=== PATIENT | female | born 1935 | race Caucasian/White ===

== ENCOUNTER → 2016-12-23 | Outpatient (CLI) | payer OTHER ==
--- NOTE | 2016-12-23 07:52 | DIAGNOSTIC IMAGING REPORT ---
ABDOMEN LIMITED (US) CLINICAL HISTORY: 81 years-old Female presenting with PAIN IN RIB, L FLANK PAIN. TECHNIQUE: Real-time grayscale and limited color Doppler ultrasound imaging of the abdomen limited to the right upper quadrant was performed. COMPARISON: None. FINDINGS: Pancreas: Visualized portions of the pancreatic head and body normal. Mild prominence of the pancreatic duct measuring 3 mm in diameter in the body. Liver: Mildly hyperechogenic parenchyma, although the right hemidiaphragm remains visible, likely indicating mild steatosis. Main portal vein patent with normal directional flow. Biliary: No intrahepatic biliary ductal dilatation. The most likely candidate for the common bile duct measures 3 mm in caliber. Gallbladder: Distended and containing large amount of gallstones. No significant gallbladder wall thickening. Right kidney: Normal in echogenicity. Mild pelviectasis. Ascites: None. IMPRESSION: 1. Cholelithiasis with apparent gallbladder distention. There is clinical concern for cholecystitis, nuclear medicine hepatobiliary scan could be obtained as ultrasound findings are equivocal. 2. Mild pancreatic ductal dilatation without clear etiology. Electronically signed by: Chapo Lucas M.D. 12/23/2016 7:50 AM Dictated Date/Time: 12/23/2016 7:45 AM
--- NOTE | 2016-12-23 08:54 | DIAGNOSTIC IMAGING REPORT ---
RIGHT RIBS UNILATERAL MIN 2 VIEWS HISTORY: 81 years-old Female acute right-sided rib pain. COMPARISON: None available TECHNIQUE: Frontal view of the chest with 4 views of the right ribs FINDINGS: Cardiac silhouette is upper limits of normal. There is atherosclerosis of the aorta. Surgical clips are seen along the right axillary region. No pneumothorax, pleural effusion, focal airspace consolidation or overt pulmonary edema. There is convex left curvature of the lumbar spine. Moderate right shoulder degenerative changes are present. There is mild cortical buckling of the lateral right ninth rib. IMPRESSION: 1. No acute cardiopulmonary process. 2. No acute displaced rib fracture identified. 3. Minimal cortical buckling of the lateral aspect of the lateral right ninth rib suggests acute nondisplaced fracture. The above report was generated using voice recognition software. It may contain grammatical, syntax or spelling errors. Electronically signed by: Stephane Levy M.D. 12/23/2016 8:53 AM Dictated Date/Time: 12/23/2016 8:47 AM
== END | disposition home or self-care (01) ==
LOC: C.ULTRBC 07:10
PROVIDERS: ATTEND Nurse Practitioner
DX: R07.81 Pleurodynia (principal); R10.9 Unspecified abdominal pain

== ENCOUNTER 2017-04-13 06:32 | Observation (INO) | payer OTHER ==
[2017-03-28 08:19] VITALS: BMI 27.0
--- NOTE | 2017-03-28 08:33 | PAT Medication Instructions ---
Service Date Mar 28, 2017. Current Home Medication List Anastrozole (Anastrozole), 1 TAB PO QAM Calcium/Vitamin D (Os-Jamal 500 Plus D), 1 TAB PO BID Cholecalciferol (Vitamin D), 1 TAB PO M,W,F, Fiber Laxative (Fiber Laxative), 1 TAB PO QAM Levothyroxine Sodium (Levothyroxine Sodium), 0.5 TAB PO QAM Multivitamin (Multivitamin), 1 TAB PO QAM Ocuvite Preservision (Ocuvite Preservision), 1 TAB PO BID Vitamin E (Vitamin E 400 Iu), 400 INTER.UNIT PO M,W,F Medication Instructions For Your Scheduled Surgery - Hold the following medications 2 weeks prior to surgery: Vitamin E (Vitamin E 400 Iu), 400 INTER.UNIT PO ,W,F - Hold the following medications the morning of surgery: Ocuvite Preservision (Ocuvite Preservision), 1 TAB PO BID Multivitamin (Multivitamin), 1 TAB PO QAM Fiber Laxative (Fiber Laxative), 1 TAB PO QAM Calcium/Vitamin D (Os-Jamal 500 Plus D), 1 TAB PO BID Cholecalciferol (Vitamin D), 1 TAB PO M,W,F, - Take the following medications the morning of surgery with a sip of water: Levothyroxine Sodium (Levothyroxine Sodium), 0.5 TAB PO QAM Anastrozole (Anastrozole), 1 TAB PO QAM - Take the following medications as scheduled the night before surgery: Ocuvite Preservision (Ocuvite Preservision), 1 TAB PO BID Calcium/Vitamin D (Os-Jamal 500 Plus D), 1 TAB PO BID If you have any questions please call us at [phone] or [phone] or [phone]
[2017-03-28 09:13] LABS: BASO % 0.3 %; BASO ABS # 0.01 K/uL (0-0.2); COMPLETE YES; EOS % 1.8 %; HEMATOCRIT 34.8 % (37-47); LYMPH % 37.5 %; LYMPH ABS # 1.25 K/uL (1.2-3.4); MEAN CORPUSCULAR HEMOGLOBIN 31.3 pg (25-34); MEAN CORPUSCULAR HGB CONC 35.9 g/dl (32-36); MONO % 8.1 %; NEUT % 52.3 %; PLATELET COUNT 189 K/uL (130-400); WHITE BLOOD COUNT 3.33 K/uL (4.8-10.8)
--- NOTE | 2017-03-28 09:25 | DIAGNOSTIC IMAGING REPORT ---
CHEST 2 VIEWS ROUTINE CLINICAL HISTORY: Preoperative chest COMPARISON STUDY: 12/23/2016 FINDINGS: The cardiac and mediastinal contours are normal. There is no evidence of focal pulmonary consolidation. There is no evidence of failure. No pleural effusions are visualized.[ There are surgical clips the right axillary region. IMPRESSION: No active disease in the chest. Electronically signed by: Arnoldo Vaughn M.D. 03/28/2017 9:24 AM Dictated Date/Time: 03/28/2017 9:22 AM
[2017-03-28 11:54] LABS: BUN/CREATININE RATIO 21.2 (10-20); CALCIUM 8.8 mg/dl (8.5-10.1); CREATININE 0.91 mg/dl (0.60-1.20); POTASSIUM 4.4 mmol/L (3.5-5.1)
[~2017-04-13] VITALS: Ht 160 cm; Wt 72.3 kg
[2017-04-13] VITALS (10 sets, daily range): BP systolic 133–153; BP diastolic 70–83; PULSE 75–133; TEMP 36.5–37; O2SAT 93–100; Ht 160 cm; Wt 72.3 kg
[~2017-04-13 06:32] MED LIST: ANAS1TAB6 PO; CALC500C70 PO; CHOL20009 PO; FIBER PO; LACTATED RINGER'S 1000ML 1,000 ML IV SCH; LEVO150T9 PO; MULT-190 PO; MULT-506 PO; VITA400C3 PO
--- NOTE | 2017-04-13 07:57 | History & Physical Bridge Note ---
H&P Re-Evaluation Bridge Note: I have examined the patient, reviewed the History & Physical and in the interval since the performance of the History & Physical I have noted the following changes of clinical significance: No changes noted at bedside , all questions answered
[2017-04-13] MEDS ORDERED: ATROPINE SULFATE 0.1 MG/ML 5ML SYR IV PRN (08:00)
[2017-04-13] MEDS ORDERED: ONDANSETRON INJ 2 MG/ML 2 ML VIAL IV PRN ×2 (08:00→10:15)
[2017-04-13] MEDS ORDERED: FENTANYL CITRATE INJ 50 MCG/1 ML 2 ML VIAL IV PRN (08:00)
[2017-04-13] MEDS ORDERED: EpHEDrine SULFATE INJ 50 MG/ML AMP IV PRN (08:00)
[2017-04-13] MEDS ORDERED: FENTANYL CITRATE INJ 50 MCG/1 ML 2 ML VIAL ONE ×3 (08:01→09:58)
[2017-04-13] MEDS ORDERED: CONRAY 60% 50 ML VIAL ONE (08:03)
[2017-04-13] MEDS ORDERED: LIDOCAINE/EPINEPHRINE 1% 20 ML VIAL ONE (08:03)
[2017-04-13] MEDS ORDERED: OXYC-57 PO (08:06)
--- NOTE | 2017-04-13 08:08 | Discharge Instructions ---
Discharge Instructions Date of Service Apr 13, 2017. Visit Reason for Visit: Cholelithiaisis Discharge Discharge Diagnosis / Problem: laparoscopic cholecystectomy Discharge Goals Goal(s): Decrease discomfort Activity Recommendations Activity Limitations: as noted below Lifting Limitations: no more than 10 pounds Shower/Bathe: tomorrow Driving or Machine Use: 1 week Anesthesia . Post Anesthesia Instructions: If you have had General Anesthesia or IV Sedation: * Do not drive today. * Resume driving when surgeon permits. * Do not make important decisions or sign legal documents today. * Call surgeon for: 1. Temperature elevations greater than 101 degrees F. 2. Uncontrollable pain. 3. Excessive bleeding. 4. Persistent nausea and vomiting. 5. Medication intolerance (nausea, vomiting or rash). * For nausea and vomiting use only clear liquids such as: tea, soda, bouillon until nausea subsides, then gradually increase diet as tolerated. * If you have any concerns or questions, call your surgeon's office. If physician is unavailable and it is an emergency, call 911 or go to the nearest emergency room. . Instructions / Follow-Up Instructions / Follow-Up Dr. Rangel in 1 week, call [phone] if you do not already have an appt or have any questions Diet Recommendations Recommended Home Diet: no limitations Pending Studies Studies pending at discharge: no Medical Emergencies . Who to Call and When: Medical Emergencies: If at any time you feel your situation is an emergency, please call 911 immediately. . Non-Emergent Contact Non-Emergency issues call your: Surgeon Call Non-Emergent contact if: you have a fever, temperature is above 101.5, your pain is not controlled, you have any medication questions . . "Provider Documentation" section prepared by Filippo Zuniga. . [place] Drug Monitoring Program Search Results: no issues identified
[2017-04-13] MEDS ORDERED: LIDOCAINE HCL 2% 2 ML VIAL (20MG/ML) ONE (08:41)
[2017-04-13] MEDS ORDERED: PROPOFOL IV EMULSION 10 MG/ML 20 ML VIAL IV ONE (08:41)
[2017-04-13] MEDS ORDERED: ONDANSETRON INJ 2 MG/ML 2 ML VIAL ONE (08:51)
[2017-04-13] MEDS ORDERED: DEXAMETHASONE SOD INJ 4 MG/ML VIAL ONE (08:51)
[2017-04-13] MEDS ORDERED: NEOSTIGMINE METHYLSULFATE 5 MG/5 ML SYR ONE (08:51)
[2017-04-13] MEDS ORDERED: PHENYLEPHRINE 100MCG/ML 5ML SYR ONE (08:51)
[2017-04-13] MEDS ORDERED: GLYCOPYRROLATE INJ 0.2 MG/ML VIAL ONE (08:51)
--- NOTE | 2017-04-13 09:40 | DIAGNOSTIC IMAGING REPORT ---
INTRAOPERATIVE CHOLANGIOGRAM HISTORY: Post cholecystectomy. FLUOROSCOPY TIME: 6 seconds. 3 fluoroscopic spot images. FINDINGS: Fluoroscopy was provided for an intraoperative cholangiogram status post cholecystectomy. Contrast was injected through the cystic duct remnant. Persistent filling defect seen within the proximal common bile duct. However, there is contrast within the distal common bile duct which extend into the small bowel. There is mild to moderate intrahepatic bile duct dilatation. Mild narrowing of the bifurcation of the extra hepatic ducts which could be transient. IMPRESSION: Fluoroscopy provided for an intraoperative cholangiogram status post cholecystectomy. Persistent filling defect within the proximal common bile duct which does not have a stone likely appearance and could be due to a gas bubble. In addition, there is mild narrowing at the bifurcation of the extrahepatic ducts with mild to moderate intrahepatic bile duct dilatation. However, this is not confirmed on all images and could be transient. MRCP could be performed for further evaluation of these abnormalities. Electronically signed by: Nilson Ayala M.D. 04/13/2017 9:39 AM Dictated Date/Time: 04/13/2017 9:30 AM
[2017-04-13] MEDS ORDERED: OXYCODONE/ACETAMINOPHEN 5-325 TAB PO PRN (10:15)
[2017-04-13] MEDS ORDERED: MoRPHine SULFATE 2 MG/ML CARP IV PRN ×2 (10:15)
[2017-04-13] MEDS ORDERED: MoRPHine SULFATE 4 MG/ML 1 ML CARP\\VIAL IV PRN (10:15)
--- NOTE | 2017-04-13 10:16 | [facility] Operative Report ---
Operative Report Operative Date Apr 13, 2017. Pre-Operative Diagnosis Symptomatic Cholelithiasis Post-Operative Diagnosis Same as preoperative Procedure(s) Performed Laparoscopic Cholecystectomy with Cholangiogram Surgeon Dr. Fernie Rangel [employer] Restorer Surgeon(s) Filippo Zuniga PA-C; German Minor PA-C Estimated Blood Loss 100ml Findings large gallbladder completely filled with bilirubinate stones(caviar) Specimens PERMANENT: A.) Gallbladder and contents CULTURE: 1.) Gallbladder contents Drains 19 Garret per stab Description of Procedure OR summary dictated #[id number] I attest to the content of the Intraoperative Record and any orders documented therein. Any exceptions are noted below.
[2017-04-13] MEDS ORDERED: CIPR1TAB10 PO (10:17)
[2017-04-13] MEDS ORDERED: HYDROmorphone INJ 1 MG/ML SYR ONE (10:20)
--- NOTE | 2017-04-13 10:20 | Discharge Instructions ---
Discharge Instructions Date of Service Apr 13, 2017. Admission Reason for Admission: Cholelithiaisis Discharge Discharge Diagnosis / Problem: laparoscopic cholecystectomy Discharge Goals Goal(s): Decrease discomfort Activity Recommendations Activity Limitations: as noted below Lifting Limitations: no more than 10 pounds Shower/Bathe: no limitations Driving or Machine Use: 1 week . Instructions / Follow-Up Instructions / Follow-Up Dr. Rangel's office next Mon or if you still have the drain, call [phone] to schedule, if drain has been removed follow-up in 1-2 weeks as planned Current Hospital Diet Patient's current hospital diet: Discharge Diet Recommended Diet: Regular Diet Procedures Procedures Performed: Laparoscopic Cholecystectomy with Cholangiogram Pending Studies Studies pending at discharge: no Medical Emergencies . Who to Call and When: Medical Emergencies: If at any time you feel your situation is an emergency, please call 911 immediately. . Non-Emergent Contact Non-Emergency issues call your: Surgeon Call Non-Emergent contact if: you have a fever, temperature is above 101.5, your pain is not controlled, you have any medication questions . "Provider Documentation" section prepared by Filippo Zuniga. . VTE Core Measure Inpt VTE Proph given/why not?: SCD's [place] Drug Monitoring Program Search Results: no issues identified
[2017-04-13] MEDS: HYDROmorphone INJ 1 MG/ML SYR IV PRN ×2 (10:54→12:01)
--- NOTE | 2017-04-13 10:55 | DIAGNOSTIC IMAGING REPORT ---
CHEST ONE VIEW PORTABLE CLINICAL HISTORY: C/O SOB dyspnea COMPARISON STUDY: 03/28/2017 FINDINGS: Diminished as per volumes compared to the prior study. Chronic elevation right hemidiaphragm. Lungs are considered clear. Mild stable cardiomegaly. IMPRESSION: Mild stable cardiomegaly. Otherwise negative study within limitations of poor inspiratory volumes The above report was generated using voice recognition software. It may contain grammatical, syntax or spelling errors. Electronically signed by: Thaddeus Harman M.D. 04/13/2017 10:53 AM Dictated Date/Time: 04/13/2017 10:52 AM
[2017-04-13] MEDS ORDERED: IV FLUIDS COMPLETED PRN ×2 (11:00→11:45)
--- NOTE | 2017-04-13 11:14 | Anesthesiology Progress Note ---
Anesthesia Post Op Note Date & Time Apr 13, 2017 at 11:12 Vital Signs Pain Intensity: 4 Vital Signs Past 12 Hours Date Time Temp Pulse Resp B/P (MAP) Pulse Ox O2 Delivery O2 Flow Rate FiO2 04/13/17 11:08 84 16 98 04/13/17 11:08 76 16 04/13/17 11:06 166/82 04/13/17 11:03 83 13 04/13/17 11:03 81 13 100 04/13/17 11:01 150/94 04/13/17 10:58 85 16 100 04/13/17 10:58 82 16 04/13/17 10:57 83 19 04/13/17 10:57 86 19 100 04/13/17 10:56 155/85 04/13/17 10:52 83 17 04/13/17 10:52 87 17 100 04/13/17 10:51 143/61 04/13/17 10:47 86 21 88 04/13/17 10:47 87 21 04/13/17 10:46 162/88 04/13/17 10:42 86 30 04/13/17 10:42 99 30 100 04/13/17 10:41 175/90 04/13/17 10:37 94 19 04/13/17 10:37 96 19 100 04/13/17 10:36 156/85 04/13/17 10:32 95 19 91 04/13/17 10:32 101 19 04/13/17 10:30 172/80 04/13/17 10:27 96 19 100 04/13/17 10:27 92 19 04/13/17 10:26 181/77 04/13/17 10:22 104 23 100 04/13/17 10:22 102 23 04/13/17 10:21 172/95 04/13/17 10:18 170/95 04/13/17 10:17 103 18 100 04/13/17 10:17 101 18 04/13/17 10:13 176/77 04/13/17 10:12 36.7 112 12 176/72 97 Oxymask 10 04/13/17 10:12 112 16 04/13/17 10:12 112 16 100 04/13/17 07:15 36.7 75 20 153/73 (99) 98 Room Air Notes Mental Status: alert / awake / arousable, participated in evaluation Pt Amnestic to Procedure: Yes Nausea / Vomiting: adequately controlled Pain: adequately controlled Airway Patency, RR, SpO2: stable & adequate BP & HR: stable & adequate Hydration State: stable & adequate Anesthetic Complications: no major complications apparent Anesthetic Complications: Multiple runs of sinus tach with rate in the 130s and frequent PVCs in PACU. Most recent event occurred despite adequate pain control. Patient hemodynamically stable throughout and asymptomatic during these events. Chest xray clear. Plan to change status to tele obs overnight due to these events in combination with the patients age. Otherwise stable to transfer from PACU.
[2017-04-13] MEDS ORDERED: METOPROLOL TARTRATE 1 MG/ML VIAL ONE (12:16)
--- NOTE | 2017-04-13 12:35 | OPERATIVE REPORT ---
DATE OF OPERATION: 04/13/2017 PREOPERATIVE DIAGNOSIS: Chronic cholecystitis, cholelithiasis. POSTOPERATIVE DIAGNOSIS: Same (large gallbladder completely filled with bilirubinate stones, multiple small (caviar)). PROCEDURE: Laparoscopic cholecystectomy, intraoperative cholangiogram. SURGEON: Dr. Rangel. TICKER MAINTAINER: Vargas Zuniga PA-C and German Altman PA-C. SUMMARY: The patient was brought into the operating room theater. The abdomen was prepped with Betadine solution and properly draped. We made a small incision supraumbilically sufficient enough to place a Veress needle followed by 5 mm trocar. Point of entry inspected and no injury identified. Under direct visualization, we placed a 5 mm epigastric port under direct visualization and two 3 mm subcostal ports. These were preemptive local analgesia. The gallbladder was identified. It was quite large, long. We placed it under traction. Adhesions to the gallbladder were taken down. The patient had a significant amount of adhesions duodenum to the gallbladder undersurface. These were mostly fine adhesions. Some of them were taken down by sharp or blunt dissection. On the lateral aspect of the gallbladder towards the wall the liver the capsule was very thinned out over the gallbladder from the liver, as we tied cut this out, there was some bleeding from the liver appreciated surface. We eventually put some Surgicel into that area. Then we continued our dissection down towards the neck of the gallbladder where as stated it was quite tense a long gallbladder. We were able to identify what appeared to be a very large artery coming anteriorly and a very large common bile duct that was strictly adherent to the gallbladder neck. We dissected out until we were able to identify it, well delineated the cystic duct. We clipped it proximally. A #4 urethral catheter was positioned in the cystic duct for cholangiogram. What we saw initially was common bile duct was dilated. There were no obvious filling defects. Then serial x-rays were taken which showed contrast into the duodenum , but no evidence of any obstruction, but the common bile duct was dilated. At this point we then removed the cholangiocath and secured the cystic duct with 2 clips. We then dissected out this large artery, it was probably was the right hepatic. We were able to identify 2 branches coming off into the gallbladder that we clipped separately. We tried to leave as much of the gallbladder as possible as far as the posterior surface on the liver, it was pretty much intrahepatic to some aspect, we left as much as possible. We did have some oozing from the gallbladder fossa. The gallbladder was then taken out through the epigastric port. We enlarged this, we placed it in an Endopouch, but due to the significant size and the complete filled with stones. We did have some stones spill out on the surface of the gallbladder as we were taking it out and some of it was on top of the liver. We were able then to clean and meticulously take out as much of the stone which was small bilirubinate stones. Once this had been performed, we checked the liver bed again, the bleeding was minimal, but we did place some Surgicel intrahepatically and then I elected to drain the area with 19 Garret drain, placed subhepatically and taken out lateral to his right flank. We attached that to the skin edges with 2-0 silk suture. After this had been completed, we placed a camera in the epigastric port to visualize the umbilical opening. There were no adhesions there appreciated. Individual trocars removed, last umbilical trocar. Wounds were closed with fascial stitch of 0 Vicryl for the epigastric area, the other ones were Monocryl. Steri-Strips applied. The procedure was tolerated well. Estimated blood loss approximately 100 mL. The patient was taken to recovery room in good condition. Discussed in detail the procedure with her in the postoperative area and we would keep the patient overnight. I attest to the content of the Intraoperative Record and any orders documented therein. Any exceptions are noted below. KRISTOPHER
[2017-04-13] MEDS ORDERED: NURSING VERBAL MED ORDER ONE (13:00)
[2017-04-13] MEDS ORDERED: LACTATED RINGER'S 1000ML 1,000 ML IV SCH (14:30)
[2017-04-13] MEDS: OXYCODONE/ACETAMINOPHEN 5-325 TAB PO PRN ×2 (15:48→20:24)
--- NOTE | 2017-04-13 16:00 | Cardiology Consultation ---
Cardiology Consultation Date of Consultation: Apr 13, 2017. Requesting Physician: Dr. Noonan Reason for Consultation: Tachycardia Pt evaluation today including: conversation w/ patient, conversation w/ family , physical exam, lab review, review of studies, review of inpatient medication list History of Present Illness This is a very pleasant 81-year-old woman who has a history of a heart murmur and an echocardiogram this summer which did not show anything significant according to her history. Other than that she has no cardiovascular history other than feeling an irregular heartbeat at times for which she had several Holter monitors with no diagnosis that she is aware of. She has never had a sustained high heart rate that she is aware of. She has not had chest discomfort. She underwent laparoscopic cholecystectomy is noted to have a tachycardia at about 130 bpm. His was paroxysmal and documented on telemetry as well as 12- lead electrocardiography. She was aware of the arrhythmia when she had it, was not terribly bothered by it and feels that she has not had it before. Past Medical/Surgical History (1) Cholelithiasis Social History Smoking Status: Smoker Current Status UNK History of Alcohol Use: No Review of Systems Constitutional: No fever, No weight loss, No weakness Respiratory: No cough, No wheezing, No shortness of breath, No dyspnea on exertion Cardiac: + palpitations, No chest pain, No orthopnea, No PND, No edema Abdomen: + see HPI, + pain, No nausea, No vomiting, No diarrhea, No GI bleeding Female : No problem reported Neurologic: No paralysis, No weakness, No numbness/tingling, No balance problems Heme: No abnormal bleeding/bruising, No clotting problems Endo: No fatigue Skin: No problem reported All Other Systems: Reviewed and Negative Allergies Coded Allergies: Latex1 -Allergic Contact Dermititis (Verified Allergy, Mild, RASH ITCHY, 03/28/17) Sulfamethoxazole w/Trimethoprim (Verified Allergy, Mild, HIVES, 03/28/17) Medications Current Inpatient Medications Medications (Trade) Dose Ordered Sig/Mitzy Route Start Time Stop Time Status Last Admin Dose Admin Lactated Ringer's 1,000 ml @ 15 mls/hr Q24H IV 04/13/17 06:00 04/14/17 05:59 04/13/17 07:24 15 MLS/HR Lactated Ringer's 1,000 ml @ 75 mls/hr [id number] IV 04/13/17 14:30 05/13/17 10:13 04/13/17 15:48 75 MLS/HR Ondansetron HCl (Zofran Inj) 4 mg Q4H PRN IV 04/13/17 10:15 05/13/17 10:14 Morphine Sulfate (MoRPHine SULFATE INJ) 1 mg Q1H PRN IV 04/13/17 10:15 04/27/17 10:14 Oxycodone/ Acetaminophen (Percocet 5-325mg Tab) 1 tab Q4H PRN PO 04/13/17 10:15 04/27/17 10:14 04/13/17 15:48 1 TAB Morphine Sulfate (MoRPHine SULFATE INJ) 2 mg Q1H PRN IV 04/13/17 10:15 04/27/17 10:14 Oxycodone/ Acetaminophen (Percocet 5-325mg Tab) 2 tab Q4H PRN PO 04/13/17 10:15 04/27/17 10:14 Morphine Sulfate (MoRPHine SULFATE INJ) 4 mg Q1H PRN IV 04/13/17 10:15 04/27/17 10:14 Anastrozole (Arimidex Tab) 1 mg QAM PO 04/14/17 09:00 05/14/17 08:59 Calcium/Vitamin D (Caltrate Plus Tab) 1 tab BID PO 04/13/17 21:00 05/13/17 20:59 Levothyroxine Sodium (Synthroid Tab) 75 mcg DAILYBB PO 04/14/17 06:00 05/14/17 06:59 Multivitamins (Multivitamin Tab) 1 tab QAM PO 04/14/17 09:00 05/14/17 08:59 Ciprofloxacin/ Dextrose 400 mg/ Prmx 200 ml @ 100 mls/hr Q12 IV 04/13/17 21:00 04/14/17 20:59 Miscellaneous (Iv Fluids Completed) 1 ea PRN PRN N/A 04/13/17 11:00 04/13/18 10:59 Miscellaneous (Iv Fluids Completed) 1 ea PRN PRN N/A 04/13/17 11:45 04/13/18 11:44 Multivitamins/ Minerals (Multivitamin W/ Minerals Tab) 1 tab DAILY PO 04/14/17 09:00 05/14/17 08:59 Physical Exam Vital Signs Past 12 Hours Date Time Temp Pulse Resp B/P (MAP) Pulse Ox O2 Delivery O2 Flow Rate FiO2 04/13/17 13:55 36.5 133 18 137/83 (101) 93 Nasal Cannula 2.0 04/13/17 13:37 98 19 04/13/17 13:37 99 19 100 04/13/17 13:32 93 17 98 04/13/17 13:32 89 17 04/13/17 13:31 126/60 04/13/17 13:27 84 5 04/13/17 13:27 82 5 98 04/13/17 13:22 92 27 99 04/13/17 13:22 95 27 04/13/17 13:17 36.9 04/13/17 13:17 98 14 04/13/17 13:17 94 14 98 04/13/17 13:16 142/71 04/13/17 13:15 91 16 04/13/17 13:15 88 16 98 04/13/17 13:10 96 16 04/13/17 13:10 94 16 99 04/13/17 13:05 94 22 04/13/17 13:05 92 22 97 04/13/17 13:04 138 30 04/13/17 13:04 136 30 98 04/13/17 13:01 121/71 04/13/17 12:59 138 13 99 04/13/17 12:59 138 13 04/13/17 12:54 92 9 98 04/13/17 12:54 92 9 04/13/17 12:49 88 24 99 04/13/17 12:49 91 24 04/13/17 12:48 92 16 04/13/17 12:48 95 16 97 04/13/17 12:46 127/73 04/13/17 12:43 89 15 04/13/17 12:43 89 15 99 04/13/17 12:41 143/67 04/13/17 12:38 91 13 04/13/17 12:38 92 13 99 04/13/17 12:37 95 17 100 04/13/17 12:37 98 17 04/13/17 12:36 144/67 04/13/17 12:32 93 15 04/13/17 12:32 92 15 100 04/13/17 12:31 140/78 04/13/17 12:27 93 16 100 04/13/17 12:27 95 16 04/13/17 12:26 146/73 04/13/17 12:22 96 17 04/13/17 12:22 99 17 98 04/13/17 12:21 120/56 04/13/17 12:17 99 25 04/13/17 12:17 105 25 100 04/13/17 12:16 118/82 04/13/17 12:12 141 13 99 04/13/17 12:12 138 13 04/13/17 12:11 131/66 04/13/17 12:07 88 14 100 04/13/17 12:07 90 14 04/13/17 12:06 139/75 04/13/17 12:02 91 18 100 04/13/17 12:02 95 18 04/13/17 12:01 149/74 04/13/17 11:57 81 15 100 04/13/17 11:57 82 15 04/13/17 11:56 136/78 04/13/17 11:52 87 12 04/13/17 11:52 89 12 99 04/13/17 11:51 124/71 04/13/17 11:47 87 16 04/13/17 11:47 85 16 99 04/13/17 11:42 94 15 04/13/17 11:42 94 15 99 04/13/17 11:41 145/86 04/13/17 11:37 89 21 04/13/17 11:37 93 21 100 04/13/17 11:36 154/80 04/13/17 11:32 86 20 99 04/13/17 11:32 88 20 04/13/17 11:31 155/87 04/13/17 11:30 93 18 04/13/17 11:30 100 18 99 04/13/17 11:28 159/91 04/13/17 11:26 145/126 04/13/17 11:25 87 27 100 04/13/17 11:25 90 27 04/13/17 11:21 132/73 04/13/17 11:20 87 20 100 04/13/17 11:20 92 20 04/13/17 11:19 90 23 04/13/17 11:19 91 23 100 04/13/17 11:16 146/71 04/13/17 11:15 36.3 04/13/17 11:14 90 20 04/13/17 11:14 91 20 100 04/13/17 11:11 149/70 04/13/17 11:09 79 16 04/13/17 11:09 77 16 100 04/13/17 11:08 84 16 98 04/13/17 11:08 76 16 04/13/17 11:06 166/82 04/13/17 11:03 83 13 04/13/17 11:03 81 13 100 04/13/17 11:01 150/94 04/13/17 10:58 85 16 100 04/13/17 10:58 82 16 04/13/17 10:57 83 19 04/13/17 10:57 86 19 100 04/13/17 10:56 155/85 04/13/17 10:52 83 17 04/13/17 10:52 87 17 100 04/13/17 10:51 143/61 04/13/17 10:47 86 21 88 04/13/17 10:47 87 21 04/13/17 10:46 162/88 04/13/17 10:42 86 30 04/13/17 10:42 99 30 100 04/13/17 10:41 175/90 04/13/17 10:37 94 19 04/13/17 10:37 96 19 100 04/13/17 10:36 156/85 04/13/17 10:32 95 19 91 04/13/17 10:32 101 19 04/13/17 10:30 172/80 04/13/17 10:27 96 19 100 04/13/17 10:27 92 19 04/13/17 10:26 181/77 04/13/17 10:22 104 23 100 04/13/17 10:22 102 23 04/13/17 10:21 172/95 04/13/17 10:18 170/95 04/13/17 10:17 103 18 100 04/13/17 10:17 101 18 04/13/17 10:13 176/77 04/13/17 10:12 36.7 112 12 176/72 97 Oxymask 10 04/13/17 10:12 112 16 04/13/17 10:12 112 16 100 04/13/17 07:15 36.7 75 20 153/73 (99) 98 Room Air Constitutional: General Apperance: heathly-appearing Level of Distress: NAD Psychiatric: Mental Status: active & alert Head: normocephalic Eyes: EOM: EOMI ENMT: normal ENT inspection, hearing grossly normal Neck: supple, no masses Lungs: Respiratory effort: no dyspnea, good air movement Auscultation: breath sounds normal, no wheezing Cardiovascular: Heart Auscultation: RRR, II/ KIRA Peripheral Pulses: Bruits: none appreciated Abdomen: Bowel Sounds: normal Inspection & Palpation: soft, no tenderness, guarding & rebound, no masses Musculoskeletal: normal strength (5/5 throughout) Extremities: no edema Neurologic: Cranial Nerves: grossly intact Sensation: grossly intact Data EKG: An electrocardiogram done during her tachycardia shows a supraventricular tachycardia with atrial activity immediately after the QRS suggesting typical AV agapito reentry. The heart rate is 130 bpm. Telemetry reviewed: Several episodes of SVT, otherwise sinus rhythm. Assessment & Plan #1. 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 As such I am not sure we need to treat it, if it becomes an issue we can try medical therapy or even consider ablation but I would not do that now. I would recommend watching her overnight, if she does not have further difficulty with it she should be able to go home. #2. Heart murmur: She probably has aortic sclerosis or mild aortic stenosis by exam, evidently she had a recent echocardiogram. I would not pursue this further as an inpatient. Thank you for allowing me to participate in her care.
--- NOTE | 2017-04-13 17:38 | Medical Consult ---
Consultation Date of Consultation: Apr 13, 2017. Attending Physician: Fernie Rangel M.D. Reason for Consultation: Medical management History of Present Illness This is an 81 yo F with PMHx of Breast cancer, arthritis, HLD, and hx of choledocholithiasis without biliary obstruction who presented for elective laparoscopic cholecystectomy by Dr. Rangel. Gallstone were previously seen on abdominal ultrasound on 12/23/16 and had intermitted pain/pressure since that time. The patient notes that her pain is currently well controlled. She was able to tolerate lunch and dinner without any difficulty. She reports no nausea or vomiting, and has not passed gas. She took 2 oxycodone earlier this afternoon. Upon exam, the dressing covering site of laparoscopic cholecystectomy is saturated with blood, SHANICE drain appears to be in place and is slightly less than half full. She denies any abdominal pain with palpation. Past Medical/Surgical History Medical Hx Breast Cancer arthritis Choledocolithiasis HLD seborrhic keratosis Surgical Hx Hernia repair Lumpectomy Tonsils and adenoids removed s/p cholecystectomy 04/13/17 Social History Smoking Status: Never Smoker Smokeless Tobacco Use: No Alcohol Use: none Drug Use: none Marital Status: Housing Status: lives with family Allergies Coded Allergies: Latex1 -Allergic Contact Dermititis (Verified Allergy, Mild, RASH ITCHY, 03/28/17) Sulfamethoxazole w/Trimethoprim (Verified Allergy, Mild, HIVES, 03/28/17) Current Inpatient Medications Current Inpatient Medications Medications (Trade) Dose Ordered Sig/Mitzy Route Start Time Stop Time Status Last Admin Dose Admin Lactated Ringer's 1,000 ml @ 15 mls/hr Q24H IV 04/13/17 06:00 04/14/17 05:59 04/13/17 07:24 15 MLS/HR Lactated Ringer's 1,000 ml @ 75 mls/hr [id number] IV 04/13/17 14:30 05/13/17 10:13 04/13/17 15:48 75 MLS/HR Ondansetron HCl (Zofran Inj) 4 mg Q4H PRN IV 04/13/17 10:15 05/13/17 10:14 Morphine Sulfate (MoRPHine SULFATE INJ) 1 mg Q1H PRN IV 04/13/17 10:15 04/27/17 10:14 Oxycodone/ Acetaminophen (Percocet 5-325mg Tab) 1 tab Q4H PRN PO 04/13/17 10:15 04/27/17 10:14 04/13/17 15:48 1 TAB Morphine Sulfate (MoRPHine SULFATE INJ) 2 mg Q1H PRN IV 04/13/17 10:15 04/27/17 10:14 Oxycodone/ Acetaminophen (Percocet 5-325mg Tab) 2 tab Q4H PRN PO 04/13/17 10:15 04/27/17 10:14 Morphine Sulfate (MoRPHine SULFATE INJ) 4 mg Q1H PRN IV 04/13/17 10:15 04/27/17 10:14 Anastrozole (Arimidex Tab) 1 mg QAM PO 04/14/17 09:00 05/14/17 08:59 Calcium/Vitamin D (Caltrate Plus Tab) 1 tab BID PO 04/13/17 21:00 05/13/17 20:59 Levothyroxine Sodium (Synthroid Tab) 75 mcg DAILYBB PO 04/14/17 06:00 05/14/17 06:59 Multivitamins (Multivitamin Tab) 1 tab QAM PO 04/14/17 09:00 05/14/17 08:59 Ciprofloxacin/ Dextrose 400 mg/ Prmx 200 ml @ 100 mls/hr Q12 IV 04/13/17 21:00 04/14/17 20:59 Miscellaneous (Iv Fluids Completed) 1 ea PRN PRN N/A 04/13/17 11:00 04/13/18 10:59 Miscellaneous (Iv Fluids Completed) 1 ea PRN PRN N/A 04/13/17 11:45 04/13/18 11:44 Multivitamins/ Minerals (Multivitamin W/ Minerals Tab) 1 tab DAILY PO 04/14/17 09:00 05/14/17 08:59 Review of Systems Constitutional: No fever, sweats or chills Eyes: No diplopia, no worsening or blurred vision ENT: normal hearing, no trouble swallowing Respiratory: No cough, sputum, dyspnea at rest or on exertion Cardiovascular: No chest pain, tightness or palpitations Abdomen: Minimal pain status post laparoscopic cholecystectomy, no nausea, vomiting, diarrhea or constipation Musculoskeletal: No joint pain, calf pain, swelling Neurologic: No weakness, numbness/tingling, or balance problems Psychiatric: No anxiety or depression Skin: No rash or itch Physical Exam Date Time Temp Pulse Resp B/P (MAP) Pulse Ox O2 Delivery O2 Flow Rate FiO2 04/13/17 15:58 36.5 91 22 143/75 (97) 100 Nasal Cannula 2.0 04/13/17 13:55 36.5 133 18 137/83 (101) 93 Nasal Cannula 2.0 04/13/17 13:37 98 19 04/13/17 13:37 99 19 100 04/13/17 13:32 93 17 98 04/13/17 13:32 89 17 04/13/17 13:31 126/60 04/13/17 13:27 84 5 04/13/17 13:27 82 5 98 04/13/17 13:22 92 27 99 04/13/17 13:22 95 27 04/13/17 13:17 36.9 04/13/17 13:17 98 14 04/13/17 13:17 94 14 98 04/13/17 13:16 142/71 04/13/17 13:15 91 16 04/13/17 13:15 88 16 98 04/13/17 13:10 96 16 04/13/17 13:10 94 16 99 04/13/17 13:05 94 22 04/13/17 13:05 92 22 97 04/13/17 13:04 138 30 04/13/17 13:04 136 30 98 04/13/17 13:01 121/71 04/13/17 12:59 138 13 99 04/13/17 12:59 138 13 04/13/17 12:54 92 9 98 04/13/17 12:54 92 9 04/13/17 12:49 88 24 99 04/13/17 12:49 91 24 04/13/17 12:48 92 16 04/13/17 12:48 95 16 97 04/13/17 12:46 127/73 04/13/17 12:43 89 15 04/13/17 12:43 89 15 99 04/13/17 12:41 143/67 04/13/17 12:38 91 13 04/13/17 12:38 92 13 99 04/13/17 12:37 95 17 100 04/13/17 12:37 98 17 04/13/17 12:36 144/67 04/13/17 12:32 93 15 04/13/17 12:32 92 15 100 04/13/17 12:31 140/78 04/13/17 12:27 93 16 100 04/13/17 12:27 95 16 04/13/17 12:26 146/73 04/13/17 12:22 96 17 04/13/17 12:22 99 17 98 04/13/17 12:21 120/56 04/13/17 12:17 99 25 04/13/17 12:17 105 25 100 04/13/17 12:16 118/82 04/13/17 12:12 141 13 99 04/13/17 12:12 138 13 04/13/17 12:11 131/66 04/13/17 12:07 88 14 100 04/13/17 12:07 90 14 04/13/17 12:06 139/75 04/13/17 12:02 91 18 100 04/13/17 12:02 95 18 04/13/17 12:01 149/74 04/13/17 11:57 81 15 100 04/13/17 11:57 82 15 04/13/17 11:56 136/78 04/13/17 11:52 87 12 04/13/17 11:52 89 12 99 04/13/17 11:51 124/71 04/13/17 11:47 87 16 04/13/17 11:47 85 16 99 04/13/17 11:42 94 15 04/13/17 11:42 94 15 99 04/13/17 11:41 145/86 04/13/17 11:37 89 21 04/13/17 11:37 93 21 100 04/13/17 11:36 154/80 04/13/17 11:32 86 20 99 04/13/17 11:32 88 20 04/13/17 11:31 155/87 04/13/17 11:30 93 18 04/13/17 11:30 100 18 99 04/13/17 11:28 159/91 04/13/17 11:26 145/126 04/13/17 11:25 87 27 100 04/13/17 11:25 90 27 04/13/17 11:21 132/73 04/13/17 11:20 87 20 100 04/13/17 11:20 92 20 04/13/17 11:19 90 23 04/13/17 11:19 91 23 100 04/13/17 11:16 146/71 04/13/17 11:15 36.3 04/13/17 11:14 90 20 04/13/17 11:14 91 20 100 04/13/17 11:11 149/70 04/13/17 11:09 79 16 04/13/17 11:09 77 16 100 04/13/17 11:08 84 16 98 04/13/17 11:08 76 16 04/13/17 11:06 166/82 04/13/17 11:03 83 13 04/13/17 11:03 81 13 100 04/13/17 11:01 150/94 04/13/17 10:58 85 16 100 04/13/17 10:58 82 16 04/13/17 10:57 83 19 04/13/17 10:57 86 19 100 04/13/17 10:56 155/85 04/13/17 10:52 83 17 04/13/17 10:52 87 17 100 04/13/17 10:51 143/61 04/13/17 10:47 86 21 88 04/13/17 10:47 87 21 04/13/17 10:46 162/88 04/13/17 10:42 86 30 04/13/17 10:42 99 30 100 04/13/17 10:41 175/90 04/13/17 10:37 94 19 04/13/17 10:37 96 19 100 04/13/17 10:36 156/85 04/13/17 10:32 95 19 91 04/13/17 10:32 101 19 04/13/17 10:30 172/80 04/13/17 10:27 96 19 100 04/13/17 10:27 92 19 04/13/17 10:26 181/77 04/13/17 10:22 104 23 100 04/13/17 10:22 102 23 04/13/17 10:21 172/95 04/13/17 10:18 170/95 04/13/17 10:17 103 18 100 04/13/17 10:17 101 18 04/13/17 10:13 176/77 04/13/17 10:12 36.7 112 12 176/72 97 Oxymask 10 04/13/17 10:12 112 16 04/13/17 10:12 112 16 100 04/13/17 07:15 36.7 75 20 153/73 (99) 98 Room Air General: awake, alert, no apparent distress Head: Normocephalic, atraumatic ENT: PERRL, EOMI, no pharyngeal exudate, mucous membranes moist Chest: Clear to auscultation, on room air, no adventitious breath sounds Cardiac: Regular rate and rhythm, no murmur, no JVD, normal peripheral pulses, good capillary refill Abdominal: Rate upper quadrant laparoscopic cholecystectomy incision , dressing is saturated with blood, SHANICE drain in place and is at slightly less than half full of bloody outs. NABS x 4 quadrants, soft, nontender to palpation in LUQ, LLQ or RLL, no rebound, guarding or tenderness Extremities: Normal inspection, no peripheral edema or erythema, calfs nontender to palpation Psych: Normal mood and affect Neuro: AAO x 3, strength intact bilaterally and related 5/5, no motor deficits, speech is clear, no peripheral sensory deficits Assessment & Plan This is an 81 yo F with PMHx of Breast cancer, arthritis, HLD, and hx of choledocholithiasis without biliary obstruction who presented for elective laparoscopic cholecystectomy by Dr. Rangel. Gallstone were previously seen on abdominal ultrasound on 12/23/16 and had intermitted pain/pressure since that time. s/p lap cholecystectomy - Completed by Dr. Rangel on 04/13/17 - Pain management, bowel regimen per primary team - Nursing notified of saturated dressing, SHANICE drain appears in place and intact with bloody outs, recommend hourly checks at this time to make sure no further bleeding and that SHANICE drain remains in place. 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 - No need for inpatient tx per cardiology Hx of Breast cancer s/p lumpectomy - Noted, in remission DVT ppx: Teds, SCDs CODE STATUS: Full code Disposition: From home, lives with Thank you for involving us in the consult regarding Mrs. Hurley, please do not hesitate to call with questions or concerns. Supervising Note by Dr. Max I agree with above note. My exam did not differ from the APC's described in this note. I discussed plan of care with APC and patient in detail and answered all of the patient's questions.
[2017-04-13] MEDS: CALCIUM 600MG + VIT D 400 IU TAB PO SCH (20:18)
[2017-04-13] MEDS: CIPROFLOXACIN / D5W 400 MG in PREMIXED IN D5W 200 ML IV SCH (20:18)
[2017-04-13] MEDS ORDERED: INFLUENZA VACCINE HIGH DOSE 65+ 0.5 ML SYR IM. ONE (20:30)
[2017-04-13] MEDS ORDERED: INFLUENZA ADMINISTRATION CHARGE ONE (20:30)
[2017-04-13] MEDS ORDERED: CEROVITE ADV FORMULA TAB PO SCH (21:00)
[2017-04-14] MEDS: OXYCODONE/ACETAMINOPHEN 5-325 TAB PO PRN ×2 (02:11→21:00)
[2017-04-14 04:00] VITALS: BP 134/70; PULSE 75; TEMP 36.9; O2SAT 99
[2017-04-14] MEDS: LEVOTHYROXINE 75 MCG TAB PO SCH (05:05)
[2017-04-14 06:13] LABS: BASO % 0.1 %; BASO ABS # 0.01 K/uL (0-0.2); COMPLETE YES; HEMATOCRIT 33.9 % (37-47); IG% 0.3 %; LYMPH % 15.3 %; LYMPH ABS # 1.12 K/uL (1.2-3.4); MEAN CELL VOLUME 83.3 fL (80-100); MEAN CORPUSCULAR HGB CONC 32.4 g/dl (32-36); MEAN PLATELET VOLUME 10.6 fL (7.4-10.4); MONO % 8.1 %; NEUT % 76.2 %; PLATELET COUNT 159 K/uL (130-400); RED BLOOD COUNT 4.07 M/uL (4.2-5.4)
[2017-04-14 06:52] LABS: BUN/CREATININE RATIO 24.2 (10-20); CALCIUM 8.7 mg/dl (8.5-10.1); CREATININE 0.74 mg/dl (0.60-1.20)
[2017-04-14 07:57] VITALS: BP 146/71; PULSE 84; TEMP 36.9; O2SAT 98
--- NOTE | 2017-04-14 07:58 | Surgery Progress Note ---
Surgery Progress Note Date of Service Apr 14, 2017. Subjective Post OP Day: 1 + feeling well, + pain controlled, No complaints, No nausea, No vomiting Sitting up in bed- eating breakfast- no new concerns overnight. Objective Vital Signs: Date Time Temp Pulse Resp B/P (MAP) Pulse Ox O2 Delivery O2 Flow Rate FiO2 04/14/17 04:00 36.9 75 16 134/70 (91) 99 Nasal Cannula 1.0 Humidified Oxygen 04/14/17 04:00 Nasal Cannula 1.0 04/14/17 00:00 Nasal Cannula 1.0 04/13/17 23:40 37.0 76 14 133/70 (91) 98 Nasal Cannula 1.0 04/13/17 20:00 97 Nasal Cannula 1.0 04/13/17 19:40 36.7 84 18 146/70 (95) 99 Nasal Cannula 2.0 04/13/17 17:54 80 10 100 Nasal Cannula 2.0 04/13/17 16:54 81 14 99 Nasal Cannula 04/13/17 15:58 36.5 91 22 143/75 (97) 100 Nasal Cannula 2.0 04/13/17 15:54 87 22 100 Nasal Cannula 2.0 04/13/17 15:45 36.5 133 18 137/83 100 T-piece 2.0 04/13/17 13:55 36.5 133 18 137/83 (101) 93 Nasal Cannula 2.0 04/13/17 13:37 98 19 04/13/17 13:37 99 19 100 04/13/17 13:32 93 17 98 04/13/17 13:32 89 17 04/13/17 13:31 126/60 04/13/17 13:27 84 5 04/13/17 13:27 82 5 98 04/13/17 13:22 92 27 99 04/13/17 13:22 95 27 04/13/17 13:17 36.9 04/13/17 13:17 98 14 04/13/17 13:17 94 14 98 04/13/17 13:16 142/71 04/13/17 13:15 91 16 04/13/17 13:15 88 16 98 04/13/17 13:10 96 16 04/13/17 13:10 94 16 99 04/13/17 13:05 94 22 04/13/17 13:05 92 22 97 04/13/17 13:04 138 30 04/13/17 13:04 136 30 98 04/13/17 13:01 121/71 04/13/17 12:59 138 13 99 04/13/17 12:59 138 13 04/13/17 12:54 92 9 98 04/13/17 12:54 92 9 04/13/17 12:49 88 24 99 04/13/17 12:49 91 24 04/13/17 12:48 92 16 04/13/17 12:48 95 16 97 04/13/17 12:46 127/73 04/13/17 12:43 89 15 04/13/17 12:43 89 15 99 04/13/17 12:41 143/67 04/13/17 12:38 91 13 04/13/17 12:38 92 13 99 04/13/17 12:37 95 17 100 04/13/17 12:37 98 17 04/13/17 12:36 144/67 04/13/17 12:32 93 15 04/13/17 12:32 92 15 100 04/13/17 12:31 140/78 04/13/17 12:27 93 16 100 04/13/17 12:27 95 16 04/13/17 12:26 146/73 04/13/17 12:22 96 17 04/13/17 12:22 99 17 98 04/13/17 12:21 120/56 04/13/17 12:17 99 25 04/13/17 12:17 105 25 100 04/13/17 12:16 118/82 04/13/17 12:12 141 13 99 04/13/17 12:12 138 13 04/13/17 12:11 131/66 04/13/17 12:07 88 14 100 04/13/17 12:07 90 14 04/13/17 12:06 139/75 04/13/17 12:02 91 18 100 04/13/17 12:02 95 18 04/13/17 12:01 149/74 04/13/17 11:57 81 15 100 04/13/17 11:57 82 15 04/13/17 11:56 136/78 04/13/17 11:52 87 12 04/13/17 11:52 89 12 99 04/13/17 11:51 124/71 04/13/17 11:47 87 16 04/13/17 11:47 85 16 99 04/13/17 11:42 94 15 04/13/17 11:42 94 15 99 04/13/17 11:41 145/86 04/13/17 11:37 89 21 04/13/17 11:37 93 21 100 04/13/17 11:36 154/80 04/13/17 11:32 86 20 99 04/13/17 11:32 88 20 04/13/17 11:31 155/87 04/13/17 11:30 93 18 04/13/17 11:30 100 18 99 04/13/17 11:28 159/91 04/13/17 11:26 145/126 04/13/17 11:25 87 27 100 04/13/17 11:25 90 27 04/13/17 11:21 132/73 04/13/17 11:20 87 20 100 04/13/17 11:20 92 20 04/13/17 11:19 90 23 04/13/17 11:19 91 23 100 04/13/17 11:16 146/71 04/13/17 11:15 36.3 04/13/17 11:14 90 20 04/13/17 11:14 91 20 100 04/13/17 11:11 149/70 04/13/17 11:09 79 16 04/13/17 11:09 77 16 100 04/13/17 11:08 84 16 98 04/13/17 11:08 76 16 04/13/17 11:06 166/82 04/13/17 11:03 83 13 04/13/17 11:03 81 13 100 04/13/17 11:01 150/94 04/13/17 10:58 85 16 100 04/13/17 10:58 82 16 04/13/17 10:57 83 19 04/13/17 10:57 86 19 100 04/13/17 10:56 155/85 04/13/17 10:52 83 17 04/13/17 10:52 87 17 100 04/13/17 10:51 143/61 04/13/17 10:47 86 21 88 04/13/17 10:47 87 21 04/13/17 10:46 162/88 04/13/17 10:42 86 30 04/13/17 10:42 99 30 100 04/13/17 10:41 175/90 04/13/17 10:37 94 19 04/13/17 10:37 96 19 100 04/13/17 10:36 156/85 04/13/17 10:32 95 19 91 04/13/17 10:32 101 19 04/13/17 10:30 172/80 04/13/17 10:27 96 19 100 04/13/17 10:27 92 19 04/13/17 10:26 181/77 04/13/17 10:22 104 23 100 04/13/17 10:22 102 23 04/13/17 10:21 172/95 04/13/17 10:18 170/95 04/13/17 10:17 103 18 100 04/13/17 10:17 101 18 04/13/17 10:13 176/77 04/13/17 10:12 36.7 112 12 176/72 97 Oxymask 10 04/13/17 10:12 112 16 04/13/17 10:12 112 16 100 Physical Exam: SHANICE drainage (35cc overnight, 40cc so far this AM- bilious drainage. ) General Appearance: WD/WN, no apparent distress Head: normocephalic, atraumatic Abdomen: non distended (trocar sites - dry and intact. ), soft Incision(s): clean, dry, intact, no drainage Laboratory Results: Results Past 24 Hours Test 04/14/17 05:54 Range/Units White Blood Count 7.30 4.8-10.8 K/uL Red Blood Count 4.07 4.2-5.4 M/uL Hemoglobin 11.0 12.0-16.0 g/dL Hematocrit 33.9 37-47 % Mean Corpuscular Volume 83.3 80-100 fL Mean Corpuscular Hemoglobin 27.0 25-34 pg Mean Corpuscular Hemoglobin Concent 32.4 32-36 g/dl Platelet Count 159 130-400 K/uL Mean Platelet Volume 10.6 7.4-10.4 fL Neutrophils (%) (Auto) 76.2 % Lymphocytes (%) (Auto) 15.3 % Monocytes (%) (Auto) 8.1 % Eosinophils (%) (Auto) 0.0 % Basophils (%) (Auto) 0.1 % Neutrophils # (Auto) 5.56 1.4-6.5 K/uL Lymphocytes # (Auto) 1.12 1.2-3.4 K/uL Monocytes # (Auto) 0.59 0.11-0.59 K/uL Eosinophils # (Auto) 0.00 0-0.5 K/uL Basophils # (Auto) 0.01 0-0.2 K/uL RDW Standard Deviation 47.3 36.4-46.3 fL RDW Coefficient of Variation 15.5 11.5-14.5 % Immature Granulocyte % (Auto) 0.3 % Immature Granulocyte # (Auto) 0.02 0.00-0.02 K/uL Sodium Level 137 136-145 mmol/L Potassium Level 4.0 3.5-5.1 mmol/L Chloride Level 103 98-107 mmol/L Carbon Dioxide Level 29 21-32 mmol/L Anion Gap 5.0 3-11 mmol/L Blood Urea Nitrogen 18 7-18 mg/dl Creatinine 0.74 0.60-1.20 mg/dl Est Creatinine Clear Calc Drug Dose 57.8 ml/min Estimated GFR () 88.7 Estimated GFR (Non- 76.5 BUN/Creatinine Ratio 24.2 10-20 Random Glucose 114 70-99 mg/dl Calcium Level 8.7 8.5-10.1 mg/dl Total Bilirubin 1.3 0.2-1 mg/dl Direct Bilirubin 0.2 0-0.2 mg/dl Aspartate Amino Transf (AST/SGOT) 71 15-37 U/L Alanine Aminotransferase (ALT/SGPT) 57 12-78 U/L Alkaline Phosphatase 64 45-117 U/L Total Protein 6.0 6.4-8.2 gm/dl Albumin 3.0 3.4-5.0 gm/dl Assessment & Plan 81-year-old female POD #1 s/p Laparoscopic Cholecystectomy Patient seen and examined with Dr. Rangel. Cardiology and medicine service consulted for post-op tachycardia- no further intervention required. EKG: An electrocardiogram done during her tachycardia shows a supraventricular tachycardia with atrial activity immediately after the QRS suggesting typical AV agapito reentry. The heart rate is 130 bpm. Telemetry reviewed: Several episodes of SVT, otherwise sinus rhythm. Patient tolerating regular diet. Pain controlled. Remains afebrile. Ok to transfer to MedSurg floor. Drain will remain at discharge- patient given verbal and written instructions to call Gen Surg office for drain removal early next week. Patient ok for discharge today- will re-evaluate patient after lunch for possible discharge today.
[2017-04-14] MEDS: CIPROFLOXACIN / D5W 400 MG in PREMIXED IN D5W 200 ML IV SCH (09:22)
[2017-04-14] MEDS: ANASTROZOLE 1 MG TAB PO SCH (09:26)
[2017-04-14] MEDS: CEROVITE ADV FORMULA TAB PO SCH (09:26)
[2017-04-14] MEDS: CALCIUM 600MG + VIT D 400 IU TAB PO SCH ×3 (09:26→21:58)
[2017-04-14] MEDS: MULTIVITAMIN TAB PO SCH (09:26)
[2017-04-14 10:28] VITALS: BP 146/71; PULSE 84; TEMP 36.9; O2SAT 98
[2017-04-14] MEDS ORDERED: ACETAMINOPHEN 1000 MG/100 ML IV IV SCH (10:30)
[2017-04-14 10:44] VITALS: BP 135/76; PULSE 76; TEMP 37.2; O2SAT 94
[2017-04-14 11:13] LABS: MAGNESIUM 2.1 mg/dl (1.8-2.4); THYROID STIMULATING HORMONE 0.726 uIu/ml (0.300-4.500)
--- NOTE | 2017-04-14 12:18 | Hospitalist Progress Note ---
Hospitalist Progress Note Date of Service Apr 14, 2017. (Bryanna Aguilar CRNP) Subjective Pt evaluation today including: conversation w/ patient, physical exam, chart review, lab review, review of studies, review of inpatient medication list Voiding: no voiding problems Ms. Hurley feels better today than yesterday, her pain is well controlled. She has not had a bowel movement since surgery and is not passing gas. She was able to eat breakfast, no nausea. She has not felt any palpitations or chest pain though she did have a brief run of A.fib/flutter RVR on tele at 0113. ROS Constitutional: no chills, aches, sweats or fever Respiratory: no sob,cough, sputum, or wheezing Cardiac: see HPI GI: see HPI : no dysuria or hesitancy Extremities: no joint pain or weakness Skin: no rash (Bryanna Aguilar .DAMIR) Objective Vital Signs Date Time Temp Pulse Resp B/P (MAP) Pulse Ox O2 Delivery O2 Flow Rate FiO2 04/14/17 10:44 37.2 76 17 135/76 (95) 94 Room Air 04/14/17 10:30 Room Air 04/14/17 10:28 36.9 84 18 98 04/14/17 08:00 Room Air 04/14/17 07:57 36.9 84 18 146/71 (96) 98 04/14/17 04:00 36.9 75 16 134/70 (91) 99 Nasal Cannula 1.0 Humidified Oxygen 04/14/17 04:00 Nasal Cannula 1.0 04/14/17 00:00 Nasal Cannula 1.0 04/13/17 23:40 37.0 76 14 133/70 (91) 98 Nasal Cannula 1.0 04/13/17 20:00 97 Nasal Cannula 1.0 04/13/17 19:40 36.7 84 18 146/70 (95) 99 Nasal Cannula 2.0 04/13/17 17:54 80 10 100 Nasal Cannula 2.0 04/13/17 16:54 81 14 99 Nasal Cannula 04/13/17 15:58 36.5 91 22 143/75 (97) 100 Nasal Cannula 2.0 04/13/17 15:54 87 22 100 Nasal Cannula 2.0 04/13/17 15:45 36.5 133 18 137/83 100 T-piece 2.0 04/13/17 13:55 36.5 133 18 137/83 (101) 93 Nasal Cannula 2.0 04/13/17 13:37 98 19 04/13/17 13:37 99 19 100 04/13/17 13:32 93 17 98 04/13/17 13:32 89 17 04/13/17 13:31 126/60 04/13/17 13:27 84 5 04/13/17 13:27 82 5 98 04/13/17 13:22 92 27 99 04/13/17 13:22 95 27 04/13/17 13:17 36.9 04/13/17 13:17 98 14 04/13/17 13:17 94 14 98 04/13/17 13:16 142/71 04/13/17 13:15 91 16 04/13/17 13:15 88 16 98 04/13/17 13:10 96 16 04/13/17 13:10 94 16 99 04/13/17 13:05 94 22 04/13/17 13:05 92 22 97 04/13/17 13:04 138 30 04/13/17 13:04 136 30 98 04/13/17 13:01 121/71 04/13/17 12:59 138 13 99 04/13/17 12:59 138 13 04/13/17 12:54 92 9 98 04/13/17 12:54 92 9 04/13/17 12:49 88 24 99 04/13/17 12:49 91 24 04/13/17 12:48 92 16 04/13/17 12:48 95 16 97 04/13/17 12:46 127/73 04/13/17 12:43 89 15 04/13/17 12:43 89 15 99 04/13/17 12:41 143/67 04/13/17 12:38 91 13 04/13/17 12:38 92 13 99 04/13/17 12:37 95 17 100 04/13/17 12:37 98 17 04/13/17 12:36 144/67 04/13/17 12:32 93 15 04/13/17 12:32 92 15 100 04/13/17 12:31 140/78 04/13/17 12:27 93 16 100 04/13/17 12:27 95 16 04/13/17 12:26 146/73 04/13/17 12:22 96 17 04/13/17 12:22 99 17 98 04/13/17 12:21 120/56 04/13/17 12:17 99 25 04/13/17 12:17 105 25 100 04/13/17 12:16 118/82 04/13/17 12:12 141 13 99 04/13/17 12:12 138 13 04/13/17 12:11 131/66 04/13/17 12:07 88 14 100 04/13/17 12:07 90 14 04/13/17 12:06 139/75 04/13/17 12:02 91 18 100 04/13/17 12:02 95 18 (Bryanna Aguilar CRNP) Physical Exam Notes: General: no distress Eyes: normal inspection, PERLL Respiratory: chest non tender, clear to auscultation, normal breath sounds, no respiratory distress, no accessory muscle use Cardiac: regular rate and rhythm, no rub or gallop, no murmur, no edema, no jvd GI/: active bowel sounds, no abd pain or tenderness, soft, non distended Extremities: normal range of motion, normal strength, non tender Neuro/Psych: alert and oriented x 3, normal mood and affect Skin: normal color, dry, dressing dry and intact, puncture site healing well (Bryanna Aguilar CRNP) Laboratory Results Last 24 Hours Test 04/14/17 05:54 White Blood Count 7.30 K/uL Red Blood Count 4.07 M/uL Hemoglobin 11.0 g/dL Hematocrit 33.9 % Mean Corpuscular Volume 83.3 fL Mean Corpuscular Hemoglobin 27.0 pg Mean Corpuscular Hemoglobin Concent 32.4 g/dl Platelet Count 159 K/uL Mean Platelet Volume 10.6 fL Neutrophils (%) (Auto) 76.2 % Lymphocytes (%) (Auto) 15.3 % Monocytes (%) (Auto) 8.1 % Eosinophils (%) (Auto) 0.0 % Basophils (%) (Auto) 0.1 % Neutrophils # (Auto) 5.56 K/uL Lymphocytes # (Auto) 1.12 K/uL Monocytes # (Auto) 0.59 K/uL Eosinophils # (Auto) 0.00 K/uL Basophils # (Auto) 0.01 K/uL RDW Standard Deviation 47.3 fL RDW Coefficient of Variation 15.5 % Immature Granulocyte % (Auto) 0.3 % Immature Granulocyte # (Auto) 0.02 K/uL Sodium Level 137 mmol/L Potassium Level 4.0 mmol/L Chloride Level 103 mmol/L Carbon Dioxide Level 29 mmol/L Anion Gap 5.0 mmol/L Blood Urea Nitrogen 18 mg/dl Creatinine 0.74 mg/dl Est Creatinine Clear Calc Drug Dose 57.8 ml/min Estimated GFR () 88.7 Estimated GFR (Non- 76.5 BUN/Creatinine Ratio 24.2 Random Glucose 114 mg/dl Calcium Level 8.7 mg/dl Magnesium Level 2.1 mg/dl Total Bilirubin 1.3 mg/dl Direct Bilirubin 0.2 mg/dl Aspartate Amino Transf (AST/SGOT) 71 U/L Alanine Aminotransferase (ALT/SGPT) 57 U/L Alkaline Phosphatase 64 U/L Total Protein 6.0 gm/dl Albumin 3.0 gm/dl Thyroid Stimulating Hormone (TSH) 0.726 uIu/ml (Bryanna Aguilar ., DAMIR) Assessment and Plan This is an 81 yo F with PMHx of Breast cancer, arthritis, HLD, and hx of choledocholithiasis without biliary obstruction who presented for elective laparoscopic cholecystectomy by Dr. Rangel 04/14. s/p lap cholecystectomy - Pain management, bowel regimen per primary team. - PT/OT evaluations - monitor cbc for blood loss Tachycardia/A.fib/A.flutter RVR - Cardiology consulted - they do not feel intervention is necessary at this time - brief burst over the night, but telemetry otherwise SR - TSH, magnesium, potassium wnl DVT ppx: Teds, SCDs CODE STATUS: Full code Disposition: From home, lives with (Bryanna Aguilar ., DAMIR) Attending Attestation: Pt seen/examined, chart reviewed, care plan d/w DAMIR Aguilar. I agree w/ the hdz components of her documentation. Pt w/o complaints except mild abd pain. VSS no fever o2 sats wnl gen - nad heart - RRR lungs - CTA b/l abd - soft, mild distension but BS+, mild incisional tenderness ext - no edema A/P: 1. s/p elective lap ryland, POD #1 2. SVT - no recurrence overnight ok to d/c telemetry will continue to follow Saleem MALDONADO MD (Stephen Maldonado MD)
--- NOTE | 2017-04-14 15:19 | Progress Note ---
Progress Note Date of Service Apr 14, 2017. Progress Note appetite fair, doesn't feel ready for discharge SHANICE 95 cc will keep here today, increase diet activity
[2017-04-14 15:36] VITALS: BP 128/71; PULSE 77; TEMP 37.2; O2SAT 92
[2017-04-14 22:55] VITALS: BP 119/73; PULSE 89; TEMP 37.1; O2SAT 90
--- NOTE | 2017-04-14 23:57 | Cardiology Follow-Up ---
Subjective Date of Service: Apr 14, 2017. Pt evaluation today including: conversation w/ patient, physical exam, lab review, review of inpatient medication list, conversation w/ attending History of Present Illness This is a very pleasant 81-year-old woman who has a history of a heart murmur and an echocardiogram this summer which did not show anything significant according to her history. Other than that she has no cardiovascular history other than feeling an irregular heartbeat at times for which she had several Holter monitors with no diagnosis that she is aware of. She has never had a sustained high heart rate that she is aware of. She has not had chest discomfort. She underwent laparoscopic cholecystectomy is noted to have a tachycardia at about 130 bpm. His was paroxysmal and documented on telemetry as well as 12- lead electrocardiography. She was aware of the arrhythmia when she had it, was not terribly bothered by it and feels that she has not had it before. She reports no further symptoms overnight. Social History Smoking Status: Never Smoker History of Alcohol Use: No Review of Systems Respiratory: No shortness of breath Cardiac: No chest pain Objective Vital Signs Past 12 Hours Date Time Temp Pulse Resp B/P (MAP) Pulse Ox O2 Delivery O2 Flow Rate FiO2 04/14/17 15:36 37.2 77 16 128/71 (90) 92 Room Air 04/14/17 15:20 Room Air 04/14/17 10:44 37.2 76 17 135/76 (95) 94 Room Air 04/14/17 10:30 Room Air 04/14/17 10:28 36.9 84 18 98 04/14/17 08:00 Room Air 04/14/17 07:57 36.9 84 18 146/71 (96) 98 Last Recorded Weight-Kilograms: 72.300 Intake & Output 8-Hour Column 04/14/17 04/14/17 04/15/17 15:59 23:59 07:59 Intake Total 220 ml Output Total 55 ml Balance 165 ml 24-Hour Column 04/15/17 07:59 Intake Total 220 ml Output Total 55 ml Balance 165 ml Physical Exam Constitutional: Level of Distress: NAD Lungs: Auscultation: breath sounds normal Cardiovascular: Heart Auscultation: RRR, II/ KIRA Extremities: no edema Data Laboratory Results: Last 24 Hours Test 04/14/17 05:54 White Blood Count 7.30 K/uL Red Blood Count 4.07 M/uL Hemoglobin 11.0 g/dL Hematocrit 33.9 % Mean Corpuscular Volume 83.3 fL Mean Corpuscular Hemoglobin 27.0 pg Mean Corpuscular Hemoglobin Concent 32.4 g/dl Platelet Count 159 K/uL Mean Platelet Volume 10.6 fL Neutrophils (%) (Auto) 76.2 % Lymphocytes (%) (Auto) 15.3 % Monocytes (%) (Auto) 8.1 % Eosinophils (%) (Auto) 0.0 % Basophils (%) (Auto) 0.1 % Neutrophils # (Auto) 5.56 K/uL Lymphocytes # (Auto) 1.12 K/uL Monocytes # (Auto) 0.59 K/uL Eosinophils # (Auto) 0.00 K/uL Basophils # (Auto) 0.01 K/uL RDW Standard Deviation 47.3 fL RDW Coefficient of Variation 15.5 % Immature Granulocyte % (Auto) 0.3 % Immature Granulocyte # (Auto) 0.02 K/uL Sodium Level 137 mmol/L Potassium Level 4.0 mmol/L Chloride Level 103 mmol/L Carbon Dioxide Level 29 mmol/L Anion Gap 5.0 mmol/L Blood Urea Nitrogen 18 mg/dl Creatinine 0.74 mg/dl Est Creatinine Clear Calc Drug Dose 57.8 ml/min Estimated GFR () 88.7 Estimated GFR (Non- 76.5 BUN/Creatinine Ratio 24.2 Random Glucose 114 mg/dl Calcium Level 8.7 mg/dl Magnesium Level 2.1 mg/dl Total Bilirubin 1.3 mg/dl Direct Bilirubin 0.2 mg/dl Aspartate Amino Transf (AST/SGOT) 71 U/L Alanine Aminotransferase (ALT/SGPT) 57 U/L Alkaline Phosphatase 64 U/L Total Protein 6.0 gm/dl Albumin 3.0 gm/dl Thyroid Stimulating Hormone (TSH) 0.726 uIu/ml Telemetry reviewed: One very brief episode of SVT overnight, SR otherwise. Assessment and Plan #1. 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 She had only a very a very brief episode overnight. As such I am not sure we need to treat it, if it becomes an issue we can try medical therapy or even consider ablation but I would not do that now. I think she can be transferred off telemetry. #2. Heart murmur: She probably has aortic sclerosis or mild aortic stenosis by exam, evidently she had a recent echocardiogram. I would not pursue this further as an inpatient. Thank you for allowing me to participate in her care.
[2017-04-15 03:56] VITALS: BP 130/72; PULSE 90; TEMP 37.1; O2SAT 91
[2017-04-15] MEDS: LEVOTHYROXINE 75 MCG TAB PO SCH (05:55)
[2017-04-15 07:39] VITALS: BP 136/79; PULSE 90; TEMP 37.5; O2SAT 93
--- NOTE | 2017-04-15 08:47 | Surgery Progress Note ---
Surgery Progress Note Date of Service Apr 15, 2017. Subjective 81 year old female POD#2 lap cholecystectomy for acute cholecystitis. Doing well, tolerating regular diet, drain with dark serosanguinous output. She would like to go home. Objective Vital Signs: Date Time Temp Pulse Resp B/P (MAP) Pulse Ox O2 Delivery O2 Flow Rate FiO2 04/15/17 07:39 37.5 90 17 136/79 (98) 93 Room Air 04/15/17 03:56 37.1 90 16 130/72 (91) 91 Room Air 04/14/17 23:46 Room Air 04/14/17 22:55 37.1 89 18 119/73 (88) 90 Room Air 04/14/17 15:36 37.2 77 16 128/71 (90) 92 Room Air 04/14/17 15:20 Room Air 04/14/17 10:44 37.2 76 17 135/76 (95) 94 Room Air 04/14/17 10:30 Room Air 04/14/17 10:28 36.9 84 18 98 Physical Exam: SHANICE drainage General Appearance: WD/WN, no apparent distress Abdomen: normal bowel sounds, non tender, non distended, soft, + pertinent finding (incisions with steri's in place, no e/o infection. Drain with dark serosanguinous drainage.) Incision(s): clean, dry, intact, no erythema, no drainage Assessment & Plan s/p laparoscopic cholecystectomy, doing well. Will leave drain in and discharge today Discharge to home follow up for drain removal this week return precautions given wound care, drain care instructions and activity restrictions reviewed
[2017-04-15] MEDS: CALCIUM 600MG + VIT D 400 IU TAB PO SCH (10:04)
[2017-04-15] MEDS: MULTIVITAMIN TAB PO SCH (10:04)
[2017-04-15] MEDS: ANASTROZOLE 1 MG TAB PO SCH (10:04)
[2017-04-15] MEDS: CEROVITE ADV FORMULA TAB PO SCH (10:05)
--- NOTE | 2017-04-15 10:20 | Progress Note ---
Subjective Date of Service: Apr 15, 2017. Subjective Pt evaluation today including: conversation w/ patient, conversation w/ family ( at bedside), physical exam, chart review, lab review Pain: abdominal but controlled PO Intake: ate decent breakfast Voiding: no voiding problems feels "washed out and tired" but denies any new complaints walking around her room w/o limitation only 1 step to get into her house at home denies cp, dyspnea, nausea, vomiting +flatus but no stool yet Review of Systems Constitutional: No fever Respiratory: No shortness of breath, No dyspnea on exertion Cardiac: No chest pain Abdomen: + pain, + constipation, No nausea, No vomiting Objective Vital Signs Date Time Temp Pulse Resp B/P (MAP) Pulse Ox O2 Delivery O2 Flow Rate FiO2 04/15/17 07:39 37.5 90 17 136/79 (98) 93 Room Air 04/15/17 03:56 37.1 90 16 130/72 (91) 91 Room Air 04/14/17 23:46 Room Air 04/14/17 22:55 37.1 89 18 119/73 (88) 90 Room Air 04/14/17 15:36 37.2 77 16 128/71 (90) 92 Room Air 04/14/17 15:20 Room Air 04/14/17 10:44 37.2 76 17 135/76 (95) 94 Room Air 04/14/17 10:30 Room Air 04/14/17 10:28 36.9 84 18 98 Physical Exam General Appearance: no apparent distress ENT: pharynx normal Neck: no JVD Respiratory/Chest: lungs clear, no respiratory distress, no accessory muscle use Cardiovascular: regular rate, rhythm, no gallop, + systolic murmur (2/6 LLSB) Abdomen: soft, + abnormal bowel sounds (decreased), + tenderness (minimal - incisions), + pertinent finding (SHANICE drain in place) Extremities: no pedal edema Neurologic/Psychiatric: alert, oriented x 3 Assessment and Plan 81yo female - 1. s/p elective lap ryland, POD #2 - from surgery standpoint doing acceptable. No bowel movement yet but passing flatus and no other symptoms to suggest ileus. I discussed w/ her a bowel regimen (senna + miralax, etc) while on pain meds at home to prevent/treat constipation. She will be d/c home with SHANICE drain. She confirmed she feels comfortable with this and has been instructed on what to do with it, how to drain, etc. 2. SVT - seen by cardiology this admission - no Rx. I encouraged patient to walk the halls prior to discharge and to use her incentive spirometry at home frequently. I also recommended follow-up with her PCP, Dr. Cortez, within 1 week. She voiced understanding. Ok from medical standpoint to d/c home.
[2017-04-15 10:22] VITALS: BP 136/79; PULSE 90; TEMP 37.5; O2SAT 93
--- NOTE | 2017-04-17 10:01 | DISCHARGE SUMMARY ---
PRIMARY DISCHARGE DIAGNOSES: 1. Symptomatic cholelithiasis/chronic cholecystitis. 2. Supraventricular tachycardia postoperatively. SECONDARY DISCHARGE DIAGNOSES: 1. Osteoarthritis. 2. History of breast cancer. 3. High cholesterol. PROCEDURE PERFORMED: Laparoscopic cholecystectomy with intraoperative cholangiogram. CONSULTATIONS: 1. Debbie Krishna cardiology for tachycardia. 2. [facility] hospitalist to assist in medical management. HOSPITAL COURSE: The patient is an 81-year-old female with symptomatic cholelithiasis, brought in through same day and taken to the operating room for laparoscopic cholecystectomy. Procedure was well tolerated. Cholangiogram was essentially normal, though there was a possibility of an air bubble seen on one of the images. While in PACU, she had a few runs of tachycardia. She was transferred to telemetry for monitoring. She was seen by cardiology, who felt that no further treatment was necessary at this time for this supraventricular tachycardia. She did well overnight. She was transferred to the surgical floor on postoperative day #1. There was a question of a slight bilious tinge to her drainage in her Garret drain. By postoperative day #2, this drainage appeared more serosanguineous. She was tolerating diet and oral analgesics. Her heart rate had been stable. She was stable for discharge. DISCHARGE INSTRUCTIONS: Discharge home. Follow up with Dr. Rangel in 1 week. Follow up with her PCP, Dr. Cortez also within 1 week. DISCHARGE MEDICATIONS: Percocet 1 tablet every 4 hours as needed and Cipro 500 mg p.o. b.i.d. x5. Continue home medications, levothyroxine 75 mcg daily, calcium and vitamin D supplements, vitamin E supplement, Ocuvite 1 tablet b.i.d., daily multivitamin and anastrozole 1 tablet daily. MTDD
== END 2017-04-15 11:20 | disposition home or self-care (01) ==
LOC: C.ACU 06:32 → ENRESERV 10:56 → CANRESERV 10:56 → C.2E 11:11 → CANBEDREQ 11:12 → ENRESERV 13:24 → C.MSN 04-14 08:00 → ENRESERV 04-14 08:23 → EDBEDREQSVC 04-14 08:23 → CANRESERV 04-14 08:23 → ENRESERV 04-14 08:48
PROVIDERS: ADMIT Surgery; ATTEND Surgery
DX: K80.10 Calculus of gallbladder with chronic cholecystitis without obstruction (principal); R59.0 Localized enlarged lymph nodes; I47.1 Supraventricular tachycardia; C50.919 Malignant neoplasm of unspecified site of unspecified female breast; E78.00 Pure hypercholesterolemia, unspecified; Z79.899 Other long term (current) drug therapy; M19.90 Unspecified osteoarthritis, unspecified site

== ENCOUNTER 2022-11-23 19:41 | Observation (INO) ==
--- NOTE | 2022-11-23 19:59 | Emergency Department Note ---
History of Present Illness General Chief complaint: Altered Mental Status Stated complaint: ALTERED, CONFUSED Time Seen by Provider: 11/23/22 19:49 History of Present Illness 87-year-old female presents via EMS from home reportedly has been confused since at least 1 PM this afternoon. Patient is slow to respond to answer questions and family states that this is not like her. She does live with her who reportedly has some dementia. There is been no reported fever no recent infections. There is no other history available to me from the patient. But according to the daughter is at bedside this is a change in her mental status Home Medications Medication Instructions Recorded Confirmed Type anastrozole 1 mg tablet 1 mg PO DAILY 08/08/18 11/23/22 History levothyroxine 75 mcg tablet 75 mcg PO DAILY 08/08/18 11/23/22 History metoprolol mackey-hydrochlorothiaz 1 dose PO UD 11/23/22 11/23/22 History Allergies Allergy/AdvReac Type Severity Reaction Status Date / Time Bactrim Allergy Mild HIVES Verified 04/13/17 08:00 latex Allergy Mild RASH ITCHY Verified 07/25/22 10:52 sulfamethoxazole Allergy Mild HIVES Verified 07/25/22 10:52 trimethoprim Allergy Mild HIVES Verified 07/25/22 10:52 Past Med/Surg History Medical History Acid reflux Cholecystectomy planned Surgical History History of cataract surgery History of cholecystectomy History of hernia repair History of lumpectomy History of tonsillectomy and adenoidectomy Family History Father Hearing loss Stroke Grandmother Stroke Sister Cancer Grandfather Cancer Mother Asthma Other Heart disease No family history of adverse response to anesthesia No family history of bleeding disorder Social History Smoking Status: Unknown if ever smoked Preferred Language: Cymraes Feels Safe at Home: Yes Review of Systems Unobtainable due to cognitive status Physical Exam Vital Signs Vital Signs - 24 hr 11/23/22 19:48 11/23/22 19:47 11/23/22 20:04 Temperature Temperature Source Pulse Rate 70 72 70 Respiratory Rate 16 Respiratory Effort / Characteristics Respiratory Depth Respiratory Pattern Blood Pressure 149/86 H Blood Pressure Mean 107 Pulse Oximetry 98 98 Oxygen Delivery Method Room Air Sepsis Recent Fever Within 48 Hours Sepsis New/Unexplained Change in Mental Status Sepsis Action Taken by Nursing 11/23/22 19:49 11/23/22 20:00 11/23/22 20:15 Temperature 37.0 C Temperature Source Oral Pulse Rate 73 68 64 Respiratory Rate 17 13 14 Respiratory Effort / Characteristics Non-Labored Respiratory Depth Normal Respiratory Pattern Regular Blood Pressure 149/86 H 145/79 H Blood Pressure Mean 107 101 Pulse Oximetry 99 98 97 Oxygen Delivery Method Room Air Room Air Room Air Sepsis Recent Fever Within 48 Hours No Sepsis New/Unexplained Change in Mental Status Yes Sepsis Action Taken by Nursing No Action Required 11/23/22 20:30 11/23/22 21:06 11/23/22 21:30 Temperature Temperature Source Pulse Rate 64 75 73 Respiratory Rate 12 16 15 Respiratory Effort / Characteristics Respiratory Depth Respiratory Pattern Blood Pressure 164/98 H Blood Pressure Mean 120 Pulse Oximetry 96 97 Oxygen Delivery Method Room Air Room Air Sepsis Recent Fever Within 48 Hours Sepsis New/Unexplained Change in Mental Status Sepsis Action Taken by Nursing 11/23/22 21:45 11/23/22 22:01 11/23/22 22:15 Temperature Temperature Source Pulse Rate 70 71 71 Respiratory Rate 15 18 15 Respiratory Effort / Characteristics Respiratory Depth Respiratory Pattern Blood Pressure 111/67 Blood Pressure Mean 81 Pulse Oximetry 97 98 97 Oxygen Delivery Method Room Air Room Air Room Air Sepsis Recent Fever Within 48 Hours Sepsis New/Unexplained Change in Mental Status Sepsis Action Taken by Nursing 11/23/22 22:30 Temperature Temperature Source Pulse Rate 78 Respiratory Rate 16 Respiratory Effort / Characteristics Respiratory Depth Respiratory Pattern Blood Pressure 150/96 H Blood Pressure Mean 114 Pulse Oximetry 97 Oxygen Delivery Method Room Air Sepsis Recent Fever Within 48 Hours Sepsis New/Unexplained Change in Mental Status Sepsis Action Taken by Nursing GENERAL: Patient is awake alert in no acute distress patient is resting co mfortably and showing no signs of anxiety EYES: The conjunctivae are clear. The pupils are round and reactive. EARS, NOSE, MOUTH AND THROAT: The nose is without any evidence of any deformity. Mucous membranes are moist. Tongue is midline. NECK: The neck is nontender and supple. RESPIRATORY: Normal respiratory effort is noted there is no evidence of wheezing rhonchi or rales CARDIOVASCULAR: Regular rate and rhythm noted there no murmurs rubs or gallops normal S1 normal S2. GASTROINTESTINAL: The abdomen is soft. Abdomen is nontender. BACK: No midline tenderness or or step-off noted range of motion in flexion extension as well as rotation no signs of muscle spasm noted MUSCULOSKELETAL/EXTREMITIES: There is no evidence of gross deformity full range of motion is noted in the hips and shoulders. SKIN: There is no obvious evidence of any rash. There are no petechiae, pallor or cyanosis noted. NEUROLOGIC: Patient is awake alert, disoriented, slow to answer questions Course Reevaluation(s) Reevaluation #1: Patient's resting in no distress on repeat examination. Time: 23:01 Consultations Consultation #1: [facility] Time: 23:01 Medical Decision Making Medical Records Attestation: I reviewed the patient's medical records. Home Medications Current Medication List: was personally reviewed by nv Laboratory Data Attestation: I reviewed the patient's lab results. Lab work shows an elevated troponin, otherwise no evidence of sepsis or urinary tract infection as interpreted by me 11/23/22 19:53 11/23/22 19:53 Lab Results 11/23/22 11/23/22 11/23/22 Range/Units 19:53 19:53 19:53 WBC 5.86 (4.8-10.8) K/ul RBC 4.65 (4.20-5.40) M/uL Hgb 12.8 (12.0-16.0) g/dl Hct 38.4 (37.0-47.0) % MCV 82.6 (80.0-100.0) fL MCH 27.5 (25.0-34.0) pg MCHC 33.3 (32.0-36.0) g/dL RDW Std Deviation 47.5 H (36.4-46.3) fL RDW Coeff of Darío 15.8 H (11.5-14.5) % Plt Count 197 (130-400) K/uL MPV 11.2 (9.4-12.4) fL Immature Gran % (Auto) 0.3 % Neut % (Auto) 68.5 % Lymph % (Auto) 23.5 % [place] % (Auto) 5.8 % Eos % (Auto) 1.4 % Baso % (Auto) 0.5 % Neut # (Auto) 4.01 (1.40-6.50) K/uL Lymph # (Auto) 1.38 (1.2-3.4) K/uL [place] # (Auto) 0.34 (0.11-0.59) K/uL Eos # (Auto) 0.08 (0-0.50) K/uL Baso # (Auto) 0.03 (0-0.2) K/uL Immature Gran # (Auto) 0.02 (0.01-0.20) K/uL RBC Agglutinates 1+ Sodium 140 (136-145) mmol/L Potassium 4.6 (3.5-5.1) mmol/L Chloride 106 (98-107) mmol/L Carbon Dioxide 27 (21-32) mmol/L Anion Gap 7 (3-11) BUN 38 H (6-23) mg/dl Creatinine 1.24 H (0.6-1.2) mg/dl Est Cr Clr Drug Dosing 30.4 ml/min Est GFR ( Amer) 45.5 ml/min Est GFR (Non-Af Amer) 39.3 ml/min BUN/Creatinine Ratio 30.6 H (10-20) Glucose 99 (70-99(Fasting)) mg/dl Lactate (0.4-2.0) mmol/L Calcium 9.4 (8.6-10.3) mg/dl Magnesium 2.4 (1.7-2.4) mg/dl Total Bilirubin 0.9 (0.2-1.0) mg/dl Direct Bilirubin 0.2 (0-0.2) mg/dl AST 16 (13-39) U/L ALT 10 (7-52) U/L Alkaline Phosphatase 73 (34-104) U/L Troponin I High Sens 51.6 H* (0-14) pg/ml Total Protein 7.2 (6.0-8.3) gm/dl Albumin 4.1 (3.4-5.0) gm/dl Procalcitonin < 0.05 (0-0.5) ng/ml Urine Color Urine Appearance (Clear) Urine pH (4.5-7.5) Ur Specific [place] (1.000-1.030) Urine Protein (Negative) Urine Glucose (UA) (Negative) Urine Ketones (Negative) Urine Blood (Negative) Urine Nitrite (Negative) Urine Bilirubin (Negative) Urine Urobilinogen (Negative) Ur Leukocyte Esterase (Negative) SARS-CoV-2, RNA, NAAT (NEGATIVE) 11/23/22 11/23/22 11/23/22 Range/Units 20:00 20:10 21:50 WBC (4.8-10.8) K/ul RBC (4.20-5.40) M/uL Hgb (12.0-16.0) g/dl Hct (37.0-47.0) % MCV (80.0-100.0) fL MCH (25.0-34.0) pg MCHC (32.0-36.0) g/dL RDW Std Deviation (36.4-46.3) fL RDW Coeff of Darío (11.5-14.5) % Plt Count (130-400) K/uL MPV (9.4-12.4) fL Immature Gran % (Auto) % Neut % (Auto) % Lymph % (Auto) % [place] % (Auto) % Eos % (Auto) % Baso % (Auto) % Neut # (Auto) (1.40-6.50) K/uL Lymph # (Auto) (1.2-3.4) K/uL [place] # (Auto) (0.11-0.59) K/uL Eos # (Auto) (0-0.50) K/uL Baso # (Auto) (0-0.2) K/uL Immature Gran # (Auto) (0.01-0.20) K/uL RBC Agglutinates Sodium (136-145) mmol/L Potassium (3.5-5.1) mmol/L Chloride (98-107) mmol/L Carbon Dioxide (21-32) mmol/L Anion Gap (3-11) BUN (6-23) mg/dl Creatinine (0.6-1.2) mg/dl Est Cr Clr Drug Dosing ml/min Est GFR ( Amer) ml/min Est GFR (Non-Af Amer) ml/min BUN/Creatinine Ratio (10-20) Glucose (70-99(Fasting)) mg/dl Lactate 1.0 (0.4-2.0) mmol/L Calcium (8.6-10.3) mg/dl Magnesium (1.7-2.4) mg/dl Total Bilirubin (0.2-1.0) mg/dl Direct Bilirubin (0-0.2) mg/dl AST (13-39) U/L ALT (7-52) U/L Alkaline Phosphatase (34-104) U/L Troponin I High Sens (0-14) pg/ml Total Protein (6.0-8.3) gm/dl Albumin (3.4-5.0) gm/dl Procalcitonin (0-0.5) ng/ml Urine Color Yellow Urine Appearance Clear (Clear) Urine pH 6.5 (4.5-7.5) Ur Specific [place] 1.014 (1.000-1.030) Urine Protein Negative (Negative) Urine Glucose (UA) Negative (Negative) Urine Ketones Negative (Negative) Urine Blood Negative (Negative) Urine Nitrite Negative (Negative) Urine Bilirubin Negative (Negative) Urine Urobilinogen Negative (Negative) Ur Leukocyte Esterase Negative (Negative) SARS-CoV-2, RNA, NAAT NEGATIVE (NEGATIVE) Imaging Data Attestation: I personally reviewed and interpreted this imaging study as follows: My Impression: Chest x-ray interpreted by me negative for infiltrate CT of the brain per my interpretation is negative for intracranial hemorrhage Radiologist's Impression: Head CT 11/23/22 20:32 Exam(s): CT HEAD Without Contrast EXAM: CT Head Without Intravenous Contrast CLINICAL HISTORY: Reason for exam: AMS. TECHNIQUE: Axial computed tomography images of the head/brain without intravenous contrast. CTDI is 37.61 mGy and DLP is 624.41 mGy-cm. Automated exposure control was utilized for the study. A dose lowering technique was utilized adhering to the principles of ALARA. COMPARISON: 10/23/2018 FINDINGS: Brain: Mild cerebral volume loss and ischemic microangiopathy appropriate patient age. No hemorrhage. Ventricles: Unremarkable. No ventriculomegaly. Bones/joints: Unremarkable. No acute fracture. Soft tissues: Unremarkable. Sinuses: Unremarkable as visualized. No acute sinusitis. Mastoid air cells: Unremarkable as visualized. No mastoid effusion. IMPRESSION: No acute findings in the head/brain Chronic senescent changes as described above. Electronically signed by: Morteza Flowers MD 11/23/22 22:19 PM ECG Data Attestation: I personally reviewed and interpreted this ECG as follows: MDM Narrative Medical decision making differential diagnosis includes stroke, intracranial bleed, TIA, metabolic derangement, dehydration, electrolyte abnormality Plan is to check stroke work-up and sepsis External medical records were reviewed by me EMS medical report was reviewed by me Family is at bedside and gives me medical history Patient will be admitted for change in mental status, confusion, I do not see an obvious CVA on CT. Patient is not a tPA candidate at this time. Patient has no evidence of sepsis currently. Impression & Plan Altered mental status Discharge Plan Visit Data Chief Complaint: Altered Mental Status Stated Complaint: ALTERED, CONFUSED ED Provider: Chu Werner Discharge Problem: Altered mental status Patient Disposition: Admitted As Inpatient Forms Stand Alone Forms: [facility] Prescriptions Prescriptions: No Action anastrozole 1 mg Tablet 1 mg PO DAILY levothyroxine 75 mcg Tablet 75 mcg PO DAILY metoprolol mackey-hydrochlorothiaz 1 dose PO UD Rx Instructions: dose and specific metoprolol unknown to family and pt is confused Referrals Referrals: Solomon Cortez MD [Primary Care Provider] -
[2022-11-23 20:38] LABS: Albumin Level 4.1 gm/dl (3.4-5.0); BUN Creatinine Ratio 30.6 (10-20); Bilirubin Direct 0.2 mg/dl (0-0.2); Bilirubin,Total 0.9 mg/dl (0.2-1.0); Calcium 9.4 mg/dl (8.6-10.3); Creatinine Clr Calc Pharmacy 30.4 ml/min; Est GFR (African American) 45.5 ml/min; Est GFR (Non-African American) 39.3 ml/min; Magnesium 2.4 mg/dl (1.7-2.4); Potassium 4.6 mmol/L (3.5-5.1); Total Protein 7.2 gm/dl (6.0-8.3)
[2022-11-23 20:57] LABS: Troponin I High Sensitivity 51.6 pg/ml (0-14)
[2022-11-23 21:23] LABS: Hematocrit (blood only) 38.4 % (37.0-47.0); Hemoglobin 12.8 g/dl (12.0-16.0); Mean Corpuscular Hemoglobin 27.5 pg (25.0-34.0); Mean Corpuscular Hgb Conc 33.3 g/dL (32.0-36.0); Mean Corpuscular Volume 82.6 fL (80.0-100.0); Mean Platelet Volume 11.2 fL (9.4-12.4); Platelet Count 197 K/uL (130-400); RDW Coefficient of Variation 15.8 % (11.5-14.5); RDW Standard Deviation 47.5 fL (36.4-46.3); Red Blood Count 4.65 M/uL (4.20-5.40); White Blood Count 5.86 K/ul (4.8-10.8)
[2022-11-23 21:52] LABS: Agglutinated RBC 1+; Basophils # (auto) 0.03 K/uL (0-0.2); Basophils % (auto) 0.5 %; Eosinophils # (auto) 0.08 K/uL (0-0.50); Eosinophils % (auto) 1.4 %; Immature Granulocytes # (auto) 0.02 K/uL (0.01-0.20); Immature Granulocytes % (auto) 0.3 %; Lymphocytes # (auto) 1.38 K/uL (1.2-3.4); Lymphocytes % (auto) 23.5 %; Monocytes # (auto) 0.34 K/uL (0.11-0.59); Monocytes % (auto) 5.8 %; Neutrophils # (auto) 4.01 K/uL (1.40-6.50); Neutrophils % (auto) 68.5 %
--- NOTE | 2022-11-23 22:20 | CT Scan Report ---
Exam(s): CT HEAD Without Contrast EXAM: CT Head Without Intravenous Contrast CLINICAL HISTORY: Reason for exam: AMS. TECHNIQUE: Axial computed tomography images of the head/brain without intravenous contrast. CTDI is 37.61 mGy and DLP is 624.41 mGy-cm. Automated exposure control was utilized for the study. A dose lowering technique was utilized adhering to the principles of ALARA. COMPARISON: 10/23/2018 FINDINGS: Brain: Mild cerebral volume loss and ischemic microangiopathy appropriate patient age. No hemorrhage. Ventricles: Unremarkable. No ventriculomegaly. Bones/joints: Unremarkable. No acute fracture. Soft tissues: Unremarkable. Sinuses: Unremarkable as visualized. No acute sinusitis. Mastoid air cells: Unremarkable as visualized. No mastoid effusion. IMPRESSION: No acute findings in the head/brain Chronic senescent changes as described above. Electronically signed by: Morteza Flowers MD 11/23/22 22:19 PM
--- NOTE | 2022-11-23 22:40 | History & Physical Report ---
Date of Service November 23, 2022 Assessment & Plan (1) Altered mental status: Plan: 87 yo female with PMHx hypothyroidism, h/o breast cancer, and h/o AVNRT presents with altered mental status. #AMS #Stroke like symptoms -early this afternoon pt found on ground and confused with R facial droop and RUE weakness. No h/o CVA. No leukocytosis. UA neg. Without signs of infection. Blood cx pending. -CXR unremarkable -CT head negative -CTA head/neck pending -MRI brain pending -lipids, a1c pending -neuro checks Q4h, NPO, NSS @ 100 -PT/OT ordered -speech consult ordered #Elevated troponin -trop 50 on admission. Likely due to demand. EKG without ischemic changes. Trend . #Hypothyroidism -cont. home synthroid -TSH pending #H/o breast cancer -cont. 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 Cardiology advised to just monitor at the time. Follows with [facility] cardiology. -pt's med list with metoprolol-HCTZ combo. Unclear reasoning for this nor if patient is even taking this medication. Family unfamiliar as well. Will hold med ication for now. DVT ppx: Lovenox FEN/GI: NPO Code Status: Made Full for now; will need to ask POA tomorrow for clarification. Dispo: PCU, obs (2) History of breast cancer: (3) AVNRT (AV agapito re-entry tachycardia): History of Present Illness Chief Complaint: AMS Primary Care Provider: Solomon Cortez MD 87 yo female with PMHx hypothyroidism, h/o breast cancer, and h/o AVNRT presents with altered mental status. Patient was found on the floor around 1 PM earlier today. She was confused and was noted to have a right facial droop and right arm weakness. She was also having trouble finding her words. Otherwise appears asymptomatic. ROS difficult to obtain from patient due to presentation. Allergies Allergy/AdvReac Type Severity Reaction Status Date / Time Bactrim Allergy Mild HIVES Verified 04/13/17 08:00 latex Allergy Mild RASH ITCHY Verified 07/25/22 10:52 sulfamethoxazole Allergy Mild HIVES Verified 07/25/22 10:52 trimethoprim Allergy Mild HIVES Verified 07/25/22 10:52 Home Medications Medication Instructions Recorded Confirmed Type anastrozole 1 mg tablet 1 mg PO DAILY 08/08/18 11/23/22 History levothyroxine 75 mcg tablet 75 mcg PO DAILY 08/08/18 11/23/22 History metoprolol mackey-hydrochlorothiaz 1 dose PO UD 11/23/22 11/23/22 History Past Med/Surg History Medical History Acid reflux Cholecystectomy planned Surgical History History of cataract surgery History of cholecystectomy History of hernia repair History of lumpectomy History of tonsillectomy and adenoidectomy Family History Father Hearing loss Stroke Grandmother Stroke Sister Cancer Grandfather Cancer Mother Asthma Other Heart disease No family history of adverse response to anesthesia No family history of bleeding disorder Social History Smoking Status: Unknown if ever smoked Preferred Language: Divehi Communication Ability: Impaired Communication Ability Comment: pt unable to provide verbal history, unable to reach primary contact for hx Current Living Situation: Other Current Living Situation Comment: unable to obtain Feels Safe at Home: Yes Assistive Devices: None Review of Systems Review of Systems: Unobtainable due to cognitive status Physical Exam Physical Exam: Constitutional: in no acute distress, pleasant. Vitals as above. HEENT: No scleral injection or discharge. Dry mucous membranes. Clear oropharynx. Neck: Supple without lymphadenopathy or thyromegaly. Trachea midline. Lungs: Clear to auscultation bilaterally with good effort. Cardiac: Regular rate and rhythm. +systolic murmur. Trace bilateral extremity edema. 2+ distal peripheral pulses. Abdomen: Bowel sounds present. Soft, nontender, and nondistended.No guarding. No hepatosplenomegaly. MSK: No cyanosis or clubbing. Bilateral lower extremities 4/5, RUE 3/5, LUE 4/5 with strength testing. R hand leaf size picker weaker than L. Skin: No abnormal rashes, warm, dry. Neurologic: Grossly intact cranial nerves. Cannot appreciate facial drooping at this time. Difficulty finding words. Alert. Not oriented to time self, time, or place. PERRL. Results & Data Results & Data Vital Signs (Past 12 Hours) Vital Signs Temp Pulse Resp BP Pulse Ox O2 Del Method 11/23/22 21:45 70 15 97 Room Air 11/23/22 21:30 73 15 164/98 H 97 Room Air 11/23/22 21:06 75 16 11/23/22 20:30 64 12 96 Room Air 11/23/22 20:15 64 14 97 Room Air 11/23/22 20:00 68 13 145/79 H 98 Room Air 11/23/22 19:49 37.0 C 73 17 149/86 H 99 Room Air 11/23/22 20:04 70 98 Room Air 11/23/22 19:47 72 11/23/22 19:48 70 16 149/86 H 98 Laboratory Results Laboratory Results WBC 5.86 K/ul (4.8-10.8) 11/23/22 19:53 RBC 4.65 M/uL (4.20-5.40) 11/23/22 19:53 Hgb 12.8 g/dl (12.0-16.0) 11/23/22 19:53 Hct 38.4 % (37.0-47.0) 11/23/22 19:53 MCV 82.6 fL (80.0-100.0) 11/23/22 19:53 MCH 27.5 pg (25.0-34.0) 11/23/22 19:53 MCHC 33.3 g/dL (32.0-36.0) 11/23/22 19:53 RDW Std Deviation 47.5 fL (36.4-46.3) H 11/23/22 19:53 RDW Coeff of Darío 15.8 % (11.5-14.5) H 11/23/22 19:53 Plt Count 197 K/uL (130-400) 11/23/22 19:53 MPV 11.2 fL (9.4-12.4) 11/23/22 19:53 Immature Gran % (Auto) 0.3 % 11/23/22 19:53 Neut % (Auto) 68.5 % 11/23/22 19:53 Lymph % (Auto) 23.5 % 11/23/22 19:53 [place] % (Auto) 5.8 % 11/23/22 19:53 Eos % (Auto) 1.4 % 11/23/22 19:53 Baso % (Auto) 0.5 % 11/23/22 19:53 Neut # (Auto) 4.01 K/uL (1.40-6.50) 11/23/22 19:53 Lymph # (Auto) 1.38 K/uL (1.2-3.4) 11/23/22 19:53 [place] # (Auto) 0.34 K/uL (0.11-0.59) 11/23/22 19:53 Eos # (Auto) 0.08 K/uL (0-0.50) 11/23/22 19:53 Baso # (Auto) 0.03 K/uL (0-0.2) 11/23/22 19:53 Immature Gran # (Auto) 0.02 K/uL (0.01-0.20) 11/23/22 19:53 RBC Agglutinates 1+ 11/23/22 19:53 Sodium 140 mmol/L (136-145) 11/23/22 19:53 Potassium 4.6 mmol/L (3.5-5.1) 11/23/22 19:53 Chloride 106 mmol/L (98-107) 11/23/22 19:53 Carbon Dioxide 27 mmol/L (21-32) 11/23/22 19:53 Anion Gap 7 (3-11) 11/23/22 19:53 BUN 38 mg/dl (6-23) H 11/23/22 19:53 Creatinine 1.24 mg/dl (0.6-1.2) H 11/23/22 19:53 Est Cr Clr Drug Dosing 30.4 ml/min 11/23/22 19:53 Est GFR ( Amer) 45.5 ml/min 11/23/22 19:53 Est GFR (Non-Af Amer) 39.3 ml/min 11/23/22 19:53 BUN/Creatinine Ratio 30.6 (10-20) H 11/23/22 19:53 Glucose 99 mg/dl (70-99(Fasting)) 11/23/22 19:53 Lactate 1.0 mmol/L (0.4-2.0) 11/23/22 20:10 Calcium 9.4 mg/dl (8.6-10.3) 11/23/22 19:53 Magnesium 2.4 mg/dl (1.7-2.4) 11/23/22 19:53 Total Bilirubin 0.9 mg/dl (0.2-1.0) 11/23/22 19:53 Direct Bilirubin 0.2 mg/dl (0-0.2) 11/23/22 19:53 AST 16 U/L (13-39) 11/23/22 19:53 ALT 10 U/L (7-52) 11/23/22 19:53 Alkaline Phosphatase 73 U/L (34-104) 11/23/22 19:53 Troponin I High Sens 51.6 pg/ml (0-14) H* 11/23/22 19:53 Total Protein 7.2 gm/dl (6.0-8.3) 11/23/22 19:53 Albumin 4.1 gm/dl (3.4-5.0) 11/23/22 19:53 Procalcitonin < 0.05 ng/ml (0-0.5) 11/23/22 19:53 Urine Color Yellow 11/23/22 21:50 Urine Appearance Clear (Clear) 11/23/22 21:50 Urine pH 6.5 (4.5-7.5) 11/23/22 21:50 Ur Specific [place] 1.014 (1.000-1.030) 11/23/22 21:50 Urine Protein Negative (Negative) 11/23/22 21:50 Urine Glucose (UA) Negative (Negative) 11/23/22 21:50 Urine Ketones Negative (Negative) 11/23/22 21:50 Urine Blood Negative (Negative) 11/23/22 21:50 Urine Nitrite Negative (Negative) 11/23/22 21:50 Urine Bilirubin Negative (Negative) 11/23/22 21:50 Urine Urobilinogen Negative (Negative) 11/23/22 21:50 Ur Leukocyte Esterase Negative (Negative) 11/23/22 21:50 SARS-CoV-2, RNA, NAAT NEGATIVE (NEGATIVE) 11/23/22 20:[address] 11/23/22 20:32 Exam(s): CT HEAD Without Contrast EXAM: CT Head Without Intravenous Contrast CLINICAL HISTORY: Reason for exam: AMS. TECHNIQUE: Axial computed tomography images of the head/brain without intravenous contrast. CTDI is 37.61 mGy and DLP is 624.41 mGy-cm. Automated exposure control was utilized for the study. A dose lowering technique was utilized adhering to the principles of ALARA. COMPARISON: 10/23/2018 FINDINGS: Brain: Mild cerebral volume loss and ischemic microangiopathy appropriate patient age. No hemorrhage. Ventricles: Unremarkable. No ventriculomegaly. Bones/joints: Unremarkable. No acute fracture. Soft tissues: Unremarkable. Sinuses: Unremarkable as visualized. No acute sinusitis. Mastoid air cells: Unremarkable as visualized. No mastoid effusion. IMPRESSION: No acute findings in the head/brain Chronic senescent changes as described above. Electronically signed by: Morteza Flowers MD 11/23/22 22:19 PM Supervising Physician Co-Signing Physician Notes Attending addendum: I have physically seen this patient, have supervised the medical residents activities, and agree with the H&P unless as otherwise noted. Assessment and Plan: Strokelike symptoms/altered mental status- The patient will be admitted to telemetry for serial cardiac enzymes, serial EKG's, cardiac rhythm monitoring and a 2-D echocardiogram with Dopplers. CT head without contrast negative Order CTA head and neck Order MRI brain without contrast Stroke without tPA order set Order fasting lipid panel and hemoglobin A1c Neurochecks per protocol Consult PT/OT and speech Consult neurology if needed Elevated troponin/hypertension/history of AVNRT- The patient will be admitted to telemetry for serial cardiac enzymes, serial EKG's, cardiac rhythm monitoring and a 2-D echocardiogram with Dopplers. Continue metoprolol Hold HCTZ Hypothyroidism- Continue levothyroxine Breast cancer- Continue anastrozole Remaining orders and notations as noted Resident Activity Tracking Resident Involvement: Resident Care Provided Care Provided: Adult Hospital Medicine
[2022-11-23 22:49] LABS: Appearance Urine Clear (Clear); Bilirubin Urine Negative (Negative); Blood Urine Negative (Negative); Color Urine Yellow; Glucose Urine UA Negative (Negative); Ketones Urine Negative (Negative); Leukocyte Esterase Urine Negative (Negative); Nitrite Urine Negative (Negative); Protein Urine Negative (Negative); Specific Gravity Urine 1.014 (1.000-1.030); Urobilinogen Urine Negative (Negative); pH Urine 6.5 (4.5-7.5)
[2022-11-24] MEDS ORDERED: OPTIRAY 320 125ml IV ONE (00:03)
[2022-11-24] MEDS ORDERED: ONDANSETRON 4 MG OD TAB PO PRN (00:31)
[2022-11-24] MEDS ORDERED: ACETAMINOPHEN 325 MG TAB PO PRN (00:31)
[2022-11-24] MEDS: SODIUM CHLORIDE 0.9% 1000ML 1,000 ML IV SCH ×2 (00:43→11:01)
--- NOTE | 2022-11-24 00:59 | CT Scan Report ---
Exam(s): CTA NECK With Contrast IV Amt: 119 ml optiray 320 EXAM: CT Angiography Neck With Intravenous Contrast CLINICAL HISTORY: Reason for exam: neuro deficit, acute stroke suspected. TECHNIQUE: Routine carotid CT angiography protocol was performed with intravenous contrast. NASCET criteria using the distal ICAs for comparison were used for evaluation of stenoses. CTDI is 4.48 mGy and DLP is 445.65 mGy-cm. Automated exposure control was utilized for the study. A dose lowering technique was utilized adhering to the principles of ALARA. MIP reconstructed images were created and reviewed. CONTRAST: Patient received 119 ml optiray 320 of IV contrast COMPARISON: None. FINDINGS: VASCULATURE: Right common carotid artery: Unremarkable. No occlusion or significant stenosis. No dissection. Right internal carotid artery: Unremarkable. Extracranial segment is patent with no occlusion or significant stenosis. No dissection. Right external carotid artery: Unremarkable. No occlusion. Right vertebral artery: Unremarkable. No occlusion or significant stenosis. No dissection. Left common carotid artery: Unremarkable. No occlusion or significant stenosis. No dissection. Left internal carotid artery: Fusiform aneurysmal dilatation of the distal left carotid artery just proximal to its entrance into the petrous bone. Extracranial segment is patent with no occlusion or significant stenosis. No dissection. Left external carotid artery: Unremarkable. No occlusion. Left vertebral artery: Unremarkable. No occlusion or significant stenosis. No dissection. NECK: Bones/joints: Unremarkable. Soft tissues: Unremarkable. Lung apices: Clear. CAROTID STENOSIS REFERENCE USING NASCET CRITERIA: % ICA stenosis = (1 - narrowest ICA diameter/diameter of distal cervical ICA) x 100. Mild - <50% stenosis. Moderate - 50-69% stenosis. Severe - 70-94% stenosis. Near occlusion - 95-99% stenosis. Occluded - 100% stenosis. 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 No acute stenosis or occlusion Electronically signed by: Morteza Flowers MD 11/24/22 00:58 AM
--- NOTE | 2022-11-24 01:00 | CT Scan Report ---
Exam(s): CTA HEAD With Contrast IV Amt: 119 ml optiray 320 EXAM: CT Angiography Head With Intravenous Contrast CLINICAL HISTORY: Reason for exam: neuro deficit, acute stroke suspected. TECHNIQUE: Axial computed tomographic angiography images of the head with intravenous contrast. CTDI is 40.48 mGy and DLP is 445.65 mGy-cm. Automated exposure control was utilized for the study. A dose lowering technique was utilized adhering to the principles of ALARA. MIP reconstructed images were created and reviewed. CONTRAST: Patient received 119 ml optiray 320 of IV contrast COMPARISON: No relevant prior studies available. FINDINGS: Right internal carotid artery: No acute findings. Intracranial segment is patent with no significant stenosis. No aneurysm. Right anterior cerebral artery: Unremarkable. No occlusion or significant stenosis. No aneurysm. Right middle cerebral artery: Unremarkable. No occlusion or significant stenosis. No aneurysm. Right posterior cerebral artery: Unremarkable. No occlusion or significant stenosis. No aneurysm. Right vertebral artery: Unremarkable as visualized. Left internal carotid artery: No acute findings. Intracranial segment is patent with no significant stenosis. No aneurysm. Left anterior cerebral artery: Unremarkable. No occlusion or significant stenosis. No aneurysm. Left middle cerebral artery: Unremarkable. No occlusion or significant stenosis. No aneurysm. Left posterior cerebral artery: Unremarkable. No occlusion or significant stenosis. No aneurysm. Left vertebral artery: Unremarkable as visualized. Basilar artery: Unremarkable. No occlusion or significant stenosis. No aneurysm. IMPRESSION: Normal head CTA. Electronically signed by: Morteza Flowers MD 11/24/22 00:59 AM
[2022-11-24 02:19] LABS: Basophils # (auto) 0.02 K/uL (0-0.2); Basophils % (auto) 0.4 %; Eosinophils # (auto) 0.09 K/uL (0-0.50); Eosinophils % (auto) 1.7 %; Hematocrit (blood only) 35.5 % (37.0-47.0); Hemoglobin 11.8 g/dl (12.0-16.0); Immature Granulocytes # (auto) 0.01 K/uL (0.01-0.20); Immature Granulocytes % (auto) 0.2 %; Lymphocytes # (auto) 1.39 K/uL (1.2-3.4); Lymphocytes % (auto) 25.7 %; Mean Corpuscular Hemoglobin 27.7 pg (25.0-34.0); Mean Corpuscular Hgb Conc 33.2 g/dL (32.0-36.0); Mean Corpuscular Volume 83.3 fL (80.0-100.0); Mean Platelet Volume 10.5 fL (9.4-12.4); Monocytes # (auto) 0.42 K/uL (0.11-0.59); Monocytes % (auto) 7.8 %; Neutrophils # (auto) 3.48 K/uL (1.40-6.50); Neutrophils % (auto) 64.2 %; Platelet Count 175 K/uL (130-400); RDW Coefficient of Variation 15.5 % (11.5-14.5); RDW Standard Deviation 46.5 fL (36.4-46.3); Red Blood Count 4.26 M/uL (4.20-5.40); White Blood Count 5.41 K/ul (4.8-10.8)
[2022-11-24 02:37] LABS: Albumin Globulin Ratio 1.3 (0.9-2); Albumin Level 3.5 gm/dl (3.4-5.0); BUN Creatinine Ratio 28.4 (10-20); Calcium 9.2 mg/dl (8.6-10.3); Chol HDL Ratio 3.2 (0-5); Est GFR (African American) 49.4 ml/min; Est GFR (Non-African American) 42.6 ml/min; Globulin 2.8 gm/dl (2.5-4.0); Magnesium 2.3 mg/dl (1.7-2.4); Potassium 4.5 mmol/L (3.5-5.1); Total Protein 6.3 gm/dl (6.0-8.3)
[2022-11-24 02:54] LABS: Partial Thromboplastin Time 27.9 Seconds (21.0-31.0); Prothrombin Time 10.7 Seconds (9.0-12.0)
[2022-11-24] MEDS: LEVOTHYROXINE SODIUM 75 MCG TABLET PO SCH (06:31)
--- NOTE | 2022-11-24 07:24 | XRay Report ---
SINGLE VIEW CHEST CLINICAL HISTORY: Sepsis. FINDINGS: An AP, portable, upright chest radiograph is compared to study dated 06/14/2021. The examina tion is degraded by portable technique and patient rotation. The heart is enlarged noting atheroscle rotic calcification of the thoracic aorta. The pulmonary vasculature is noncongested. Chronic interst itial thickening is similar to previous. The mitral annulus is densely calcified. Scarring/atelectasi s is noted at the lung bases. No airspace consolidation or large pleural effusion is identified. No p neumothorax is seen. The skeletal structures are osteopenic. The bony thorax is grossly intact. Surgi janki clips are noted in the right axilla. IMPRESSION: Cardiomegaly with no active disease in the chest. ACT 112: Negative or not required by law. Electronically signed by: Jorge Lambert M.D. 11/24/2022 7:23 AM
[2022-11-24 07:37] LABS: Estimated Average Glucose 120 mg/dl; Hemoglobin A1C 5.8 % (4.5-5.6)
--- NOTE | 2022-11-24 07:51 | Hospitalist Progress Note ---
Date of Service November 24, 2022 Assessment & Plan (1) Altered mental status: Plan: 87 yo female with PMHx hypothyroidism, h/o breast cancer, and h/o AVNRT presents ischemic left MCA stroke. Left MCA Ischemia Early this afternoon pt found on ground and confused with R facial droop and RUE weakness. No h/o CVA. No leukocytosis. UA neg. Without signs of infection. Blood cx pending. CXR unremarkable, CT head negative, CTA head/neck negative. Origin of stroke likely embolic with absence of major atherosclerotic risk factors. -MRI brain: Large left MCA ischemic stroke, some additional small foci stroke. -Order Echo for thrombosis analysis with bubble study -lipids, a1c pending -neuro checks Q4h, NPO, NSS @ 100 -PT/OT ordered -speech consult ordered Elevated troponin trop 51 > 50.8 on admission. Likely due to demand. EKG without ischemic changes. - Trend. Hypothyroidism -cont. home synthroid -TSH pending H/O breast cancer -cont. 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 -Cardiology advised to just monitor at the time. Follows with [facility] cardiology. -pt's med list with metoprolol-HCTZ combo. Unclear reasoning for this nor if patient is even taking this medication. Family unfamiliar as well. Will hold medication for now. DVT ppx: Lovenox FEN/GI: NPO Code Status: Made Full for now; will need to ask POA tomorrow for clarification. Dispo: PCU, obs (2) History of breast cancer: (3) AVNRT (AV agapito re-entry tachycardia): Admission and Anticipated Discharge Date Admission Date: November 23, 2022 Supervising Physician Co-Signing Physician Notes I personally examined the patient and verified all hdz points of history and exam, discussed case, and agree with decision making with Dara Noel and Dr Nagel Seems to have some improvement in her arm weakness, seems to have significant word finding difficulty. Whenever we talk she makes good eye contact, good body language, nods yes/no and is able to say to degree yes/no appropriately and with appropriate conversational zeferino. At the same time whenever asked her things such as where are we right nowshe gives me a string of numbers. Family present, updated them to the best my ability and to their satisfaction as well. Vitals noted, in general she is awake and alert pleasant no distress. HEENT normocephalic atraumatic mucous membranes moist. Expressive aphasia as above, seems to have better motor function than reported from last night. Skin without rashes pallor or icterus. Lipids, CBC, A1c, basic metabolic panel, MRI (both films and report) reviewed MCA Roberta has a paucity of atherosclerotic risk factors (really the only thing I can identify is age, and only with hindsight of having had a vascular event a relative degree of dyslipidemia that yesterday would have been more than controlled for risk) and so intracranial atherosclerosis seems unlikely, large vessel atheroembolic is ruled out by her CT angiograms, most suspicious for central embolicdiscussed with cardiology, echo shows good images, so paradoxical embolus highly unlikely, LV thrombus ruled out, with lack of atherosclerosis elsewhere I highly doubt proximal aortic plaque rupture, no vegetations or other signs of endocarditisessentially it seems like by process of elimination atrial fibrillation/PAF with clotting would be the most likely. Technically this is still cryptogenic stroke, but in this context it seems so likely to have been central embolic that in discussion with the family, I suggested consideration of anticoagulation instead of antiplateletaggressive pursuit of atrial fibrillation with ongoing rhythm monitoring, and then "falling back" on an antiplatelet if after a few months no atrial fibrillation is identified. 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 I discussed that since this is technically "off prescription" that I would ask neurology for an opinion as well. For now aspirin, but if neurology agrees I feel it may be prudent to switch to a DOAC, and then only if we do not see PAF after significant follow-up fall back to the antiplatelet again. Subjective Mrs. Hurley had no concerns until yesterday afternoon when she woke up fr om a nap and her reported being very confused with a facial droop. He then called an ambulance who brought her here to [facility]. In the ED, CT scan was negative, trop was elevated, and EKG in Normal sinus rhythm. Today, she is without pain and confused. She was not certain about where she was or why she was here, her son and in the room provided the history. Review of Systems Constitutional: Denied fever, night sweats, fatigue, weakness, dizziness. Respiratory: Denied cough or shortness of breath. Cardiovascular: Additional Comments: Denied chest pain, palpitations Gastrointestinal: Denied nausea, vomiting, diarrhea, abdominal pain. Neurologic: Denied weaknesss, numbness, or tingling. Physical Exam Constitutional: Alert and oriented to only self in hospital bed Eyes: Pupils were equal, normal shape, and reactive. Neck: Respiratory: CTA, no increased work of breathing Cardiovascular: Normal rate and regular rhythmn. No heart sounds ausculated. Radial pulses equal b/l. Capillary refill less than 2 sec. Gastrointestinal (Abdomen): Nondistended, nontender, normoactive bowel sounds. Musculoskeletal: Upper extremity 4/5 strength Lower extremity 4/5 strength Skin: Warm dry, no apparent rashed. Neurologic: Confused, word finding difficulties. Alert and oriented only to self, mild facial droop on the left side, able to complete finger to nose only on right hand and not left, 4/5 strength in upper and lower extremeties, full sensory function as described by patient, positive Babinski. Psychiatric: Confused, only able to follow some instructions. Lymphatic: No lymphadenopathy in the neck and cervical region. Results & Data Results & Data Vital Signs (Past 12 Hours) Vital Signs Temp Pulse Pulse Resp BP BP Pulse Ox 11/24/22 07:22 71 11/24/22 00:30 73 11/24/22 03:09 36.8 C 72 16 152/77 H 95 11/24/22 00:19 36.8 C 81 16 164/92 H 96 11/23/22 23:40 70 11/23/22 23:45 68 13 11/23/22 23:30 72 13 158/85 H 11/23/22 23:15 75 15 11/23/22 23:01 73 18 147/88 H 11/23/22 22:45 72 12 11/23/22 22:30 78 16 150/96 H 97 11/23/22 22:15 71 15 97 11/23/22 22:01 71 18 111/67 98 11/23/22 21:45 70 15 97 11/23/22 21:30 73 15 164/98 H 97 11/23/22 21:06 75 16 11/23/22 20:30 64 12 96 11/23/22 20:15 64 14 97 11/23/22 20:00 68 13 145/79 H 98 11/23/22 19:49 37.0 C 73 17 149/86 H 99 11/23/22 20:04 70 98 11/23/22 19:47 72 11/23/22 19:48 70 16 149/86 H 98 O2 Del Method 11/24/22 07:22 11/24/22 00:30 11/24/22 03:09 Room Air 11/24/22 00:19 Room Air 11/23/22 23:40 11/23/22 23:45 11/23/22 23:30 11/23/22 23:15 11/23/22 23:01 11/23/22 22:45 11/23/22 22:30 Room Air 11/23/22 22:15 Room Air 11/23/22 22:01 Room Air 11/23/22 21:45 Room Air 11/23/22 21:30 Room Air 11/23/22 21:06 11/23/22 20:30 Room Air 11/23/22 20:15 Room Air 11/23/22 20:00 Room Air 11/23/22 19:49 Room Air 11/23/22 20:04 Room Air 11/23/22 19:47 11/23/22 19:48
[2022-11-24] MEDS: ANASTROZOLE 1 MG TAB PO SCH (09:33)
[2022-11-24] MEDS: ENOXAPARIN INJ 40 MG/0.4 ML SYR SQ SCH (09:34)
--- NOTE | 2022-11-24 13:44 | Electrocardiogram Report ---
Test Reason : Blood Pressure : / mmHG Vent. Rate : 069 BPM Atrial Rate : 069 BPM P-R Int : 198 ms QRS Dur : 082 ms QT Int : 390 ms P-R-T Axes : 028 053 022 degrees QTc Int : 417 ms Normal sinus rhythm Poor R wave progression, consider anterior OR vs. lead placement vs. LVH Abnormal ECG When compared with ECG of 08-AUG-2018 14:46, Significant changes have occurred Confirmed by Solomon Jean ([id number]) on 11/24/2022 1:44:24 PM Referred By: REFERRED SELF Confirmed By:Solomon Jean
--- NOTE | 2022-11-24 14:32 | Magnetic Resonance Report ---
MRI OF THE BRAIN WITHOUT IV CONTRAST CLINICAL HISTORY: Strokelike symptoms. COMPARISON STUDY: CT of the brain dated 11/23/2022. TECHNIQUE: MRI of the brain was performed utilizing various T1 and T2-weighted sequences in the axial , sagittal, and coronal planes. IV contrast was not administered for this examination. FINDINGS: Brain parenchyma: There is a large focus of restricted diffusion seen in the posterior left frontal l obe and along the insular cortex of the left temporal lobe consistent with acute to subacute infarct. There are also small foci of restricted diffusion in the left MCA territory within the barrow radiat a and the posterior left temporal cortex. No additional foci of restricted diffusion are seen in the cerebellum or the right hemisphere. There is no hemorrhage or midline shift. There is age-related inv olutional change noting mild microangiopathic disease. No extra-axial fluid collection is seen. The c erebellar tonsils are normal in configuration. Ventricles, sulci, and cisterns: Prominent secondary to involutional change. Pituitary and sella: Unremarkable. Intracranial vasculature: Normal flow voids are maintained at the skull base. Orbits: The bony orbits are grossly intact. Orbital contents are normal in appearance noting bilatera l ocular lens implants. Sinuses and mastoids: Clear. Calvarium: Unremarkable. Cervical cord: Partially visualized cervical spinal cord is normal in morphology and signal intensity . IMPRESSION: 1. Large acute to subacute infarct within the left MCA territory as above. 2. No additional foci of acute ischemia are seen. 3. There is no hemorrhage or midline shift. ACT 112: Negative or not required by law. Electronically signed by: Jorge Lambert M.D. 11/24/2022 2:29 PM
--- NOTE | 2022-11-24 16:12 | XCELERA ---
[id number]
--- NOTE | 2022-11-24 17:13 | Billing Data ---
Date of Service November 24, 2022 Coding Level of Care Code 60506 SUB INP/OBS CARE MIN
[2022-11-24] MEDS: ASPIRIN 81 MG ECTAB PO SCH (17:50)
[2022-11-25 01:12] LABS: A calco-baum cmplx NotReported Not Detected (NotDetected); Bact fragilis Not Reported Not Detected (NotDetected); C auris Not Reported Not Detected (NotDetected); Calbicans Not Reported Not Detected (NotDetected); Candida glabrata Not Reported Not Detected (NotDetected); Candida krusei Not Reported Not Detected (NotDetected); Cneoformans/gatti Not Reported Not Detected (NotDetected); Cparapsilosis Not Reported Not Detected (NotDetected); Ctropicalis Not Reported Not Detected (NotDetected); E cloacae compx Not Reported Not Detected (NotDetected); Efaecalis Not Reported Not Detected (NotDetected); Efaecium Not Reported Not Detected (NotDetected); Enterobacterales Not Reported Not Detected (NotDetected); Escherichia coli Not Reported Not Detected (NotDetected); H influenzae Not Reported Not Detected (NotDetected); K aerogenes Not Reported Not Detected (NotDetected); Koxytoca Not Reported Not Detected (NotDetected); Kpneumoniae grp Not Reported Not Detected (NotDetected); Lmonocyt Not Reported Not Detected (NotDetected); N meningitidis Not Reported Not Detected (NotDetected); P aeruginosa Not Reported Not Detected (NotDetected); Proteus spp Not Reported Not Detected (NotDetected); Salmonella spp Not Reported Not Detected (NotDetected); Smarcescens Not Reported Not Detected (NotDetected); Staph lugdunensis Not Reported Not Detected (NotDetected); Staph spp. Not Reported DETECTED (NotDetected); Staphaureus Not Reported Not Detected (NotDetected); Staphepi Not Reported Not Detected (NotDetected); Stenmaltophilia Not Reported Not Detected (NotDetected); Strep agal(GrpB) Not Reported Not Detected (NotDetected); Strep pneum Not Reported Not Detected (NotDetected); Strep pyog (GrpA) Not Reported Not Detected (NotDetected); Strep spp Not Reported Not Detected (NotDetected)
[2022-11-25 01:18] LABS: Staphylococcus spp. DETECTED (NotDetected)
--- NOTE | 2022-11-25 04:33 | Billing Data ---
Date of Service November 25, 2022 Coding Level of Care Code 51337 INT INP/OBS CARE
[2022-11-25] MEDS: LEVOTHYROXINE SODIUM 75 MCG TABLET PO SCH (06:32)
[2022-11-25] MEDS: ASPIRIN 81 MG ECTAB PO SCH (08:05)
[2022-11-25] MEDS: ENOXAPARIN INJ 40 MG/0.4 ML SYR SQ SCH (08:06)
--- NOTE | 2022-11-25 08:27 | Hospitalist Progress Note ---
Date of Service November 25, 2022 Assessment & Plan (1) Left acute arterial ischemic stroke, MCA (middle cerebral artery): (2) History of breast cancer: (3) Altered mental status: Plan 87 yo female with PMHx hypothyroidism, h/o breast cancer, and h/o AVNRT presents ischemic left MCA stroke. Left MCA Ischemia On 11/23 pt found on ground and confused with R facial droop and RUE weakness. No h/o CVA. No leukocytosis. UA neg. Without signs of infection. Blood cx pending. CXR unremarkable, CT head negative, CTA head/neck negative. Origin of stroke likely embolic with absence of major atherosclerotic risk factors. -MRI brain: Large left MCA ischemic stroke, some additional small foci stroke. -Echocardiogram: no wall motion abnormalities, negative bubble study -Neurology consulted: cryptogenic stroke, but suspect etiology secondary to atrial fibrillation (although none documented at this time) -Aspirin 81mg daily -Lipitor 40mg daily, goal of LDL <70 -Ordered cardiac event monitor to help identify possible paroxysmal atrial fibrillation -In setting of recent stroke (<48h prior), ok with elevated BP at this time. BP 160-170/90s so far today. -Cholesterol: 192, LDL: 120, HDL: 60 -PT/OT consulted, continue therapy as indicated -Speech therapy consulted * Symptoms overall improving significantly. Although expressive aphasia remains, patient is able to answer questions appropriately at times and appears to understand conversation with appropriate yes/no and following basic commands. Will certainly benefit from early and extensive rehab. Anticipate discharge to rehab, CM working towards placement at [facility]. Elevated troponin trop 51 > 50.8 on admission. -Likely due to demand. EKG without ischemic changes. 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 -Cardiology advised to just monitor at the time. Follows with [facility] cardiology. -Pt's med list with metoprolol-HCTZ combo. Unclear reasoning for this nor if patient is even taking this medication. Family unfamiliar as well. Will hold medication for now. DVT ppx: Lovenox FEN/GI: Regular Code Status: Full Code Dispo: PCU, anticipate d/c to rehab Admission and Anticipated Discharge Date Admission Date: November 23, 2022 Supervising Physician Co-Signing Physician Notes I personally examined the patient and verified all hdz points of history and exam, discussed case, and agree with decision making with Dr Nagel walking halls w PT doing well, later sleeping. will be able to go to [facility] management suspects Monday. Vitals noted, in general she is awake and alert walking the halls with therapy, later sleeping comfortably. Breathing unlabored no accessory muscle use good effort. Skin without rashes pallor or icterus. Stroketechnically cryptogenicaspirinhigh suspicion for A-fibso while there is not evidence to support anticoagulation now, definitely will want to pursue atrial fibrillation with event monitoring at least several times, if not considering a loop recorder. Fortunately she is showing a surprising improvement already, anticipate transfer to rehab Subjective Patient seen and examined at bedside. No acute events overnight. Patient is more alert and oriented today, still has expressive aphasia but most conversation is logical. Her and two sons are at bedside. They note that she has improved significantly from yesterday, has been able to ambulate. She denies any pain, chest pain, or shortness of breath. Review of Systems Review of Systems: As per above Physical Exam Constitutional: WD/WN, vitals as above Eyes: Anicteric sclerae ENMT: External ears and nose normal. Moist mucous membranes. Respiratory: normal respiratory effort, lungs clear to auscultation Cardiovascular: RRR, no murmur, no edema Gastrointestinal (Abdomen): Abdomen soft, nontender. No masses palpated. Skin: no rashes, warm and dry Neurologic: moves all extremities and awake Speech / Cognition: + exp ressive aphasia Motor/Sensory: no tremor and no pronator drift Cranial Nerves: tongue midline, able to rotate head bilaterally, able to elevate sh oulders bilaterally and symmetric palate elevation Psychiatric: Orientation: alert, oriented to person, oriented to place and cooperative Results & Data Results & Data Vital Signs (Past 12 Hours) Vital Signs Temp Pulse Pulse Resp BP Pulse Ox O2 Del Method 11/25/22 07:38 36.7 C 69 19 174/92 H 96 Room Air 11/25/22 07:36 66 11/25/22 02:48 36.7 C 60 16 155/79 H 97 Room Air 11/24/22 23:00 67 11/24/22 22:28 36.8 C 69 18 159/114 H 96 Room Air Resident Activity Tracking Resident Involvement: Resident Care Provided Care Provided: Adult Hospital Medicine
--- NOTE | 2022-11-25 09:25 | Neurology Consultation ---
Date of Consultation November 25, 2022 Assessment & Plan (1) Left acute arterial ischemic stroke, MCA (middle cerebral artery): R sided weakness and aphasia secondary to a moderate L MCA stroke. Stroke is thus far cryptogenic/ESUS with negative workup thus far. Agree with strong suspicion for afib and recommend event monitor. However ESUS trials do not support empiric AC and therefore recommend she remain on aspirin 81mg daily while her outpatient cardiac workup continues. -- Aspirin 81mg daily -- Lipitor 40mg daily, goal LDL <70 -- event monitor, can consider loop if negative -- Therapy evals for dispo planning -- Neurology follow-up 4-6 weeks -- Please contact us with any further questions. Telehealth Consultation Telehealth Information Telehealth Information: I performed this visit using a real-time telehealth connection between my location and the patients location ([facility]). After connecting through interactive tele-video, patient was identified by name and date of and/or wristband check.Patient (or authorized healthcare sales representative [employer]) was informed that this was a telemedicine visit and it was being conducted confidentially over secure lines. My office door was closed and no one else was present in the room with me.Patient (or authorized healthcare sales representative rural [employer]) provided consent to proceed with the visit, expressed an understanding of privacy and security of the telemedicine visit, and gave permission to have a hospital sales representative rural [employer] in the room in order to assist with the visit and to conduct portions of the visit, as needed. I informed the pa tient (or authorized healthcare sales representative [employer]) that I reviewed their record and presented the opportunity for them to ask any questions regarding the visit today. The patient agreed to participate. History of Present Illness Reason for Consultation: Stroke Requesting Physician: Dr. Pollard Attending Physician: Morteza Pollard, History of Present Illness Caitlin Hurley is an 87 yo F presenting with R sided weakness and aphasia found to have a L MCA stroke. Her family at bedside today report that she is much better than when she first arrived. Specifically her speech is clearer and she is having less difficulty with word finding. She has never had a stroke in the past. Denies any new symptoms since admission. Overall the patient reports she feels well, has been out of bed with no significant difficulty walking. No history of afib in the past, denies any heart fluttering or palpitations. Allergies Allergy/AdvReac Type Severity Reaction Status Date / Time Bactrim Allergy Mild HIVES Verified 04/13/17 08:00 latex Allergy Mild RASH ITCHY Verified 07/25/22 10:52 sulfamethoxazole Allergy Mild HIVES Verified 07/25/22 10:52 trimethoprim Allergy Mild HIVES Verified 07/25/22 10:52 Home Medications Medication Instructions Recorded Confirmed Type anastrozole 1 mg tablet 1 mg PO DAILY 08/08/18 11/23/22 History levothyroxine 75 mcg tablet 75 mcg PO DAILY 08/08/18 11/23/22 History metoprolol mackey-hydrochlorothiaz 1 dose PO UD 11/23/22 11/23/22 History Patient History Medical History Acid reflux Cholecystectomy planned Surgical History History of cataract surgery History of cholecystectomy History of hernia repair History of lumpectomy History of tonsillectomy and adenoidectomy Family History Father Hearing loss Stroke Grandmother Stroke Sister Cancer Grandfather Cancer Mother Asthma Other Heart disease No family history of adverse response to anesthesia No family history of bleeding disorder Social History Smoking Status: Unknown if ever smoked Preferred Language: Guamanian Communication Ability: Impaired Communication Ability Comment: pt unable to provide verbal history, unable to reach primary contact for hx Current Living Situation: Other Current Living Situation Comment: unable to obtain Feels Safe at Home: Yes Assistive Devices: None Review of Systems +word finding difficulties Physical Exam Neurological Examination: Mental Status: Awake and alert. Oriented to person and place. Dysfluent. Mild anomia for low frequency words, able to read. Comprehension intact. Affect appropriate. Cranial Nerves: II: Reads NIHSS cards, pupils 3/3 to 2/2, nguyen grossly intact. III/IV/: Versions intact without nystagmus, no gaze preference. V: Facial sensation symmetric to light touch VII: Facial expression symmetric VIII: Hearing intact to voice IX/X: Palate elevates symmetrically Motor: Strength was symmetric and antigravity throughout. Slow movements on the R. Pronator drift on the R. Coordination: Finger to nose and heel to centeno were intact. Reflexes: Unable to assess over telemedicine Results & Data Vital Signs (Past 12 Hours) Vital Signs Temp Pulse Pulse Resp BP Pulse Ox O2 Del Method 11/25/22 07:38 36.7 C 69 19 174/92 H 96 Room Air 11/25/22 07:36 66 11/25/22 02:48 36.7 C 60 16 155/79 H 97 Room Air 11/24/22 23:00 67 11/24/22 22:28 36.8 C 69 18 159/114 H 96 Room Air Laboratory Results Abnormal lab results 11/23/22 Range/Units 20:10 Staphylococcus sp PCR DETECTED A (NotDetected) Diagnostic Findings Brain MRI 11/24/22 12:01 MRI OF THE BRAIN WITHOUT IV CONTRAST CLINICAL HISTORY: Strokelike symptoms. COMPARISON STUDY: CT of the brain dated 11/23/2022. TECHNIQUE: MRI of the brain was performed utilizing various T1 and T2-weighted sequences in the axial, sagittal, and coronal planes. IV contrast was not administered for this examination. FINDINGS: Brain parenchyma: There is a large focus of restricted diffusion seen in the posterior left frontal lobe and along the insular cortex of the left temporal lobe consistent with acute to subacute infarct. There are also small foci of restricted diffusion in the left MCA territory within the barrow radiata and the posterior left temporal cortex. No additional foci of restricted diffusion are seen in the cerebellum or the right hemisphere. There is no hemorrhage or midline shift. There is age-related involutional change noting mild microangiopathic disease. No extra-axial fluid collection is seen. The cerebellar tonsils are normal in configuration. Ventricles, sulci, and cisterns: Prominent secondary to involutional change. Pituitary and sella: Unremarkable. Intracranial vasculature: Normal flow voids are maintained at the skull base. Orbits: The bony orbits are grossly intact. Orbital contents are normal in appearance noting bilateral ocular lens implants. Sinuses and mastoids: Clear. Calvarium: Unremarkable. Cervical cord: Partially visualized cervical spinal cord is normal in morphology and signal intensity. IMPRESSION: 1. Large acute to subacute infarct within the left MCA territory as above. 2. No additional foci of acute ischemia are seen. 3. There is no hemorrhage or midline shift. ACT 112: Negative or not required by law. Electronically signed by: Jorge Lambert M.D. 11/24/2022 2:29 PM
[2022-11-25] MEDS: ANASTROZOLE 1 MG TAB PO SCH (09:58)
[2022-11-25] MEDS: ATORVASTATIN 40 MG TAB PO SCH (15:15)
--- NOTE | 2022-11-25 16:30 | Billing Data ---
Date of Service November 25, 2022 Coding Level of Care Code 91729 SUB INP/OBS CARE
[2022-11-26] MEDS: LEVOTHYROXINE SODIUM 75 MCG TABLET PO SCH (05:20)
--- NOTE | 2022-11-26 07:22 | Hospitalist Progress Note ---
Date of Service November 26, 2022 Assessment & Plan (1) Left acute arterial ischemic stroke, MCA (middle cerebral artery): (2) History of breast cancer: (3) Altered mental status: Plan 87 yo female with PMHx hypothyroidism, h/o breast cancer, and h/o AVNRT presents ischemic left MCA stroke. Left MCA Ischemia On 11/23 pt found on ground and confused with R facial droop and RUE weakness. No h/o CVA. No leukocytosis. UA neg. Without signs of infection. Blood cx pending. CXR unremarkable, CT head negative, CTA head/neck negative. Origin of stroke likely embolic with absence of major atherosclerotic risk factors. -MRI brain: Large left MCA ischemic stroke, some additional small foci stroke. -Echocardiogram: no wall motion abnormalities, negative bubble study -Neurology consulted: cryptogenic stroke, but suspect etiology secondary to atrial fibrillation (although none documented at this time) -Aspirin 81mg daily -Lipitor 40mg daily, goal of LDL <70 -Ordered cardiac event monitor to help identify possible paroxysmal atrial fibrillation -In setting of recent stroke (<48h prior), ok with elevated BP at this time. BP 160-170/90s so far today. -Cholesterol: 192, LDL: 120, HDL: 60 -PT/OT consulted, continue therapy as indicated -Speech therapy consulted * Symptoms overall improving significantly. Although expressive aphasia remains, patient is able to answer questions appropriately at times and appears to understand conversation with appropriate yes/no and following basic commands. Will certainly benefit from early and extensive rehab. Anticipate discharge to rehab, CM working towards placement at [facility]. Elevated troponin trop 51 > 50.8 on admission. -Likely due to demand. EKG without ischemic changes. 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 -Cardiology advised to just monitor at the time. Follows with [facility] cardiology. -Pt's med list with metoprolol-HCTZ combo. Unclear reasoning for this nor if patient is even taking this medication. Family unfamiliar as well. Will hold medication for now. DVT ppx: Lovenox FEN/GI: Regular Code Status: Full Code Dispo: PCU, anticipate d/c to rehab Admission and Anticipated Discharge Date Admission Date: November 23, 2022 Review of Systems Review of Systems: As per above Physical Exam Constitutional: WD/WN, vitals as above Respiratory: normal respiratory effort, lungs clear to auscultation Cardiovascular: RRR, no murmur, no edema Skin: no rashes, warm and dry Neurologic: moves all extremities and awake Speech / Cognition: + expressive aphasia Psychiatric: Orientation: alert, oriented to person, oriented to place and cooperative Results & Data Results & Data Vital Signs (Past 12 Hours) Vital Signs Temp Pulse Pulse Resp BP BP Pulse Ox 11/26/22 07:01 36.6 C 70 18 164/88 H 93 11/26/22 06:59 67 11/26/22 03:14 36.5 C 67 16 160/82 H 96 11/25/22 23:30 63 11/25/22 20:00 11/25/22 22:49 36.7 C 69 16 173/95 H 95 O2 Del Method 11/26/22 07:01 Room Air 11/26/22 06:59 11/26/22 03:14 Room Air 11/25/22 23:30 11/25/22 20:00 Room Air 11/25/22 22:49 Room Air
[2022-11-26] MEDS: ATORVASTATIN 40 MG TAB PO SCH (08:33)
[2022-11-26] MEDS: ASPIRIN 81 MG ECTAB PO SCH (08:33)
[2022-11-26] MEDS: ANASTROZOLE 1 MG TAB PO SCH (08:34)
[2022-11-26] MEDS: ENOXAPARIN INJ 40 MG/0.4 ML SYR SQ SCH (08:35)
--- NOTE | 2022-11-26 12:19 | Discharge Summary ---
Date of Service November 26, 2022 Admission HPI Per Admitting Provider 87 yo female with PMHx hypothyroidism, h/o breast cancer, and h/o AVNRT presents with altered mental status. Patient was found on the floor around 1 PM earlier today. She was confused and was noted to have a right facial droop and right arm weakness. She was also having trouble finding her words. Otherwise appears asym ptomatic. ROS difficult to obtain from patient due to presentation. Admission Exam Per Admitting Provider Constitutional: in no acute distress, pleasant. Vitals as above. HEENT: No scleral injection or discharge. Dry mucous membranes. Clear oropharynx. Neck: Supple without lymphadenopathy or thyromegaly. Trachea midline. Lungs: Clear to auscultation bilaterally with good effort. Cardiac: Regular rate and rhythm. +systolic murmur. Trace bilateral extremity edema. 2+ distal peripheral pulses. Abdomen: Bowel sounds present. Soft, nontender, and nondistended.No guarding. No hepatosplenomegaly. MSK: No cyanosis or clubbing. Bilateral lower extremities 4/5, RUE 3/5, LUE 4/5 with strength testing. 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 Skin: No abnormal rashes, warm, dry. Neurologic: Grossly intact cranial nerves. Cannot appreciate facial drooping at this time. Difficulty finding words. Alert. Not oriented to time self, time, or place. PERRL. Principal Diagnosis stroke Discharge Exam Constitutional WD/WN, vitals as above Respiratory normal respiratory effort, lungs clear to auscultation Cardiovascular RRR, no murmur, no edema Skin no rashes, warm and dry Neurologic moves all extremities and awake Speech / Cognition: + expressive aphasia Psychiatric Orientation: alert, oriented to person, oriented to place and cooperative Discharge Data Allergies Allergy/AdvReac Type Severity Reaction Status Date / Time Bactrim Allergy Mild HIVES Verified 04/13/17 08:00 latex Allergy Mild RASH ITCHY Verified 07/25/22 10:52 sulfamethoxazole Allergy Mild HIVES Verified 07/25/22 10:52 trimethoprim Allergy Mild HIVES Verified 07/25/22 10:52 Consultations 11/23/22 22:23 ED Decision to Admit Stat 11/24/22 17:17 Consult Neurology Routine Ordered Studies Chest X-Ray 11/23/22 19:49 SINGLE VIEW CHEST CLINICAL HISTORY: Sepsis. FINDINGS: An AP, portable, upright chest radiograph is compared to study dated 06/14/2021. The examination is degraded by portable technique and patient rotation. The heart is enlarged noting atherosclerotic calcification of the thoracic aorta. The pulmonary vasculature is noncongested. Chronic interstitial thickening is similar to previous. The mitral annulus is densely calcified. Scarring/atelectasis is noted at the lung bases. No airspace consolidation or large pleural effusion is identified. No pneumothorax is seen. The skeletal structures are osteopenic. The bony thorax is grossly intact. Surgical clips are noted in the right axilla. IMPRESSION: Cardiomegaly with no active disease in the chest. Head CT 11/23/22 20:32 Exam(s): CT HEAD Without Contrast EXAM: CT Head Without Intravenous Contrast CLINICAL HISTORY: Reason for exam: AMS. TECHNIQUE: Axial computed tomography images of the head/brain without intravenous contrast. CTDI is 37.61 mGy and DLP is 624.41 mGy-cm. Automated exposure control was utilized for the study. A dose lowering technique was utilized adhering to the principles of ALARA. COMPARISON: 10/23/2018 FINDINGS: Brain: Mild cerebral volume loss and ischemic microangiopathy appropriate patient age. No hemorrhage. Ventricles: Unremarkable. No ventriculomegaly. Bones/joints: Unremarkable. No acute fracture. Soft tissues: Unremarkable. Sinuses: Unremarkable as visualized. No acute sinusitis. Mastoid air cells: Unremarkable as visualized. No mastoid effusion. IMPRESSION: No acute findings in the head/brain Chronic senescent changes as described above. Head CTA 11/23/22 23:38 Exam(s): CTA HEAD With Contrast IV Amt: 119 ml optiray 320 EXAM: CT Angiography Head With Intravenous Contrast CLINICAL HISTORY: Reason for exam: neuro deficit, acute stroke suspected. TECHNIQUE: Axial computed tomographic angiography images of the head with intravenous contrast. CTDI is 40.48 mGy and DLP is 445.65 mGy-cm. Automated exposure control was utilized for the study. A dose lowering technique was utilized adhering to the principles of ALARA. MIP reconstructed images were created and reviewed. CONTRAST: Patient received 119 ml optiray 320 of IV contrast COMPARISON: No relevant prior studies available. FINDINGS: Right internal carotid artery: No acute findings. Intracranial segment is patent with no significant stenosis. No aneurysm. Right anterior cerebral artery: Unremarkable. No occlusion or significant stenosis. No aneurysm. Right middle cerebral artery: Unremarkable. No occlusion or significant stenosis. No aneurysm. Right posterior cerebral artery: Unremarkable. No occlusion or significant stenosis. No aneurysm. Right vertebral artery: Unremarkable as visualized. Left internal carotid artery: No acute findings. Intracranial segment is patent with no significant stenosis. No aneurysm. Left anterior cerebral artery: Unremarkable. No occlusion or significant stenosis. No aneurysm. Left middle cerebral artery: Unremarkable. No occlusion or significant stenosis. No aneurysm. Left posterior cerebral artery: Unremarkable. No occlusion or significant stenosis. No aneurysm. Left vertebral artery: Unremarkable as visualized. Basilar artery: Unremarkable. No occlusion or significant stenosis. No aneurysm. IMPRESSION: Normal head CTA. Neck CTA 11/23/22 23:38 Exam(s): CTA NECK With Contrast IV Amt: 119 ml optiray 320 EXAM: CT Angiography Neck With Intravenous Contrast CLINICAL HISTORY: Reason for exam: neuro deficit, acute stroke suspected. TECHNIQUE: Routine carotid CT angiography protocol was performed with intravenous contrast. NASCET criteria using the distal ICAs for comparison were used for evaluation of stenoses. CTDI is 4.48 mGy and DLP is 445.65 mGy-cm. Automated exposure control was utilized for the study. A dose lowering technique was utilized adhering to the principles of ALARA. MIP reconstructed images were created and reviewed. CONTRAST: Patient received 119 ml optiray 320 of IV contrast COMPARISON: None. FINDINGS: VASCULATURE: Right common carotid artery: Unremarkable. No occlusion or significant stenosis. No dissection. Right internal carotid artery: Unremarkable. Extracranial segment is patent with no occlusion or significant stenosis. No dissection. Right external carotid artery: Unremarkable. No occlusion. Right vertebral artery: Unremarkable. No occlusion or significant stenosis. No dissection. Left common carotid artery: Unremarkable. No occlusion or significant stenosis. No dissection. Left internal carotid artery: Fusiform aneurysmal dilatation of the distal left carotid artery just proximal to its entrance into the petrous bone. Extracranial segment is patent with no occlusion or significant stenosis. No dissection. Left external carotid artery: Unremarkable. No occlusion. Left vertebral artery: Unremarkable. No occlusion or significant stenosis. No dissection. NECK: Bones/joints: Unremarkable. Soft tissues: Unremarkable. Lung apices: Clear. CAROTID STENOSIS REFERENCE USING NASCET CRITERIA: % ICA stenosis = (1 - narrowest ICA diameter/diameter of distal cervical ICA) x 100. Mild - <50% stenosis. Moderate - 50-69% stenosis. Severe - 70-94% stenosis. Near occlusion - 95-99% stenosis. Occluded - 100% stenosis. 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 No acute stenosis or occlusion Brain MRI 11/24/22 12:01 MRI OF THE BRAIN WITHOUT IV CONTRAST CLINICAL HISTORY: Strokelike symptoms. COMPARISON STUDY: CT of the brain dated 11/23/2022. TECHNIQUE: MRI of the brain was performed utilizing various T1 and T2-weighted sequences in the axial, sagittal, and coronal planes. IV contrast was not administered for this examination. FINDINGS: Brain parenchyma: There is a large focus of restricted diffusion seen in the posterior left frontal lobe and along the insular cortex of the left temporal lobe consistent with acute to subacute infarct. There are also small foci of restricted diffusion in the left MCA territory within the barorw radiata and the posterior left temporal cortex. No additional foci of restricted diffusion are seen in the cerebellum or the right hemisphere. There is no hemorrhage or midline shift. There is age-related involutional change noting mild microangiopathic disease. No extra-axial fluid collection is seen. The cerebellar tonsils are normal in configuration. Ventricles, sulci, and cisterns: Prominent secondary to involutional change. Pituitary and sella: Unremarkable. Intracranial vasculature: Normal flow voids are maintained at the skull base. Orbits: The bony orbits are grossly intact. Orbital contents are normal in appearance noting bilateral ocular lens implants. Sinuses and mastoids: Clear. Calvarium: Unremarkable. Cervical cord: Partially visualized cervical spinal cord is normal in morphology and signal intensity. IMPRESSION: 1. Large acute to subacute infarct within the left MCA territory as above. 2. No additional foci of acute ischemia are seen. 3. There is no hemorrhage or midline shift. 11/24/22 02:06 11/24/22 02:06 Hospital Course (1) Left acute arterial ischemic stroke, MCA (middle cerebral artery): (2) History of breast cancer: (3) Altered mental status: Plan 87 yo female with PMHx hypothyroidism, h/o breast cancer, and h/o AVNRT presented with altered mental status found to have an ischemic stroke in the d istribution of the left MCA now clinically improved and stable for discharge. Left MCA Ischemia On 11/23 pt found on ground and confused with R facial droop and RUE weakness. No h/o CVA. No leukocytosis. UA neg. Without signs of infection. Blood cx 1/2 tubes coag neg staph. CXR unremarkable, CT head negative, CTA head/neck negative. Etiology not entirely clear. Origin of stroke likely embolic with absence of major atherosclerotic risk factors - Chol < 200 LDL 120. Will do cardiac event monitor to eval for paroxsymal a fib. Start ASA 81 mg QD. Atorvastatin 40 QD - goal LDL <70. BP permissible during hospital stay. PT/OT and speech therapy. Mental staus improving. Continue with extensive rehab at [facility]. Urinary Retention Had urinary retention in the ED. Swan was placed. Removed 12:00 pm 11/26. Complete voiding trial at rehab. Can replace swan if retaining. Elevated troponin Trop 51 > 50.8 on admission - likely due to demand. EKG without ischemic changes. Hypothyroidism Continue home Synthroid. TSH 1.639 History of breast cancer -Continue home anastrozole History of AVNRT Initially diagnosed in 2016 following cholecystectomy.Cardiology advised to just monitor at the time. Follows with [facility] cardiology. Pt's med list with m etoprolol-HCTZ combo. Unclear reasoning for this nor if patient is even taking this medication. Family unfamiliar as well. Stopped medication. Would defer to PCP or maintenance analyst for restarting. DVT ppx: Lovenox FEN/GI: Regular Code Status: Full Code Dispo: PCU, d/c to rehab Total Time Total Time Spent Total Time Spent (In Minutes): See attending attestation Discharge Plan Discharge Items Patient Disposition: Transfer Senior Living Fac Reason For Visit: AMS, STROKE R/O Discharge Diagnosis: stroke Activity: Per Instructions section Non-emergency contact: Primary Care Provider Call non-emergency contact if: your pain is concerning for you and your temperature is above 101.5 Follow-up/Referrals: Solomon Cortez MD [Primary Care Provider] - Diet: Regular Addtl Attending Provider Instructions: 87 yo female with PMHx hypothyroidism, h/o breast cancer, and h/o AVNRT presente d with altered mental status found to have an ischemic stroke in the distribution of the left MCA now clinically improved and stable for discharge. Left MCA Ischemia On 11/23 pt found on ground and confused with R facial droop and RUE weakness. No h/o CVA. No leukocytosis. UA neg. Without signs of infection. Blood cx 1/2 tubes coag neg staph. CXR unremarkable, CT head negative, CTA head/neck negative. Etiology not entirely clear. Origin of stroke likely embolic with absence of major atherosclerotic risk factors - Chol < 200 LDL 120. Will do cardiac event monitor to eval for paroxsymal a fib. Start ASA 81 mg QD. Atorvastatin 40 QD - goal LDL <70. BP permissible during hospital stay. PT/OT and speech therapy. Mental staus improving. Continue with extensive rehab at [facility]. Urinary Retention Had urinary retention in the ED. Swan was placed. Removed 12:00 pm 11/26. Complete voiding trial at rehab. Can replace swan if retaining. Elevated troponin Trop 51 > 50.8 on admission - likely due to demand. EKG without ischemic changes. Hypothyroidism Continue home Synthroid. TSH 1.639 History of breast cancer -Continue home anastrozole History of AVNRT Initially diagnosed in 2017 following cholecystectomy.Cardiology advised to just monitor at the time. Follows with [facility] cardiology. Pt's med list with metoprolol-HCTZ combo. Unclear reasoning for this nor if patient is even taking this medication. Family unfamiliar as well. Stopped medication. Would defer to PCP or maintenance analyst for restarting. DVT ppx: Lovenox FEN/GI: Regular Code Status: Full Code Dispo: PCU, d/c to rehab Pending Studies at Discharge: No Stand-Alone Forms: My [facility] Skilled Items Patient informed of condition?: Yes DNR: No Discharge Level of Care: Skilled Communicable Disease: No Discharge Prognosis: Stable Lines: None Urinary Catheter: No (voiding trial 11/26 12:00 pm removed - if retaining replace swan) Medications and DC Order Prescriptions: New atorvastatin 40 mg Tablet 40 mg PO QAM 30 Days Qty: 30 0RF acetaminophen 325 mg Tablet 650 mg PO Q4H PRN (Reason: pain) 30 Days Qty: 30 0RF aspirin 81 mg Tablet,Delayed Release (Dr/Ec) 81 mg PO QAM 30 Days Qty: 30 0RF ondansetron 4 mg Tablet,Disintegrating 4 mg PO Q6H PRN (Reason: nausea and vomiting) Qty: 20 0RF Continued anastrozole 1 mg Tablet 1 mg PO DAILY levothyroxine 75 mcg Tablet 75 mcg PO DAILY Discontinued metoprolol mackey-hydrochlorothiaz 1 dose PO UD Rx Instructions: dose and specific metoprolol unknown to family and pt is confused Discharge Orders: Discharge Order (Routine); Ordered 11/26/22 Ordered By: Consuelo Gregg Admission Data Admit Date/Time: 11/23/22 23:38 Attending Provider: Morteza Pollard Admit Provider: Tonny Petty Primary Care Provider: Solomon Cortez Other Providers: Dwayne Jones ; [place] ; [facility] Other Interventions: Discharge Summary Assessment (RN) Last Done: 11/26/22 12:31 Supervising Physician Co-Signing Physician Notes I personally examined the patient and verified all hdz points of history and exam, discussed case, and agree with decision making with Dr Gregg Sitting up, feeling good, was able to get to [facility] today! Vitals noted, in general she is awake and alert sitting on the edge of the bed and in no distress. Breathing unlabored no accessory muscle use good effort. Skin without rashes pallor or icterus. Stroketechnically cryptogenicaspirinhigh suspicion for A-fibso while there is not evidence to support anticoagulation now, definitely will want to pursue atrial fibrillation with event monitoring at least several times, if not considering a loop recorder. Fortunately she is showing a surprising improvement already, for rehab today Resident Activity Tracking Resident Involvement: Resident Care Provided Care Provided: Adult Hospital Medicine
--- NOTE | 2022-11-26 18:28 | Billing Data ---
Date of Service November 26, 2022 Coding Level of Care Code 98259 IN/OBS DISCH 30 MIN/LESS
== END 2022-11-26 13:20 ==
LOC: ED 19:41 → 2S 19:41 → SUATTDRO 23:38 → 2S 11-24 06:11

== ENCOUNTER 2023-04-26 08:53 | Inpatient (IN) ==
[2023-04-26] MEDS ORDERED: OPTIRAY 320 125ml IV ONE (09:02)
--- NOTE | 2023-04-26 09:24 | Emergency Department Note ---
Impression & Plan Stroke ED Provider Note NAME: HERNESTO THOMPSON AGE: 87 SEX: F : 1935 ARRIVES VIA: Ambulance INFORMANT: Patient, ED PROVIDER(S): Jose Chopra MD CHIEF COMPLAINT: Stroke alert HPI: This is an 87-year-old female with history of previous left MCA stroke, breast cancer presenting for a stroke alert. Reportedly, as per EMS/nursing, patient was last known well at 7 PM last night, around 16 hours ago. At that time she was placed in a reclining chair by her . This morning upon awakening, patient was noted to have a left-sided weakness and called EMS. Patient states she did have a stroke earlier this year. She has no pain anywhere. She is not member falling but she is slow to respond and appears somewhat confused. ROS: Unable to obtain PAST MEDICAL HISTORY: See Below PAST SURGICAL HISTORY: See Below FAMILY HISTORY: See Below SOCIAL HISTORY: See Below HOME MEDICATIONS: See Below ALLERGIES: See Below VITALS: See Below PHYSICAL EXAMINATION: General: resting comfortably in no acute distress Head: Normocephalic, left-sided facial droop Eyes: Normal inspection, extraocular muscles intact Ear, nose, throat: Normal external exam Neck: Normal range of motion Respiratory: lungs clear to auscultation bilaterally Cardiovascular: Regular rate/rhythm, no murmur GI: soft, nontender, no guarding or rebound Extremities: nontender, moves all extremities Neuro: Awake, not oriented to time, right upper extremity 4/5 strength, right lower extremity 4/5, 2 out of 5 strength in left upper and lower extremity, no hand steeping press tender strength in left upper extremity, sensation intact Skin: Warm, dry, and intact MEDICAL DECISION MAKING: This is an 87-year-old female with history of left MCA stroke and previous breast cancer presenting for stroke alert. Patient out of window for tPA as last known well was 7 PM, 16 hours ago. Patient has obvious signs of neurologic abnormalities including facial asymmetry with a left-sided facial droop and right upper and lower extremity weakness. Patient is also in atrial fibrillation which is new for the patient upon record review. She is A-fib with RVR between 105 and 115. Present patient on any rate control medications and has not had any anticoagulation. External records reviewed including discharge summary from November 2022 for patient's previous acute/subacute MCA stroke. Patient has a different pattern of neurologic findings compared to that visit. Patient had CT head/CTA head and neck. Will discussed stroke neurology. Spoke [facility] Dr Prescott, neurology who request with MRI. She is able to see a new developing area of stroke patient's CT of the head today. In addition she does see a small M2 occlusion with distal reconstitution. He then brought on the neurosurgeon from her she was able to see the images. He states based on the small M2 occlusion, there will not be much for intervention especially with timeline. At this time do not recommend transfer for neurosurgical intervention at this time. They recommend admission at this hospital with aspirin load. As per stroke neurologist, if patient becomes more tender, this can be related to cerebral edema from the stroke. If this does happen, patient is to get a repeat head CT and transfer to [place] for possible neurosurgical evaluation of the craniotomy. However at this time with patient's current mental status and clinical status, no need for transfer at this time as per Dr. Prescott. Discussed the case with Dr. puentes for admission here. Prior medical records reviewed Vital Signs: reviewed and remarkable for no significant abnormalities Differential diagnosis: Stroke intracranial hemorrhage ER treatment provided: See below Diagnostics interpreted by me: ECG: ECG independently interpreted by me with atrial fibrillation with rapid ventricular rate of 105, normal QRS, normal QTc, no ST segment elevations consistent with STEMI criteria Cardiac Monitoring: An order was placed for continuous cardiac monitoring. The monitor shows a rate of 110 with atrial fibrillation rhythm Laboratory studies: As stated above and show below. Imaging studies: See below. Radiographic imaging was reviewed by myself Consultation(s): None Critical Care Note: I have personally spent 90 minutes of critical care time in the direct management of this patient. This includes bedside care, interpretation of diagnostic studies, and testing, discussion with consultants, patient, and family members, and other required patient management activities. This 90 minutes is in excess of all separately billable procedures. Past Med/Surg History Medical History (Updated 04/26/23 @ 17:51 by Jose Chopra MD) Atrial fibrillation Hypothyroidism Acid reflux Cholecystectomy planned Surgical History History of cataract surgery History of cholecystectomy History of lumpectomy History of hernia repair History of tonsillectomy and adenoidectomy Family History Father Hearing loss Stroke Grandmother Stroke Sister Cancer Grandfather Cancer Mother Asthma Other Heart disease No family history of adverse response to anesthesia No family history of bleeding disorder Social History Smoking Status: Never smoker Preferred Language: Faroese Communication Ability: Impaired Communication Ability Comment: pt unable to provide verbal history, unable to reach primary contact for hx Beliefs That Will Affect Care: Spiritual Current Living Situation: Other Current Living Situation Comment: unable to obtain Feels Safe at Home: Yes Assistive Devices: None Allergies Allergies Allergy/AdvReac Type Severity Reaction Status Date / Time Bactrim Allergy Mild HIVES Verified 04/13/17 08:00 latex Allergy Mild RASH ITCHY Verified 07/25/22 10:52 sulfamethoxazole Allergy Mild HIVES Verified 07/25/22 10:52 trimethoprim Allergy Mild HIVES Verified 07/25/22 10:52 Home Meds Home Medications Medication Instructions Recorded Confirmed anastrozole 1 mg tablet 1 mg PO DAILY 08/08/18 04/26/23 levothyroxine 75 mcg tablet 75 mcg PO DAILY 08/08/18 04/26/23 Xarelto 15 mg PO PM 04/26/23 04/26/23 metoprolol succinate 25 mg 12.5 mg PO DAILY 04/26/23 04/26/23 tablet,extended release 24 hr rosuvastatin 5 mg PO DAILY 04/26/23 04/26/23 Previous Rx's Medication Instructions Recorded ondansetron 4 mg disintegrating 4 mg PO Q6H PRN nausea and 11/26/22 tablet vomiting #20 tabs Results & Data (ED) Vital Signs Vital Signs - 24 hr 04/26/23 08:57 04/26/23 08:57 04/26/23 09:07 Temperature 36.5 C Temperature Source Temporal Artery Scan Pulse Rate 85 Pulse Rate from SpO2 Sensor Pulse Rhythm Regular Respiratory Rate 18 Respiratory Effort / Characteristics Non-Labored Spontaneous Respiratory Depth Normal Blood Pressure 141/93 H 137/96 Blood Pressure Mean 109 115 Pulse Oximetry 97 97 Oxygen Delivery Method Room Air Room Air Sepsis Recent Fever Within 48 Hours No Sepsis New/Unexplained Change in Mental Status No Sepsis Action Taken by Nursing No Action Required 04/26/23 09:07 04/26/23 09:20 04/26/23 09:30 Temperature Temperature Source Pulse Rate 99 H 96 H 94 H Pulse Rate from SpO2 Sensor 85 Pulse Rhythm Respiratory Rate 19 20 Respiratory Effort / Characteristics Respiratory Depth Blood Pressure Blood Pressure Mean Pulse Oximetry 97 Oxygen Delivery Method Sepsis Recent Fever Within 48 Hours Sepsis New/Unexplained Change in Mental Status Sepsis Action Taken by Nursing 04/26/23 09:30 04/26/23 10:00 04/26/23 10:02 Temperature Temperature Source Pulse Rate 116 H 107 H Pulse Rate from SpO2 Sensor 112 H 97 H Pulse Rhythm Respiratory Rate 24 14 Respiratory Effort / Characteristics Respiratory Depth Blood Pressure 141/93 H 167/84 H Blood Pressure Mean 118 111 Pulse Oximetry 98 99 Oxygen Delivery Method Sepsis Recent Fever Within 48 Hours Sepsis New/Unexplained Change in Mental Status Sepsis Action Taken by Nursing 04/26/23 10:16 04/26/23 10:16 04/26/23 10:30 Temperature Temperature Source Pulse Rate 101 H 97 H Pulse Rate from SpO2 Sensor 92 H 105 H Pulse Rhythm Respiratory Rate 23 20 Respiratory Effort / Characteristics Respiratory Depth Blood Pressure 152/94 H Blood Pressure Mean 137 Pulse Oximetry 97 98 Oxygen Delivery Method Sepsis Recent Fever Within 48 Hours Sepsis New/Unexplained Change in Mental Status Sepsis Action Taken by Nursing 04/26/23 10:30 04/26/23 11:00 04/26/23 11:30 Temperature Temperature Source Pulse Rate 82 84 Pulse Rate from SpO2 Sensor 84 86 Pulse Rhythm Respiratory Rate 15 17 Respiratory Effort / Characteristics Respiratory Depth Blood Pressure 157/117 H Blood Pressure Mean 130 Pulse Oximetry 97 98 Oxygen Delivery Method Sepsis Recent Fever Within 48 Hours Sepsis New/Unexplained Change in Mental Status Sepsis Action Taken by Nursing 04/26/23 11:51 04/26/23 11:57 04/26/23 11:57 Temperature Temperature Source Pulse Rate 99 H 88 Pulse Rate from SpO2 Sensor 91 H 88 Pulse Rhythm Respiratory Rate 18 15 Respiratory Effort / Characteristics Respiratory Depth Blood Pressure 157/87 H Blood Pressure Mean 106 Pulse Oximetry 87 L 98 Oxygen Delivery Method Sepsis Recent Fever Within 48 Hours Sepsis New/Unexplained Change in Mental Status Sepsis Action Taken by Nursing 04/26/23 12:00 04/26/23 12:00 Temperature Temperature Source Pulse Rate 107 H Pulse Rate from SpO2 Sensor 101 H Pulse Rhythm Respiratory Rate 14 Respiratory Effort / Characteristics Respiratory Depth Blood Pressure 149/83 H Blood Pressure Mean 96 Pulse Oximetry 97 Oxygen Delivery Method Sepsis Recent Fever Within 48 Hours Sepsis New/Unexplained Change in Mental Status Sepsis Action Taken by Nursing Laboratory Data 04/26/23 09:08 04/26/23 09:08 Lab Results 04/26/23 04/26/23 04/26/23 Range/Units 09:08 09:17 09:21 WBC 7.29 (4.8-10.8) K/ul RBC 4.30 (4.20-5.40) M/uL Hgb 11.8 L (12.0-16.0) g/dl Hct 36.0 L (37.0-47.0) % MCV 83.7 (80.0-100.0) fL MCH 27.4 (25.0-34.0) pg MCHC 32.8 (32.0-36.0) g/dL RDW Std Deviation 48.2 H (36.4-46.3) fL RDW Coeff of Darío 16.1 H (11.5-14.5) % Plt Count 180 (130-400) K/uL MPV 10.7 (9.4-12.4) fL Immature Gran % (Auto) 0.4 % Neut % (Auto) 92.7 % Lymph % (Auto) 3.7 % Page % (Auto) 3.2 % Eos % (Auto) 0.0 % Baso % (Auto) 0.0 % Neut # (Auto) 6.76 H (1.40-6.50) K/uL Lymph # (Auto) 0.27 L (1.20-3.40) K/uL Page # (Auto) 0.23 (0.11-0.59) K/uL Eos # (Auto) 0.00 (0.00-0.50) K/uL Baso # (Auto) 0.00 (0.00-0.20) K/uL Immature Gran # (Auto) 0.03 (0.01-0.20) K/uL Hypersegmented Neuts 1+ Ovalocytes 1+ PT 11.9 (9.0-12.0) Seconds INR 1.1 (0.9-1.1) APTT 21.6 (21.0-31.0) Seconds PTT Ratio 0.8 Sodium 135 L (136-145) mmol/L Potassium 4.0 (3.5-5.1) mmol/L Chloride 104 (98-107) mmol/L Carbon Dioxide 24 (21-32) mmol/L Anion Gap 7 (3-11) BUN 35 H (6-23) mg/dl Creatinine 0.95 (0.6-1.2) mg/dl Est Cr Clr Drug Dosing 42.0 ml/min Est GFR ( Amer) 62.9 ml/min Est GFR (Non-Af Amer) 54.2 ml/min BUN/Creatinine Ratio 36.8 H (10-20) Glucose 189 H (70-99(Fasting)) mg/dl POC Glucose 186 H (70-99) mg/dl Lactate 3.1 H* (0.4-2.0) mmol/L Calcium 9.1 (8.6-10.3) mg/dl Magnesium 1.9 (1.7-2.4) mg/dl Total Bilirubin 1.3 H (0.2-1.0) mg/dl AST 24 (13-39) U/L ALT 13 (7-52) U/L Alkaline Phosphatase 58 (34-104) U/L Troponin I High Sens 81.8 H* (0-14) pg/ml Total Protein 6.1 (6.0-8.3) gm/dl Albumin 3.7 (3.4-5.0) gm/dl Globulin 2.4 L (2.5-4.0) gm/dl Albumin/Globulin Ratio 1.5 (0.9-2) Urine Color Urine Appearance (Clear) Urine pH (4.5-7.5) Ur Specific Spring (1.000-1.030) Urine Protein (Negative) Urine Glucose (UA) (Negative) Urine Ketones (Negative) Urine Blood (Negative) Urine Nitrite (Negative) Urine Bilirubin (Negative) Urine Urobilinogen (Negative) Ur Leukocyte Esterase (Negative) Blood Type A Positive Antibody Screen NEGATIVE 04/26/23 04/26/23 04/26/23 Range/Units 09:25 11:29 11:35 WBC (4.8-10.8) K/ul RBC (4.20-5.40) M/uL Hgb (12.0-16.0) g/dl Hct (37.0-47.0) % MCV (80.0-100.0) fL MCH (25.0-34.0) pg MCHC (32.0-36.0) g/dL RDW Std Deviation (36.4-46.3) fL RDW Coeff of Darío (11.5-14.5) % Plt Count (130-400) K/uL MPV (9.4-12.4) fL Immature Gran % (Auto) % Neut % (Auto) % Lymph % (Auto) % Page % (Auto) % Eos % (Auto) % Baso % (Auto) % Neut # (Auto) (1.40-6.50) K/uL Lymph # (Auto) (1.20-3.40) K/uL Page # (Auto) (0.11-0.59) K/uL Eos # (Auto) (0.00-0.50) K/uL Baso # (Auto) (0.00-0.20) K/uL Immature Gran # (Auto) (0.01-0.20) K/uL Hypersegmented Neuts Ovalocytes PT (9.0-12.0) Seconds INR (0.9-1.1) APTT (21.0-31.0) Seconds PTT Ratio Sodium (136-145) mmol/L Potassium (3.5-5.1) mmol/L Chloride (98-107) mmol/L Carbon Dioxide (21-32) mmol/L Anion Gap (3-11) BUN (6-23) mg/dl Creatinine (0.6-1.2) mg/dl Est Cr Clr Drug Dosing ml/min Est GFR ( Amer) ml/min Est GFR (Non-Af Amer) ml/min BUN/Creatinine Ratio (10-20) Glucose (70-99(Fasting)) mg/dl POC Glucose (70-99) mg/dl Lactate 3.3 H* (0.4-2.0) mmol/L Calcium (8.6-10.3) mg/dl Magnesium (1.7-2.4) mg/dl Total Bilirubin (0.2-1.0) mg/dl AST (13-39) U/L ALT (7-52) U/L Alkaline Phosphatase (34-104) U/L Troponin I High Sens 103.5 H* D (0-14) pg/ml Total Protein (6.0-8.3) gm/dl Albumin (3.4-5.0) gm/dl Globulin (2.5-4.0) gm/dl Albumin/Globulin Ratio (0.9-2) Urine Color Yellow Urine Appearance Clear (Clear) Urine pH 5.0 (4.5-7.5) Ur Specific Spring 1.024 (1.000-1.030) Urine Protein Negative (Negative) Urine Glucose (UA) Negative (Negative) Urine Ketones 1+ H (Negative) Urine Blood Negative (Negative) Urine Nitrite Negative (Negative) Urine Bilirubin Negative (Negative) Urine Urobilinogen Negative (Negative) Ur Leukocyte Esterase Negative (Negative) Blood Type Antibody Screen Administered Medications Parenteral Electrolytes (Plasma-Lyte A Ph 7.4) 1,000 mls @ 100 mls/hr IV .Q10H RIKA Stop: 05/26/23 16:29 Last Admin: 04/26/23 16:31 Dose: 100 mls/hr Documented By: FRED Discontinued Medications Aspirin (Aspirin Chew 324 Mg) 324 mg PO NOW STA Stop: 04/26/23 10:56 Last Admin: 04/26/23 11:40 Dose: Not Given Documented By: FRED Aspirin (Aspirin 300 Mg Supp) 300 mg DC ONE ONE Stop: 04/26/23 11:39 Last Admin: 04/26/23 13:02 Dose: 300 mg Documented By: FRED Sodium Chloride (Nss) 1,000 mls @ 999 mls/hr IV .Q1H1M ONE Stop: 04/26/23 11:24 Last Infusion: 04/26/23 11:39 Dose: Infused Documented By: Admin: 04/26/23 10:26 Dose: 999 mls/hr Documented By: SUREKHA Parenteral Electrolytes (Plasma-Lyte A Ph 7.4) 500 mls @ 999 mls/hr IV .Q31M ONE Stop: 04/26/23 13:22 Last Infusion: 04/26/23 14:38 Dose: Infused Documented By: Admin: 04/26/23 13:27 Dose: 999 mls/hr Documented By: FRED Ioversol (Optiray 320 125ml) 118 ml IV ONCE ONE Stop: 04/26/23 09:03 Last Admin: 04/26/23 09:05 Dose: 118 ml Documented By: LAURENCE Imaging Data Radiologist's Impression: Head CT 04/26/23 08:57 CT angio head w con, CT head/brain wo con, CT angio neck with con CLINICAL HISTORY: neuro deficit, acute stroke suspected TECHNIQUE: Contiguous axial CT images of the head were acquired from the base of the skull to the vertex without intravenous contrast administration. CT angiography of the head and neck was performed following intravenous administration of iodinated contrast. Coronal and sagittal MIPS were obtained from the axial data set and were submitted for review. Automated dose lowering techniques and/or adjustment according to patient size were utilized for this examination. All measurements were calculated based on NASCET criteria. CT DOSE: 999.15 mGy.cm Comparison: Comparison is made to MRI brain 11/24/2022 FINDINGS: CT head: Areas of decreased attenuation are present in the periventricular and subcortical white matter bilaterally consistent with small vessel ischemic disease. Generalized cerebral atrophy with commensurate enlargement of the ventricles, sulci, and cisterns is also present. There is no acute intracranial hemorrhage or evidence of acute territorial infarction. No shift of the midline structures, mass effect, or extra-axial abnormalities are shown. Atherosclerotic calcifications are present in the intracranial segments of the internal carotid arteries. Lungs and soft tissues are unremarkable. CTA Neck: A 3 vessel aortic arch is shown. There is no significant atherosclerotic plaque in the aortic arch or the origins of the innominate, left common carotid, and left subclavian arteries. The common carotid, external carotid, cervical segments of the internal carotid arteries, and the cervical segments of the vertebral arteries are patent without hemodynamically significant stenosis. The left vertebral artery is dominant. CTA Head: The anterior and posterior cerebral circulations are patent. No hemodynamically significant stenosis, aneurysm, dissection, or arteriovenous malformation is shown. IMPRESSION: 1. No acute intracranial hemorrhage, evidence of acute territorial infarction, or other acute intracranial disease process. 2. No occlusion, hemodynamically significant stenosis, or dissection in the major cervical arteries. 3. No occlusion, hemodynamically significant stenosis, aneurysm, dissection, or arteriovenous malformation in the major intracranial arteries. Assessment of stenosis of the internal carotid arteries is based on NASCET criteria. ACT 112: Negative or not required by law. Electronically signed by: Sudarshan Juarez M.D. 04/26/2023 9:36 AM Head CTA 04/26/23 08:57 CT angio head w con, CT head/brain wo con, CT angio neck with con CLINICAL HISTORY: neuro deficit, acute stroke suspected TECHNIQUE: Contiguous axial CT images of the head were acquired from the base of the skull to the vertex without intravenous contrast administration. CT angiography of the head and neck was performed following intravenous administration of iodinated contrast. Coronal and sagittal MIPS were obtained from the axial data set and were submitted for review. Automated dose lowering techniques and/or adjustment according to patient size were utilized for this examination. All measurements were calculated based on NASCET criteria. CT DOSE: 999.15 mGy.cm Comparison: Comparison is made to MRI brain 11/24/2022 FINDINGS: CT head: Areas of decreased attenuation are present in the periventricular and subcortical white matter bilaterally consistent with small vessel ischemic disease. Generalized cerebral atrophy with commensurate enlargement of the ventricles, sulci, and cisterns is also present. There is no acute intracranial hemorrhage or evidence of acute territorial infarction. No shift of the midline structures, mass effect, or extra-axial abnormalities are shown. Atherosclerotic calcifications are present in the intracranial segments of the internal carotid arteries. Lungs and soft tissues are unremarkable. CTA Neck: A 3 vessel aortic arch is shown. There is no significant atherosclerotic plaque in the aortic arch or the origins of the innominate, left common carotid, and left subclavian arteries. The common carotid, external carotid, cervical segments of the internal carotid arteries, and the cervical segments of the vertebral arteries are patent without hemodynamically significant stenosis. The left vertebral artery is dominant. CTA Head: The anterior and posterior cerebral circulations are patent. No hemodynamically significant stenosis, aneurysm, dissection, or arteriovenous malformation is shown. IMPRESSION: 1. No acute intracranial hemorrhage, evidence of acute territorial infarction, or other acute intracranial disease process. 2. No occlusion, hemodynamically significant stenosis, or dissection in the major cervical arteries. 3. No occlusion, hemodynamically significant stenosis, aneurysm, dissection, or arteriovenous malformation in the major intracranial arteries. Assessment of stenosis of the internal carotid arteries is based on NASCET criteria. ACT 112: Negative or not required by law. Electronically signed by: Sudarshan Juarez M.D. 04/26/2023 9:36 AM Neck CTA 04/26/23 08:57 CT angio head w con, CT head/brain wo con, CT angio neck with con CLINICAL HISTORY: neuro deficit, acute stroke suspected TECHNIQUE: Contiguous axial CT images of the head were acquired from the base of the skull to the vertex without intravenous contrast administration. CT angiography of the head and neck was performed following intravenous administration of iodinated contrast. Coronal and sagittal MIPS were obtained from the axial data set and were submitted for review. Automated dose lowering techniques and/or adjustment according to patient size were utilized for this examination. All measurements were calculated based on NASCET criteria. CT DOSE: 999.15 mGy.cm Comparison: Comparison is made to MRI brain 11/24/2022 FINDINGS: CT head: Areas of decreased attenuation are present in the periventricular and subcortical white matter bilaterally consistent with small vessel ischemic disease. Generalized cerebral atrophy with commensurate enlargement of the ventricles, sulci, and cisterns is also present. There is no acute intracranial hemorrhage or evidence of acute territorial infarction. No shift of the midline structures, mass effect, or extra-axial abnormalities are shown. Atherosclerotic calcifications are present in the intracranial segments of the internal carotid arteries. Lungs and soft tissues are unremarkable. CTA Neck: A 3 vessel aortic arch is shown. There is no significant atherosclerotic plaque in the aortic arch or the origins of the innominate, left common carotid, and left subclavian arteries. The common carotid, external carotid, cervical segments of the internal carotid arteries, and the cervical segments of the vertebral arteries are patent without hemodynamically significant stenosis. The left vertebral artery is dominant. CTA Head: The anterior and posterior cerebral circulations are patent. No hemodynamically significant stenosis, aneurysm, dissection, or arteriovenous malformation is shown. IMPRESSION: 1. No acute intracranial hemorrhage, evidence of acute territorial infarction, or other acute intracranial disease process. 2. No occlusion, hemodynamically significant stenosis, or dissection in the major cervical arteries. 3. No occlusion, hemodynamically significant stenosis, aneurysm, dissection, or arteriovenous malformation in the major intracranial arteries. Assessment of stenosis of the internal carotid arteries is based on NASCET criteria. ACT 112: Negative or not required by law. Electronically signed by: Sudarshan Juarez M.D. 04/26/2023 9:36 AM Discharge Plan Visit Data Chief Complaint: Stroke Alert ED Provider: Jose Chopra Discharge Problem: Stroke Patient Disposition: Being Evaluated by Hospitalist Discharge Instructions Interventions: ED Discharge Assessment Last Done: 04/26/23 14:36
[2023-04-26 09:26] LABS: Hemoglobin 11.8 g/dl (12.0-16.0); Mean Corpuscular Hemoglobin 27.4 pg (25.0-34.0); Mean Corpuscular Hgb Conc 32.8 g/dL (32.0-36.0); Mean Corpuscular Volume 83.7 fL (80.0-100.0); Mean Platelet Volume 10.7 fL (9.4-12.4); Platelet Count 180 K/uL (130-400); RDW Coefficient of Variation 16.1 % (11.5-14.5); RDW Standard Deviation 48.2 fL (36.4-46.3); White Blood Count 7.29 K/ul (4.8-10.8)
--- NOTE | 2023-04-26 09:38 | CT Scan Report ---
CT angio head w con, CT head/brain wo con, CT angio neck with con CLINICAL HISTORY: neuro deficit, acute stroke suspected TECHNIQUE: Contiguous axial CT images of the head were acquired from the base of the skull to the carlos cristiano without intravenous contrast administration. CT angiography of the head and neck was performed f ollowing intravenous administration of iodinated contrast. Coronal and sagittal MIPS were obtained fr om the axial data set and were submitted for review. Automated dose lowering techniques and/or adjus tment according to patient size were utilized for this examination. All measurements were calculated based on NASCET criteria. CT DOSE: 999.15 mGy.cm Comparison: Comparison is made to MRI brain 11/24/2022 FINDINGS: CT head: Areas of decreased attenuation are present in the periventricular and subcortical white riccardo er bilaterally consistent with small vessel ischemic disease. Generalized cerebral atrophy with comme nsurate enlargement of the ventricles, sulci, and cisterns is also present. There is no acute intracr anial hemorrhage or evidence of acute territorial infarction. No shift of the midline structures, mas s effect, or extra-axial abnormalities are shown. Atherosclerotic calcifications are present in the intracranial segments of the internal carotid arteries. Lungs and soft tissues are unremarkable. CTA Neck: A 3 vessel aortic arch is shown. There is no significant atherosclerotic plaque in the aor tic arch or the origins of the innominate, left common carotid, and left subclavian arteries. The co mmon carotid, external carotid, cervical segments of the internal carotid arteries, and the cervical segments of the vertebral arteries are patent without hemodynamically significant stenosis. The left vertebral artery is dominant. CTA Head: The anterior and posterior cerebral circulations are patent. No hemodynamically significan t stenosis, aneurysm, dissection, or arteriovenous malformation is shown. IMPRESSION: 1. No acute intracranial hemorrhage, evidence of acute territorial infarction, or other acute intrac ranial disease process. 2. No occlusion, hemodynamically significant stenosis, or dissection in the major cervical arteries. 3. No occlusion, hemodynamically significant stenosis, aneurysm, dissection, or arteriovenous malfor mation in the major intracranial arteries. Assessment of stenosis of the internal carotid arteries is based on NASCET criteria. ACT 112: Negative or not required by law. Electronically signed by: Sudarshan Juarez M.D. 04/26/2023 9:36 AM
[2023-04-26 09:42] LABS: Appearance Urine Clear (Clear); Bilirubin Urine Negative (Negative); Blood Urine Negative (Negative); Color Urine Yellow; Glucose Urine UA Negative (Negative); Ketones Urine 1+ (Negative); Leukocyte Esterase Urine Negative (Negative); Nitrite Urine Negative (Negative); Protein Urine Negative (Negative); Specific Gravity Urine 1.024 (1.000-1.030); Urobilinogen Urine Negative (Negative)
[2023-04-26 09:43] LABS: Albumin Globulin Ratio 1.5 (0.9-2); Albumin Level 3.7 gm/dl (3.4-5.0); BUN Creatinine Ratio 36.8 (10-20); Bilirubin,Total 1.3 mg/dl (0.2-1.0); Calcium 9.1 mg/dl (8.6-10.3); Est GFR (African American) 62.9 ml/min; Est GFR (Non-African American) 54.2 ml/min; Globulin 2.4 gm/dl (2.5-4.0); Magnesium 1.9 mg/dl (1.7-2.4); Total Protein 6.1 gm/dl (6.0-8.3)
[2023-04-26 10:00] LABS: Hypersegmented Neutrophils 1+; INR 1.1 (0.9-1.1); Immature Granulocytes # (auto) 0.03 K/uL (0.01-0.20); Immature Granulocytes % (auto) 0.4 %; Lymphocytes # (auto) 0.27 K/uL (1.20-3.40); Lymphocytes % (auto) 3.7 %; Monocytes # (auto) 0.23 K/uL (0.11-0.59); Monocytes % (auto) 3.2 %; Neutrophils # (auto) 6.76 K/uL (1.40-6.50); Neutrophils % (auto) 92.7 %; Ovalocytes 1+; Partial Thromboplastin Ratio 0.8; Partial Thromboplastin Time 21.6 Seconds (21.0-31.0); Prothrombin Time 11.9 Seconds (9.0-12.0)
--- OUTSIDE RECORDS SUMMARY | 2023-04-26 10:00 | External Medical Summary | Continuity of Care Document ---
Author Name Unknown Organization [address] Address [address] [place] [id number] Care Team Providers Care Port Drier Name Role Phone Jose Lee Primary Care Physician [phone] Encounter [facility] [id number] Date(s): 03/20/23 - 03/20/[address] [facility] [address] [facility] [place] [address] [phone] Encounter Diagnosis Need for shingles vaccine(Discharge Diagnosis) - 03/20/23 Discharge Disposition: Home or Self Care Attending Physician: DO Boggs Kristen M Referring Physician: MD Lee Michael P Allergies, Adverse Reactions, Alerts Substance Reaction Severity Status bacitracin Active atorvastatin myalgias Active Bactrim Rash Active Latex Active Immunizations Given and Recorded Vaccine Date Status Refusal Reason zoster vaccine, inactivated 1 03/20/23 Given zoster vaccine, inactivated 05/25/22 Given influenza virus vaccine, inactivated 05/25/22 Give n influenza virus vaccine, inactivated 04/12/21 Give n influenza virus vaccine, inactivated 03/18/19 Give n influenza virus vaccine, inactivated 05/17/18 Give n influenza virus vaccine, inactivated 03/05/14 Randy rded SARS-CoV-2 (COVID-19) mRNA BNT-162b2 vax 2 03/10/21 Recorded SARS-CoV-2 (COVID-19) mRNA BNT-162b2 vax 3 08/14/20 Recorded SARS-CoV-2 (COVID-19) mRNA BNT-162b2 vax 4 07/17/20 Recorded pneumococcal 13-valent vaccine 05/17/18 Given pneumococcal 13-valent vaccine 5 02/10/16 Recorded tetanus/diphtheria/pertuss, acel (Tdap) 6 10/22/13 Recorded tetanus/diphtheria/pertuss, acel (Tdap) 06/05/13 R ecorded tetanus/diphtheria/pertuss, acel (Tdap) 7 06/05/13 Recorded pneumococcal 23-valent vaccine 8 04/27/05 Recorded pneumococcal 23-valent vaccine 06/05/01 Recorded pneumococcal 23-valent vaccine 9 06/05/01 Recorded 1Result Comment: Anu Garza Lpn 2Result Comment: 2021-04-12: Historical information-source unspecified 3Result Comment: 2021-04-12: Historical information-source unspecified 4Result Comment: 2021-04-12: Historical information-source unspecified 5Result Comment: 2019-03-18: Historical information-source unspecified 6Result Comment: 2019-03-18: Historical information-source unspecified 7Result Comment: 2019-03-18: Historical information-source unspecified 8Result Comment: 2019-03-18: Historical information-source unspecified 9Result Comment: 2019-03-18: Historical information-source unspecified Medications Arimidex 1 mg oral tablet Start: 06/27/16 8:49:00, 1 tab, PO, Daily Start Date: 06/27/16 Status: Ordered aspirin Start: 09/12/17 11:08:00 EDT, 81 mg =, PO, Daily Start Date: 09/12/17 Status: Ordered Calcium 500+D Start: 02/04/15 13:20:00, 1 tab, PO, bid Start Date: 02/04/15 Status: Ordered levothyroxine 75 mcg (0.075 mg) oral tablet Start: 08/17/22 15:00:00 EDT, 1 tab, PO, Daily, Disp# 90 tab, Refills: 3, Pharmacy: [facility] Start Date: 08/17/22 Status: Ordered metoprolol succinate 25 mg oral tablet, extended release Start: 08/17/22 15:00:00 EDT, 0.5 tab, PO, Daily, Disp# 90 tab, Refills: 3, Pharmacy: [facility] Start Date: 08/17/22 Status: Ordered MVI-12 Start: 02/04/15 13:21:00, 1 tab, PO, Daily Start Date: 02/04/15 Status: Ordered PreserVision AREDS 2 Start: 11/17/16 10:12:00, 1 cap, PO, bid Start Date: 11/17/16 Status: Ordered rivaroxaban 15 mg oral tablet Start: 02/17/23 13:14:00 EDT, 1 tab, PO, qPM, Disp# 30 tab, Refills: 0, Pharmacy: [facility] Start Date: 02/17/23 Status: Ordered rosuvastatin 5 mg oral tablet Start: 02/17/23 13:00:00 EDT, 1 tab, PO, Daily, Disp# 30 tab, Refills: 3, Pharmacy: [facility] Start Date: 02/17/23 Status: Ordered Shingrix intramuscular injection Start: 05/25/22 10:54:00 EST, 0.5 mL, IM, ONCE, Disp# 1 each, Pharmacy: [facility] Start Date: 05/25/22 Status: Ordered Vitamin B Complex Start: 06/22/22 9:36:00 EST, once weekly Start Date: 06/22/22 Status: Ordered Vitamin D3 Start: 02/04/15 13:19:00, See Instructions, Takes 1 tab po three times per week Start Date: 02/04/15 Status: Ordered vitamin E Start: 02/04/15 13:18:00, See Instructions, Takes 1 cap po three times per week Start Date: 02/04/15 Status: Ordered Problem List Condition Confirmation Course Effective Dates Status H ealth Status Informant Aortic valve sclerosis Confirmed Active Aortic stenosis Confirmed Active Biliary calculus Confirmed Active Gall bladder stones Confirmed Active Ingrown right big toenail Confirmed Active Leucopenia Confirmed Active Mitral regurgitation Confirmed Active Tinea unguium Confirmed Active Peripheral vascular disease Confirmed Active Breast cancer metastasized to axillary lymph node Confirmed Active Tricuspid regurgitation Confirmed Active Weight disorder Confirmed Active Diagnosis Diagnosis Type Effective Dates Health Status Cl inical Service Informant Need for shingles vaccine Discharge Diagnosis 03/20/23 Non-Specified Procedures Procedure Date Related Diagnosis Body Site Status MRI of brain 1 11/23/22 Completed Cholecystectomy 04/13/17 Completed Chest x-ray 2 03/28/17 Completed Ultrasound scan of upper abdomen 3 12/23/16 Completed X-ray of rib 4 12/23/16 Completed X-ray of left knee 5 02/04/15 Comp leted Colonoscopy Completed Hernia 6 Completed Lumpectomy of breast Comp leted Tonsillectomy with adenoidectomy Completed 1IMPRESSION: 1. Large acute to subacute infarct within the left MCA territory as above. 2. No additional foci of acute ischemia are seen. 3. There is no hemorrhage or [facility]line shift. [facility]: 1. No active disease in the chest 31. Cholelithiasis with apparent gallbladder distention. There is clinical convern for cholecystitis, nuclear medicine hepatobiliary scan could be obtained as ultrasound findings are equivocal. 2. Mild pancreatic ductal dilatation without clear etiology. 41. No acute cardiopulmonary process. 2. No acute displaced rib fracture identified 3. Minimal cortical buckling of the lateral aspect of the lateral right ninth rib suggests acute nondisplaced fracture,. 5Osteopenia and advanced degenerative changes as above. No acute bony abnormality is seen in the left knee. 6x 2 Social History Social History Type Response Smoking Status Never smoked cigaret laly Sex Female Patient Care team information Care Team Personnel Name: MD Lee Michael P Position: Physician - Internal Med Member Role: Primary Care Provider Address: Address: [address] [place] [address] [address] [place] [address] [place] Care Team Related Persons Name: STEPHEN THOMPSON Address: home [address] [facility] [place] [id number]
--- OUTSIDE RECORDS SUMMARY | 2023-04-26 10:00 | External Medical Summary | Continuity of Care Document ---
Author Name Unknown Organization [place] [id number] Address [address] [place] [id number] Care Team Providers Care Cell Builder Name Role Phone Jose Lee Primary Care Physician [phone] [id number] Date(s): 04/11/23 - 04/11/23 [facility] [address] [place] [id number] [id number] Encounter Diagnosis Peripheral vascular disease(Discharge Diagnosis) - 04/11/23 Tinea unguium(Discharge Diagnosis) - 04/11/23 Discharge Disposition: Home or Self Care Attending Physician: GRECIA Meyer Christina L Allergies, Adverse Reactions, Alerts Substance Reaction Severity Status bacitracin Active atorvastatin myalgias Active Bactrim Rash Active Latex Active Assessment and Plan Extracted from: Title:Follow Up Visit Author:GRECIA Meyer, Nataly Diamond Date:04/11/23 1.Peripheral vascular disease 2.Tinea unguium -Patient unable to provide self care to toenails due to fungus/PVD - verbal consent obtained for debridement -Recommend toenail debridement -Patient had toenails ofright hallux toenaildebrided using nail nippers to tolerance, no bleeding noted -Patient instructed to use emery board to nails once per week -Patient had no ingrown toenails or infection noted -Patient is to follow up in5-6 months for treatment if needed in the future Immunizations Given and Recorded Vaccine Date Status Refusal Reason influenza virus vaccine, inactivated 04/13/23 Give n influenza virus vaccine, inactivated 05/25/22 Give n influenza virus vaccine, inactivated 04/12/21 Give n influenza virus vaccine, inactivated 03/18/19 Give n influenza virus vaccine, inactivated 05/17/18 Give n influenza virus vaccine, inactivated 03/05/14 Randy rded zoster vaccine, inactivated 1 03/20/23 Given zoster vaccine, inactivated 05/25/22 Given SARS-CoV-2 (COVID-19) mRNA BNT-162b2 vax 2 03/10/21 [...] Daily, Disp# 90 tab, Refills: 3, Pharmacy: [facility] Start Date: 08/17/22 Status: Ordered MVI-12 Start: 02/04/15 13:21:00, 1 tab, PO, Daily Start Date: 02/04/15 Status: Ordered PreserVision AREDS 2 Start: 11/17/16 10:12:00, 1 cap, PO, bid Start Date: 11/17/16 Status: Ordered Shingrix intramuscular injection Start: 05/25/22 10:54:00 EST, 0.5 mL, IM, ONCE, Disp# 1 each, Pharmacy: [facility] Start Date: 05/25/22 Status: Ordered Vitamin D3 Start: 02/04/15 13:19:00, See Instructions, Takes 1 tab po three times per week Start Date: 02/04/15 Status: Ordered vitamin E Start: 02/04/15 13:18:00, See Instructions, Takes 1 cap po three times per week Start Date: 02/04/15 Status: Ordered Mental Status 04/11/23 Barriers to Learning one year None evide nt Mandatory Health Literacy Documentation Yes Health Literacy Communication Barriers N ever Primary Language Spanish Problem List Condition Confirmation Course Effective Dates [...] Diagnosis Diagnosis Type Effective Dates Health Status Clinical Service Informant Peripheral vascular disease Discharge Diagnosis 04/11/23 Tinea unguium Discharge Diagnosis 04/11/23 Procedures Procedure Date Related Diagnosis Body Site Status MRI of brain 1 11/23/22 Completed Cholecystectomy 04/13/17 Completed Chest x-ray 2 03/28/17 Completed Ultrasound scan of upper abdomen 3 7/21/17 Completed X-ray of rib 4 12/23/16 Completed X-ray of left knee 5 02/04/15 Comp leted Colonoscopy Completed Hernia 6 Completed Lumpectomy of breast Comp leted Tonsillectomy with adenoidectomy Completed 1IMPRESSION: 1. Large acute to subacute infarct within the left MCA territory as above. 2. No additional foci of acute ischemia are seen. 3. There is no hemorrhage or [facility]line shift. [facility]: 1. No active disease in the [...] Status Never smoked cigaret laly Sex Female Ortho Outpt Note * GRECIA Meyer, Sonali Diamond: PERFORM Event Display: Ortho Outpt Note Authored Date: [id number] Chief Complaint nail care Primary Care Provider MD Jesus, Jose Booth Subjective Patient is a very pleasant 87-year-old female presenting today for follow-up of right great toenaillast seen January 16, 2023. No acute concerns noted today Review of Systems No pertinent positive Objective Physical Exam Problem focused right foot: Dorsalis pedis and posterior tibial pulses are palpable1 out of 4 capillary refill time less than3 secondsskin turgoris good to all digits of both feet pedal hair is noted to be present. Neurovascular status grossly intact all digits of the right foot. Skin is clean dry and intact without maceration or breakdown. Right hallux toenailwith thickening greater than 2 mmbrown with dystrophydiscoloration and pain recommend debridement Assessment/Plan 1.Peripheral vascular disease 2.Tinea unguium -Patient unable to provide self care to toenails due to fungus/PVD - verbal consent obtained for debridement -Recommend toenail debridement -Patient had toenails ofright hallux toenaildebrided using nail nippers to tolerance, no bleeding noted -Patient instructed to use emery board to nails once per week -Patient had no ingrown toenails or infection noted -Patient is to follow up in5-6 months for treatment if needed in the future Electronic Signature on File Electronically Reviewed/Signed by: Sonali Meyer DPM Author Signature Dt/Tm:04/11/2023 10:36 AM Division of Sports Medicine CLR Patient Care team information Care Team Personnel Name: MD Lee Michael P Position: Physician - Internal Med Member Role: Primary Care Provider Address: Address: [address] [place] [address], [place] [address] Care Team Related Persons Name: STEPHEN THOMPSON Address: home [address] [facility] [place] [id number]
--- OUTSIDE RECORDS SUMMARY | 2023-04-26 10:00 | External Medical Summary | Continuity of Care Document ---
Author Name Unknown Organization [address] Address [address], [place] [id number] Care Team Providers Care Suggestion Clerk Name Role Phone Jose Lee Primary Care Physician [phone] Encounter [facility] [id number] Date(s): 04/13/23 - 04/13/[address] [facility] [address] [facility], [address] [place] [address] [phone] Encounter Diagnosis Need for influenza vaccination(Discharge Diagnosis) - 04/13/23 Atrial fibrillation(Discharge Diagnosis) - 04/13/23 Stroke(Discharge Diagnosis) - 04/13/23 Body mass index [BMI] 26.0-26.9, adult(Discharge Diagnosis) - 04/13/23 Discharge Disposition: Home or Self Care Attending Physician: MD Lee Michael P Referring Physician: MD Lee Michael P Allergies, Adverse Reactions, Alerts Substance Reaction Severity Status bacitracin Active atorvastatin myalgias Active Bactrim Rash Active Latex Active Assessment and Plan Extracted from: Title:Office Visit Note Author:MD Jesus, Cisco ael P Date:04/13/23 1.Need for influenza vacci nation Due forinfluenza immunization and proceeding today. 2.Atrial fibrillation Rate controlled currently with metoprolol 12.5 mg daily. She is not on anticoagulation other than ASA 81 mg. We will be discussing with cardiology soon regardingfurther anticoagulation. May need to proceed with warfarin. 3.Stroke Suspected to be secondary toembolic event secondary to atrial fibrillation. As above, working with cardiology regarding anticoagulation. We will continue to follow along. I do wonder if she would benefit from an antidepressant given some of her symptoms. We discussed this today. She will think about it and and give me a call if she is interested in starting with that medication. Would plan to initiate escitalopram 10mg daily if she is interested in proceeding. I have spent35 minutes in face to face interaction regarding review of ongoing medical conditions, discussion and counseling regarding diagnostic testing, discussion and counseling regarding treatment recommendations, discussion and counseling regarding management recommendations and non face to face time for chart review and documentation. Immunizations Given and Recorded Vaccine Date Status [...] mL, IM, ONCE, Disp# 1 each, Pharmacy: [facility] Start Date: 05/25/22 Status: Ordered Vitamin D3 Start: 02/04/15 13:19:00, See Instructions, Takes 1 tab po three times per week Start Date: 02/04/15 Status: Ordered vitamin E Start: 02/04/15 13:18:00, See Instructions, Takes 1 cap po three times per week Start Date: 02/04/15 Status: Ordered Mental Status 04/13/23 Barriers to Learning one year None evide nt Mandatory Health Literacy Documentation Yes Health Literacy Communication Barriers N ever Primary Language Telugu Problem List Condition Confirmation Course Effective Dates [...] Effective Dates Health Status Clinical Service Informant Atrial fibrillation Discharge Diagnosis 04/13/23 Need for influenza vaccination Discharge Diagnosis 04/13/23 Body mass index [BMI] 26.0-26.9, adult Discharge Diagnosis 04/13/23 Non-Specified Stroke Discharge Diagnosis 04/13/23 Procedures Procedure Date Related Diagnosis Body Site [...] There is no hemorrhage or midline shift. [facility]: 1. No active disease in the [...] seen in the left knee. 6x 2 Vital Signs Most recent to oldest [Reference Range]: 1 Height 159 cm (04/13/23 3:03 PM) Patient Weight 66 kg (04/13/23 3:03 PM) Body Mass Index 26.11 kg/m2 (04/13/23 3:03 PM) Temperature [36.5-37.9 DegC] 36.6 DegC (04/13/23 3:03 PM) Blood Pressure 120/60mmHg (04/13/23 3:03 PM) Cuff Pulse Pressure 60 mmHg (04/13/23 3:03 PM) Social History Social History Type Response Smoking Status Never smoked cigaret laly Sex Female Medicine Outpt Note * MD Jesus, Jose P: PERFORM Event Display: Medicine Outpt Note Authored Date: [id number] Chief Complaint Pt is here for follow- up. Wants to discuss safety guards. Want a flu vaccine. Having some knee pain when going up and down steps History of Present Illness Caitlin Hurley is [id number] female who presents for follow-up of her chronic medical conditions and to establish care with ar. She is a former patient of Dr. Cortez. She established care with ar on 09/01/22. She was admitted at [facility] from 11/23 - 11/26/2022 when she presented with altered mental status. Shewas found to have right facial droop and right arm weakness. Initial head CT, and CTA was unremarkable. However, MRI performed on 11/24/2022 demonstrated a large acute to subacute infarct within the left MCA territory. It was felt that her stroke was likely embolic in nature and she was set upto have cardiac event monitoring post discharge. She did have an event monitor which demonstratedrate controlled atrial fibrillation. She recommended to take rivaroxaban 15 mg every afternoon.She was seen for follow- up in cardiology on 01/09/2023. She was ordered a home sleep study due to taking naps in the afternoon. She was seen again on 02/17/2023. Due to financial limitations, she is struggling to pay for the rivaroxaban. She also did not tolerate the atorvastatin and rosuvastatin 5mg was initiated. She was switched to apixaban. She unfortunately has not been able to obtain either. She does have a follow-up withcardiologyto discuss further anticoagulation recommendations. She has struggled a bit with lower energy level and difficulty completingsome of the tasks that she typically used to enjoy doing. She does read frequently though her pace is much lower than it was in the past. She feels somewhat discouraged by this. Problem List: #Stroke: occurring 11/25 with MRI demonstrating large acute/subacute infarct within the L MCA territory; suspected 2/2 afib #Aortic stenosis: Moderate, with last TTE that was stable; followed by [facility] Cardiology #Osteoarthritis: Followed by [facility] orthopedics; primarily of the left knee #Hypothyroidism: Longstanding, currently managed with levothyroxine 75 mcg daily #Hx Cholecystitis s/p cholecystectomy #Hx Breast Cancer: s/p lumpectomy over 8 years ago; now on anastrazole 1mg daily Review of Systems As per HPI Physical Exam Vitals & Measurements T:36.6C BP:120/60 SpO2:96% HT:159cm WT:66.000kg(Dosing) WT:66kg BMI:26.11 PHQ2 Data(Data Documented on:04/13/2023 14:59) Emotional health assessment NEGATIVE GEN: Well developed, well nourished, no acute distress HEENT: NCAT, MMM, EOMI, PERRL CV: RRR, no murmurs, normal S1 and S2 LUNG: Clear to auscultation bilaterally ABD: soft nontender, nondistended, bowel sounds normoactive EXT: No c/c/e MSK: Strength in the upper and lower extremities is preserved NEURO: AxOx3, moving all extremities; no focal neurologic deficits; CN II-XII grossly intact Assessment/Plan 1.Need for influenza vaccination Due forinfluenza immunization and proceeding today. 2.Atrial fibrillation Rate controlled currently with metoprolol 12.5 mg daily. She is not on anticoagulation other thanASA 81 mg. We will be discussing with cardiology soon regardingfurther anticoagulation. May need to proceed with warfarin. 3.Stroke Suspected to be secondary toembolic event secondary to atrial fibrillation. As above, working with cardiology regarding anticoagulation. We will continue to follow along. I do wonder if she would benefit from an antidepressant given some of her symptoms. We discussed this today. She will think about it and and give me a call if she is interested in starting with that medication. Would plan to initiate escitalopram 10mg daily if she is interested in proceeding. I have spent35 minutes in face to face interaction regarding review of ongoing medical conditions, discussion and counseling regarding diagnostic testing, discussion and counseling regarding treatment recommendations, discussion and counseling regarding management recommendations and non face to face time for chart review and documentation. Problem List/Past Medical History Ongoing Aortic stenosis Aortic valve sclerosis Biliary calculus Breast cancer metastasized to axillary lymph node Gall bladder stones Ingrown right big toenail Leucopenia Mitral regurgitation Peripheral vascular disease Tinea unguium Tricuspid regurgitation Weight disorder Historical AV agapito re-entry tachycardia Cervicalgia Cholecystectomy planned Closed injury of head Contusion of face Facial laceration Fall Health maintenance examination Knee pain, left Rib pain on right side Right flank pain Right-sided thoracic back pain. Procedure/Surgical History MRI of brain (11/23/2022)Cholecystectomy (04/13/2017)Chest x-ray (03/28/2017)X-ray of rib (12/23/2016)Ultrasound scan of upper abdomen (12/23/2016)X-ray of left knee (02/04/2015)ColonoscopyLumpectomy of breastHerniaTonsillectomy with adenoidectomy Medications anastrozole(Arimidex 1 mg oral tablet), 1 mg= 1 tab, PO, Daily aspirin, 81 mg, PO, Daily calcium-vitamin D(Calcium 500+D), 1 tab, PO, bid cholecalciferol(Vitamin D3), See Instructions influenza virus vaccine, inactivated(influenza virus vaccine, inactivated HIGH- DOSE preservative-free QUADravalent IM susp), 0.7 mL, IM, ONCE levothyroxine(levothyroxine 75 mcg (0.075 mg) oral tablet), 75 mcg= 1 tab, PO, Daily, 3 refills metoprolol(metoprolol succinate 25 mg oral tablet, extended release), 12.5 mg= 0.5 tab, PO, Daily, 3 refills multivitamin(MVI-12), 1 tab, PO, Daily multivitamin with minerals(PreserVision AREDS 2), 1 cap, PO, bid vitamin E, See Instructions zoster vaccine, inactivated(Shingrix intramuscular injection), 0.5 mL, IM, ONCE Allergies BactrimRash Latex atorvastatinmyalgias bacitracin Social History Smoking Status Never smoked cigarettes Alcohol - Denies Alcohol Use Exercise - Occasional exercise - Comments: [employer] twice a week Nutrition/Health - Low Risk Substance Abuse - Denies Substance Abuse Tobacco - Denies Tobacco Use Use:Never smoker Family History Heart disease: Negative: Unknown. Heart failure: Unknown. Health Status Family Member(s) Immunizations Vaccine Date Status zoster vaccine, inactivated 03/20/2023 Given Comments : Anu Garza Lpn zoster vaccine, inactivated 05/25/2022 Given influenza virus vaccine, inactivated 05/25/2022 Given influenza virus vaccine, inactivated 04/12/2021 Given SARS-CoV-2 (COVID-19) mRNA BNT-162b2 vax 03/10/2021 Recorded Comments : 2021-04-12: Historical information-source unspecified SARS-CoV-2 (COVID-19) mRNA BNT-162b2 vax 08/14/2020 Recorded Comments : 2021-04-12: Historical information-source unspecified SARS-CoV-2 (COVID-19) mRNA BNT-162b2 vax 07/17/2020 Recorded Comments : 2021-04-12: Historical information-source unspecified influenza virus vaccine, inactivated 03/18/2019 Given pneumococcal 13-valent vaccine 05/17/2018 Given influenza virus vaccine, inactivated 05/17/2018 Given pneumococcal 13-valent vaccine 02/10/2016 Recorded Comments : 2019-03-18: Historical information-source unspecified influenza virus vaccine, inactivated 03/2014 Recorded tetanus/diphtheria/pertuss, acel (Tdap) 10/22/2013 Recorded Comments : 2019-03-18: Historical information-source unspecified tetanus/diphtheria/pertuss, acel (Tdap) 2013 Recorded tetanus/diphtheria/pertuss, acel (Tdap) 06/05/2013 Recorded Comments : 2019-03-18: Historical information-source unspecified pneumococcal 23-valent vaccine 04/27/2005 Recorded Comments : 2019-03-18: Historical information-source unspecified pneumococcal 23-valent vaccine 2001 Recorded pneumococcal 23-valent vaccine 06/05/2001 Recorded Comments : 2019-03-18: Historical information-source unspecified Recommendations Health Maintenance Pending(in the next year) OverDue Medicare Annual Wellness Visit due11/13/18and every 1year Adult Influenza Vaccine due12/03/22and every 1year Due Adult COVID-19 Vaccination due04/13/23Unknown Frequency Falls Plan of Care due04/13/23Unknown Frequency Due In Future Body Mass Index not due until04/12/24and every 1year Satisfied(in the past 1 year) Satisfied Adult Influenza Vaccine on05/25/22.Satisfied by REGGIE Ellis Lori Body Mass Index on04/13/23.Satisfied by REGGIE Holguin Carli Shingles Vaccine on05/25/22.Satisfied by REGGIE Ellis Lori Electronic Signature on File Electronically Reviewed/Signed by: Jose Lee MD Author Signature Dt/Tm:04/13/2023 03:58 PM Division of Internal Medicine MPM Patient Care team information Care Team Personnel Name: MD Jesus, Jose Booth Position: Physician - Internal Med Member Role: Primary Care Provider Address: Address: [address] [place] [address], [place] [address] Care Team Related Persons Name: INGRISSTEPHEN MOTA Address: home [address] [place] [id number]
--- OUTSIDE RECORDS SUMMARY | 2023-04-26 10:01 | External Medical Summary | Continuity of Care Document ---
Author Name Unknown Organization [facility] [address] [facility] Address [address] [place], [place] [id number] Care Team Providers Care Chorus Dancer Name Role Phone JesusJose ramirez Primary Care Physician [phone] [id number] Date(s): 01/09/23 - 01/09/23 [facility] [address], [address] [place] [address] [phone] Encounter Diagnosis Snoring(Discharge Diagnosis) - 01/09/23 Afib(Discharge Diagnosis) - 01/09/23 Anticoagulated(Discharge Diagnosis) - 01/09/23 HTN (hypertension)(Discharge Diagnosis) - 01/09/23 History of stroke(Discharge Diagnosis) - 01/09/23 Discharge Disposition: Home or Self Care Attending Physician: DAMIR Aguilar Sarah A Allergies, Adverse Reactions, Alerts Substance Reaction Severity Status bacitracin Active Bactrim Rash Active Latex Active Assessment and Plan Extracted from: Title:Cardiology Office Visit Note Author:DAMIR Medina rd, Sarah A Date:01/09/23 Impression: 1. Moderate aortic stenosis 2. Mild mitral regurgitation 3. 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 Paroxysmal atrial fibrillation Ms. Hurleyis doing well post stroke. She reallydoes not have noticeable deficit. She notes that if she is tired she will have some trouble with getting words out. Otherwise she is getting around well and neuro cleared her to drive. She has been taking her anticoagulation with any signs or symptoms of bleeding. No falls. She does sound like she is in atrial fibrillation today. She continues on metoprololwhich is controlling her rate. She does not since being in A-fib. She does note that she is very tired and taking naps in the afternoon. She thinks she does snore. I will have her get a home sleep study. We discussed that there is an association betweenatrial fibrillation and sleep apneaand it may make her A-fib easier to control if she has sleep apnea and we treated it. Her blood pressure is mildly elevated in the office today. She has not been checking at home. We checked herblood pressure cuff against a manual. She will call in 2 weeks with home pressures. Her cuffruns about10 mmHg high for the top numberand more like 20 for the bottom numbersoft keep in mind to adjust these. She will return to the clinicin 4 months Immunizations Given and Recorded Vaccine Date Status Refusal Reason zoster vaccine, inactivated 05/25/22 Given influenza virus vaccine, inactivated 05/25/22 Give n influenza virus vaccine, inactivated 04/12/21 Give n influenza virus vaccine, inactivated 03/18/19 Give n influenza virus vaccine, inactivated 05/17/18 Give n influenza virus vaccine, inactivated 03/05/14 Randy rded SARS-CoV-2 (COVID-19) mRNA BNT-162b2 vax 1 03/10/21 Recorded SARS-CoV-2 (COVID-19) mRNA BNT-162b2 vax 2 08/14/20 Recorded SARS-CoV-2 (COVID-19) mRNA BNT-162b2 vax 3 07/17/20 Recorded pneumococcal 13-valent vaccine 05/17/18 Given pneumococcal 13-valent vaccine 4 02/10/16 Recorded tetanus/diphtheria/pertuss, acel (Tdap) 5 10/22/13 Recorded tetanus/diphtheria/pertuss, acel (Tdap) 06/05/13 R ecorded tetanus/diphtheria/pertuss, acel (Tdap) 6 06/05/13 Recorded pneumococcal 23-valent vaccine 7 04/27/05 Recorded pneumococcal 23-valent vaccine 06/05/01 Recorded pneumococcal 23-valent vaccine 8 06/05/01 Recorded 1Result Comment: 2021-04-12: Historical information-source unspecified 2Result Comment: 2021-04-12: Historical information-source unspecified 3Result Comment: 2021-04-12: Historical information-source unspecified 4Result Comment: 2019-03-18: Historical information-source unspecified 5Result Comment: 2019-03-18: Historical information-source unspecified 6Result Comment: 2019-03-18: Historical information-source unspecified 7Result Comment: 2019-03-18: Historical information-source unspecified 8Result Comment: 2019-03-18: Historical information-source unspecified Medications Arimidex 1 mg oral tablet Start: 06/27/16 8:49:00, 1 tab, PO, Daily Start Date: 06/27/16 Status: Ordered aspirin Start: 09/12/17 11:08:00 EDT, 81 mg =, PO, Daily Start Date: 09/12/17 Status: Ordered Calcium 500+D Start: 02/04/15 13:20:00, 1 tab, PO, bid Start Date: 02/04/15 Status: Ordered Eliquis 5 mg oral tablet Start: 12/14/22 16:12:00 EDT, 1 tab, PO, bid, Disp# 180 tab, Refills: 3, Pharmacy: [facility] Start Date: 12/14/22 Status: Ordered levothyroxine 75 mcg (0.075 mg) oral tablet Start: 08/17/22 15:00:00 EDT, 1 tab, PO, Daily, Disp# 90 tab, Refills: 3, Pharmacy: [facility] Start Date: 08/17/22 Status: Ordered metoprolol succinate 25 mg oral tablet, extended release Start: 08/17/22 15:00:00 EDT, 0.5 tab, PO, Daily, Disp# 90 tab, Refills: 3, Pharmacy: [facility] Start Date: 08/17/22 Status: Ordered MVI-12 Start: 02/04/15 13:21:00, 1 tab, PO, Daily Start Date: 02/04/15 Status: Ordered PreserVision AREDS 2 Start: 11/17/16 10:12:00, 1 cap, PO, bid Start Date: 11/17/16 Status: Ordered Shingrix intramuscular injection Start: 05/25/22 10:54:00 EST, 0.5 mL, IM, ONCE, Disp# 1 each, Pharmacy: [facility] Start Date: 05/25/22 Status: Ordered Vitamin B Complex Start: 06/22/22 9:36:00 EST, once weekly Start Date: 06/22/22 Status: Ordered Vitamin D3 Start: 02/04/15 13:19:00, See Instructions, Takes 1 tab po three times per week Start Date: 02/04/15 Status: Ordered vitamin E Start: 02/04/15 13:18:00, See Instructions, Takes 1 cap po three times per week Start Date: 02/04/15 Status: Ordered Mental Status 01/09/23 Barriers to Learning one year None evide nt Mandatory Health Literacy Documentation Yes Health Literacy Communication Barriers N ever Primary Language Faroese Problem List Condition Confirmation Course Effective Dates Status H ealth Status Informant Aortic valve sclerosis Confirmed Active Aortic stenosis Confirmed Active Biliary calculus Confirmed Active Gall bladder stones Confirmed Active Ingrown right big toenail Confirmed Active Leucopenia Confirmed Active Mitral regurgitation Confirmed Active Tinea unguium Confirmed Active Breast cancer metastasized to axillary lymph node Confirmed Active Tricuspid regurgitation Confirmed Active Weight disorder Confirmed Active Diagnosis Diagnosis Type Effective Dates Health Status Clinical Service Informant Snoring Discharge Diagnosis 01/09/23 Non-Specified Afib Discharge Diagnosis 01/09/23 Non-Specified Anticoagulated Discharge Diagnosis 01/09/23 Non-Specified History of stroke Discharge Diagnosis 01/09/23 Non-Specified HTN (hypertension) Discharge Diagnosis 01/09/23 Non-Specified Procedures Procedure Date Related Diagnosis Body [...] [facility]: 1. No active disease [...] Most recent to oldest [Reference Range]: 1 Patient Weight 68 kg (01/09/23 11:33 AM) Heart Rate 74 bpm (01/09/23 11:33 AM) Respiratory Rate 16 br/min (01/09/23 11:33 AM) Blood Pressure 140/80mmHg (01/09/23 11:33 AM) Social History Social History Type Response Smoking Status Never smoked cigaret laly Sex Female Cardiology Outpatient Note * DAMIR Aguilar Sarah A: PERFORM Event Display: Cardiology Outpt Note Authored Date: [id number] Primary Care Provider MD Jesus, Joes Booth Chief Complaint Feeling very tired - denies chest pain/ tightness, Palpitations, or heart racing, denies dizziness or lightheadedness, no SOB no edema no signs or symptoms of bleeding, or bruises. No ER visits History of Present Illness Ms. Hurley presents for follow up of her recent MCA stroke with subsequent finding of afib onevent monitor. She was discharged from [facility] on November 28 after suffering a left MCA stroke. CT of her head was negative, CTA head and neck were negative. She had a mild elevation in her high-sensitivity troponin to 51. No ischemic changes on her EKG. She had an event monitor placed after her hospitalization which captured an episode of atrial fibrillation. She was placed on Eliquis. She has not had any signs or symptoms of bleeding. She did call into the clinic with an episode of feeling shakyon December 26. Subsequent lab workshowed that she appeared dehydrated. She does think that she probably was not drinking enough water as she was traveling the day before. She has tried to increase her fluid intake. She is not having any more shakiness. Review of Systems All other systems reviewed and negative except as discussed in the HPI Physical Exam Vitals & Measurements HR:74(Monitored) RR:16 BP:140/80 SpO2:96% WT:68.000kg(Dosing) WT:68kg Physical Examination General: Alert and oriented, No acute distress. Neck: No jugular venous distention. Respiratory: Lungs are clear to auscultation, Respirations are non-labored. Cardiovascular:Irregular rhythm rhythm, No murmur, No edema. Integumentary: Warm, Dry, [place] Neurologic: Alert, Oriented. Cognition and Speech: Speech clear and coherent. Psychiatric: Cooperative, Appropriate mood & affect. Assessment/Plan Impression: 1. Moderate aortic stenosis 2. Mild mitral regurgitation 3. 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 Paroxysmal atrial fibrillation Ms. Jacobs doing well post stroke. She reallydoes not have noticeable deficit. She notes that if she is tired she will have some trouble with getting words out. Otherwise she is getting around well and neuro cleared her to drive. She has been taking her anticoagulation with any signs or symptoms of bleeding. No falls. She does sound like she is in atrial fibrillation today. She continues on metoprololwhich is controlling her rate. She does not since being in A-fib. She does note that she is very tired and taking naps in the afternoon. She thinks she does snore.I will have her get a home sleep study. We discussed that there is an association betweenatrial fibrillation and sleep apneaand it may make her A-fib easier to control if she has sleep apnea and we treated it. Her blood pressure is mildly elevated in the office today. She has not been checking at home. We checked DeskActivelood pressure cuff against a manual. She will call in 2 weeks with home pressures. Her cuffruns about10 mmHg high for the top numberand more like 20 for the bottom numbersoft keep in mind to adjust these. She will return to the clinicin 4 months Problem List/Past Medical History Ongoing Aortic stenosis Aortic valve sclerosis Biliary calculus Breast cancer metastasized to axillary lymph node Gall bladder stones Ingrown right big toenail Leucopenia Mitral regurgitation Tinea unguium Tricuspid regurgitation Weight disorder Historical [...] tablet), 1 mg= 1 tab, PO, Daily apixaban(Eliquis 5 mg oral tablet), 5 mg= 1 tab, PO, bid, 3 refills aspirin, 81 mg, PO, Daily calcium-vitamin D(Calcium 500+D), 1 tab, PO, bid cholecalciferol(Vitamin D3), See Instructions levothyroxine(levothyroxine 75 mcg (0.075 mg) oral tablet), 75 mcg= 1 tab, PO, Daily, 3 refills metoprolol(metoprolol succinate 25 mg oral tablet, extended release), 12.5 mg= 0.5 tab, PO, Daily, 3 refills multivitamin(MVI-12), 1 tab, PO, Daily multivitamin(Vitamin B Complex) multivitamin with minerals(PreserVision AREDS 2), 1 cap, PO, bid vitamin E, See Instructions zoster vaccine, inactivated(Shingrix intramuscular injection), 0.5 mL, IM, ONCE Allergies BactrimRash Latex bacitracin Social History Smoking Status Never smoked cigarettes Alcohol - Denies Alcohol Use Exercise - Occasional exercise - Comments: [employer] twice a week Nutrition/Health - Low Risk Substance Abuse - Denies Substance Abuse Tobacco - Denies Tobacco Use Use:Never smoker Family History Heart disease: Negative: Unknown. Heart failure: Unknown. Health Status Family Member(s) Electronic Signature on File CC: Jose Lee MD [address] [place] [address] Electronically Reviewed/Signed by: DAMIR Gupta Author Signature Dt/Tm:01/09/2023 01:24 PM [facility] * Event Display: Cardiac Device Check Patient Care team information Care Team Personnel Name: MD Jesus, Joes Booth Position: Physician - Internal Med Member Role: Primary Care Provider Address: Address: [address] [place] [address] [place] Care Team Related Persons Name: STEPHEN HURLEY Address: home [address] [place], [place] [id number]
--- OUTSIDE RECORDS SUMMARY | 2023-04-26 10:01 | External Medical Summary | Continuity of Care Document ---
Author Name Unknown Organization [facility] [address] [facility] Address [address] [place], [place] [id number] Care Team Providers Care Carpenter Apprentice Name Role Phone Jose Lee Primary Care Physician [phone] [id number] Date[facility]s): 01/11/23 - 01/11/23 [facility] [address], [address] [place] [address] [phone] Discharge Disposition: Home or Self Care Attending Physician: DO Mcclelland Jason D Referring Physician: MD Lee Michael P Allergies, Adverse Reactions, Alerts Substance Reaction Severity Status bacitracin Active Bactrim Rash Active Latex Active Immunizations [...] bid, Disp# 180 tab, Refills: 3, Pharmacy: [facility] Start Date: 12/14/22 Status: Ordered levothyroxine 75 mcg (0.075 mg) oral tablet Start: 08/17/22 15:00:00 EDT, 1 tab, PO, Daily, Disp# 90 tab, Refills: 3, Pharmacy: [facility] Start Date: 08/17/22 Status: Ordered metoprolol [...] regurgitation Confirmed Active Weight disorder Confirmed Active Procedures Procedure Date Related Diagnosis Body Site [...] There is no hemorrhage or [facility]line shift. [facility] Impression: 1. No active disease in the [...] Member Role: Primary Care Provider Address: Address: [address] [place] [address], [place] [address] Care Team Related Persons Name: STEPHEN THOMPSON Address: home [address] [facility] [place] [id number]
--- OUTSIDE RECORDS SUMMARY | 2023-04-26 10:01 | External Medical Summary | Summary of Care ---
Author Name Unknown Organization [facility] Address [address] [place] [address] Phone [phone] Care Team Providers Care Processor Helper Name Role Phone Solomon Cortez MD Primary Care Provider Encounter Details Date Type Department Care Team Description 02/09/2023 Hospital Encounter Radiology, [address] [place] [id number] Arrived Allergies Active Allergy Reactions Severity Noted Date Comments Adhesive Tape Unknown 11/16/2011 Bactrim 03/08/2012 Hives. Latex Itching Low 09/21/2011 documented as of this encounter (statuses as of 02/10/2023) Medications Medication Sig Dispensed Refills Start Date End Date Status MULTI-VITAMIN OR TABS one daily 0 07/07/2004 Act janny METAMUCIL 0.52 GM PO CAPS as needed 0 03/21/2005 Active PRESERVISION/LUTEIN PO CAPSIndications:Other specified prophylactic or treatment measure Take by mouth 2 times a day. 0 0 12/28/2006 Active CALCIUM CARBONATE 1250 MG PO TABS 2 TABLET DAILY (Tablet contains 1200mg of Ca and 1000units of Vit D ) one daily 30 Tab 12 07/09/2010 Active ANASTROZOLE 1 MG PO TABS [address] Burr 0 03/08/2012 Active Cholecalciferol (VITAMIN D) 1000 UNIT CapsuleIndications:Vit hyde D deficiency Take 1 Capsule by mouth 3 times a week. 60 Cap 5 06/03/2015 Active Vitamin E 400 UNIT Oral Capsule Take 1 Capsule by mouth 3 times a week. 0 06/03/2015 Active levothyroxine (LEVOXYL) 75 MCG Tablet Take 1 Tab by mouth daily. 30 Tab 5 05/03/2016 Active metoprolol tartrate (LOPRESSOR) 12.5 MG Tablet Take 0.5 Tablets by mouth in the morning. 0 Active Aspirin 81 MG Tablet Take 1 Tablet by mouth in the morning. 0 Active Apixaban 5 MG Oral Tablet Take 1 Tablet by mouth in the morning and 1 Tablet in the evening. 0 12/14/2022 Active Hospital, Clinic, or Other Facility Administered Medication Ordered Dose Route Frequency Start Date End Date Status bevaCIZumab (Avastin) inj 1.25 mgIndications:Exudative age-related macular degeneration of left eye with active choroidal neovascularization (HCC) 1.25 mg IZ PRN 12/21/2022 12/21/2023 Active ROPivacaine (Naropin) inj 1.5 mgIndications:Exudative age-related macular degeneration of left eye with active choroidal neovascularization (HCC) 1.5 mg IJ PRN 12/21/2022 12/21/2023 Active documented as of this encounter (statuses as of 02/10/2023) Active Problems Problem Noted Date Need for prophylactic measure 12/31/2014 Overview: 12/31/2014 Yellow fever booster ? 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 06/07 sentinel nodes was + estr prog rec + Ca stage stage IIa T1c pN1 Mammo sched mid Apr Fu CArterr end Jul Fu Cecilio August On Anastrozole now and compliant Headache 09/07/2011 Overview: ICD-10 update of inactive term Cervicalgia 09/07/2011 Personal history of breast cancer 2011 Overview: 6:00 in Right breast solid mass Abnormal mammogram 09/05/2011 Overview: Asymmetry Right Breast 6:00 position suspicous- CORE BX pending Essential and other specified forms of t remor 07/09/2010 Overview: 07/09/2010 Minimal see office visit OBESITY, BMI 30-34 (SEE ACTUAL BMI) 08/04 Overview: Per Obesity Taxonomy, 12/28/2006 -4 lb /1yr 04/27/2005 189 + 16 lb /1yr 11/06 - 174 lb 11/2002 - 194 lb UNSPECIFIED ABNORMAL MAMMOGRAM 07/2008 R 07/13/2009 Overview: 09/07/2011 diagn R Right Breast Findings: There are scattered fibroglandular densities (25% - 50% fibroglandular). A mass is present at 6 o'clock measuring approximately 8 mm at a distance of 3 cm from the nipple. Targeted ultrasound demonstrates a solid mass at the site of the mammographic mass. The characteristics of the finding include complex echo pattern, indistinct margins, an orientation that is not parallel to the skin line and posterior acoustic shadowing. IMPRESSION: RIGHT BREAST: Mass at 6 o'clock. Findings demonstrate a suspicious abnormality. Histology using core biopsy is recommended at this time. Will ref to Dr Franco 07/28/2009 rt dx mammo was benign 07/13/2009 RIGHT BREAST - CATEGORY 0 Focal asymmetric density. Spot compression is recommended at this time. Dyslipidemia, goal LDL below 160 009 Overview: 03/25/2013 Discussed with aver CRP and LDL 172 I suggest rx with statin . Pt declines LDL (DIRECT MEASURE)(mg/dL) [facility] Dt/Tm Resulted Value Status 01/06/10 12:40P 01/07/10 164* FINAL LDL (CALCULATED)(mg/dL) [facility] Dt/Tm Resulted Value Status 11/14/08 7:50A 11/14/08 168* FINAL 01/09/08 8:36A 01/09/08 137* FINAL LDL (CALCULATED)(mg/dL) [facility] Dt/Tm Resulted Value Status 11/14/08 7:50A 11/14/08 168* FINAL 01/09/08 8:36A 01/09/08 137* FINAL 12/25/06 3:50P 12/25/06 156* FINALP Lipid Taxonomy. LDL (CALCULATED)(mg/dL) [facility] Dt/ Resulted Value Status 12/25/06 3:50P 12/25/06 156* FINAL 04/19/05 10:20A 04/20/05 163* FINAL 09/08/04 7:50A 09/08/04 158* FINAL off meds was on Lipitor in 2002- myalgia LDL 09/08/04 = 158 refer to letter of 09/08/2004 History of vitamin D deficiency 05/11/20 09 Overview: 09/07/2011 resolved 03/2011 cont 1999 /day 07/12/2010 level 25 increase Vit D 1000 unit to one every day see letter 07/09/2010 Was to increase vit d to ~3000 u /d see 01/2010 phone encounterNot compliant . 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 ICD-10 update of inactive term DYSURIA 01/06/2008 Overview: 01/07/2008 symptoms resolved 01/06/2008 neg UA +c&s Chest pain 01/01/2008 Overview: 01/2008 stress test virtually normal 01/01/2008 atypical but refd Other screening mammogram 12/28/2006 Overview: 12/28/2006 will order mammo the patient will see MB for lead installer exam incl breast exam in Feb. Ankle joint pain 12/28/2006 ADVANCE DIRECTIVE INFORMATION 04/27/2005 Overview: No, Advance Directive brochure offered , patient declined. BACKACHE NOS 09/06/2004 Overview: 04/27/2005 01/09/2006 12/28/2006 stable tolerable ? L4 comp fx , on DEXA 05/06 Intermittent only (p increased activity.) LOC PRIM [id number] knees 09/06/2004 Overview: 05/08/2009 stable some post sxs 11/07/2008 L knee pain posterior -> xray Advanced range degenerative narrowing is fairly uniform in both medial compartments but slightly more progressed on the left than the right. Lateral compartments are symmetrical and are of uniform widths with peripheral degenerative lipping. Patellofemoral space is satisfactory on lateral projecting and alignment is symmetrical and satisfactory as well. 09/2004 clinically suspected Special screening for malignant neoplasm s, colon 09/06/2004 Overview: 12/28/2006 given Hemocult to complete 04/2003 Hemocult neg x 3 usually harder BMs. Discussed screening pt accept colo. 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 going to [place] Mefloquine 250 qwk Hypothyroidism Overview: TSH Results: TSH(uIU/mL) [facility] Dt/Tm Resulted Value Status 04/30/14 8:00A 04/30/14 0.96 FINAL 03/21/13 7:37A 03/21/13 0.95 FINAL 03/14/12 8:26A 03/14/12 1.91 FINAL 03/07/11 3:30P 03/07/11 2.17 FINAL 01/06/10 12:40P 01/07/10 0.51 FINAL 11/14/08 7:50A 11/14/08 1.73 FINAL 01/09/08 8:36A 01/09/08 0.65 FINAL 12/25/06 3:50P 12/28/06 1.28 FINAL 01/04/06 2:30P 01/04/06 1.02 FINAL on half of 150mcg a day TSH Results: TSH(uIU/mL) [facility] Dt/Tm Resulted Value Status 12/25/06 3:50P 12/28/06 1.28 FINAL 01/04/06 2:30P 01/04/06 1.02 FINAL 09/08/04 7:50A 09/08/04 1.25 FINAL TSH Results: 01/04/06 1.02 09/08/04 1.25 04/04/03 1.62 04/09/01 1.60 High risk for hip fracture Overview: 04/22/2013 Lumbar spine 0.810 -1.9 Femoral neck 0.570 -2.5 09/07/2011 Discussed again (high risk for fx ) , pt will consider 04/11/2011 letter to pt : recent DEXA scan revealed some decrease in your bone density at the femur , close to osteoporotic range . Even if vertebral bone density revealed some improvement, your risk of fracture is considered high , and we should consider use of Fosamax (Alendronate) to reduce it. Please let me know if you accept this plan. Will repeat in 04/2009 no specific therapy 04/09/2007 DEXA scan revealed slight worsening of the bone density , rose mary discuss options for treatment at next office visit repeat DEXA 05/2005 Mastodynia Overview: vit E helped? TEAR FILM INSUFFIC NOS Vitreous opacities Other specified visual disturbances Incipient senile cataract documented as of this encounter (statuses as of 02/10/2023) Resolved Problems Problem Noted Date Resolved Date OBESITY, UNSPECIFIED 09/06/2004 08/27/2009 Overview: Per Obesity Taxonomy, 12/28/2006 -4 lb /1yr 04/27/2005 189 + 16 lb /1yr 11/06 - 174 lb 11/2002 - 194 lb HYPERCHOLESTEROLEMIA 05/20/2009 Overview: Per Lipid Taxonomy. LDL (CALCULATED)(mg/dL) [facility] Dt/Tm Resulted Value Status 12/25/06 3:50P 12/25/06 156* FINAL 04/19/05 10:20A 04/20/05 163* FINAL 09/08/04 7:50A 09/08/04 158* FINAL off meds was on Lipitor in 2002- myalgia LDL 09/08/04 = 158 refer to letter of 09/08/2004 documented as of this encounter (statuses as of 02/10/2023) Immunizations Name Administration Dates Next Due COVID-19 mRNA, LNP-s, No Pre serve, 2-Dose Series (Pfizer) 03/10/2021,08/14/2020,07/17/2020 Pneumococcal Conjugate Vacc, 13 Valent (Prevnar) 02/10/2016 Seasonal Influenza, Quadriva lent, No Preserve, IM 06/03/2015 Seasonal Influenza, Split, I IV3, With Preserve, Inj 03/21/2014,03/25/2013,03/08/2012,2010,07/09/2010,05/08/2009,04/20/2007 TD, Preservative Free 11/07/2008(Deferred: Patie nt Refused) TDAP (age 10 and older)(Boostrix) 10/22/2013 documented as of this encounter Social History Tobacco Use Types Packs/Day Years Used Date Smoking Tobacco: Never Smokeless Tobacco: Never Alcohol Use Standard Drinks/Week Comments No 0 (1 standard drink = 0.6 oz pur e alcohol) Sex Assigned at Date Recorded Not on file Job Start Date Occupation Industry Not on file Not on file Not on file documented as of this encounter Plan of Treatment Upcoming Encounters Date Type Specialty Care Team Description 03/10/2023 Office Visit Ophthalmology Cam Herrera, DO [address] [place] [address] Health Maintenance Due Date Last Done Comments TSH 05/05/2016 05/05/2015, 04/06, 03/21/2013, Additional history exists Depression Screening 10/05/2016 10/06/2015 Zoster Vaccines (2 of 2) 07/20/2022 05/25/2022 Influenza Vaccine (FLU shot) (#1) 2023 03/18/2019, 05/17/2018, 04/14/2017, Additional history exists DTaP,Tdap,and Td Vaccines (2 - Td or Tdap) 10/23/2023 10/22/2013 Mammogram 02/09/2025 02/09/2023, 11/2021, 02/04/2021, Additional history exists DXA Scan 09/20/2028 09/20/2021, 12/2016, 05/05/2015, Additional history exists Pneumococcal Vaccine: 65+ Years Completed 02/10/2016, 04/27/2005 COVID-19 Vaccine Completed 03/02/2022, 03/2022, 03/10/2021, Additional history exists GARDASIL-HPV IMMUNIZATION SERIES Aged Out No longer eligible based on patient's age to complete this topic Hepatitis B Aged Out No longer eligi ble based on patient's age to complete this topic MENINGOCOCCAL (MENACTRA/MENVEO) Aged Out No longer eligible based on patient's age to complete this topic documented as of this encounter Medical Devices Implanted Type Area Legal Department Manager Device Identifier Shelf Expiration Date Model / Serial / Lot Lens Intraoc 20.0 - [id number] - [id number] Implanted:Qty: 1 on 05/21/2019 by Josh Covarrubias MD at [facility] Left: Eye [employer] 01/03/2024 [id number] / [id number] / [id number] Lens Intraoc 19.5 - [id number] - [id number] Implanted:Qty: 1 on 06/11/2019 by Josh Covarrubias MD at [facility] Right: Eye [employer] 11/03/2023 [id number] / [id number] / [id number] documented as of this encounter Procedures Procedure Name Priority Date/Time Associated Diagnosis Comments MAMMOGRAM DIAGNOSTIC KATIE BILATERAL Routine 02/09/2023 1:35 PM EDT Malignant neoplasm of lower-inner quadrant of right female breast (HCC) documented in this encounter Results * MAMMOGRAM DIAGNOSTIC KATIE BILATERAL (02/09/2023 1:35 PM EDT) Anatomical Region Laterality Modality Breast Bilateral Mammography Narrative 02/09/2023 1:50 PM EDT Result MAMMOGRAM DIAGNOSTIC KATIE BILATERAL History Malignant neoplasm of lower-inner quadrant of right female breast (hcc) Family medical history includes breast cancer in aunt (maternal). Films Compared Multiple prior studies most recent dated the 02/08/2022. Findings The breasts have scattered areas of fibroglandular density. Post treatment changes are noted in the left breast. Biopsy clip is present in the upper outer left breast. A few benign appearing calcifications are noted bilaterally. There is no evidence of suspicious masses, calcifications, or other abnormal findings. Impression Bilateral No mammographic evidence of malignancy. BI-RADS Category: 2 - Benign. Recommendation Resume annual screening mammography is recommended for both breasts. Digital breast tomosynthesis was performed. This digital mammogram has been analyzed with the computer aided detection system. This notice contains the results of your recent mammogram, including information about breast density. If your mammogram shows that your breast tissue is dense, you should know that dense breast tissue is a common finding and is not abnormal. Statistics show many women could have dense or highly dense breasts. Dense breast tissue can make it harder to find cancer on a mammogram and may be associated with an increased risk of cancer. This information about the result of your mammogram is given to you to raise your awareness and to inform your conversations with your physician. Together, you can decide which screening options are right for you, based on your mammogram results, individual risk factors or physical examination. A report of your results was sent to your physician. Your mammographic breast density on today's study is described above. There are four categories of breast density on mammography. Fatty breasts and those with scattered fibroglandular tissue are not considered dense. Heterogeneously dense or extremely dense tissue is considered "dense". Please understand that assessment of breast density may vary from year to year. This examination was performed at [facility], [address] [place] [id number]. Bruce Burr MD RAD MAMMOGRAPHY documented in this encounter Visit Diagnoses Diagnosis Malignant neoplasm of lower-inner quadrant of right female breast (HCC) Malignant neoplasm of lower-inner quadrant of female breast documented in this encounter Care Teams Processor Helper Relationship Specialty Start Date End Date Solomon Cortez MD [address] [place] [address], [place] [id number] PCP - General Family Medicine 11/07/16 documented as of this encounter
--- OUTSIDE RECORDS SUMMARY | 2023-04-26 10:01 | External Medical Summary | Continuity of Care Document ---
Author Name Unknown Organization [facility] [address] Address [address] [place], [place] [id number] Care Team Providers Care Sole Leather Cutting Machine Operator Name Role Phone JesusJose ramirez Emmy Primary Care Physician [phone] [facility]counter [facility] [id number] Date(s): 12/27/22 - 12/27/22 [facility] [address] [facility] [address] [facility] [address] [facility] [address] [place], [place] [phone] Encounter Diagnosis Cerebral infarction, unspecified(Final) - risk assessor (current) use of anticoagulants(Final) - Supraventricular tachycardia(Final) - Discharge Disposition: Home or Self Care Attending Physician: DAMIR Aguilar Sarah A Referring Physician: DAMIR Aguilar Sarah A Allergies, Adverse [...] bid, Disp# 180 tab, Refills: 3, Pharmacy: [facility] Start Date: 12/14/22 Status: Ordered levothyroxine 75 mcg (0.075 mg) oral tablet Start: 08/17/22 15:00:00 EDT, 1 tab, PO, Daily, Disp# 90 tab, Refills: 3, Pharmacy: [facility] Start Date: 08/17/22 Status: Ordered metoprolol succinate 25 mg oral tablet, extended release Start: 08/17/22 15:00:00 EDT, 0.5 tab, PO, Daily, Disp# 90 tab, Refills: 3, Pharmacy: [facility] Start Date: 08/17/22 Status: Ordered MVI-12 [...] There is no hemorrhage or [facility]line shift. [facility] Imp[facility]: 1. No active disease [...] seen in the left knee. 6x 2 Results Laboratory List Name Date Basic Metabolic Panel (BASIC METAB PANEL ) 12/27/22 Complete Blood Count (CBC) 12/27/22 Most recent to oldest [Reference Range]: 1 eGFR CKD-EPI [>60 mL/min/1.73 m2] 37 mL/ min/1.73 m2 1 *LOW* (12/27/22 2:51 PM) Estimated CrCl 26.52 mL/min (12/27/22 4:02 PM) MPV [9.0-12.2 fL] 10.3 fL 2 (12/27/22 2:51 PM) RDW [11.5-14.2 %] 16.0 % *HI* (12/27/22 2:51 PM) Anion Gap [5-14 mmol/L] 6 mmol/L (12/27/22 2:51 PM) BUN [7-20 mg/dL] 30 mg/dL *HI* (12/27/22 2:51 PM) Ca [8.4-10.2 mg/dL] 8.9 mg/dL (12/27/22 2:51 PM) Cl- [96-107 mmol/L] 109 mmol/L *HI* (12/27/22 2:51 PM) HCO3 [22-30 mmol/L] 26 mmol/L (12/27/22 2:51 PM) Cret [0.60-1.00 mg/dL] 1.40 mg/dL *HI* (12/27/22 2:51 PM) Glu [74-106 mg/dL] 105 mg/dL (12/27/22 2:51 PM) Hct [35-44 %] 37.8 % (12/27/22 2:51 PM) Hgb [11.7-15.0 g/dL] 12.0 g/dL (12/27/22 2:51 PM) K [3.5-5.1 mmol/L] 4.5 mmol/L (12/27/22 2:51 PM) MCH [28-33 pg] 26.7 pg *LOW* (12/27/22 2:51 PM) MCHC [32-36 g/dL] 31.7 g/dL *LOW* (12/27/22 2:51 PM) MCV [81-96 fL] 84.0 fL (12/27/22 2:51 PM) Na [137-145 mmol/L] 141 mmol/L (12/27/22 2:51 PM) Plts [150-350 K/uL] 178 K/uL (12/27/22 2:51 PM) RBC [3.90-5.00 M/uL] 4.50 M/uL (12/27/22 2:51 PM) WBC [4.0-10.4 K/uL] 4.60 K/uL (12/27/22 2:51 PM) 1Result Comment: Testing Performed By: Dept of Pathology [facility] Annette [address], [address] [place] [address] 2Result Comment: Testing Performed By: Dept of Pathology [facility] [address], [address] [place] [address] Social History Social History Type Response Smoking Status Never smoked cigaret laly Sex Female Patient Care team information Care Team Personnel Name: MD Jesus, Jose Booth Position: Physician - Internal Med Member Role: Primary Care Provider Address: Address: [address] [facility] [address] [place] [address] [place] Care Team Related Persons Name: STEPHEN THOMPSON Address: home [address] [place], [place] [id number]
--- OUTSIDE RECORDS SUMMARY | 2023-04-26 10:01 | External Medical Summary | Summary of Care ---
Author Name Unknown Organization [facility] Address [address] [place] [place] [address] Phone [phone] Care Team Providers Care Qm Nurse Name Role Phone Solomon Cortez MD Primary Care Provider Reason for Visit * Reason Comments Follow Up 5-7 week Dilation wi OCT OS. Pt states "No changes" * Precert (Within 10 days (routine)) - Authorized Specialty Diagnoses / Procedures Referred By Logan lilly Referred To Contact Ophthalmology Diagnoses Exudative age-related macular degeneration, left eye, with active choroidal neovascularization (HCC) Procedures VT BEVACIZUMAB INJECTION VT INTRAVITREAL NJX PHARMACOLOGIC AGT SPX Cam Herrera DO [address] [place] [id number] Referral ID Status Reason Start Date Expiration Date V isits Requested Visits Authorized [id number] Authorized Precert 12/21/2022 06/04/2099 [id number] Encounter Details Date Type Department Care Team Description 03/10/2023 Office Visit Ophthalmology, [facility] [address] [place] [address] Cam Herrera DO [address] [place] [id number] Exudative age-related macular degeneration of left eye with active choroidal neovascularization (HCC)* Allergies Active Allergy Reactions Severity Noted Date Comments Adhesive Tape Unknown 11/16/2011 Bactrim 03/08/2012 Hives. Latex Itching Low 09/21/2011 documented as of this encounter (statuses as of 03/10/2023) Medications Medication Sig Dispensed Refills Start Date [...] as of this encounter (statuses as of 03/10/2023) Active Problems Problem Noted Date Need for [...] T1c pN1 Mammo sched mid Apr Fu Lisa end Jul Fu Cecilio August On Anastrozole [...] statin . Pt declines LDL (DIRECT MEASURE)(mg/dL) Dedra Dt/Tm Resulted Value Status 01/06/10 12:40P 01/07/10 164* FINAL LDL (CALCULATED)(mg/dL) Dedra Dt/Tm Resulted Value Status 11/14/08 7:50A 11/14/08 168* FINAL 01/09/08 8:36A 01/09/08 137* FINAL LDL (CALCULATED)(mg/dL) Dedra Dt/Tm Resulted Value Status 11/14/08 7:50A 11/14/08 168* FINAL 01/09/08 8:36A 01/09/08 137* FINAL 12/25/06 3:50P 12/25/06 156* FINALP er Lipid Taxonomy. LDL (CALCULATED)(mg/dL) Dedra Dt/Tm Resulted Value Status 12/25/06 3:50P 12/25/06 156* FINAL 04/19/05 10:20A 04/20/05 163* FINAL 09/08/04 7:50A 09/08/04 158* FINAL off meds was on Lipitor in 2002- myalgia LDL 09/08/04 = 158 refer to letter of 09/08/2004 History of vitamin D deficiency 05/11/20 09 Overview: 09/07/2011 resolved 03/2011 cont 2000 /day 07/12/2010 level 25 increase Vit D [...] mammo the patient will see MB for cv rn exam incl breast exam in Sept. Ankle joint pain 12/28/2006 ADVANCE DIRECTIVE INFORMATION 04/27/2005 Overview: No, Advance Directive brochure offered , patient declined. BACKACHE NOS 09/06/2004 Overview: 04/27/2005 01/09/2006 12/28/2006 stable tolerable ? 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 going to [facility] Mefloquine 250 qwk Hypothyroidism Overview: TSH Results: [...] as of this encounter (statuses as of 03/10/2023) Resolved Problems Problem Noted Date Resolved Date [...] as of this encounter (statuses as of 03/10/2023) Immunizations Name Administration Dates Next Due COVID-19 mRNA, LNP-s, No Pre serve, 2-Dose Series ([employer]) 03/10/2021,08/14/2020,07/17/2020 Pneumococcal Conjugate Vacc, 13 Valent (Prevnar) [...] on file documented as of this encounter Progress Notes * Cam Herrera, - 03/10/2023 11:45 AM EDT [facility] [place] Nursing notes reviewed. Eye vitals reviewed. Mood and Affect: normal HPI: Caitlin Hurley is a 87 year old female who presents for evaluation of AMD No other eye complaints. Denies significant pain. Base Eye Exam Visual Acuity (Snellen - Linear) Right Left Dist cc 20/25 -2 20/40 -1 Dist ph cc NI Correction: Glasses Tonometry (Tonopen, 11:32 AM) Right Left Pressure 13 16 Pupils Light Shape React APD Right 4 Round Brisk None Left 4 Round Brisk None Visual Durand (Counting fingers) Right Left Full Full Extraocular Movement Right Left Full Full Neuro/Psych Oriented x3: Yes Mood/Affect: Normal Dilation Both eyes: 0.5% Proparacaine @ 11:32 AM Dilation #2 Left eye: 2.5% Phenylephrine, 1.0% Mydriacyl @ 11:32 AM EXTERNAL: The ocular adnexae are unremarkable. SLE: Lids/Lashes: wnl OU Conjunctiva/Sclera: quiet OU Cornea: clear OU Anterior Chamber: deep and quiet OU Iris: normal OU; no NVI OU Lens: PCIOL OU Dilated fundus exam OD: 12/21/22 vitreous: clear optic nerve: 0.25, no edema/pallor/NVD macula: drusen/pig clumping vessels: wnl periphery: cobblestone, o RT/RD Dilated fundus exam OS: vitreous: clear, operculum like opacity over ON optic nerve: 0.3, no edema/pallor/NVD macula: drusen/pig clumping vessels: wnl periphery: cobblestone, no RT/RD OCT Interpretation: OD: 12/21/22: drusen, no irf/srf OS: drusen, resolved irf/srf--STABLE, prior improved 46um A/P: 1. Age-Related Macular Degeneration OD: dry OS: wet -Avastin OS 01/26/23, 12/21/22 -6 weeks -recommend AREDS2 MVI as directed and Amsler grid qday 2. Pseudophakia OU -stable F/u 6-8 weeks, OCT OS Cam Herrera DO CC: Morris Contreras, OD CC: PCP: Solomon Cortez MD TIMEOUT PROCEDURE: correct patient identity-YES correct procedure and consent-YES verified side and site-YES correct patient position-YES all necessary equipment/prior studies present-YES reviewed special requirements of this patient-YES PROCEDURE: Intravitreal injection of Avastin 1.25mg OS INFORMED CONSENT: Patient is aware that this is an off-label use of Avastin and that Avastin is not FDA approved for this use. Risks, benefits and alternatives have been discussed with the patient. Risks include, but are not limited to: retinal tears, detachments, hemorrhage, glaucoma, infection, cataracts, need formore procedures and the potential risk of arterial thromboembolic events following use of intravitreal VEGF inhibitors defined as nonfatal stroke, nonfatal myocardial infarction or vascular . Patient is aware of these risks and consents to the procedure. DESCRIPTION OF PROCEDURE: The procedure site was confirmed. Topical proparacaine was applied to the surface of the eye after which subconjunctival anesthetic was administered. The area was prepped in the standard aseptic manner with 5% Betadine solution. An eyelid speculum was placed and 0.05 ml of a 25mg/ml solution of Avastin was injected 3.75 mm posterior to the limbus into the midvitreous cavity with a 30 gauge short needle. The Betadine was flushed from the eye, the eye speculum was removed and optic nerve perfusion was insured. The patient tolerated the procedure without difficulty and was given followup instructions and instructed to use ophthalmic ointment 3x/day as needed. Cam Herrera DO, performed the procedure in its entirety. documented in this encounter Nursing Notes * KENISHA Faria - 03/10/2023 11:53 AM EDT Caitlin Hurley to receive third Avastin 1.25mg Injection of the Left eye. Correct eye confirmed with patient and marked by Cam Herrera DO Avastin 1.25mg lot # [id number] Exp. Date: 03/31/23 * KENISHA Faria - 03/10/2023 11:27 AM EDT Caitlin Hurley is a 87 year old year old female who presents for 5-7 week Dilation with OCTOS. Last Office Visit: 01/26/2023 (in office), Visit date not found (telemedicine) Patient currently states no change in vision. Are you diabetic? No Do you drive? yes OCT image(s) of left eye acquired and filed/scanned into chart. documented in this encounter Plan of Treatment Upcoming Encounters Date Type Specialty Care Team Description 05/05/2023 Office Visit Ophthalmology Cam Herrera DO [address] [place] [address] Scheduled Orders Name Type Priority Associated Diagnoses Orde r Schedule RETINA SCAN DIAGNOSTIC IMAGE, POSTERIOR Procedures Routine Exudative age-related macular degeneration of left eye with active choroidal neovascularization (HCC) Ordered: 03/10/2023 Health Maintenance Due Date Last Done Comments TSH 05/05/2016 05/05/2015, 04/06, 03/21/2013, Additional history exists Depression Screening 10/05/2016 10/06/2015 Zoster Vaccines (2 of 2) 07/20/2022 05/25/2022 COVID-19 Vaccine ( season) 2023 03/02/2022, 10/12/2021, 03/10/2021, Additional history exists Influenza Vaccine (FLU shot) (#1) 2023 03/18/2019, 05/17/2018, 04/14/2017, Additional history exists DTaP,Tdap,and Td Vaccines (2 - Td or Tdap) 10/23/2023 10/22/2013 Mammogram 02/12/2025 02/12/2023, 12/2022, 02/08/2022, Additional history exists DXA Scan 09/20/2028 09/20/2021, 12/2016, 05/05/2015, Additional history exists Pneumococcal Vaccine: 65+ Years Completed 02/10/2016, 04/27/2005 GARDASIL-HPV IMMUNIZATION SERIES Aged Out No longer eligible based on patient's age to complete this topic Hepatitis B Aged Out No longer eligi ble based on patient's age to complete this topic MENINGOCOCCAL (MENACTRA/MENVEO) Aged Out No longer eligible based on patient's age to complete this topic documented as of this encounter Medical Devices Implanted Type Area Wire Wheeler Device Identifier Shelf Expiration Date Model / Serial / Lot Lens Intraoc 20.0 - [id number] - [id number] Implanted:Qty: 1 on 05/21/2019 by Josh Covarrubias MD at [facility] Left: Eye [employer] 01/03/2024 [id number] / [id number] / [id number] Lens Intraoc 19.5 - [id number] - [id number] Implanted:Qty: 1 on 06/11/2019 by Josh Covarrubias MD at OR [facility] Right: Eye [employer] 11/03/2023 [id number] / [id number] / [id number] documented as of this encounter Visit Diagnoses Diagnosis Exudative age-related macular degeneration of left eye with active choroidal neovascularization (HCC)- Primary documented in this encounter Administered Medications Active Administered Medications - up to 3 most recent administrations Medication Order MAR Action Action Date Dose Rate Site bevaCIZumab (Avastin) inj 1.25 mg 1.25 mg, Intravitreal, PRN Other, Starting on Mon12/21/22 at 1237, Until Mon12/21/23 at 1236, For 365 days Given 03/10/2023 11:54 AM EDT 1.25 mg Eye Left Given 01/26/2023 10:20 AM EDT 1.25 mg E ye Left Given 12/21/2022 12:43 PM EDT 1.25 mg E ye Left ROPivacaine (Naropin) inj 1.5 mg 1.5 mg, Injection, PRN Other, Starting on Mon12/21/22 at 1237, Until Elva 12/21/23 at 1236, For 365 days Given 03/10/2023 11:55 AM EDT 1.5 mg Eye Left Given 01/26/2023 10:20 AM EDT 1.5 mg E ye Left Given 12/21/2022 12:43 PM EDT 1.5 mg E ye Left documented in this encounter Care Teams Qm Nurse Relationship Specialty Start Date End Date Solomon Cortez MD [address] [facility] [address] [place] [address], [place] [address] PCP - General Family Medicine 11/07/16 documented as of this encounter
--- OUTSIDE RECORDS SUMMARY | 2023-04-26 10:01 | External Medical Summary | Continuity of Care Document ---
Author Name Unknown Organization [facility] [address] [facility] Address [address] [place], [place] [id number] Care Team Providers Care Currency Examiner Name Role Phone Jose Lee Primary Care Physician [phone] [id number] Date(s): 02/17/23 - 02/17/23 [facility] [address], [address] [place] [address] [phone] Encounter Diagnosis Stroke(Discharge Diagnosis) - 02/17/23 Afib(Discharge Diagnosis) - 02/17/23 Anticoagulated(Discharge Diagnosis) - 02/17/23 HLD (hyperlipidemia)(Discharge Diagnosis) - 02/17/23 Discharge Disposition: Home or Self Care Attending Physician: DAMIR Aguilar Sarah A Allergies, Adverse Reactions, Alerts Substance Reaction Severity Status bacitracin Active Bactrim Rash Active Latex Active Assessment and Plan Extracted from: Title:Cardiology Office Visit Note Author:DAMIR Medina rd, Sarah A Date:02/17/23 Impression: 1. Moderate aortic stenosis 2. Mild mitral regurgitation 3. 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 Paroxysmal atrial fibrillation Caitlin and I discussed her options. She would like to take the 1 month coupon for Xarelto for nowand then fill out an applicationto have [employer] for coverage of the Eliquis. Hopefully this will help her have a more reasonable cost for her blood thinner. She did ask if she could come off of it or have a reduced dose of the Eliquis,but she does not meet criteria and with her A-fib and stroke she should really be on a blood thinner. She does need to be on reduced dose Xarelto and I sent 50 mgdaily dosing. I wrote all this down for her and gave her the applicationfor assistance from the company. As she did not tolerate atorvastatin in the past and so did not take it when she left the hospital after stroke. I will have her try the lowest dose of rosuvastatin 5 mg daily and see how she does. She can have labs in 2 months. Otherwise she does not have any new complaintsand appears to bestable. She returns to the clinic in June. Immunizations Given and Recorded Vaccine Date Status [...] qPM, Disp# 30 tab, Refills: 0, Pharmacy: [facility] Start Date: 02/17/23 Status: Ordered rosuvastatin 5 mg oral tablet Start: 02/17/23 13:00:00 EDT, 1 tab, PO, Daily, Disp# 30 tab, Refills: 3, Pharmacy: [facility] Start Date: 02/17/23 Status: Ordered Shingrix [...] Effective Dates Health Status Clinical Service Informant Afib Discharge Diagnosis 02/17/23 Non-Specified Stroke Discharge Diagnosis 02/17/23 Non-Specified HLD (hyperlipidemia) Discharge Diagnosis 02/17/23 Non-Specified Anticoagulated Discharge Diagnosis 02/17/23 Non-Specified Procedures Procedure Date Related Diagnosis Body [...] There is no hemorrhage or midline shift. [address] [place] [address] Impression: 1. No active disease in the [...] Most recent to oldest [Reference Range]: 1 Heart Rate 73 bpm (02/17/23 12:45 PM) Blood Pressure 116/70mmHg (02/17/23 12:45 PM) Cuff Pulse Pressure 46 mmHg (02/17/23 12:45 PM) BP Location # 1 Left Arm (02/17/23 12:45 PM) Social History Social History Type Response Smoking Status Never smoked cigaret laly Sex Female Cardiology Outpatient Note * DAMIR Aguilar Sarah A: PERFORM, MODIFY Event Display: Cardiology Outpt Note Authored Date: [id number] Primary Care Provider MD Jesus, Jose Booth History of Present Illness Ms. Hurley presents to discuss anticoagulation. Herlast month of Eliquis was over $500 for herwhich obviously is not sustainable cost. She isreally reluctant to switch to Coumadingiven all its drawbacks. She would like to discuss what other options she has. She did not have her sleep studyas they had trouble getting in touch with her. She never started taking the atorvastatin after the hospital as she had muscle aches with it in the past. Review of Systems All other systems reviewed and negative except as discussed in the HPI Physical Exam Vitals & Measurements HR:73(Monitored) BP:116/70 SpO2:97% Physical Examination General: Alert and oriented, No acute distress. Neck: No jugular venous distention. Respiratory: Lungs are clear to auscultation, Respirations are non-labored. Cardiovascular:Irregular rhythm, No murmur, No edema. Integumentary: Warm, Dry, [place] Neurologic: Alert, Oriented. Cognition and Speech: Speech clear and coherent. Psychiatric: Cooperative, Appropriate mood & affect. Assessment/Plan Impression: 1. Moderate aortic stenosis 2. Mild mitral regurgitation 3. 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 Paroxysmal atrial fibrillation Caitlin and I discussed her options. She would like to take the 1 month coupon for Xarelto fornowand then fill out an applicationto have [employer] for coverage of the Eliquis. Hopefully this will help her have a more reasonable cost for her blood thinner. She did ask if she could come off of it or have a reduced dose of the Eliquis,but she does not meet criteria and with her A-fib and stroke she should really be on a blood thinner. She does need to be on reduced dose Xarelto and I sent 50 mgdaily dosing. I wrote all this down for her and gave herthe applicationfor assistance from the company. As she did not tolerate atorvastatin in the past and so did not take it when she left the hospital after stroke. I will have her try the lowest dose of rosuvastatin 5 mg daily and see how she does.She can have labs in 2 months. Otherwise she does not have any new complaintsand appears to bestable. She returns to the clinic in June. Problem List/Past Medical History Ongoing Aortic stenosis [...] minerals(PreserVision AREDS 2), 1 cap, PO, bid rivaroxaban(rivaroxaban 15 mg oral tablet), 15 mg= 1 tab, PO, qPM rosuvastatin(rosuvastatin 5 mg oral tablet), 5 mg= 1 tab, PO, Daily, 3 refills vitamin E, See Instructions zoster vaccine, inactivated(Shingrix [...] Signature on File CC: Jose Lee MD [address] [place] [address] Electronically Reviewed/Signed by: DAMIR Gupta Author Signature Dt/Tm:02/17/2023 04:13 PM [facility] Patient Care team information Care Team Personnel Name: MD Jesus, Jose Booth Position: Physician - Internal Med Member Role: Primary Care Provider Address: Address: [address] [place] [address] [place] Care Team Related Persons Name: STEPHEN HURLEY Address: home [address] [place] [phone]
--- OUTSIDE RECORDS SUMMARY | 2023-04-26 10:01 | External Medical Summary | Summary of Care ---
Author Name Unknown Organization [facility] Address [address] [facility] [place] [address] Phone [phone] Care Team Providers Care Director Marketing Name Role Phone Solomon Cortez MD Primary Care Provider Reason for Visit * Reason Comments Follow Up 4-6 weeks dilate OCT OS Avastin * Precert (Within 10 days (routine)) - Authorized Specialty Diagnoses / Procedures Referred By Logan lilly Referred To Contact Ophthalmology Diagnoses Exudative age-related macular degeneration, left eye, with active choroidal neovascularization (HCC) Procedures WI BEVACIZUMAB INJECTION WI INTRAVITREAL NJX PHARMACOLOGIC AGT SPX Cam Herrera, DO [address] [place] [address] Referral ID Status Reason Start Date Expiration Date V isits Requested Visits Authorized [id number] Authorized Precert 12/21/2022 06/04/[phone] Encounter Details Date Type Department Care Team Description 01/26/2023 Office Visit Ophthalmology, [facility] [address] [place] [address] Cam Herrera DO [address] [place] [id number] Exudative age-related macular degeneration of left eye with active choroidal neovascularization (HCC)* Allergies Active Allergy Reactions Severity Noted Date Comments Adhesive Tape Unknown 11/16/2011 Bactrim 03/08/2012 Hives. Latex Itching Low 09/21/2011 documented as of this encounter (statuses as of 01/26/2023) Medications Medication Sig Dispensed Refills Start Date [...] as of this encounter (statuses as of 01/26/2023) Active Problems Problem Noted Date Need for [...] mammo the patient will see MB for family practice physician exam incl breast exam in Sept. Ankle joint pain 12/28/2006 ADVANCE DIRECTIVE INFORMATION 04/27/2005 Overview: No, Advance Directive brochure offered , patient declined. BACKACHE NOS 09/06/2004 Overview: 04/27/2005 01/09/2006 12/28/2006 stable tolerable ? 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 mammo by MB PROPHYLACTIC MEASURE NEC [...] as of this encounter (statuses as of 01/26/2023) Resolved Problems Problem Noted Date Resolved Date [...] as of this encounter (statuses as of 01/26/2023) Immunizations Name Administration Dates Next Due COVID-19 mRNA, LNP-s, No Pre serve, 2-Dose Series ([place] Discounters) 03/10/2021,08/14/2020,07/17/2020 Pneumococcal Conjugate Vacc, 13 Valent (Prevnar) 02/10/2016 Seasonal Influenza, Quadriva lent, No Preserve, IM 06/03/2015 Seasonal Influenza, Split, I IV3, With Preserve, Inj 03/21/2014,03/25/2013,03/08/2012,2010,07/09/2010,05/08/2009,04/20/2007 TD, Preservative Free 11/07/2008(Deferred: Patie nt Refused) TDAP (age 10 and older)(Boostrix) 10/22/2013 documented as of this encounter Social History Tobacco Use Types Packs/Day Years Used Date Smoking Tobacco: Never Smokeless Tobacco: Never Tobacco Cessation:Counseling Given: No Alcohol Use Standard Drinks/Week Comments No 0 (1 standard drink = 0.6 oz pur e alcohol) Sex Assigned at Date Recorded Not on file Job Start Date Occupation Industry Not on file Not on file Not on file documented as of this encounter Progress Notes * Cam Herrera, - 01/26/2023 10:45 AM EDT [facility] [place] Nursing notes reviewed. Eye vitals reviewed. Mood and Affect: normal HPI: Caitlin Hurley is a 87 year old female who presents for evaluation of AMD No other eye complaints. Denies significant pain. Base Eye Exam Visual Acuity (Snellen - Linear) Right Left Dist cc 20/25 20/30 Correction: Glasses Tonometry (Tonopen, 10:00 AM) Right Left Pressure 12 12 Pupils Pupils Light Shape React APD Right PERRL 3 Round Brisk None Left PERRL 3 Round Brisk None Visual Durand (Counting fingers) Right Left Full Full Extraocular Movement Right Left Full Full Neuro/Psych Oriented x3: Yes Dilation Both eyes: 0.5% Proparacaine @ 10:00 AM Dilation #2 Both eyes: 1.0% Mydriacyl, 2.5% Phenylephrine @ 10:00 AM Dilation Comments Patient cautioned that effects of dilation may last 2-7 hours dependant upon individual reaction. It was discussed that driving while dilated is not recommended. EXTERNAL: The ocular adnexae are unremarkable. SLE: [...] OD: 12/21/22: drusen, no irf/srf OS: drusen, +irf/srf--improved 46um A/P: 1. Age-Related Macular Degeneration OD: dry OS: wet -Avastin OS 12/21/22 -5 weeks -recommend AREDS2 MVI as directed and Amsler grid qday 2. Pseudophakia OU -stable F/u 5-7 weeks, OCT OS Cam Herrera DO CC: [...] documented in this encounter Nursing Notes * Brandie Castañeda, JABARI - 01/26/2023 10:19 AM EDT Caitlin Hurley to receive second Avastin 1.25mg Injection of the Left eye. Correct eye confirmed with patient and marked by Cam Herrera DO Avastin 1.25mg lot # [id number] Exp. Date: 02/09/23 * Paco Lockwood RN - 01/26/2023 10:02 AM EDT Caitlin Hurley is a 87 year old year old female who presents for AMD. Last Office Visit: 12/21/2022 (in office), Visit date not found (telemedicine) Patient currently states no change in vision. Are you diabetic? No Do you drive? yes OCT image(s) of left eye acquired and filed/scanned into chart. documented in this encounter Plan of Treatment Upcoming Encounters Date Type Specialty Care Team Description 02/09/2023 Appointment Radiology 03/10/2023 Office Visit Ophthalmology Cam Herrera DO [address] [place] [address] Health Maintenance Due Date Last Done Comments TSH 05/05/2016 05/05/2015, 04/06, 03/21/2013, Additional history exists Depression Screening, Annual for Pts 12 and Over 10/05/2016 10/06/2015 Zoster Vaccines (2 of 2) 07/20/2022 05/25/2022 Influenza Vaccine (FLU shot) (#1) 2023 03/18/2019, 05/17/2018, 04/14/2017, Additional history exists DTaP,Tdap,and Td Vaccines (2 - Td or Tdap) 10/23/2023 10/22/2013 Mammogram 02/09/2024 02/08/2022, 09/0 07/2021, 02/04/2021, Additional history exists DXA Scan 09/20/2028 09/20/2021, 12/0 12/2016, 05/05/2015, Additional history exists Pneumococcal Vaccine: [...] this encounter Medical Devices Implanted Type Area Lottery Sales Clerk Device Identifier Shelf Expiration Date Model / Serial / Lot Lens Intraoc 20.0 - [id number] - [id number] Implanted:Qty: 1 on 05/21/2019 by Josh Covarrubias MD at OR [facility] Left: Eye BAUSCH & LOMB 01/03/2024 [id number] / [id number] / [id number] Lens Intraoc 19.5 - [id number] - [id number] Implanted:Qty: 1 on 06/11/2019 by Josh Covarrubias MD at OR [facility] Right: Eye BAUSCH & LOMB 11/03/2023 [id number] / [id number] / [id number] documented as of this encounter Visit Diagnoses [...] 12/21/23 at 1236, For 365 days Given 01/26/2023 10:20 AM EDT 1.25 mg Eye Left Given 12/21/2022 12:43 PM EDT 1.25 mg E ye Left ROPivacaine (Naropin) inj 1.5 mg 1.5 mg, Injection, PRN Other, Starting on Mon12/21/22 at 1237, Until Elva 12/21/23 at 1236, For 365 days Given 01/26/2023 10:20 AM EDT 1.5 mg Eye Left Given 12/21/2022 12:43 PM EDT 1.5 mg E ye Left documented in this encounter Care Teams Director Marketing Relationship Specialty Start Date End Date Solomon Cortez MD [address] [place] [address] [address] [place] [address] PCP - General Family Medicine 11/07/16 documented as of this encounter
--- OUTSIDE RECORDS SUMMARY | 2023-04-26 10:01 | External Medical Summary | Continuity of Care Document ---
Author Name Unknown Organization [id number] Address [address] [place] [phone] Care Team Providers Care Grease Remover Name Role Phone Jose Lee Primary Care Physician [phone] [id number] Date(s): 01/16/23 - 01/16/23 [facility] [address] [place] [address] [address] Encounter Diagnosis Tinea unguium(Discharge Diagnosis) - 01/16/23 Peripheral vascular disease(Discharge Diagnosis) - 01/16/23 Discharge Disposition: Home or Self Care Attending Physician: GRECIA Meyer Christina L Referring Physician: MD Lee Michael P Allergies, Adverse Reactions, Alerts Substance Reaction Severity Status bacitracin Active Bactrim Rash Active Latex Active Assessment and Plan Extracted from: Title:Follow Up Visit Author:GRECIA Meyer, Nataly Diamond Date:01/16/23 1.Tinea unguium -Patient unable to provide self care to toenails due to fungus/PVD - verbal consent obtained for debridement -Recommend toenail debridement -Patient had toenails ofright hallux toenaildebrided using nail nippers to tolerance, no bleeding noted -Patient instructed to use emery board to nails once per week -Patient had no ingrown toenails or infection noted -Patient is to follow up in3 months for treatment if needed in the future 2.Peripheral vascular disease Immunizations Given and Recorded Vaccine Date Status Refusal Reason zoster vaccine, inactivated 05/25/22 Given influenza virus vaccine, inactivated 05/25/22 Give n influenza virus vaccine, inactivated 04/12/21 Give n influenza virus vaccine, inactivated 03/18/19 Give n influenza virus vaccine, inactivated 12/13/18 Give n influenza virus vaccine, inactivated 03/05/14 [...] bid, Disp# 180 tab, Refills: 3, Pharmacy: [facility] Start Date: 12/14/22 Status: Ordered levothyroxine 75 mcg (0.075 mg) oral tablet Start: 08/17/22 15:00:00 EDT, 1 tab, PO, Daily, Disp# 90 tab, Refills: 3, Pharmacy: [facility] Start Date: 08/17/22 Status: Ordered metoprolol succinate 25 mg oral tablet, extended release Start: 08/17/22 15:00:00 EDT, 0.5 tab, PO, Daily, Disp# 90 tab, Refills: 3, Pharmacy: [facility] Start Date: 08/17/22 Status: Ordered MVI-12 Start: 02/04/15 13:21:00, 1 tab, PO, Daily Start Date: 02/04/15 Status: Ordered PreserVision AREDS 2 Start: 11/17/16 10:12:00, 1 cap, PO, bid Start Date: 11/17/16 Status: Ordered Shingrix intramuscular injection Start: 05/25/22 10:54:00 EST, 0.5 mL, IM, ONCE, Disp# 1 each, Pharmacy: [facility] Start Date: 05/25/22 Status: Ordered Vitamin B Complex Start: 06/22/22 9:36:00 EST, once weekly Start Date: 06/22/22 Status: Ordered Vitamin D3 Start: 02/04/15 13:19:00, See Instructions, Takes 1 tab po three times per week Start Date: 02/04/15 Status: Ordered vitamin E Start: 02/04/15 13:18:00, See Instructions, Takes 1 cap po three times per week Start Date: 02/04/15 Status: Ordered Mental Status 01/16/23 Barriers to Learning one year None evide nt Mandatory Health Literacy Documentation Yes Health Literacy Communication Barriers N ever Primary Language Greek Problem List Condition Confirmation Course Effective Dates [...] Effective Dates Health Status Clinical Service Informant Tinea unguium Discharge Diagnosis 01/16/23 Peripheral vascular disease Discharge Diagnosis 01/16/23 Procedures Procedure Date Related Diagnosis Body Site [...] There is [facility] hemorrhage [facility]: 1. No active disease in [...] Event Display: Ortho Outpt Note Authored Date: [id number] Chief Complaint right great toenail growing upwards Primary Care Provider MD Jesus, Jose Booth Subjective Patient is a very pleasant 87-year-old female presenting today for follow-up of her right great toenaillast seen by myself December 28, 2021 for debridement of the nail. Review of Systems No pertinent positives. Objective Physical Exam Problem focused right foot: [...] hallux toenailwith thickening greater than 2 mmbrown and yellow discolorationwith dystrophy and onychomycosis secondary to history of traumarecommend debridement Assessment/Plan 1.Tinea unguium -Patient unable to provide self care to toenails due to fungus/PVD - verbal consent obtained for debridement -Recommend toenail debridement -Patient had toenails ofright hallux toenaildebrided using nail nippers to tolerance, no bleeding noted -Patient instructed to use emery board to nails once per week -Patient had no ingrown toenails or infection noted -Patient is to follow up in3 months for treatment if needed in the future 2.Peripheral vascular disease Electronic Signature on File Electronically Reviewed/Signed by: Sonali Meyer DPM Author Signature Dt/Tm:01/16/2023 10:01 AM Division of Sports Medicine CLR Patient Care team information Care Team Personnel Name: MD Jesus, Jose Booth Position: Physician - Internal Med Member Role: Primary Care Provider Address: Address: [address] [place] [address], [place] [address] [place] Care Team Related Persons Name: STEPHEN THOMPSON Address: home [address] [facility] [place] [phone]
--- OUTSIDE RECORDS SUMMARY | 2023-04-26 10:02 | External Medical Summary | Summary of Care ---
Author Name Unknown Organization [facility] Address [address] [place] [address] Phone [phone] Care Team Providers Care Drafting Engineer Name Role Phone Solomon Cortez MD Primary Care Provider Reason for Referral * Evaluate & Treat - Unlimited Visits (Within 3 days (urgent)) - Authorized Specialty Diagnoses / Procedures Referred By Logan lilly Referred To Contact Neurology Diagnoses Stroke (HCC) Hermila Lawrence CRNP [address] [place] [address] Referral ID Status Reason Start Date Expiration Date Visits Requested Visits Authorized [id number] Authorized Specialty Services Required 12/15/2022 999 999 Question Answer Referral Priority Within 3 days (urgent) [facility] NEUROLOGY REFERRAL QUESTIONS Stroke Does the patient's condition allow them to wait to be seen by a specialist or should they be seen by first available provider? Or is this a follow up with established provider? Specialist Comments Follow up, left MCA stroke Encounter Details Date Type Department Care Team Description 12/15/2022 Orders Only [facility] [address] [place] [address] Ext *DO NOT REMOVE THIS DEPARTMENT* [place] [id number] Request, External Referral Stroke (HCC)* Allergies Active Allergy Reactions Severity Noted Date Comments Adhesive Tape Unknown 11/16/2011 Bactrim 03/08/2012 Hives. Latex Itching Low 09/21/2011 documented as of this encounter (statuses as of 12/15/2022) Medications Medication Sig Dispensed Refills Start Date End Date Status MULTI-VITAMIN OR TABS one daily 0 07/07/2004 Act janny METAMUCIL 0.52 GM PO CAPS as needed 0 03/21/2005 Active PRESERVISION/LUTEIN PO CAPSIndications:Other specified prophylactic or treatment measure take 1 tab in am and 1 tab in pm 0 0 12/28/2006 Active CALCIUM CARBONATE 1250 MG PO TABS 2 TABLET DAILY (Tablet contains 1200mg of Ca and 1000units of Vit D ) one daily 30 Tab 12 07/09/2010 Active ANASTROZOLE 1 MG PO TABS [address] Burr 0 03/08/2012 Active Cholecalciferol (VITAMIN D) 1000 UNIT CapsuleIndications:Vit hyde D deficiency Take 1 Cap by mouth 3 times a week. 60 Cap 5 06/03/2015 Active vitamin e (E-400) 400 UNIT Capsule Take 1 Cap by mouth 3 times a week. 0 06/03/2015 Active levothyroxine (LEVOXYL) 75 MCG Tablet Take 1 Tab by mouth daily. 30 Tab 5 05/03/2016 Active B Complex Vitamins (VITAMIN B COMPLEX) Tablet Take 1 Tab by mouth once a week. 0 Active metoprolol tartrate (LOPRESSOR) 12.5 MG Tablet Take 12.5 mg by mouth daily. 0 Active Aspirin 81 MG Tablet Take 81 mg by mouth daily. 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 Ankle joint pain 12/28/2006 ADVANCE DIRECTIVE INFORMATION 04/27/2005 Overview: No, Advance Directive brochure offered , patient declined. BACKACHE NOS 09/06/2004 Overview: 04/27/2005 01/09/2006 12/28/2006 stable tolerable ? L4 comp fx , on DEXA 05/06 Intermittent only (p increased activity.) LOC PRIM [id number] knees 09/06/2004 Overview: 05/08/2009 stable some post [...] (will do 10yrs f/u) INFORMATION 09/06/2004 Overview: FLOORS BUFFER care mammo by MB PROPHYLACTIC MEASURE NEC [...] as of this encounter (statuses as of 12/15/2022) Resolved Problems Problem Noted Date Resolved Date [...] as of this encounter (statuses as of 12/15/2022) Immunizations Name Administration Dates Next Due COVID-19 mRNA, LNP-s, No Pre serve, 2-Dose Series (MicroPhage) 03/10/2021,08/14/2020,07/17/2020 Pneumococcal Conjugate Vacc, 13 Valent (Prevnar) [...] Encounters Date Type Specialty Care Team Description 12/21/2022 Office Visit Ophthalmology Cam Herrera, DO [address] [place] [address] 02/09/2023 Appointment Radiology Scheduled Referrals Name Type Priority Associated Diagnoses Orde r Schedule NEUROLOGY REFERRAL OP Referral Within 3 days (urgent) Stroke (HCC) Ordered: 12/15/2022 Health Maintenance Due Date Last Done Comments Zoster Vaccines (1 of 2) 1954 TSH 05/05/2016 05/05/2015, 04/06, 03/21/2013, Additional history exists Depression Screening, Annual for Pts 12 and Over 10/05/2016 10/06/2015 COVID-19 Vaccine (4 - Booster for Pfizer series) 05/05/2021 03/10/2021, 08/14/2020, 07/17/2020 Influenza Vaccine (FLU shot) (#1) 2023 03/18/2019, 05/17/2018, 06/03/2015, Additional history exists DTaP,Tdap,and Td Vaccines (2 - Td or Tdap) 10/23/2023 10/22/2013 Mammogram 02/09/2024 02/08/2022, 07/2020, 02/04/2020, Additional history exists DXA Scan 09/20/2028 09/20/2021, [...] this encounter Medical Devices Implanted Type Area Blaster Helper Device Identifier Shelf Expiration Date Model / Serial / Lot Lens Intraoc 20.0 - [id number] - [id number] Implanted:Qty: 1 on 05/21/2019 by Josh Covarrubias MD at OR [facility] Left: Eye BAUSCH & LOMB 01/03/2024 [id number] / [id number] / [id number] Lens Intraoc 19.5 - [id number] - [id number] Implanted:Qty: 1 on 06/11/2019 by Josh Covarrubias MD at OR [facility] Right: Eye BAUSCH & LOMB 11/03/2023 [id number] / [id number] / [id number] documented as of this encounter Visit Diagnoses Diagnosis Stroke (HCC)- Primary Unspecified cerebral artery occlusion with cerebral infarction documented in this encounter Care Teams Drafting Engineer Relationship Specialty Start Date End Date Solomon Cortez MD [address] [place] [address] [place] [address] PCP - General Family Medicine 11/07/16 documented as of this encounter
--- OUTSIDE RECORDS SUMMARY | 2023-04-26 10:02 | External Medical Summary | Summary of Care ---
Author Name Unknown Organization [facility] Address [address] [place] [address] Phone [phone] Care Team Providers Care Hair Sample Matcher Name Role Phone Solomon Cortez MD Primary Care Provider Reason for Visit * Reason Onset Date Comments TRIAGE 12/16/2022 Encounter Details Date Type Department Care Team Description 12/16/2022 Telephone Neurology [facility] [address] [place] [id number] Services, Scheduling [address] [place] [address] TRIAGE Allergies Active Allergy Reactions Severity Noted Date Comments Adhesive Tape Unknown 11/16/2011 Bactrim 03/08/2012 Hives. 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 Ankle joint pain 12/28/2006 ADVANCE DIRECTIVE INFORMATION 04/27/2005 Overview: No, Advance Directive brochure offered , patient declined. BACKACHE NOS 09/06/2004 Overview: 04/27/2005 01/09/2006 12/28/2006 stable tolerable ? 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 going to [facility] Mefloquine 250 qwk Hypothyroidism Overview: TSH Results: TSH(uIU/mL) Dedra Dt/Diann Resulted Value Status 04/30/14 8:00A 04/30/14 0.96 [...] 09/08/04 7:50A 09/08/04 1.25 FINAL TSH Results: 8/2/06 1.02 09/08/04 1.25 04/04/03 1.62 04/09/01 1.60 [...] as of this encounter (statuses as of 12/20/2022) Resolved Problems Problem Noted Date Resolved Date [...] as of this encounter (statuses as of 12/20/2022) Immunizations Name Administration Dates Next Due COVID-19 [...] on file documented as of this encounter Miscellaneous Notes * Telephone Encounter - STEFAN Pascual - 12/20/2022 10:54 AM EDT Letter was sent * Telephone Encounter - STEFAN Coleman - 12/16/2022 4:17 PM EDT 3 day Request Summary [[id number]] Procedure: NEUROLOGY REFERRAL OP Status: Needs Scheduling (Agkj-ep-Cwipaov Pending) Requested appt date: Authorizing: DAMIR Vizcaino in [facility] Referral: [id number] (Authorized) Priority: Within 3 days (urgent) Diagnosis: Stroke (HCC) [I63.9] Comments Follow up, left MCA stroke Notes notes scanned into [facility], 12/15/22 TE sent 12/16/2022 dac Order Specific Questions Referral Priority Within 3 days (urgent) What condition is the patient being referred for? Stroke Does the patient's condition allow them to wait to be seen by a specialist or should they be seen by first available provider? Or is this a follow up with established provider? Specialist Request History Action Date and Time User Details Request Created 12/15/2022 15:05 STEFAN Crockett Orders Only Encounter Notes Edited 12/15/2022 15:05 STEFAN Crockett Patient Called 12/16/2022 16:16 STEFAN Coleman Details LM 1st call Notes Edited 12/16/2022 16:16 STEFAN Coleman Workqueue Summary Current Workqueues Entry Current Tab NEUROLOGY RFL ORDERS [3723] 12/15/2022 15:05 Active documented in this encounter Plan of Treatment Upcoming Encounters Date Type Specialty Care Team Description 12/21/2022 Office Visit Ophthalmology Cam Herrera T, DO [address] [place] [address] 02/09/2023 Appointment Radiology Health Maintenance Due Date Last Done Comments Zoster Vaccines (1 of 2) 1954 TSH 05/05/2016 05/05/2015, 04/06, 03/21/2013, Additional history exists Depression Screening, Annual for Pts 12 and Over 10/05/2016 10/06/2015 COVID-19 Vaccine (4 - Pfizer risk series) 05/05/2021 03/10/2021, 08/14/2020, 07/17/2020 Influenza Vaccine [...] this encounter Medical Devices Implanted Type Area Training Instructor Device Identifier Shelf Expiration Date Model / Serial / Lot Lens Intraoc 20.0 - [id number] - [id number] Implanted:Qty: 1 on 05/21/2019 by Josh Covarrubias MD at OR [facility] Left: Eye BAUSCH & LOMB 01/03/2024 [id number] / [id number] / [id number] Lens Intraoc 19.5 - [id number] - [id number] Implanted:Qty: 1 on 06/11/2019 by Josh Covarrubias MD at OR [facility] Right: Eye BAUSCH & LOMB 11/03/2023 [id number] / [id number] / [id number] documented as of this encounter Care Teams Hair Sample Matcher Relationship Specialty Start Date End Date Solomon Cortez MD [address] [place] [address] [address] [place] [address] PCP - General Family Medicine 11/07/16 documented as of this encounter
--- OUTSIDE RECORDS SUMMARY | 2023-04-26 10:02 | External Medical Summary | Summary of Care ---
Author Name Unknown Organization [facility] Address [address] [facility] [place] [address] Phone [phone] Care Team Providers Care Water Pump Assembler Name Role Phone Solomon Cortez MD Primary Care Provider Reason for Visit * Reason Comments NEW PATIENT Encounter Details Date Type Department Care Team Description 12/27/2022 Office Visit Neurology [facility] [place] [address] [place] [id number] Raymond Robert, DO [address] [place] [id number] Aphasia*; Chronic ischemic left MCA stroke; PAF (paroxysmal atrial fibrillation) (HCC) Allergies Active Allergy Reactions Severity Noted Date Comments Adhesive Tape Unknown 11/16/2011 Bactrim 03/08/2012 Hives. Latex Itching Low 09/21/2011 documented as of this encounter (statuses as of 12/27/2022) Medications Medication Sig Dispensed Refills Start Date [...] as of this encounter (statuses as of 12/27/2022) Active Problems Problem Noted Date Need for [...] mid Apr Fu CArterr end Jul Fu Hernandes August On Anastrozole now and compliant Headache [...] mammo the patient will see MB for order filler exam incl breast exam in Sept. Ankle joint pain 12/28/2006 ADVANCE DIRECTIVE INFORMATION 04/27/2005 Overview: No, Advance Directive brochure offered , patient declined. BACKACHE NOS 09/06/2004 Overview: 04/27/2005 01/09/2006 12/28/2006 stable tolerable ? 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 going to [place] Mefloquine 250 qwk Hypothyroidism Overview: TSH Results: [...] as of this encounter (statuses as of 12/27/2022) Resolved Problems Problem Noted Date Resolved Date [...] as of this encounter (statuses as of 12/27/2022) Immunizations Name Administration Dates Next Due COVID-19 mRNA, LNP-s, No Pre serve, 2-Dose Series (Pfizer) 03/10/2021,08/14/2020,07/17/2020 Pneumococcal Conjugate Vacc, 13 Valent (Prevnar) 02/10/2016 Seasonal Influenza, Quadriva lent, No Preserve, IM 06/03/2015 Seasonal Influenza, Split, I IV3, With Preserve, Inj 03/21/2014,03/25/2013,03/08/2012,2010,07/09/2010,05/08/2009,04/20/2007 TD, Preservative Free 11/07/2008(Deferred: Lori nt Refused) TDAP (age 10 and older)(Boostrix) [...] on file documented as of this encounter Last Filed Vital Signs Vital Sign Reading Time Taken Comments Blood Pressure 118/64 12/27/2022 3:15 PM EDT Pulse 77 12/27/2022 3:15 PM EDT Temperature 36.6 C (97.9 F) 12/27/2022 3:15 PM ED T Respiratory Rate 16 12/27/2022 3:15 PM EDT Oxygen Saturation 96% 12/27/2022 3:15 PM EDT Inhaled Oxygen Concentration - - Weight 68.1 kg (150 lb 1.6 oz) 12/27/2022 3:15 P M EDT Height - - Body Mass Index 27.02 06/11/2019 12:14 PM EST documented in this encounter Progress Notes * Raymond Robert, DO - 12/27/2022 10:35 PM EDT HISTORY AND PHYSICAL EXAMINATION [place] [address] NAME: Caitlin Hurley Date of : 1935 Date of Visit: 12/27/22 Chief Complaint: Chief Complaint Patient presents with NEW PATIENT HPI: An 87-year-old female with recently diagnosed embolic left MCA ischemic stroke and newly diagnosed paroxysmal atrial fibrillation on Eliquis and aspirin referred for evaluation of post stroke follow-up. Consultation was requested by Dr. Aquilino MD who receive a copy this note. She is accompanied today by her son. She was admitted to [facility] from 11/23-11/26 for right-sided weakness and ambulatorydifficulty as well as aphasia. She was discharged to [facility]. Since discharge she is notedcontinued improvement in her symptoms. She is ambulating without a cane or walker. Her speech is significantly improved. She denies any new or worsening symptoms. She is compliant with her aspirin and Eliquis. Her son who accompanies today does not notice any significant concerns regarding her returned to driving. HOME MEDICATIONS : Current Outpatient Medications Medication Sig Dispense Refill MULTI-VITAMIN OR TABS one daily 0 METAMUCIL 0.52 GM PO CAPS as needed 0 PRESERVISION/LUTEIN PO CAPS Take by mouth 2 times a day. 0 0 CALCIUM CARBONATE 1250 MG PO TABS 2 TABLET DAILY (Tablet contains 1200mg of Ca and 1000units ofVit D ) one daily 30 Tab 12 ANASTROZOLE 1 MG PO TABS [address] Burr Cholecalciferol (VITAMIN D) 1000 UNIT Capsule Take 1 Capsule by mouth 3 times a week. 60 Cap 5 Vitamin E 400 UNIT Oral Capsule Take 1 Capsule by mouth 3 times a week. 0 levothyroxine (LEVOXYL) 75 MCG Tablet Take 1 Tab by mouth daily. 30 Tab 5 metoprolol tartrate (LOPRESSOR) 12.5 MG Tablet Take 0.5 Tablets by mouth in the morning. Aspirin 81 MG Tablet Take 1 Tablet by mouth in the morning. Apixaban 5 MG Oral Tablet Take 1 Tablet by mouth in the morning and 1 Tablet in the evening. Current Facility-Administered Medications Medication Dose Route Frequency Provider Last Rate Last Admin bevaCIZumab (Avastin) inj 1.25 mg 1.25 mg Intravitreal PRN Cam Herrera, DO 1.25 mg at 12/21/22 1243 ROPivacaine (Naropin) inj 1.5 mg 1.5 mg Injection PRN Cam Herrera, DO 1.5 mg at 12/21/22 1243 Review of patient's allergies indicates: Allergen Reactions Adhesive Tape Unknown Bactrim Hives. Latex Itching Past Medical History: Diagnosis Date Abnormal mammogram 09/05/2011 Asymmetry Right Breast 6:00 position suspicous- CORE BX pending Breast cancer (HCC) Dry eyes History of breast cancer 2011 Incipient senile cataract OU Nonexudative macular degeneration drusen OU Personal history of colonic polyps 10/30/14 hyperplastic Status post radiation therapy 01/18/2012 Right Breast Vitreous degeneration OD Past Surgical History: Procedure Laterality Date BREAST BIOPSY Left unknown date, benign BREAST LESION,OTHER,EXCISION 10/2012 Rt Breast with radiation therapy COLONOSCOPY COLONOSCOPY, DIAGNOSTIC (RECTUM) 10/30/2014 hyperplastic polyp. no recall due to age/COLONOSCOPY FLEXIBLE PROXIMAL DIAGNOSTIC performed by Saul Cai Jr., MD at ENDOSCOPY [facility] INFORMATION inguinal hernia repair B/L x 2 INJECTION OF EYE DRUG Left 12/21/2022 # 1 Avastin OS, Dr. Herrera MASTECTOMY, PARTIAL Right October 2012 OTHER (INFORMATION) ACT 112 SIGNED 12/21/22; DR HERRERA OTHER (INFORMATION) AVASTIN OU CONSENT SIGNED Dr. Herrera/Justin (exp 12/22/23) REMOVE CATARACT, INSERT LENS PROSTH Left 05/21/2019 left EXTRACAPSULAR CATARACT REMOVAL WITH INTRAOCULAR LENS performed by Josh Covarrubias MD at [facility] REMOVE CATARACT, INSERT LENS PROSTH Right 06/11/2019 right EXTRACAPSULAR CATARACT REMOVAL WITH INTRAOCULAR LENS performed by Josh Covarrubias MD at [facility] REMOVE TONSILS & ADENOIDS, UNDER 12 REPAIR RECURRENT INGUINAL HERNIA x 2 Family History Problem Relation Age of Onset Arthritis Mother ? 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 Tobacco Use Smoking status: Never Smokeless tobacco: Never Substance and Sexual Activity Alcohol use: No Drug use: No Sexual activity: Yes Partners: Male Other Topics Concern Not on file Social History Narrative 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 PHYSICAL EXAMINATION: Vital Signs: BP 118/64 (BP Site: Right Arm, BP Position: Sitting, BP Cuff Size: Regular) | Pulse 77 | Temp 36.6 C (97.9 F) (Tympanic) | Resp 16 | Wt 68.1 kg (150 lb 1.6 oz) | SpO2 96% | BMI 27.02 kg/m | BSA1.73 m EXAM: Constitutional: appearance normally developed, well nourished and non-obese Head and Face: normocephalic and atraumatic Eyes: normal lids, normal conjunctiva Neck: supple Respiratory: normal effort Cardiovascular: normal pulses Abdomen: non distended Skin: no rashes, lesions, or ulcers noted Psychiatric: normal judgement and insight, normal mood and normal affect NEUROLOGIC EXAMINATION: Appearance: no acute distress Orientation: awake, alert and oriented x 3 Mental Status: alert Attention: normal Knowledge: appropriate Language: Intermittent mild word-finding difficulty as well as mild receptive aphasia otherwise following most complex commands. She is able to repeat. Speech: no dysarthria Cranial Nerves: CN 2 - no visual defect on confrontation and pupils round, equal, reactive to light CN 3, 4, 6 - extra-ocular movements intact and no nystagmus CN 5 - facial sensation intact CN 7 - no facial asymmetry CN 8 - intact hearing CN 9, 10 - palate symmetric CN 11 - good shoulder shrug CN 12 - tongue midline Gait: stable, no ataxia Coordination: no ataxia with finger to nose testing Sensory: intact to light touch Muscle Tone: normal Muscle exam: No motor weakness LABORATORY: Labs reviewed and pertinent findings are indicated below: Review of prior Diagnostic Tests: Review of prior Radiology Studies: MRI brain performed on 11/23/22: Large acute to subacute left MCA ischemic stroke involving the left frontal and temporal lobe CTA of the head and neck showed no large vessel occlusion IMPRESSION / PLAN: Caitlin was seen today for new patient. Diagnoses and all orders for this visit: Aphasia Chronic ischemic left MCA stroke PAF (paroxysmal atrial fibrillation) (HCC) An 87-year-old female with a large left MCA ischemic stroke in the setting of newly diagnosed paroxysmal atrial fibrillation now on Eliquis and aspirin for secondary stroke prevention presenting for hospital follow-up. She is accompanied today by her son. On examination she has a mild receptive aphasia with no focal motor weakness. Agree with continuing Eliquis for secondary stroke prevention. Okay to stop aspirin from Neurology standpoint. In regards to her driving I do not have any restrictions at this point. Agree with continuing high-intensity statin for secondary stroke prevention. Will defer on any additional diagnostic testing. Patient will follow with me on an as-needed basis. Thank you for allowing me to participate in her care. Raymond Robert DO * Bekah Mckinney, Medical Student - 12/27/2022 3:18 PM EDT HISTORY AND PHYSICAL EXAMINATION - Neurology [facility] [address] [place] [address] NAME: Caitlin Hurley Date of : 1935 Date of Visit: 12/27/22 Chief Complaint: Chief Complaint Patient presents with NEW PATIENT HPI: Caitlin Hurley is a 87 year old female who had a recent cardioembolic stroke in November and was treated at [facility]. She presents today for reassurance regarding how safe it is for her to resume driving. She has not driven since her stroke in November. She denies and weakness or numbness. After the stroke she was having some trouble with receptive aphasia and speech. Her son who accompanied her reports there has been improvement in her communication. He also notes improvement in her strength on the right side since the stroke. HOME MEDICATIONS : Current Outpatient Medications Medication Sig Dispense Refill MULTI-VITAMIN OR TABS one daily 0 METAMUCIL 0.52 GM PO CAPS as needed 0 PRESERVISION/LUTEIN PO CAPS Take by mouth 2 times a day. 0 0 CALCIUM CARBONATE 1250 MG PO TABS 2 TABLET DAILY (Tablet contains 1200mg of Ca and 1000units ofVit D ) one daily 30 Tab 12 ANASTROZOLE 1 MG PO TABS [address] Burr Cholecalciferol (VITAMIN D) 1000 UNIT Capsule Take 1 Capsule by mouth 3 times a week. 60 Cap 5 Vitamin E 400 UNIT Oral Capsule Take 1 Capsule by mouth 3 times a week. 0 levothyroxine (LEVOXYL) 75 MCG Tablet Take 1 Tab by mouth daily. 30 Tab 5 metoprolol tartrate (LOPRESSOR) 12.5 MG Tablet Take 0.5 Tablets by mouth in the morning. Aspirin 81 MG Tablet Take 1 Tablet by mouth in the morning. Apixaban 5 MG Oral Tablet Take 1 Tablet by mouth in the morning and 1 Tablet in the evening. Current Facility-Administered Medications Medication Dose Route Frequency Provider Last Rate Last Admin bevaCIZumab (Avastin) inj 1.25 mg 1.25 mg Intravitreal PRN Keeganer Sruthi Cessna, DO 1.25 mg at 12/21/22 1243 ROPivacaine (Naropin) inj 1.5 mg 1.5 mg Injection PRN Cam Negro Cessna, DO 1.5 mg at 12/21/22 1243 Review of patient's allergies indicates: Allergen Reactions Adhesive Tape Unknown Bactrim Hives. Latex Itching Past Medical History: Diagnosis Date Abnormal mammogram 09/05/2011 Asymmetry Right Breast 6:00 position suspicous- CORE BX pending Breast cancer (HCC) Dry eyes History of breast cancer 2011 Incipient senile cataract OU Nonexudative macular degeneration drusen OU Personal history of colonic polyps 10/30/14 hyperplastic Status post radiation therapy 01/18/2012 Right Breast Vitreous degeneration OD Past Surgical History: Procedure Laterality Date BREAST BIOPSY Left unknown date, benign BREAST LESION,OTHER,EXCISION 10/2012 Rt Breast with radiation therapy COLONOSCOPY COLONOSCOPY, DIAGNOSTIC (RECTUM) 10/30/2014 hyperplastic polyp. no recall due to age/COLONOSCOPY FLEXIBLE PROXIMAL DIAGNOSTIC performed by Saul Cai Jr., MD at [facility]COPY [facility] INFORMATION inguinal hernia repair B/L x 2 INJECTION OF EYE DRUG Left 12/21/2022 # 1 Avastin OS, Dr. Herrera MASTECTOMY, PARTIAL Right October 2012 OTHER (INFORMATION) ACT 112 SIGNED 12/21/22; DR HERRERA OTHER (INFORMATION) AVASTIN OU CONSENT SIGNED Dr. Herrera/Justin (exp 12/22/23) REMOVE CATARACT, INSERT LENS PROSTH Left 05/21/2019 left EXTRACAPSULAR CATARACT REMOVAL WITH INTRAOCULAR LENS performed by Josh Covarrubias MD at [facility] REMOVE CATARACT, INSERT LENS PROSTH Right 06/11/2019 right EXTRACAPSULAR CATARACT REMOVAL WITH INTRAOCULAR LENS performed by Josh Covarrubias MD at [facility] REMOVE TONSILS & ADENOIDS, UNDER 12 REPAIR RECURRENT INGUINAL HERNIA x 2 Family History Problem Relation Age of Onset Arthritis Mother ? 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 Tobacco Use Smoking status: Never Smokeless tobacco: Never Substance and Sexual Activity Alcohol use: No Drug use: No Sexual activity: Yes Partners: Male Other Topics Concern Not on file Social History Narrative 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 PHYSICAL EXAMINATION: Vital Signs: BP 118/64 (BP Site: Right Arm, BP Position: Sitting, BP Cuff Size: Regular) | Pulse 77 | Temp 36.6 C (97.9 F) (Tympanic) | Resp 16 | Wt 68.1 kg (150 lb 1.6 oz) | SpO2 96% | BMI 27.02 kg/m | BSA1.73 m EXAM: Constitutional: appearance normally developed, well nourished and non-obese Head and Face: normocephalic and atraumatic Eyes: normal lids, normal conjunctiva, Neck: supple Respiratory: normal effort Cardiovascular: normal pulses Abdomen: non distended Skin: no rashes, lesions, or ulcers noted Psychiatric: normal judgement and insight, normal mood and normal affect NEUROLOGIC EXAMINATION: Appearance: no acute distress Orientation: awake, alert and oriented x 3 Mental Status: alert Memory: registration 3/3 and recall 3/3 Attention: normal Knowledge: appropriate Language: There was some receptive aphasia on exam. Speech: no dysarthria Cranial Nerves: CN 2 - no visual defect on confrontation and pupils round, equal, reactive to light CN 3, 4, 6 - extra-ocular movements intact and no nystagmus CN 5 - facial sensation intact CN 7 - no facial asymmetry CN 8 - intact hearing CN 9, 10 - palate symmetric CN 11 - good shoulder shrug CN 12 - tongue midline Gait: stable, no ataxia and can perform tandem walking Coordination: no ataxia with finger to nose testing Sensory: intact to light touch and vibration Muscle Tone: normal Muscle exam: Arm Right Left Leg Right Left Deltoid 5/5 5/5 Iliopsoas 5/5 5/5 Biceps 5/5 5/5 Quads 5/5 5/5 Triceps 5/5 5/5 Hamstrings 5/5 5/5 Wrist Extension 5/5 5/5 Ankle Dorsi Flexion 5/5 5/5 Wrist Flexion 5/5 5/5 Ankle Plantar Flexion 5/5 5/5 Interossei 5/5 5/5 Finger Flexors 5/5 5/5 Reflexes: Biceps Patellar Achilles Plantars John's Right 2+ 2+ 2+ Flexor Negative Left 2+ 2+ 2+ Flexor Negative LABORATORY: Labs reviewed and pertinent findings are indicated below: Review of prior Diagnostic Tests: none Review of prior Radiology Studies: None.f IMPRESSION / PLAN: Caitlin Hurley is a 87 year old female who presented regarding if it was safe to drive after a L MCA cardioembolic stroke. She wore a heart monitor that showed episodes of atrial fibrillation and was started on elliquis two weeks ago. There has been no episodes of bleeding on eliquis. Her sonreports that she has improved in right sided strength and there has been improvements in her ability to communicate. On physical exam there were some instances of receptive aphasia. Her ability to name things were grossly in tact. She was alert and orientated to person, place, and time. There was no evidence of significant motor weakness. She was able walk down the bella. Overall, there is no obvious reason that would prevent her from driving. We advised the patient to return to driving slowly. There are no diagnoses linked to this encounter. Follow up in months or soon if needed. The patient has my contact information should they have any further questions or concerns in the meantime. Thank you for allowing me to participate in her care. Bekah Mckinney, Medical Student documented in this encounter Nursing Notes * Mine Hudson LPN - 12/27/2022 3:15 PM EDT Patient verified identity by spelling of last name and date. Chief Complaint Patient presents with NEW PATIENT documented in this encounter Plan of Treatment Upcoming Encounters Date Type Specialty Care Team Description 01/26/2023 Office Visit Ophthalmology Cam Herrera DO [address] [place] [id number] 02/09/2023 Appointment Radiology Health Maintenance Due Date Last Done Comments TSH 05/05/2016 05/05/2015, 04/06, 03/21/2013, Additional history exists Depression Screening, Annual for Pts 12 and Over 10/05/2016 10/06/2015 Zoster Vaccines (2 of 2) 07/20/2022 05/25/2022 Influenza Vaccine (FLU shot) (#1) 2023 03/18/2019, 05/17/2018, 04/14/2017, Additional history exists DTaP,Tdap,and Td Vaccines (2 - Td or Tdap) 10/23/2023 10/22/2013 Mammogram 02/09/2024 02/08/2022, 07/2021, 02/04/2021, Additional history exists DXA Scan [...] this encounter Medical Devices Implanted Type Area Materials Coordinator Device Identifier Shelf Expiration Date Model / Serial / Lot Lens Intraoc 20.0 - [id number] - [id number] Implanted:Qty: 1 on 05/21/2019 by Josh Covarrubias MD at [facility] Left: Eye [employer] 01/03/2024 [id number] / [id number] / [id number] Lens Intraoc 19.5 - [id number] - [id number] Implanted:Qty: 1 on 06/11/2019 by Josh Covarrubias MD at [facility] Right: Eye [employer] 11/03/2023 [id number] / [id number] / [id number] documented as of this encounter Visit Diagnoses Diagnosis Aphasia- Primary Chronic ischemic left MCA stroke Transient ischemic attack (TIA), and cerebral infarction without residual deficits PAF (paroxysmal atrial fibrillation) (HCC) Atrial fibrillation documented in this encounter Care Teams Water Pump Assembler Relationship Specialty Start Date End Date Solomon Cortez MD [address] [place] [address] Dr Red [address] [place] [address], [place] [address] PCP - General Family Medicine 11/07/16 documented as of this encounter"
--- OUTSIDE RECORDS SUMMARY | 2023-04-26 10:02 | External Medical Summary | Summary of Care ---
Author Name Unknown Organization [facility] Address [address] [place] [address] Phone [phone] Care Team Providers Care Engine Generator Assembler Name Role Phone Solomon Cortez MD Primary Care Provider Reason for Visit * Reason Onset Date Comments Precert Not Needed 12/21/2022 Encounter Details Date Type Department Care Team Description 12/21/2022 Telephone Ophthalmology, [facility] [address] [place] [address] Cam Herrera, DO [address] [place] [address] Precert Not Needed Allergies Active Allergy Reactions Severity Noted Date Comments Adhesive Tape Unknown 11/16/2011 Bactrim 03/08/2012 Hives. Latex Itching Low 09/21/2011 documented as of this encounter (statuses as of 12/22/2022) Medications Medication Sig Dispensed Refills Start Date [...] Tablet in the evening. 0 12/14/2022 Active documented as of this encounter (statuses as of 12/22/2022) Active Problems Problem Noted Date Need for [...] visit OBESITY, BMI 30-34 (SEE ACTUAL BMI) Overview: Per Obesity Taxonomy, 12/28/2006 -4 lb [...] mammo the patient will see MB for hospital orderly exam incl breast exam in Sept. Ankle joint pain 12/28/2006 ADVANCE DIRECTIVE INFORMATION 04/27/2005 Overview: No, Advance Directive brochure offered , patient declined. BACKACHE NOS 09/06/2004 Overview: 04/27/2005 01/09/2006 12/28/2006 stable tolerable ? 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 going to [facility] Mefloquine 250 qwk Hypothyroidism Overview: TSH Results: [...] as of this encounter (statuses as of 12/22/2022) Resolved Problems Problem Noted Date Resolved Date [...] as of this encounter (statuses as of 12/22/2022) Immunizations Name Administration Dates Next Due COVID-19 mRNA, LNP-s, No Pre serve, 2-Dose Series (Pfizer) 03/10/2021,08/14/2020,07/17/2020 Pneumococcal Conjugate Vacc, 13 Valent (Prevnar) 02/10/2016 Seasonal Influenza, Quadriva lent, No Preserve, IM 06/03/2015 Seasonal Influenza, Split, I IV3, With Preserve, Inj 03/21/2014,03/25/2013,03/08/2012,2010,07/09/2010,05/08/2009,04/20/2007 TD, Preservative Free 11/07/2008(Deferred: oLri nt Refused) TDAP (age 10 and older)(Boostrix) [...] Miscellaneous Notes * Telephone Encounter - STEFAN Sadler - 12/21/2022 11:15 AM EDT New Medication Insurance: Medicare Provider: Cam Herrera DO Tax ID: [id number] Office Address: [address] [place] [address] [place] [phone] Office Office Drug Name/CPT: Avastin ICD 10: H35.3221 Dosage: 1.25mg Eye Treated: Left Frequency: 4-6wks Prior Eye medications received: None Specialty Pharmacy/Buy and bill? Office stock documented in this encounter Plan of Treatment Upcoming Encounters Date Type Specialty Care Team Description 01/26/2023 Office Visit Ophthalmology Cam Herrera, DO [address] [place] [phone] 02/09/2023 Appointment Radiology Health Maintenance Due Date [...] this encounter Medical Devices Implanted Type Area Hand Cloth Examiner Device Identifier Shelf Expiration Date Model / Serial / Lot Lens Intraoc 20.0 - [id number] - [id number] Implanted:Qty: 1 on 05/21/2019 by Josh Covarrubias MD at [facility] Left: Eye [employer] 01/03/2024 [id number] / [id number] / [id number] Lens Intraoc 19.5 - [id number] - [id number] Implanted:Qty: 1 on 06/11/2019 by Josh Covarrubias MD at [facility] Right: Eye [employer] 11/03/2023 [id number] / [id number] / [id number] documented as of this encounter Care Teams Engine Generator Assembler Relationship Specialty Start Date End Date Solomon Cortez MD [address] [place] [address] [place] [address] PCP - General Family Medicine 11/07/16 documented as of this encounter
--- OUTSIDE RECORDS SUMMARY | 2023-04-26 10:02 | External Medical Summary | Continuity of Care Document ---
Author Name Unknown Organization [address] Address [address] [place] [phone] Care Team Providers Care Pipe Line Gauger Name Role Phone JesusJose ramirez Emmy Primary Care Physician [phone] Encounter [facility] [id number] Date(s): 12/13/22 - 12/13/[address] [address] [phone] Encounter Diagnosis Left acute arterial ischemic stroke, MCA (middle cerebral artery)(Discharge Diagnosis) - 12/13/22 Discharge Disposition: Home or Self Care Attending Physician: DAMIR Lawrence Jill Nicole Referring Physician: DAMIR Lawrence Jill Nicole Allergies, Adverse Reactions, Alerts Substance Reaction Severity Status bacitracin Active Bactrim Rash Active Latex Active Assessment and Plan Extracted from: Title:Office Visit Note Author:DAMIR Lawrence Ji ll Nicole Date:12/13/22 1.Left acute arterial isch emic stroke, MCA (middle cerebral artery) Called to both [place] and [facility] neurology and neither has her down for a follow up with neurology I have placed a referral to neurology ideally within the next 2-3 weeks I have explained to her that I would defer to neurology's judgement as to when she is OK to return to driving but that she should wait until she completes her heart monitor and meets with neurology. continue ASA as directed continue with heart monitor and cardiology follow up continue with PT/OT keep f/u with PCP Patient/son advised to call for any questions, concerns, persistent, or worsening symptoms or to call 911 or go to the ED for any significantly worsening symptoms or emergencies.Denies any questions or concerns at this time. Immunizations Given and Recorded Vaccine Date Status [...] Start Date: 02/04/15 Status: Ordered Mental Status 12/13/22 Barriers to Learning one year None evide nt Mandatory Health Literacy Documentation Yes Health Literacy Communication Barriers N ever Primary Language Andorran Problem List Condition Confirmation Course Effective Dates [...] Dates Health Status Cl inical Service Informant Left acute arterial ischemic stroke, MCA (middle cerebral artery) Discharge Diagnosis 12/13/22 Procedures Procedure Date Related Diagnosis Body Site [...] There is no hemorrhage or midline shift. [facility] Imp[facility]: 1. No active disease in the [...] to oldest [Reference Range]: 1 Patient Weight 68.4 kg (12/13/22 2:56 PM) Heart Rate 71 bpm (12/13/22 2:56 PM) Respiratory Rate 16 br/min (12/13/22 2:56 PM) Blood Pressure 140/70mmHg (12/13/22 2:56 PM) Cuff Pulse Pressure 70 mmHg (12/13/22 2:56 PM) Social History Social History Type Response Smoking Status Never smoked cigaret laly Sex Female Cardiology Outpatient Note * DAMIR Aguilar Sarah A: PERFORM Event Display: Cardiology Outpt Note Authored Date: [id number] Name:CAITLIN HURLEY Patient Number:[id number] :[id number] Date of Service:12/14/2022 Ms. Hurley had rate controlled A-fibcome across on herevent monitor. I called her at home anddiscussedthat she will need to be on anticoagulationin an effort to prevent future strokes and that this is likelythe reason that she had herpast stroke. I recommended we start her on Eliquis morning and night. She will be on full dose if she does not meet criteria for returnreduce dose. We discussed that if she would see any signs or symptoms of bleeding such as black tarry stools, large bruises, or zaid bleedingshe should let us know right away. If she were to falland hit her head she would need to go to the emergency department. She should avoid taking NSAIDsand use Tylenol for pain. She can continue baby aspirindaily. She expressed her understandingand she is to follow-up with us in a couple weeks. She continues on metoprololfor rate control. Electronic Signature on File Electronically Reviewed/Signed by: DAMIR Gupta Author Signature Dt/Tm:12/14/2022 04:16 PM [facility] Electronically Reviewed/Signed by: Jose Lee MD Cosigner Signature Dt/Tm: 12/14/2022 09:11PM Division of Internal Medicine [facility] FCM Outpt Note * DAMIR Lawrence, Hermila Alvarez: PERFORM Event Display: FCM Outpt Note Authored Date: [id number] Chief Complaint would like to know about having driving privileges. states she got a shot. has a 12.1 and is not allowed to drive due to this. was not actually told she could not drive. History of Present Illness Caitlin is an 87 year old female who is new to me whopresents today to follow up stroke. She was admitted to [facility] from 11/23-11/26 and then discharged to [facility] for left MCA stroke. It was thought her stroke was possibly embolic and was referred to cardiology for an event monitor. She notes that she was in yesterday to get set up for her heart monitor and has follow up with cardiology in 3weeks to review. Of note, she is not wearing the actual monitor today, just the pads as she states she left it home to charge. She has also been discussing with hematology the possibility of her hormone replacement contributing to her stroke risk. She was recommended to follow up with neurology 4-6 weeks after discharge and is unsure if this has been arranged. She does have some notable expressive aphasia since her stroke but denies any other residual symptoms. Her son and arehere with her today. Her did not speak throughout the exam and her son offered a very small amount of insight to her status and baseline.She is taking theASA 81 mg daily. There was a discussion of starting a statin however this was not initiated. No other adjustments were made to her medications. She is taking aspirin as recommended without anysignificant bleeding. She has not been driving and would like permission to drive again. Past Medical History includes but is not limited to: Aortic stenosis: Moderate, with last TTE that was stable; followed by [facility] Cardiology Osteoarthritis: Followed by [facility] orthopedics; primarily of the left knee Hypothyroidism: Longstanding, currently managed with levothyroxine 75 mcg daily Hx Cholecystitis s/p cholecystectomy Hx Breast Cancer: s/p lumpectomy over 8 years ago; now on anastrazole 1mg daily Review of Systems Pertinent positives and negatives as stated in the HPI Physical Exam Vitals & Measurements HR:71(Monitored) RR:16 BP:140/70 SpO2:95% WT:68.400kg(Dosing) WT:68.4kg PHQ2 Data(Data Documented on:12/13/2022 14:56) Emotional health assessment NEGATIVE GEN: Well developed, well nourished, no acute distress HEENT: NCAT, MMM, EOMI, PERRL CV: RRR, no murmurs, normal S1 and S2 LUNG: Clear to auscultation bilaterally ABD: soft nontender, nondistended, bowel sounds normoactive EXT: No c/c/e MSK: Strength in the upper and lower extremities is preserved NEURO: AxOx3, moving all extremities; no focal neurologic deficits; CN II-XII grossly intactwith the exception ofsome minorfacial weakness on the right. patient is difficult to assess as this is my first time meeting her and family has not had much input or clarity on her baseline. She does seem to have some expressive aphasia today but cognitive status is difficult to assess. Assessment/Plan 1.Left acute arterial ischemic stroke, MCA (middle cerebral artery) Called to both [place] and [facility] neurology and neither has her down for a follow up with neurology I have placed a referral to neurology ideally within the next 2-3 weeks I have explained to her that I would defer to neurology's judgement as to when she is OK to return to driving but that she should wait until she completes her heart monitor and meets with neurology. continue ASA as directed continue with heart monitor and cardiology follow up continue with PT/OT keep f/u with PCP Patient/son advised to call for any questions, concerns, persistent, or worsening symptoms or to call 911 or go to the ED for any significantly worsening symptoms or emergencies.Denies any questions or concerns at this time. Attestation A total of44 minutes were spenton direct patient care, documentation,orders, and chart review. Problem List/Past Medical History Ongoing Aortic stenosis [...] Immunizations Vaccine Date Status zoster vaccine, inactivated 05/25/2022 Given influenza virus [...] Medicare Annual Wellness Visit due11/13/18and every 1year Due Adult Influenza Vaccine due12/03/22and every 1year Adult COVID-19 Vaccination due12/13/22Unknown Frequency Falls Plan of Care due12/13/22Unknown Frequency Lipid Screening due12/13/22Unknown Frequency Shingles Vaccine due12/13/22One-time only Due In Future Body Mass Index not due until12/13/23and every 1year Satisfied(in the past 1 year) Satisfied Adult Influenza Vaccine on05/25/22.Satisfied by REGGIE Ellis Lori Body Mass Index on09/01/22.Satisfied by NAOMI Wolff Keely Shingles Vaccine on05/25/22.Satisfied by REGGIE Ellis Lori Electronic Signature on File Electronically Reviewed/Signed by: DAMIR Vizcaino Author Signature Dt/Tm:12/13/2022 04:45 PM Department of Family Medicine [facility] Cardiac Event Monitoring * Event Display: Cardiac Event Monitoring Patient Care team information Care Team Personnel Name: MD Jesus, Jose Booth Position: Physician - Internal Med Member Role: Primary Care Provider Address: Address: [address] [place] [address], [place] [address] Care Team Related Persons Name: STEPHEN HURLEY Address: [address] [facility] [place] [id number]
--- OUTSIDE RECORDS SUMMARY | 2023-04-26 10:02 | External Medical Summary | Continuity of Care Document ---
Author Name Unknown Organization [facility] [address] [facility] Address [address] [place], [place] [id number] Care Team Providers Care Staff Electronic Warfare Officer Name Role Phone Jose Lee Primary Care Physician [phone] [id number] Date(s): 12/12/22 - 12/12/22 [facility] [address], [address] [place] [phone] Discharge Disposition: Home or Self Care Attending [...] bid, Disp# 180 tab, Refills: 3, Pharmacy: [facility] Start Date: 12/14/22 Status: Ordered levothyroxine 75 mcg (0.075 mg) oral tablet Start: 08/17/22 15:00:00 EDT, 1 tab, PO, Daily, Disp# 90 tab, Refills: 3, Pharmacy: [facility] Start Date: 08/17/22 Status: Ordered metoprolol succinate 25 mg oral tablet, extended release Start: 08/17/22 15:00:00 EDT, 0.5 tab, PO, Daily, Disp# 90 tab, Refills: 3, Pharmacy: [facility] Start Date: 08/17/22 Status: Ordered MVI-12 [...] There is [facility] hemorrhage or [facility] shift. [facility]: 1. No active disease in [...] Status Never smoked cigaret laly Sex Female Cardiac Event Monitoring * Event Display: Cardiac Event Monitoring Patient Care team information Care Team Personnel Name: MD Jesus, Jose Booth Position: Physician - Internal Med Member Role: Primary Care Provider Address: Address: [address] [place] [id number] Care Team Related Persons Name: STEPHEN THOMPSON Address: home [address] [facility] [place] [phone]
--- OUTSIDE RECORDS SUMMARY | 2023-04-26 10:02 | External Medical Summary | Summary of Care ---
Author Name Unknown Organization [facility] Address [address] [facility] [place] [address] Phone [phone] Care Team Providers Care Polymerization Oven Operator Name Role Phone Solomon Cortez MD Primary Care Provider Reason for Visit * Reason Comments NEW PATIENT Referred by Dr Contreras ; for Mac Degeneration WET OS; OS more solid then before Encounter Details Date Type Department Care Team Description 12/21/2022 Office Visit Ophthalmology, [facility] [address] [place] [address] Cam Herrera, [address] [place] [address] Exudative age-related macular degeneration of left eye with active choroidal neovascularization (HCC)*; Intermediate stage nonexudative age-related macular degeneration of right eye; Pseudophakia Allergies Active Allergy Reactions Severity Noted Date Comments Adhesive Tape Unknown 11/16/2011 Bactrim 03/08/2012 Hives. Latex Itching Low 09/21/2011 documented as of this encounter (statuses as of 12/21/2022) Medications Medication Sig Dispensed Refills Start Date End Date Status MULTI-VITAMIN OR TABS one daily 0 07/07/2004 Active METAMUCIL 0.52 GM PO CAPS as needed 0 03/21/2005 Active PRESERVISION/LUTEIN PO CAPSIndications:Oth er specified prophylactic or treatment measure Take by mouth 2 times a day. 0 0 12/28/2006 Active CALCIUM CARBONATE 1250 MG PO TABS 2 TABLET DAILY (Tablet contains 1200mg of Ca and 1000units of Vit D ) one daily 30 Tab 12 07/09/2010 Active ANASTROZOLE 1 MG PO TABS [address] Burr 0 03/08/2012 Active Cholecalciferol (VITAMIN D) 1000 UNIT CapsuleIndications: Vitamin D deficiency Take 1 Capsule by mouth [...] Tablet in the evening. 0 12/14/2022 Active B Complex Vitamins (VITAMIN B COMPLEX) Tablet Take 1 Tab by mouth once a week. 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 Ankle joint pain 12/28/2006 ADVANCE DIRECTIVE INFORMATION 04/27/2005 Overview: No, Advance Directive brochure offered , patient declined. BACKACHE NOS 09/06/2004 Overview: 04/27/2005 01/09/2006 12/28/2006 stable tolerable ? 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 going to [place] Mefloquine 250 qwk Hypothyroidism Overview: TSH Results: [...] as of this encounter (statuses as of 12/21/2022) Resolved Problems Problem Noted Date Resolved Date [...] as of this encounter (statuses as of 12/21/2022) Immunizations Name Administration Dates Next Due COVID-19 mRNA, LNP-s, No Pre serve, 2-Dose Series (Pfizer) 03/10/2021,08/14/2020,07/17/2020 Pneumococcal Conjugate Vacc, 13 Valent (Prevnar) 02/10/2016 Pneumococcal Polysaccharide PPV23 (Pneumovax) 04/27/2005 Seasonal Influenza, Quadriva lent, No Preserve, IM 06/03/2015 Seasonal Influenza, Split, I IV3, With Preserve, Inj 03/21/2014,03/25/2013,03/08/2012,03/07,07/09/2010,05/08/2009,04/20/2007 ,03/21/2005,04/01/2003,04/08/2002 TD, Preservative Free 11/07/2008(Deferred: Patie nt Refused) [...] this encounter Progress Notes * Cam Herrera, DO - 12/21/2022 10:30 AM EDT [facility] [place] Nursing notes reviewed. Eye vitals reviewed. Mood and Affect: normal HPI: Caitlin Hurley is a 87 year old female who presents for evaluation of AMD CC: 'my vision is blurry' Vision: decreased Location (of CC): OS Quality/Severity: moderate Duration: monts Timing: gradual Context: nonspecific Associated Signs/Symptoms: none Modifying Factors: none No other eye complaints. Denies significant pain. Base Eye Exam Visual Acuity (Snellen - Linear) Right Left Dist cc 20/60 -1 20/50 -2 Dist ph cc NI NI Tonometry (Tonopen, 10:40 AM) Right Left Pressure 15 14 Pupils Dark Shape React APD Right 4 Round Brisk None Left 4 Round Brisk None Visual [place] (Counting fingers) Right Left Full Full Extraocular Movement Did not follow finger with eyes Neuro/Psych Oriented x3: Yes Mood/Affect: Normal Dilation Both eyes: 0.5% Proparacaine @ 10:37 AM Dilation #2 Both eyes: 1.0% Mydriacyl, 2.5% Phenylephrine @ 10:39 AM Dilation #3 Both eyes: 1.0% Mydriacyl, 2.5% Ferhco Synephrine @ 10:41 AM Dilation Comments Patient cautioned that effects of dilation may last 2-7 hours dependant upon individual reaction. It was discussed that driving while dilated is not recommended. EXTERNAL: The ocular adnexae are unremarkable. SLE: Lids/Lashes: wnl OU Conjunctiva/Sclera: quiet OU Cornea: clear OU Anterior Chamber: deep and quiet OU Iris: normal OU; no NVI OU Lens: PCIOL OU Dilated fundus exam OD: vitreous: clear optic nerve: 0.25, no edema/pallor/NVD macula: drusen/pig clumping vessels: wnl periphery: cobblestone, o RT/RD Dilated fundus exam OS: vitreous: clear, operculum like opacity over ON optic nerve: 0.3, no edema/pallor/NVD macula: drusen/pig clumping vessels: wnl periphery: cobblestone, no RT/RD OCT Interpretation: OD: drusen, no irf/srf OS: drusen, +irf/srf A/P: 1. Age-Related Macular Degeneration OD: dry OS: wet -Avastin OS today -recommend AREDS2 MVI as directed and Amsler grid qday 2. Pseudophakia OU -stable F/u 4-6 weeks, OCT OS Cam Herrera DO CC: [...] documented in this encounter Nursing Notes * Paco Lockwood RN - 12/21/2022 11:20 AM EDT Caitlin Hurley to receive first Avastin 1.25mg Injection of the Left eye. Correct eye confirmed with patient and marked by Cam Herrera DO Avastin 1.25mg lot # [id number] Exp. Date: 02/07/23 * Savannah Abrams, MED ASSIST - 12/21/2022 10:27 AM EDT Caitlin Hurley is a 87 year old year old female referred by Dr Contreras to evaluate for possible WET Mac Degeneratio OS. Patient's name preference, 'Caitlin'. Patient currently states Referred by Dr Contreras; for Mac Degeneration WET OS; OS more solid then before Have you ever had any major surgery of serious injury of or around the eyes- yes (Cataract Sx OU) Are you diabetic? No FAMILY HISTORY: Family History Problem Relation Age of Onset Arthritis Mother ? irri heart rate Cancer Father ?lymphoma Cancer Sister melanoma Other (dysplastic nevi) Son Glaucoma Grandmother (Maternal) Diabetes Grandmother (Maternal) Stroke Grandmother (Paternal) Breast Cancer Aunt (Maternal) SOCIAL HISTORY: Social History Tobacco Use Smoking status: Never Smokeless tobacco: Never Substance Use Topics Alcohol use: No Drug use: No PMH: Past Medical History: Diagnosis Date Abnormal mammogram 09/05/2011 Asymmetry Right Breast 6:00 position suspicous- CORE BX pending Breast cancer (HCC) Dry eyes History of breast cancer 2011 Incipient senile cataract OU Nonexudative macular degeneration drusen OU Personal history of colonic polyps 10/30/14 hyperplastic Status post radiation therapy 01/18/2012 Right Breast Vitreous degeneration OD Patient Active Problem List Diagnosis Code BACKACHE NOS M54.9 LOC PRIM [id number] knees M17.10 Special screening for malignant neoplasms, colon Z12.11 INFORMATION INFO PROPHYLACTIC MEASURE NEC [id number] ADVANCE DIRECTIVE INFORMATION Hypothyroidism E03.9 High risk for hip fracture Z91.89 Mastodynia N64.4 TEAR FILM INSUFFIC NOS H04.129 Vitreous opacities H43.399 Other specified visual disturbances H53.8 Incipient senile cataract H25.099 Other screening mammogram Z12.31 Ankle joint pain M25.579 Chest pain R07.9 DYSURIA R30.0 Insomnia G47.00 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 yes OCT image(s) of both eyes acquired and filed/scanned into chart. documented in this encounter Plan of Treatment Upcoming Encounters Date Type Specialty Care Team Description 01/26/2023 Office Visit Ophthalmology Cam Herrera, DO [address] [place] [address] 02/09/2023 Appointment Radiology Health Maintenance Due Date [...] this encounter Medical Devices Implanted Type Area Junior Graphic Designer Device Identifier Shelf Expiration Date Model / Serial / Lot Lens Intraoc 20.0 - [id number] - [id number] Implanted:Qty: 1 on 05/21/2019 by Josh Covarrubias MD at [facility] Left: Eye [employer] 01/03/2024 [id number] / [id number] / [id number] Lens Intraoc 19.5 - [id number] - [id number] Implanted:Qty: 1 on 06/11/2019 by Josh Covarrubias MD at [facility] Right: Eye [employer]OM[employer] 11/03/2023 [id number] / [id number] / [id number] documented as of this encounter Visit Diagnoses Diagnosis Exudative age-related macular degeneration of left eye with active choroidal neovascularization (HCC)- Primary Intermediate stage nonexudative age-related macular degeneration of right eye Pseudophakia Lens replaced by other means documented in this encounter Administered Medications Active Administered Medications - up to 3 most recent administrations Medication Order MAR Action Action Date Dose Rate Site bevaCIZumab (Avastin) inj 1.25 mg 1.25 mg, Intravitreal, PRN Other, Starting on Mon12/21/22 at 1237, Until Elva 12/21/23 at 1236, For 365 days Given 12/21/2022 12:43 PM EDT 1.25 mg Eye Left ROPivacaine (Naropin) inj 1.5 mg 1.5 mg, Injection, PRN Other, Starting on Mon12/21/22 at 1237, Until Elva 12/21/23 at 1236, For 365 days Given 12/21/2022 12:43 PM EDT 1.5 mg Eye Left documented in this encounter Care Teams Polymerization Oven Operator Relationship Specialty Start Date End Date Solomon Cortez MD [address] [place] [address] Dr Red [address] [place], [place] [id number] PCP - General Family Medicine 11/07/16 documented as of this encounter
--- OUTSIDE RECORDS SUMMARY | 2023-04-26 10:02 | External Medical Summary | Summary of Care ---
Author Name Unknown Organization [facility] Address [address] [facility] [place] [address] Phone [phone] Care Team Providers Care Plaster Whittler Name Role Phone Solomon Cortez MD Primary Care Provider Reason for Visit * Reason Comments NEW PATIENT Referred by Dr Contreras ; for Mac Degeneration WET OS; OS more solid then before Encounter Details Date Type Department Care Team Description 12/21/2022 Office Visit Ophthalmology, [facility] [address] [place] [address] Cam Herrera, [address] [place] [address] Exudative age-related macular degeneration of left eye [...] mammo the patient 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 Ankle joint pain 12/28/2006 ADVANCE DIRECTIVE INFORMATION 04/27/2005 Overview: No, Advance Directive brochure offered , patient declined. BACKACHE NOS 09/06/2004 Overview: 04/27/2005 01/09/2006 12/28/2006 stable tolerable ? 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 going to [place] Mefloquine 250 qwk Hypothyroidism Overview: TSH Results: [...] - 12/21/2022 10:30 AM EDT [facility] [place] Nursing notes reviewed. [...] Dilation #3 Both eyes: 1.0% Mydriacyl, 2.5% Fercho Synephrine @ 10:41 AM Dilation Comments Patient [...] Cam Herrera DO Avastin 1.25mg lot # [id number] Exp. Date: 02/07/23 * Savannah Abrams, MED [...] Diagnosis Code BACKACHE NOS M54.9 LOC PRIM [id number] knees M17.10 Special screening for malignant neoplasms, colon Z12.11 INFORMATION INFO PROPHYLACTIC MEASURE NEC [id number] ADVANCE DIRECTIVE INFORMATION Hypothyroidism E03.9 High risk [...] Herrera, DO [address] [place] [address] 02/09/2023 Appointment Radiology Health Maintenance Due Date [...] this encounter Medical Devices Implanted Type Area Basic Sciences Professor Device Identifier Shelf Expiration Date Model / Serial / Lot Lens Intraoc 20.0 - [id number] - [id number] Implanted:Qty: 1 on 05/21/2019 by Josh Covarrubias MD at OR [facility] Left: Eye [employer] 01/03/2024 [id number] / [id number] / [id number] Lens Intraoc 19.5 - [id number] - [id number] Implanted:Qty: 1 on 06/11/2019 by Josh Covarrubias MD at OR [facility] Right: Eye [employer] 11/03/2023 [id number] / [id number] / [id number] documented as of this encounter Visit Diagnoses [...] Left documented in this encounter Care Teams Plaster Whittler Relationship Specialty Start Date End Date Solomon Cortez MD [address] [place] [address] Dr Red [address] [place], [place] [id number] PCP - General Family Medicine 11/07/16 documented as of this encounter
[2023-04-26 10:03] LABS: Troponin I High Sensitivity 81.8 pg/ml (0-14)
--- OUTSIDE RECORDS SUMMARY | 2023-04-26 10:03 | External Medical Summary | Continuity of Care Document ---
Author Name Unknown Organization [facility] [id number] Address [address] [place] [id number] Care Team Providers Care Cotton Agent Name Role Phone JesusJose ramirez Emmy Primary Care Physician [phone] Encounter [facility] [id number] Date(s): 11/15/22 - 11/15/22 [facility] [address] [place] [id number] [facility] [address] [place] [address] Encounter Diagnosis DJD (degenerative joint disease) of knee(Discharge Diagnosis) - 11/15/22 Discharge Disposition: Home or Self Care Attending Physician: MD Schmidt Roberta L Allergies, Adverse Reactions, Alerts Substance Reaction Severity Status bacitracin Active Bactrim Rash Active Latex Active Assessment and Plan Extracted from: Title:Office Visit Note Author:MD Brayan, Ralph Diamond Date:11/15/22 1.DJD (degenerative joint disease) of knee Continue to encourage home exercise programand need for ambulation assist for prolonged ambulation and pain control. Continue to offer a corticosteroid injection as neededuse of simple analgesics such as acetaminophen or topical Voltaren gel icefollow-up in 6 months and as needed Immunizations Given and Recorded Vaccine Date Status [...] Start Date: 02/04/15 Status: Ordered Mental Status 11/15/22 Barriers to Learning one year None evide nt Mandatory Health Literacy Documentation Yes Health Literacy Communication Barriers N ever Primary Language Divehi Problem List Condition Confirmation Course Effective Dates [...] Dates Health Status Cl inical Service Informant DJD (degenerative joint disease) of knee Discharge Diagnosis 11/15/22 Procedures Procedure Date Related Diagnosis Body Site Status Cholecystectomy 04/13/17 Completed Chest x-ray 1 03/28/17 Completed Ultrasound scan of upper abdomen 2 12/23/16 Completed X-ray of rib 3 12/23/16 Completed X-ray of left knee 4 02/04/15 Comp leted Colonoscopy Completed Hernia 5 Completed Lumpectomy of breast Comp leted Tonsillectomy with adenoidectomy Completed [address] [place] [address] Impression: 1. No active disease in the chest 21. Cholelithiasis with apparent gallbladder distention. There is clinical convern for cholecystitis, nuclear medicine hepatobiliary scan could be obtained as ultrasound findings are equivocal. 2. Mild pancreatic ductal dilatation without clear etiology. 31. No acute cardiopulmonary process. 2. No acute displaced rib fracture identified 3. Minimal cortical buckling of the lateral aspect of the lateral right ninth rib suggests acute nondisplaced fracture,. 4Osteopenia and advanced degenerative changes as above. No acute bony abnormality is seen in the left knee. 5x 2 Social History Social History Type Response Smoking Status Never smoked cigaret laly Sex Female Outpatient Note * MD Brayan, Madeleine Diamond: PERFORM Event Display: .Outpt Note Authored Date: [id number] Chief Complaint follow up best - 8 best 0 current 0 History of Present Illness Caitlin presents in follow-up for bilateral knee G DJD, left knee worse than right. She reports that she continues to function well at homebut notes that painwill worsen with prolonged standing. She denies significant swelling locking or giving way. She states that she manages the pain after prolonged standing by being seated for 5 minutes which resolves the pain. She has been doing her home exercises intermittently. She does not feel that she needs additionalmodalities orinjection for pain relief at this time. Physical Exam Knees: Bilateral varusalignment, trace swelling left knee,tender to palpation lateral joint Left kneenontender to palpationright knee joint line and left knee medial joint line, range of motionlacks 5 to 10 degrees of extension bilaterally, flexion to 110 degrees, Assessment/Plan 1.DJD (degenerative joint disease) of knee Continue to encourage home exercise programand need for ambulation assist for prolonged ambulation and pain control. Continue to offer a corticosteroid injection as neededuse of simple analgesics such as acetaminophen or topical Voltaren gel icefollow-up in 6 months and as needed Problem List/Past Medical History Ongoing Aortic stenosis [...] pain Right-sided thoracic back pain. Procedure/Surgical History Cholecystectomy (04/13/2017)Chest x-ray (03/28/2017)X-ray of rib (12/23/2016)Ultrasoundscan of upper abdomen (12/23/2016)X-ray of left knee [...] Wellness Visit due11/13/18and every 1year Due Adult COVID-19 Vaccination due11/15/22Unknown Frequency Falls Plan of Care due11/15/22Unknown Frequency Lipid Screening due11/15/22Unknown Frequency Shingles Vaccine due11/15/22One-time only Due In Future Adult Influenza Vaccine not due until12/03/22and every 1year Body Mass Index not due until09/01/23and every 1year Satisfied(in the past 1 year) Satisfied Adult Influenza Vaccine on05/25/22.Satisfied by REGGIE Ellis Lori Body Mass Index on09/01/22.Satisfied by NAOMI Wolff Keely Shingles Vaccine on05/25/22.Satisfied by REGGIE Ellis Lori Electronic Signature on File Electronically Reviewed/Signed by: Madeleine Schmidt MD Author Signature Dt/Tm:11/15/2022 11:01 AM Division of Sports Medicine [facility] Patient Care team information Care Team Personnel Name: MD Jesus, Jose Booth Position: Physician - Internal Med Member Role: Primary Care Provider Address: Address: [address] [place] [address], [place] [address] [place] Care Team Related Persons Name: STEPHEN THOMPSON Address: [address] [place] [id number]
--- OUTSIDE RECORDS SUMMARY | 2023-04-26 10:03 | External Medical Summary ---
Author Name Unknown Address Unknown Organization [facility] [address] [place] [address] Laboratory Report Ordering Provider Test Date Status HY,DEPAMPHILIS 11/27/2022 05:35:00 Final Observation Date Value Abnormality Reference (Units ) Status BUN 11/27/2022 05:35:00 18 6-20 (mg/dL) Final Creatinine 11/27/2022 05:35:00 1.2 Above high normal 0.5-1.0 (mg/dL) Final Glomerular filtration rate/1.73 sq M.predicted [Volume Rate/Area] in Serum, Plasma or Blood by Creatinine-based formula (CKD-EPI) 11/27/2022 05:35:00 45 Below low normal >=60 (mL/min) Final eGFR is calculated based on the CKD-EPI 2020 equation SODIUM 11/27/2022 05:35:00 145 135-146 (m mol/L) Final Potassium 11/27/2022 05:35:00 4.6 3.5-5.1 (m mol/L) Final Cl 11/27/2022 05:35:00 108 Above high normal 98 -107 (mmol/L) Final CO2 11/27/2022 05:35:00 27 22-32 (mmo l/L) Final Anion gap 11/27/2022 05:35:00 10 7-15 (mmol /L) Final Glucose 11/27/2022 05:35:00 93 70-120 (mg /dL) Final Calcium 11/27/2022 05:35:00 9.1 8.4-10.2 ( mg/dL) Final Performing Location [facility] [address] [place] [address]
--- OUTSIDE RECORDS SUMMARY | 2023-04-26 10:03 | External Medical Summary | Continuity of Care Document ---
Author Name Unknown Organization [address] Address [address] [place], [place] [id number] Care Team Providers Care Rn Spine Name Role Phone Jose Lee Primary Care Physician [phone] Encounter [facility] [id number] Date(s): 12/08/22 - 12/08/[address] [facility] [address], [address] [place] [address] [phone] Encounter Diagnosis Stroke(Discharge Diagnosis) - 12/08/22 Discharge Disposition: Home or Self Care Attending Physician: MD Lee Michael P Referring Physician: MD Lee Michael P Allergies, Adverse Reactions, Alerts Substance Reaction Severity Status bacitracin Active Bactrim Rash Active Latex Active Assessment and Plan Extracted from: Title:Office Visit Note Author:MD Jesus, Cisco Booth Date:12/08/22 1.Stroke Improving post stroke. She has follow-up forevent monitoringto be initiated next week. We reviewed her hospitalization andcoursein detail today. She continues to work withPT/OT and speech therapy. She has started ASA 81 mg is taking as prescribed. She has close follow-up with cardiology after event monitoringfor furtherdiscussionregarding the possibility of this being embolic in nature. We reviewed the expected course and advised her to reach out if she develops any worsening symptoms. I do not think there is need for neurology consultation at this time,however, will initiate in the future if needed. I spent 35 minutes in kafx-qc-yvkv interaction regarding review of ongoing symptoms, discussion counseling regardingprevious diagnostic testing, discussion counseling regardingtreatment recommendations, discussion counseling regarding further management recommendations, bba-unuk-aj-face time for chart review and documentation. Immunizations [...] Start Date: 02/04/15 Status: Ordered Mental Status 12/08/22 Barriers to Learning one year None evide nt Mandatory Health Literacy Documentation Yes Health Literacy Communication Barriers N ever Primary Language Welsh Problem List Condition Confirmation Course Effective Dates [...] Diagnosis Diagnosis Type Effective Dates Health Status Clini janki Service Informant Stroke Discharge Diagnosis 12/08/22 Procedures Procedure Date Related Diagnosis Body Site Status MRI of brain 1 11/23/22 Completed Cholecystectomy 04/13/17 Completed Chest x-ray 2 10/24/17 Completed Ultrasound scan of upper abdomen 3 [...] to oldest [Reference Range]: 1 Patient Weight 63.4 kg (12/08/22 9:49 AM) Temperature [36.5-37.9 DegC] 36.8 DegC (12/08/22 9:49 AM) Respiratory Rate 14 br/min (12/08/22 9:49 AM) Blood Pressure 122/70mmHg (12/08/22 9:49 AM) Cuff Pulse Pressure 52 mmHg (12/08/22 9:49 AM) Social History Social History Type Response Smoking Status Never smoked cigaret laly Sex Female Medicine Outpt Note * MD Jesus, Jose P: PERFORM Event Display: Medicine Outpt Note Authored Date: [id number] Chief Complaint 3m f/u. Pt had a stroke the end of November. She sees [facility] on Monday. History of Present Illness Caitlin Hurley is [id number] female who presents for follow-up of her chronic medical conditions and to establish care with me. She is a former patient of Dr. Cortez. She established care with me on 09/01/22. Today, her son, Stephen,is present during the entirety of the exam. She was seen by [facility] (11/15/2022) for follow-up regarding her osteoarthritis of the knees. No additional recommendations were made at that time. Follow-up in 6 months. She was admitted at [facility] from 11/23 - 11/26/2022 when she presented [...] have cardiac event monitoring post discharge. She started on ASA 81 mg daily. PT/OT and speech therapy were initiated. She was discharged to [facility] for further rehab. During her hospitalization, she did have an elevated troponin which was felt to be secondary to demand ischemia. They were without any ischemic changes on EKG. she does have follow-up withfurther cardiacmonitoring scheduled for next Monday. She has been working with PT/OT and speech therapy at home. She hassome trouble withword findingand some associated right sided facial weaknessbut otherwisehas had return of function. She is taking theASA 81 mg daily. There was a discussion of startinga statin however this was not initiated. No other adjustments were made to her medications. Sheis taking aspirin as recommended without anysignificant bleeding. Past Medical History: #Aortic stenosis: Moderate, with last TTE that was stable; followed by [facility] Cardiology #Osteoarthritis: Followed by [facility] orthopedics; primarily of the left knee #Hypothyroidism: Longstanding, currently managed with levothyroxine 75 mcg daily #Hx Cholecystitis s/p cholecystectomy #Hx Breast Cancer: s/p lumpectomy over 8 years ago; now on anastrazole 1mg daily Review of Systems As per HPI Physical Exam Vitals & Measurements T:36.8C RR:14 BP:122/70 SpO2:95% WT:63.400kg(Dosing) WT:63.4kg PHQ2 Data(Data Documented on:12/08/2022 09:49) Emotional health assessment NEGATIVE GEN: Well developed, [...] the exception ofsome minorfacial weakness on the right Assessment/Plan 1.Stroke Improving post stroke. She has follow-up forevent monitoringto be initiated next week. We reviewed her hospitalization andcoursein detail today. She continues to work withPT/OT and speech therapy. She has started ASA 81 mg is taking as prescribed. She has close follow-up with cardiology after event monitoringfor furtherdiscussionregarding the possibility of this being embolic in nature. We reviewed the expected course and advised her to reach out if she develops any worsening symptoms. I do not think there is need for neurology consultation at this time,however, will initiate in the future if needed. I spent 35 minutes in baqz-ch-kwej interaction regarding review of ongoing symptoms, discussion counseling regardingprevious diagnostic testing, discussion counseling regardingtreatment recommendations, discussion counseling regarding further management recommendations, tmf-ecul-ft-face time for chart review and documentation. Problem [...] Vaccine due12/03/22and every 1year Adult COVID-19 Vaccination due12/08/22Unknown Frequency Falls Plan of Care due12/08/22Unknown Frequency Lipid Screening due12/08/22Unknown Frequency Shingles Vaccine due12/08/22One-time only Due In Future Body Mass Index not due until12/08/23and every 1year Satisfied(in the past 1 year) Satisfied Adult Influenza Vaccine on05/25/22.Satisfied by REGGIE Ellis Lori Body Mass Index on09/01/22.Satisfied by NAOMI Wolff Keely Shingles Vaccine on05/25/22.Satisfied by REGGIE Ellis Lori Electronic Signature on File Electronically Reviewed/Signed by: Jose Lee MD Author Signature Dt/Tm:12/08/2022 10:43 AM Division of Internal Medicine MPM Patient Care team information Care Team Personnel Name: MD Jesus, Jose Booth Position: Physician - Internal Med Member Role: Primary Care Provider Address: Address: [address] [place] [address], [place] [address] Care Team Related Persons Name: STEPHEN HURLEY Address: home [address] [place] [phone]
--- OUTSIDE RECORDS SUMMARY | 2023-04-26 10:03 | External Medical Summary ---
Author Name Unknown Address Unknown Organization [facility] [place] [address] Laboratory Report Ordering Provider Test Date Status HY,DEPAMPHILIS 11/27/2022 05:35:00 Final Observation Date Value Abnormality Reference (Units ) Status WBC, Total 11/27/2022 05:35:00 4.70 4.00-10.8 0 (K/uL) Final RBC 11/27/2022 05:35:00 4.81 3.85-5.15 (M/uL) Final Results corrected for probab le cold agglutinin.
null Hemoglobin 11/27/2022 05:35:00 13.1 12.0-15.3 (g/dL) Final HCT 11/27/2022 05:35:00 40.4 36.0-45.2 (%) Final MCV 11/27/2022 05:35:00 84.0 81.5-97.5 (fL) Final MCH 11/27/2022 05:35:00 27.2 27.0-34.0 (pg) Final MCHC 11/27/2022 05:35:00 32.4 32.0-36.0 (g/dL) Final RDW 11/27/2022 05:35:00 16.0 11.5-15.5 (%) Final Platelets 11/27/2022 05:35:00 190 140-400 (K /uL) Final MPV 11/27/2022 05:35:00 11.4 6.6-11.1 ( fL) Final Performing Location [facility] [place] [address]
--- OUTSIDE RECORDS SUMMARY | 2023-04-26 10:03 | External Medical Summary | Summary of Care ---
Author Name Unknown Organization [facility] Address [address] [place] [address] Phone [phone] Care Team Providers Care Entry Clerk Name Role Phone Solomon Cortez MD Primary Care Provider Encounter Details Date Type Department Care Team Description 12/12/2022 Orders Only Access Center, [place] [facility] [address] [place] [address] Ext *DO NOT REMOVE THIS DEPARTMENT* [place] [id number] Requisition, External Radiology [address] [place] [address] Malignant neoplasm of lower-inner quadrant of right female breast (HCC)* Allergies Active Allergy Reactions Severity Noted Date Comments Adhesive Tape Unknown 11/16/2011 Bactrim 03/08/2012 Hives. 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 Ankle joint pain 12/28/2006 ADVANCE DIRECTIVE INFORMATION 04/27/2005 Overview: No, Advance Directive brochure offered , patient declined. BACKACHE NOS 09/06/2004 Overview: 04/27/2005 01/09/2006 12/28/2006 stable tolerable ? 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 going to [place] Mefloquine 250 qwk Hypothyroidism Overview: TSH Results: TSH(uIU/mL) Dedra Cabrera/Diann Resulted Value Status 04/30/14 8:00A 04/30/14 0.96 FINAL 03/21/13 7:37A 03/21/13 0.95 FINAL 03/14/12 8:26A 03/14/12 1.91 FINAL 03/07/11 3:30P 03/07/11 2.17 FINAL 01/06/10 12:40P 01/07/10 0.51 FINAL 11/14/08 7:50A 11/14/08 1.73 FINAL 01/09/08 8:36A 01/09/08 0.65 FINAL 12/25/06 3:50P 12/28/06 1.28 FINAL 01/04/06 2:30P 01/04/06 1.02 FINAL on half of 150mcg a day TSH Results: TSH(uIU/mL) Dedra Dt/Diann Resulted Value Status 12/25/06 3:50P 12/28/06 1.28 [...] as of this encounter (statuses as of 12/12/2022) Resolved Problems Problem Noted Date Resolved Date [...] as of this encounter (statuses as of 12/12/2022) Immunizations Name Administration Dates Next Due COVID-19 [...] Herrera, DO [address] [place] [id number] 02/09/2023 Appointment Radiology Scheduled Orders Name Type Priority Associated Diagnoses Orde r Schedule MAMMOGRAM DIAGNOSTIC KATIE BILATERAL Medical Imaging Routine Malignant neoplasm of lower-inner quadrant of right female breast (HCC) Expected: 12/12/2022, Expires: 01/13/2024 Health Maintenance Due Date Last Done Comments [...] this encounter Medical Devices Implanted Type Area Physician Allergist Immunologist Device Identifier Shelf Expiration Date Model / Serial / Lot Lens Intraoc 20.0 - [id number] - [id number] Implanted:Qty: 1 on 05/21/2019 by Josh Covarrubias MD at [facility] Left: Eye [employer] 01/03/2024 [id number] / [id number] / [id number] Lens Intraoc 19.5 - [id number] - [id number] Implanted:Qty: 1 on 06/11/2019 by Josh Covarrubias MD at [facility] Right: Eye [employer] 11/03/2023 [id number] / [id number] / [id number] documented as of this encounter Visit Diagnoses Diagnosis Malignant neoplasm of lower-inner quadrant of right female breast (HCC)- Primary Malignant neoplasm of lower-inner quadrant of female breast documented in this encounter Care Teams Entry Clerk Relationship Specialty Start Date End Date Solomon Cortez MD [address] [place] [address] [address] [place] [address] PCP - General Family Medicine 11/07/16 documented as of this encounter
[2023-04-26] MEDS ORDERED: SODIUM CHLORIDE 0.9% 1,000 ML IV ONE (10:24)
[2023-04-26] MEDS ORDERED: ASPIRIN CHEW 324 MG PO STA (10:55)
--- NOTE | 2023-04-26 11:07 | History & Physical Report ---
Date of Service April 26, 2023 Assessment & Plan (1) Stroke-like symptoms: Plan: Slurred speech, and gross left-sided weakness/deficits on the morning of 04/26 Last known well at 1900 on 04/25 Neurology consult from [facility] determined that the patient did not meet TNKase eligibility; suspect right-sided M2 occlusion; monitor for cerebral edema Head CT, head/neck CTA revealed no acute cranial hemorrhage, acute occlusions, or acute processes Brain MRI ordered, pending Elevated lactate at 3.1, repeat pending Last echo on 11/24/2022 revealed LVEF of 60-65% with no interatrial shunt Repeat limited echo ordered to look for wall motion changes Allow permissive hypertension in the setting of stroke-like symptoms; treat BP if SBP>220 or DBP>120; labetalol 5 mg IV push as needed No BP, labs, IVs in the [facility] Neurochecks q4h Fall precautions Seizure precaution NIH stroke scale 13 points on arrival Keep n.p.o. pending dysphagia screen Aspirin 300 mg WA given in the ED Aspiration precautions Convert p.o. meds to IV Zofran 4 mg IV q6h as needed for nausea Metoprolol 2.5 mg IV q6h starting at 2100 on 04/26 PT/OT consult Speech therapy eval Will hold chemical DVT PPx for now Aspirin 81 mg and Plavix 75 mg daily starting tomorrow; will defer to neuro for DAPT Consider starting high-dose statin pending fasting lipid panel Appreciate neurology consult A.m. CBC, BMP, PT/INR, troponin, mag, fasting lipid, A1c (2) Left acute arterial ischemic stroke, MCA (middle cerebral artery): Plan: Hx of large L MCA ischemic stroke in November 2022 She was reportedly taking Xarelto 15 mg daily, rosuvastatin 5 mg daily (3) Atrial fibrillation: Plan: EKG revealed atrial fibrillation at 92 bpm on arrival; QTc 445 Per family, first onset of known a fib was during stroke in November 2022 Family is uncertain if patient is taking Xarelto regularly for anticoagulation Hold metoprolol p.o.; start on IV metoprolol 2.5 mg every 6 hours Continuous telemetry monitoring (4) History of breast cancer: Plan: S/p lumpectomy 8 years ago Hold anastrozole (5) Hypothyroidism: Plan: Hold levothyroxine (6) Elevated troponin: Plan: Troponin 81.8 --> 103.5 on arrival Trend troponin q6h Plan Disposition: Admit to PCU telemetry DNR/DNI Keep n.p.o. pending dysphagia screen VTE PPx: SCDs (hold chemical DVT PPx for 24h, then reevaluate) History of Present Illness Primary Care Provider: NO PCP Caitlin is an 87-year-old female with PMH of L MCA ischemic stroke in November 2022, breast cancer, , hypothyroidism, chronic rhinitis, and acquired deviated nasal septum. She presented via EMS as a stroke alert the morning of 04/26. Last known well at approximately 1900 on 04/25. The patient lives with her , who has dementia. 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 Family is at the bedside (Radha granddaughter, Danya granddaughter, and Rae RILEYA/daughter) and provides most of history. The patient reportedly lost mobility around 1900 on 04/25, and her sat her in a kitchen chair. He then reportedly dragged her in the chair towards the bedroom to get her into bed, but she ended up sleeping in the chair. The patient awoke on 04/26 with slurred speech, left-sided weakness, and left- sided eye neglect. Family reports that she normally manages her own medications, but she did not take any medications this morning. Family reports that she was placed on Eliquis after her last stroke in November, but was switched to Xarelto due to expense. Family is not sure if she is taking Xarelto. The patient exhibits hypertension at 167/84, and tachycardia at 116 bpm at time of admission. ED course: Aspirin 324 mg p.o. IVF ROS: Unable to obtain in patient's current state Allergies Allergy/AdvReac Type Severity Reaction Status Date / Time Bactrim Allergy Mild HIVES Verified 04/13/17 08:00 latex Allergy Mild RASH ITCHY Verified 07/25/22 10:52 sulfamethoxazole Allergy Mild HIVES Verified 07/25/22 10:52 trimethoprim Allergy Mild HIVES Verified 07/25/22 10:52 Home Medications Medication Instructions Recorded Confirmed Type anastrozole 1 mg tablet 1 mg PO DAILY 08/08/18 04/26/23 History levothyroxine 75 mcg tablet 75 mcg PO DAILY 08/08/18 04/26/23 History ondansetron 4 mg disintegrating 4 mg PO Q6H PRN nausea and 11/26/22 04/26/23 Rx tablet vomiting #20 tabs Xarelto 15 mg PO PM 04/26/23 04/26/23 History metoprolol succinate 25 mg 12.5 mg PO DAILY 04/26/23 04/26/23 History tablet,extended release 24 hr rosuvastatin 5 mg PO DAILY 04/26/23 04/26/23 History Past Med/Surg History Medical History (Updated 04/26/23 @ 12:58 by Nilson Wolff PA-C) Atrial fibrillation Hypothyroidism Acid reflux Cholecystectomy planned Surgical History History of cataract surgery History of cholecystectomy History of lumpectomy History of hernia repair History of tonsillectomy and adenoidectomy Family History Father Hearing loss Stroke Grandmother Stroke Sister Cancer Grandfather Cancer Mother Asthma Other Heart disease No family history of adverse response to anesthesia No family history of bleeding disorder Social History Smoking Status: Never smoker Preferred Language: Kyrgyz Communication Ability: Impaired Communication Ability Comment: pt unable to provide verbal history, unable to reach primary contact for hx Beliefs That Will Affect Care: Spiritual Current Living Situation: Other Current Living Situation Comment: unable to obtain Feels Safe at Home: Yes Assistive Devices: None Review of Systems Review of Systems: See HPI above Physical Exam Physical Exam: General: Lethargic; no acute distress; non-toxic appearing; cooperative HEENT: Left-sided facial droop, with unilateral left lower facial palsy; no scleral icterus; PERRLA; patient maintains a right lateral gaze, with inability to look left; dry mucus membrane; does not exhibit left hemianopsia, likely muscle strength related; hearing intact (patient responds appropriately to some questioning) Neck: supple; no lymphadenopathy; trachea midline Skin: warm, dry without signs of tenting; no cyanosis; no rashes, bruising, lesions, or erythema noted CV: chest wall NTP; irregularly irregular rhythm; S1/S2 normal; 2/6 systolic ejection murmur auscultated at the second [facility] MCL; pulses intact and symmetric at radial, DP, and PT Lungs: no acute respiratory distress; symmetrical chest wall expansion; clear breath sounds across all lung nguyen w/o adventitious sounds; no wheezing ABD: Soft, NTP; BS present; no rebound/guarding; no ascites; no distention RUE: +5/5 baker head strength; sensation grossly intact LUE: 0/5 baker head strength; reports sensation is intact RLE: Patient demonstrates ability to wiggle toes; sensation grossly intact LLE: Patient exhibits minimal movement in the LLE; unable to lift leg off bed; minimal active ROM; reports sensation is intact MSK: no tics or fasciculations; no edema noted in the LEs b/l Neuro: Alert and oriented to name, birthday, and location; not oriented to month; slurred, garbled speech; fatigued; flat mood and affect Results & Data Results & Data Vital Signs (Past 12 Hours) Vital Signs Temp Pulse Resp BP Pulse Ox O2 Del Method 04/26/23 10:30 97 H 20 98 04/26/23 10:16 152/94 H 04/26/23 10:16 101 H 23 97 04/26/23 10:02 107 H 14 99 04/26/23 10:00 116 H 24 167/84 H 98 04/26/23 09:30 141/93 H 04/26/23 09:30 94 H 20 97 04/26/23 09:20 96 H 04/26/23 09:07 99 H 19 04/26/23 09:07 137/96 04/26/23 08:57 97 Room Air 04/26/23 08:57 36.5 C 85 18 141/93 H 97 Room Air Laboratory Results Abnormal lab results 04/26/23 04/26/23 04/26/23 Range/Units 09:08 09:17 09:21 Hgb 11.8 L (12.0-16.0) g/dl Hct 36.0 L (37.0-47.0) % RDW Std Deviation 48.2 H (36.4-46.3) fL RDW Coeff of Darío 16.1 H (11.5-14.5) % Neut # (Auto) 6.76 H (1.40-6.50) K/uL Lymph # (Auto) 0.27 L (1.20-3.40) K/uL Sodium 135 L (136-145) mmol/L BUN 35 H (6-23) mg/dl BUN/Creatinine Ratio 36.8 H (10-20) Glucose 189 H (70-99(Fasting)) mg/dl POC Glucose 186 H (70-99) mg/dl Lactate 3.1 H* (0.4-2.0) mmol/L Total Bilirubin 1.3 H (0.2-1.0) mg/dl Troponin I High Sens 81.8 H* (0-14) pg/ml Globulin 2.4 L (2.5-4.0) gm/dl Urine Ketones (Negative) 04/26/23 Range/Units 09:25 Hgb (12.0-16.0) g/dl Hct (37.0-47.0) % RDW Std Deviation (36.4-46.3) fL RDW Coeff of Darío (11.5-14.5) % Neut # (Auto) (1.40-6.50) K/uL Lymph # (Auto) (1.20-3.40) K/uL Sodium (136-145) mmol/L BUN (6-23) mg/dl BUN/Creatinine Ratio (10-20) Glucose (70-99(Fasting)) mg/dl POC Glucose (70-99) mg/dl Lactate (0.4-2.0) mmol/L Total Bilirubin (0.2-1.0) mg/dl Troponin I High Sens (0-14) pg/ml Globulin (2.5-4.0) gm/dl Urine Ketones 1+ H (Negative) Diagnostic Findings Head CT 04/26/23 08:57 CT angio head w con, CT head/brain wo con, CT angio neck with con CLINICAL HISTORY: neuro deficit, acute stroke suspected TECHNIQUE: Contiguous axial CT images of the head were acquired from the base of the skull to the vertex without intravenous contrast administration. CT angiography of the head and neck was performed following intravenous administration of iodinated contrast. Coronal and sagittal MIPS were obtained from the axial data set and were submitted for review. Automated dose lowering techniques and/or adjustment according to patient size were utilized for this examination. All measurements were calculated based on NASCET criteria. CT DOSE: 999.15 mGy.cm Comparison: Comparison is made to MRI brain 11/24/2022 FINDINGS: CT head: Areas of decreased attenuation are present in the periventricular and subcortical white matter bilaterally consistent with small vessel ischemic disease. Generalized cerebral atrophy with commensurate enlargement of the ventricles, sulci, and cisterns is also present. There is no acute intracranial hemorrhage or evidence of acute territorial infarction. No shift of the midline structures, mass effect, or extra-axial abnormalities are shown. Atherosclerotic calcifications are present in the intracranial segments of the internal carotid arteries. Lungs and soft tissues are unremarkable. CTA Neck: A 3 vessel aortic arch is shown. There is no significant atherosclerotic plaque in the aortic arch or the origins of the innominate, left common carotid, and left subclavian arteries. The common carotid, external carotid, cervical segments of the internal carotid arteries, and the cervical segments of the vertebral arteries are patent without hemodynamically significant stenosis. The left vertebral artery is dominant. CTA Head: The anterior and posterior cerebral circulations are patent. No hemodynamically significant stenosis, aneurysm, dissection, or arteriovenous malformation is shown. IMPRESSION: 1. No acute intracranial hemorrhage, evidence of acute territorial infarction, or other acute intracranial disease process. 2. No occlusion, hemodynamically significant stenosis, or dissection in the major cervical arteries. 3. No occlusion, hemodynamically significant stenosis, aneurysm, dissection, or arteriovenous malformation in the major intracranial arteries. Assessment of stenosis of the internal carotid arteries is based on NASCET criteria. ACT 112: Negative or not required by law. Electronically signed by: Sudarshan Juarez M.D. 04/26/2023 9:36 AM Head CTA 04/26/23 08:57 CT angio head w con, CT head/brain wo con, CT angio neck with con CLINICAL HISTORY: neuro deficit, acute stroke suspected TECHNIQUE: Contiguous axial CT images of the head were acquired from the base of the skull to the vertex without intravenous contrast administration. CT angiography of the head and neck was performed following intravenous administration of iodinated contrast. Coronal and sagittal MIPS were obtained from the axial data set and were submitted for review. Automated dose lowering techniques and/or adjustment according to patient size were utilized for this examination. All measurements were calculated based on NASCET criteria. CT DOSE: 999.15 mGy.cm Comparison: Comparison is made to MRI brain 11/24/2022 FINDINGS: CT head: Areas of decreased attenuation are present in the periventricular and subcortical white matter bilaterally consistent with small vessel ischemic disease. Generalized cerebral atrophy with commensurate enlargement of the ventricles, sulci, and cisterns is also present. There is no acute intracranial hemorrhage or evidence of acute territorial infarction. No shift of the midline structures, mass effect, or extra-axial abnormalities are shown. Atherosclerotic calcifications are present in the intracranial segments of the internal carotid arteries. Lungs and soft tissues are unremarkable. CTA Neck: A 3 vessel aortic arch is shown. There is no significant atherosclerotic plaque in the aortic arch or the origins of the innominate, left common carotid, and left subclavian arteries. The common carotid, external carotid, cervical segments of the internal carotid arteries, and the cervical segments of the vertebral arteries are patent without hemodynamically significant stenosis. The left vertebral artery is dominant. CTA Head: The anterior and posterior cerebral circulations are patent. No hemodynamically significant stenosis, aneurysm, dissection, or arteriovenous malformation is shown. IMPRESSION: 1. No acute intracranial hemorrhage, evidence of acute territorial infarction, or other acute intracranial disease process. 2. No occlusion, hemodynamically significant stenosis, or dissection in the major cervical arteries. 3. No occlusion, hemodynamically significant stenosis, aneurysm, dissection, or arteriovenous malformation in the major intracranial arteries. Assessment of stenosis of the internal carotid arteries is based on NASCET criteria. ACT 112: Negative or not required by law. Electronically signed by: Sudarshan Juarez M.D. 04/26/2023 9:36 AM Neck CTA 04/26/23 08:57 CT angio head w con, CT head/brain wo con, CT angio neck with con CLINICAL HISTORY: neuro deficit, acute stroke suspected TECHNIQUE: Contiguous axial CT images of the head were acquired from the base of the skull to the vertex without intravenous contrast administration. CT angiography of the head and neck was performed following intravenous administration of iodinated contrast. Coronal and sagittal MIPS were obtained from the axial data set and were submitted for review. Automated dose lowering techniques and/or adjustment according to patient size were utilized for this examination. All measurements were calculated based on NASCET criteria. CT DOSE: 999.15 mGy.cm Comparison: Comparison is made to MRI brain 11/24/2022 FINDINGS: CT head: Areas of decreased attenuation are present in the periventricular and subcortical white matter bilaterally consistent with small vessel ischemic disease. Generalized cerebral atrophy with commensurate enlargement of the ventricles, sulci, and cisterns is also present. There is no acute intracranial hemorrhage or evidence of acute territorial infarction. No shift of the midline structures, mass effect, or extra-axial abnormalities are shown. Atherosclerotic calcifications are present in the intracranial segments of the internal carotid arteries. Lungs and soft tissues are unremarkable. CTA Neck: A 3 vessel aortic arch is shown. There is no significant atherosclerotic plaque in the aortic arch or the origins of the innominate, left common carotid, and left subclavian arteries. The common carotid, external carotid, cervical segments of the internal carotid arteries, and the cervical segments of the vertebral arteries are patent without hemodynamically significant stenosis. The left vertebral artery is dominant. CTA Head: The anterior and posterior cerebral circulations are patent. No hemodynamically significant stenosis, aneurysm, dissection, or arteriovenous malformation is shown. IMPRESSION: 1. No acute intracranial hemorrhage, evidence of acute territorial infarction, or other acute intracranial disease process. 2. No occlusion, hemodynamically significant stenosis, or dissection in the major cervical arteries. 3. No occlusion, hemodynamically significant stenosis, aneurysm, dissection, or arteriovenous malformation in the major intracranial arteries. Assessment of stenosis of the internal carotid arteries is based on NASCET criteria. ACT 112: Negative or not required by law. Electronically signed by: Sudarshan Juarez M.D. 04/26/2023 9:36 AM Code Status & VTE Plan Code Status DNR/DNI, per patient's living will supplied by her daughter (Rae) VTE Prophylaxis Plan VTE Prophylaxis will be ordered: Yes Supervising Physician Co-Signing Physician Notes Patient seen and examined, chart reviewed, case discussed with Brianna Albright I agree with the assessment and plan as above except as otherwise noted. Labs and images reviewed Caitlin is an 87-year-old female with a past medical history of left MCA CVA, , A-fib recently on rivaroxaban, hypothyroidism who presents 04/26 as a stroke alert with last known well 7 PM on 04/25/evening prior to admission. Patient had deficits upon waking up from sleep including continued slurred speech, worsening LEFT-sided weakness, and left visual field Cut. She does have a history of dementia and lives with her . Patient seen at the bedside with her family present. She is on her last known normal around 7 PM last night when while at the dinner table she developed left- sided weakness and deficits. 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 Due to her continued deficits 911 was called and patient was evaluated as a stroke. Case was reviewed by telestroke Dr. Prescott. Suspect right-sided M2 occlusion is present with MCA territory stroke. MRI is pending. Recommended aspirin. ?DAPT vs ASA+DOAC. Due to severity of stroke anticoagulation to be deferred at least 2-3 days. Patient has a history of a left MCA stroke and was found to have A-fib after 48 hours of outpatient Holter monitor as it was suspected but not observed while inpatient; was subsequently started on Eliquis after prior stroke and was switched to Xarelto due to cost however has not yet started taking this and has not been on the blood thinner at least in the last week. Has had some improvement and is able to wiggle her left toes intermitten tly at the bedside. Continues to have no activation of muscles in the left arm. She endorses intact sensation in the left arm and foot. Patient faxed a living well which has been updated, this reflects DNR/DNI which patient confirms. History somewhat limited by dysarthria, but patient is able to give appropriate answers to questions. Dysarthria and significant speech latency are present. No receptive or expressive aphasia is noted. Denies chest pain, chest pressure. She denies numbness/tingling On bedside evaluation remains with L arm paresis, endorses sensation is intact to soft touch in hands bilaterally. Is able to wiggle L does, no L hip flexion. R ankle dorsi/plantarflexion 5/5. R sided gaze, L facial droop are present. Endorses intact sensation to v1-v2-v3 to soft touch. Pt w/ difficulty on tongue protrusion, deviates slightly to the L on exam. CTAB. irir, +sm. Acute suspected right MCA CVA Initial CTA/CThead without acute findings. MRI is pending. Patient does have history of A-fib and both left upper/left lower strength deficits with L sided facial droop. Patient is not able to pass swallow eval, rectal aspirin given Recommend resuming anticoagulation, due to at least moderate CVA clinically do not recommend anticoagulation for a minimum 48 hours. No indication for transfer at this time. Patient was evaluated by telestroke, M2 obstruction small is suspected. This is not amenable to endovascular retrieval. TNKase not indicated. Agree with aspirin. DAPT versus monotherapy with addition of anticoagulation when safe to do so pending clinical progression and MRI results. patient is at risk of both hemorrhagic transformation and cerebral edema, if worsening neurologic deficits recommended CThead at that time. If either of these occur [facility] [place] agree[place] at that time, transfer is not recommended at time of admission. SCDs, defer pharmacal prophylaxis due to increased risk of bleeding with suspected moderate to large territory-follow Permissive hypertension until at least 7 PM 04/26, then lower goal to 180/105. Labetalol on-call. Metoprolol temporarily held, converted to IV and resumed 9 PM 04/26 which is more than 24 hours after initial stroke symptom onset. Patient is currently rate controlled Patient with poor p.o. intake, denies fever/chills and infectious symptoms. She does not have leukocytosis. Suspect this is with volume depletion, no history of heart failure. 1 L NSS given, additional 500 cc of of LR ordered. Troponin is mildly elevated and up trended at 103, EKG shows A-fib without acute ischemic change/ST change. Suspect demand, trended, limited echo for wall motion repeated. Lactate post fluids pending Otherwise agree with assessment/management above On reassessment fluids recently completed, lactate slightly increased. Repeat lactate post fluids is pending, no signs of pulmonary edema/CHF. IV FM continued, rebolus as indicated based on vitals, UOP, and repeat lactate PG Care Time/CCT Total # of Minutes Spent Total Time Spent with Patient: Total time spent is greater than 50% in coordination of care (as documented) at patient's floor/unit and/or counseling patient: Coding [place] [address] INT INP/OBS CARE 3/75MIN Patient Type Established Medical Decision Making High Complexity Diagnoses Stroke-like symptoms R29.90 Left acute arterial ischemic stroke, MCA (middle cerebral artery) I63.512 Atrial fibrillation I48.91 History of breast cancer Z85.3 Hypothyroidism E03.9 Elevated troponin R79.89
[2023-04-26] MEDS ORDERED: ASPIRIN 300 MG SUPP PR ONE (11:38)
[2023-04-26] MEDS ORDERED: PLASMA-LYTE A 500 ML IV ONE (12:52)
[2023-04-26] MEDS ORDERED: ONDANSETRON INJ 2 MG/ML 2 ML VIAL IV PRN (14:35)
[2023-04-26] MEDS ORDERED: METOPROLOL TARTRATE 1 MG/ML VIAL IV PRN (14:35)
[2023-04-26] MEDS ORDERED: PHARMACIST DISCHARGE MED REC CONSULT PRN (14:35)
[2023-04-26] MEDS: PLASMA-LYTE A 1,000 ML IV SCH (16:31)
--- NOTE | 2023-04-26 17:49 | Magnetic Resonance Report ---
MRI OF THE BRAIN WITHOUT IV CONTRAST CLINICAL HISTORY: Stroke. COMPARISON STUDY: CT of the brain dated 04/26/2023. MRI of the brain dated 11/24/2022. TECHNIQUE: MRI of the brain was performed utilizing various T1 and T2-weighted sequences in the axial , sagittal, and coronal planes. IV contrast was not administered for this examination. The examinatio n is degraded by motion artifact. FINDINGS: Brain parenchyma: There is an approximately 4.5 cm curvilinear focus of restricted diffusion centered in the right caudate nucleus, basal ganglia, and internal capsule consistent with an acute to subacu te infarct. No hemorrhage or mass effect is seen. No additional foci of restricted diffusion are iden tified. There is age-related involutional change noting mild subcortical and periventricular white ra diographic disease. Foci of encephalomalacia in the left frontal lobe and in the medial left temporal lobe are consistent with remote insults. No extra-axial fluid collection is seen. The cerebellar to nsils are normal in configuration. Ventricles, sulci, and cisterns: Prominent secondary to involutional change. Pituitary and sella: Unremarkable. Intracranial vasculature: Normal flow voids are maintained at the skull base. Orbits: The bony orbits are grossly intact. Orbital contents are normal in appearance noting bilatera l ocular lens implants. Sinuses and mastoids: Clear. Calvarium: Unremarkable. Cervical cord: Partially visualized cervical spinal cord is normal in morphology and signal intensity . IMPRESSION: 1. Large acute to subacute infarct centered in the right basal ganglia/caudate head/internal capsule as above. 2. There is no hemorrhage or mass effect. 3. No additional foci of acute ischemia are identified. ACT 112: Negative or not required by law. Electronically signed by: Jorge Lambert M.D. 04/26/2023 5:47 PM
[2023-04-26] MEDS: METOPROLOL TARTRATE 1 MG/ML VIAL IV SCH (22:48)
[2023-04-26] MEDS: ACETAMINOPHEN 1,000 MG/100 ML VIAL IV PRN (22:58)
[2023-04-27] MEDS: PLASMA-LYTE A 1,000 ML IV SCH ×3 (00:13→21:54)
[2023-04-27] MEDS: METOPROLOL TARTRATE 1 MG/ML VIAL IV SCH ×5 (00:31→23:40)
[2023-04-27 04:09] LABS: BUN Creatinine Ratio 32.9 (10-20); Chol HDL Ratio 2.8 (0-5); Creatinine Clr Calc Pharmacy 46.9 ml/min; Est GFR (African American) 71.9 ml/min; Magnesium 2.2 mg/dl (1.7-2.4)
[2023-04-27 04:23] LABS: Prothrombin Time 11.1 Seconds (9.0-12.0)
[2023-04-27 04:47] LABS: Basophils # (auto) 0.01 K/uL (0.00-0.20); Basophils % (auto) 0.1 %; Hematocrit (blood only) 36.4 % (37.0-47.0); Hemoglobin 13.2 g/dl (12.0-16.0); Immature Granulocytes # (auto) 0.02 K/uL (0.01-0.20); Immature Granulocytes % (auto) 0.2 %; Lymphocytes # (auto) 1.12 K/uL (1.20-3.40); Lymphocytes % (auto) 12.5 %; Mean Corpuscular Hemoglobin 30.8 pg (25.0-34.0); Mean Corpuscular Hgb Conc 36.3 g/dL (32.0-36.0); Mean Corpuscular Volume 84.8 fL (80.0-100.0); Mean Platelet Volume 10.7 fL (9.4-12.4); Monocytes # (auto) 0.29 K/uL (0.11-0.59); Monocytes % (auto) 3.2 %; Neutrophils # (auto) 7.49 K/uL (1.40-6.50); Platelet Count 160 K/uL (130-400); RDW Coefficient of Variation 18.6 % (11.5-14.5); RDW Standard Deviation 48.1 fL (36.4-46.3); Red Blood Count 4.29 M/uL (4.20-5.40); White Blood Count 8.93 K/ul (4.8-10.8)
--- NOTE | 2023-04-27 07:46 | Electrocardiogram Report ---
Test Reason : Blood Pressure : / mmHG Vent. Rate : 092 BPM Atrial Rate : 000 BPM P-R Int : 000 ms QRS Dur : 084 ms QT Int : 360 ms P-R-T Axes : 000 073 -04 degrees QTc Int : 445 ms Atrial fibrillation Nonspecific T wave abnormality Abnormal ECG When compared with ECG of 23-NOV-2022 19:48, Atrial fibrillation has replaced Sinus rhythm Confirmed by Kiel Peng ([id number]) on 04/27/2023 7:46:22 AM Referred By: REFERRED SELF Confirmed By:Kiel Peng
--- NOTE | 2023-04-27 07:56 | Neurology Consultation ---
Date of Consultation April 27, 2023 Assessment & Plan (1) Acute CVA (cerebrovascular accident): (2) Acute left hemiparesis: (3) Left homonymous hemianopsia due to recent cerebral infarction: (4) Atrial fibrillation: (5) H/O ischemic left MCA stroke: Plan This patient has suffered an acute right M2 distribution stroke of a rather large nature resulting in a left face and arm greater than leg hemiparesis, probable left homonymous hemianopsia, and possible expressive aphasia. Interestingly, her mental status is fairly well spared, with good orientation. Clinically, she is sleepy which could be secondary to some edema around the stroke. Alternatively, I have seen individuals with altered mental status after the opposite side stroke (bilateral strokes) The etiology of the stroke is likely embolic given the history of atrial fibrillation, but an ischemic stroke can not be excluded. Apparently, she was on no antiplatelet medication or anticoagulants prior to this event. CT angiography revealed a right M2 segment occlusion, otherwise the head and neck vessels seemed unremarkable. She has some hypertension which is controlled. Her total cholesterol is reasonable on current treatment. Recommendations: 1. For now, keep dual antiplatelet therapy with 81 mg aspirin and 75 mg clopidogrel daily. We will hold on anticoagulation for now as there is a high risk of hemorrhagic transformation with this rather large size stroke 2. Await echocardiogram 3. Control blood pressure as you are doing. 4. Recommend keeping rosuvastatin 5 mg daily 5. Consider repeat CT scan of the head later today to see if there is evidence of post stroke edema. This can be held if the patient wakes up and is more alert. 6. Physical, occupational, and speech therapy consults. Overall, I spent a total of 90 minutes with this case including review of records, review of CT and MRI films, direct evaluation the patient at bedside, report generation, and discussion of the case with the patient and RN at bedside, and Dr. Maldonado including differential diagnosis and treatment options. History of Present Illness Reason for Consultation: Patient is an 87-year-old, who I was asked to see at the request of Nilson Wolff PA-C, for neurologic evaluation regarding stroke Requesting Physician: Nilson Wolff PA-C Attending Physician: Chapo Menendez MD History of Present Illness This patient has a history of hypothyroidism, breast cancer in the past, and atrioventricular agapito reentrant tachycardia. History suggests some underlying dementia but I have no further details of this. In November of 2022 she had an acute left middle cerebral artery territory ischemic stroke (versus embolic). Atrial fibrillation was suspected but there was no evidence on monitoring. Had aphasia and right hemiparesis. She was improved prior to discharge on 81 mg aspirin and 40 mg Lipitor. There was some expressive aphasia at discharge. CT angiography of the head and neck were unremarkable, although there was some mention of a fusiform dilatation in the l eft internal carotid artery. The MRI of the brain showed a large acute middle cerebral artery infarct anteriorly. Over time she improved. The patient had atrial fibrillation noted on outpatient Holter monitoring and was started on Eliquis. Due to cost, however, she was switched to Xarelto but apparently has not initiated this. She is been off anticoagulant for several months. On April 25, around 06/13/1999, she was felt to be well and she went to bed. Upon waking, she was found to have speech deficits and significant left- sided weakness. In addition, she seemed not be seeing well off to the left She arrived to the emergency room April 26 at 8:57 a.m. with a temperature of 36.5, pulse 85 and irregular, respiratory rate 18, and blood pressure 141/93. O2 saturation was 97%. She was found to be in atrial fibrillation and has been in a rate controlled atrial fibrillation since admission. She has left face and arm greater than leg weakness. CT scan of the head showed no acute changes. CT angiography of the head neck were largely unremarkable, except for a probable right M2 occlusion . No fusiform dilatation was noted in the carotid arteries. MRI of the brain showed a fairly large right middle cerebral artery M2 distribution stroke including basal ganglia, caudate, and internal capsule. The old left frontal and medial temporal infarcts were seen as. I reviewed these films. CBC showed some anemia and Chem profile showed a glucose of 189, elevated troponins, and elevated lactate. Urinalysis was unremarkable. This morning she tells me that she is not in pain and has no dizziness or numbness. She feels she is seeing okay and though she has some weakness. Blood pressure is 138/80 and she remains afebrile. She is in AFib in the 80s. Repeat CBC and Chem profile were largely unremarkable. Total cholesterol was 161 and triglycerides 60. Hemoglobin A1c is pending. Troponins are still elevated. Allergies Allergy/AdvReac Type Severity Reaction Status Date / Time Bactrim Allergy Mild HIVES Verified 04/13/17 08:00 latex Allergy Mild RASH ITCHY Verified 07/25/22 10:52 sulfamethoxazole Allergy Mild HIVES Verified 07/25/22 10:52 trimethoprim Allergy Mild HIVES Verified 07/25/22 10:52 Home Medications Medication Instructions Recorded Confirmed Type anastrozole 1 mg tablet 1 mg PO DAILY 08/08/18 04/26/23 History levothyroxine 75 mcg tablet 75 mcg PO DAILY 08/08/18 04/26/23 History ondansetron 4 mg disintegrating 4 mg PO Q6H PRN nausea and 11/26/22 04/26/23 Rx tablet vomiting #20 tabs Xarelto 15 mg PO PM 04/26/23 04/26/23 History metoprolol succinate 25 mg 12.5 mg PO DAILY 04/26/23 04/26/23 History tablet,extended release 24 hr rosuvastatin 5 mg PO DAILY 04/26/23 04/26/23 History Patient History Medical History Atrial fibrillation Hypothyroidism Acid reflux Cholecystectomy planned Surgical History History of cataract surgery History of cholecystectomy History of lumpectomy History of hernia repair History of tonsillectomy and adenoidectomy Family History Father Hearing loss Stroke Grandmother Stroke Sister Cancer Grandfather Cancer Mother Asthma Other Heart disease No family history of adverse response to anesthesia No family history of bleeding disorder Social History (Updated 04/27/23 @ 07:38 by Froy Richard MD) Smoking Status: Never smoker Hx Alcohol Use: No Hx Substance Use: No Preferred Language: [place] Communication Ability: Impaired Communication Ability Comment: pt unable to provide verbal history, unable to reach primary contact for hx Beliefs That Will Affect Care: Spiritual Current Living Situation: Spouse Current Living Situation Comment: pt took care of spouse prior to admission in their home current occupational status: retired 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 She is arousable with voice and will tell me that she has no pain, dizziness, vision issues or tingling, but will quickly fall back to sleep when not being asked questions. Exam (Neuro) Physical Exam: The patient is right-handed. The patient is sleepy but aroused fairly easily with voice. She gives short answers but knew her name, her age, the name of the place she was in and where, as well as the fact that today is Thanksgiving. Her mood is normal her affect is appropriate. When not being asked questions she falls back to sleep. She follows one-step commands fairly well although they are sometimes can be delays. Pupils are 3 mm bilaterally and reactive to light. Extraocular eye muscles are intact without nystagmus, however, she does not tend to turn her eyes or head to the left and prefers right gaze. Although it is difficult to be certain she may have a homonymous hemianopsia on the left. There are no deficits to sensation in the face in all 3 distributions of the fifth cranial nerve bilaterally. Corneal reflexes are positive bilaterally. There is an obvious dense facial droop on the left. Hearing seems normal bilaterally. Palate moves well without asymmetry. There is normal sternocleidomastoid and trapezius (shoulder shrug) strength bilaterally. Tongue is midline with good strength bilaterally. Neck has a full range of motion without discomfort. There are no cervical bruits bilaterally. There are no cranial or ocular bruits. Heart is without murmur. There is a regular rhythm and rate. Cervical spine was nontender to palpation. Gait and stance could not be tested. With outstretched arm on the right there was no obvious drift. She could not lift the left upper extremity off the bed. There are no resting, postural, or action tremors. There is no ataxia with finger to nose testing on the right. There is reasonable facility in the right hand. No other abnormal involuntary movements are noted. Motor strength is 5/5 diffusely in the right upper extremity including deltoids, biceps, triceps, brachioradialis, wrist flexors and extensors, electronic die maker, and intrinsic hand muscles. Left upper extremity strength was 0/5 proximally and distally. Motor strength is 4/5 proximally in the right lower extremity, including hip flexors, quadriceps, and hamstrings. The gastrocnemius and tibialis anterior muscles were closer to 5/5. The left lower extremity strength was 2/5 in the hip flexors, quadriceps, and hamstring muscles and for/5 in the gastrocnemius and tibialis anterior muscles. There is decreased tone in the left upper extremity. Sensory examination seems intact to all 4 limbs to light pain and touch although this is somewhat difficult to be certain given her sleepiness. Reflexes are 2/4 in the biceps, triceps, brachioradialis tendons bilaterally. The right quadriceps tendon was 2/4 and the left was 1/4. Achilles tendon reflexes are absent bilaterally. There is no clonus bilaterally. Toes are downgoing with plantar stimulation on the right and upgoing on the left. Peripheral pulses are present and of normal quality distally in all 4 limbs. Results & Data Vital Signs (Past 12 Hours) Vital Signs Temp Pulse Pulse Pulse Resp BP BP 04/27/23 05:19 83 138/80 04/27/23 05:04 86 153/89 H 04/27/23 05:03 86 153/89 H 04/27/23 02:39 36.9 C 69 18 153/91 H 04/26/23 23:29 04/26/23 23:04 94 H 04/26/23 23:03 73 132/76 04/26/23 22:48 90 155/93 H 04/26/23 22:17 37 C 90 18 155/93 H 04/26/23 21:00 93 H 18 151/94 H Pulse Ox O2 Del Method 04/27/23 05:19 04/27/23 05:04 04/27/23 05:03 04/27/23 02:39 97 Room Air 04/26/23 23:29 Room Air 04/26/23 23:04 04/26/23 23:03 04/26/23 22:48 04/26/23 22:17 97 Room Air 04/26/23 21:00 97 Room Air PG Care Time/CCT Total # of Minutes Spent Total Time Spent with Patient: Total time spent is greater than 50% in coordination of care (as documented) at patient's floor/unit and/or counseling patient: Coding Level of Care Code 55142 INT INP/OBS CARE 3/75MIN Diagnoses Acute CVA (cerebrovascular accident) I63.9 Acute left hemiparesis G81.94 Left homonymous hemianopsia due to recent cerebral infarction I69.398; H53.462 Atrial fibrillation I48.91 H/O ischemic left MCA stroke Z86.73 Time Spent (min) 90
[2023-04-27 08:23] LABS: Estimated Average Glucose 123 mg/dl; Hemoglobin A1C 5.9 % (4.5-5.6)
[2023-04-27] MEDS ORDERED: CLOPIDOGREL BISULFATE 75 MG TAB PO SCH (09:00)
--- NOTE | 2023-04-27 11:22 | CT Scan Report ---
CT head/brain wo con CLINICAL HISTORY: CVA, new lethargy ?edema/hemm xformation Technique: Contiguous axial CT images of the head were acquired from the base of the skull to the carlos cristiano without intravenous contrast administration. Images were viewed in brain, subdural and bone windo ws. Automated dose lowering techniques and/or adjustment according to patient size were utilized for this exam. Comparison: Comparison is made to MRI brain 04/26/[address] head 04/26/2023 Findings: Hypodensity is seen in the right caudate head and internal capsule without evidence of hemorrhage. No significant midline shift or mass effect is seen. Imaged portions of the paranasal sinuses and mastoid air cells are clear. The orbits appear normal. There are no acute fractures of the calvaria or scalp swelling. Impression: Hypodensity in the right caudate head and internal capsule, comparable to prior MRI, without evidence of hemorrhagic transformation. No significant mass effect or midline shift. ACT 112: Negative or not required by law. Electronically signed by: Sudarshan Juarez M.D. 04/27/2023 11:21 AM
[2023-04-27] MEDS: ASPIRIN 81 MG ECTAB PO SCH (12:00)
[2023-04-27] MEDS: ACETAMINOPHEN 1,000 MG/100 ML VIAL IV PRN (12:15)
--- NOTE | 2023-04-27 12:39 | XCELERA ---
[id number]
[2023-04-27 14:45] LABS: Influenza A virus by PCR Negative (Neg); Influenza B virus by PCR Negative (Neg); RSV by PCR Negative (Neg); SARS CoV2 RNA(COVID-19) Ceph NEGATIVE (Negative)
[2023-04-27] MEDS: CLOPIDOGREL BISULFATE 75 MG TAB PO SCH (14:58)
--- NOTE | 2023-04-27 15:00 | Pharmacy Report ---
- Date of Service April 27, 2023 - Pharmacy CVA/TIA Medication Review Medications to Prevent Stroke handout has been added to the patients discharge packet. Antiplatelet(s) * Aspiring 81mg + Plavix 75mg PO Daily Cholesterol * High intensity statin deferred due to age >75, hospitalist decision. Statin = Rosuvastatin 10mg PO Daily DVT Prophylaxis * SCD knee Therapeutic Anticoagulation * PMH of Afib * hold on anticoagulation for now as there is a high risk of hemorrhagic transformation with this rather large size stroke Type 2 Diabetes * Patient does not have T2DM
[2023-04-27] MEDS: ROSUVASTATIN CALCIUM 10 MG TAB PO SCH (16:18)
--- NOTE | 2023-04-27 16:25 | Hospitalist Progress Note ---
Date of Service April 27, 2023 Assessment & Plan (1) Acute CVA (cerebrovascular accident): Plan: right basal ganglia large very lethargic today thus repeat head CT obtained --> no hemorrhagic transformation, no increased swelling or midline shift lethargy may wax/wane for several days due to the sheer size of this CVA appreciate neuro consult plan - asa/plavix for secondary prevention for now; ultimately will need DOAC for a.fib crestor - increase to 10mg/day PT, OT, speech evals supportive care BPs acceptable at this time on IV metoprolol q6h (2) Left acute arterial ischemic stroke, MCA (middle cerebral artery): Plan: Hx of large L MCA ischemic stroke in November 2022 (3) Atrial fibrillation: Plan: following her 11/2022 admission for #2 she was sent home with an event monitor by report this showed PAF?? was to have started Xarelto for anticoagulation but, also by report, apparently never took such she presented yesterday in a.fib the cause of her current stroke very well may have been embolic in etiology due to the large size of current stroke plan to hold off on systemic anticoagulation at this time to avoid hemorrhagic transformation (4) History of breast cancer: Plan: S/p lumpectomy 8 years ago Hold anastrozole for now (5) Hypothyroidism: Plan: Resume levothyroxine TSH 11/2022 wnl (6) Elevated troponin: Plan: Troponin 81.8 --> 103.5, then trended down 2nd myocardial demand ischemia in setting of acute CVA (7) Acute metabolic encephalopathy: Plan: 2nd acute CVA can't rule out a brewing infectious process also contributing given the low- grade fever today repeat head CT today w/o hemorrhagic transformation or midline shift (8) Low grade fever: Plan: Tm 37.6 COVID/flu/RSV swab negative obtain pCXR - r/o developing pneumonia u/a at admission was negative (9) DVT prophylaxis: Plan: if stable overnight consider low-dose heparin 5000 SC BID Plan updated pt's daughter by phone this evening care d/w Dr Richard - neurology Admission and Anticipated Discharge Date Admission Date: April 26, 2023 Subjective patient with eyes closed the entire visit when I asked her to open her eyes she only did so for 1-2 seconds she did squeeze her right hand upon request she did not vocalize any needs during the visit staff report that she DID eat at lunch-time there had been some pocketing this morning noted by staff low-grade temp this afternoon -- COVID/flu/RSV swab negative during the visit, if asked if having any pain, shook her head no Review of Systems Review of Systems: Unobtainable due to cognitive status Physical Exam Physical Exam: gen - lethargic, but NAD eyes - PERRL face - left sided droop mouth - MMM neck - no JVD heart - irregularly irregular, s1 s2, no murmur lungs - CTA b/l abd - soft NT ND BS+ ext - no edema, pulses 2+ b/l neuro - strength LUE and LLE <1/5 all muscle groups (basically a muscle twitch seen in the arm/leg on left); strength 5/5 RUE/RLE; unable to assess speech; L facial droop skin - no rash Results & Data Results & Data Vital Signs (Past 12 Hours) Vital Signs Temp Pulse Pulse Resp BP BP Pulse Ox 04/27/23 15:25 36.7 C 81 16 151/87 H 96 04/27/23 13:05 82 156/78 H 04/27/23 12:00 92 H 156/78 H 04/27/23 11:49 37.6 C H 90 16 156/78 H 96 04/27/23 08:00 04/27/23 07:35 37.3 C 93 H 16 157/94 H 96 04/27/23 05:19 83 138/80 04/27/23 05:04 86 153/89 H 04/27/23 05:03 86 153/89 H O2 Del Method 04/27/23 15:25 Room Air 04/27/23 13:05 04/27/23 12:00 04/27/23 11:49 Room Air 04/27/23 08:00 Room Air 04/27/23 07:35 Room Air 04/27/23 05:19 04/27/23 05:04 04/27/23 05:03 Laboratory Results Laboratory Results - last 24 hr 04/27/23 04/27/23 04/27/23 03:34 08:59 14:05 WBC 8.93 RBC 4.29 Hgb 13.2 Hct 36.4 L MCV 84.8 MCH 30.8 MCHC 36.3 H D RDW Std Deviation 48.1 H RDW Coeff of Darío 18.6 H Plt Count 160 MPV 10.7 Immature Gran % (Auto) 0.2 Neut % (Auto) 84.0 Lymph % (Auto) 12.5 [place] % (Auto) 3.2 Eos % (Auto) 0.0 Baso % (Auto) 0.1 Neut # (Auto) 7.49 H Lymph # (Auto) 1.12 L [place] # (Auto) 0.29 Eos # (Auto) 0.00 Baso # (Auto) 0.01 Immature Gran # (Auto) 0.02 PT 11.1 INR 1.0 Sodium 141 Potassium 4.0 Chloride 109 H Carbon Dioxide 24 Anion Gap 8 BUN 28 H Creatinine 0.85 Est Cr Clr Drug Dosing 46.9 Est GFR ( Amer) 71.9 Est GFR (Non-Af Amer) 62.0 BUN/Creatinine Ratio 32.9 H Glucose 111 H Estimat Average Glucose 123 Hemoglobin A1c 5.9 H Calcium 9.0 Magnesium 2.2 Troponin I High Sens 102.2 H* 87.7 H* D Triglycerides 60 Cholesterol 161 LDL Cholesterol, Calc 92 VLDL Cholesterol, Calc 12 HDL Cholesterol 57 Cholesterol/HDL Ratio 2.8 SARS-CoV-2 (PCR) NEGATIVE Influenza Type A (PCR) Negative Influenza Type B (PCR) Negative RSV (RT-PCR) Negative Diagnostic Findings MRI brain - IMPRESSION: 1. Large acute to subacute infarct centered in the right basal ganglia/caudate head/internal capsule as above. 2. There is no hemorrhage or mass effect. 3. No additional foci of acute ischemia are identified. PG Care Time/CCT Total # of Minutes Spent Total Time Spent with Patient: Total time spent is greater than 50% in coordination of care (as documented) at patient's floor/unit and/or counseling patient: Coding Level of Care Code 09795 SUB INP/OBS CARE 3/50MIN Diagnoses Acute CVA (cerebrovascular accident) I63.9 Left acute arterial ischemic stroke, MCA (middle cerebral artery) I63.512 Atrial fibrillation I48.91 History of breast cancer Z85.3 Hypothyroidism E03.9 Elevated troponin R79.89 Acute metabolic encephalopathy G93.41 Low grade fever R50.9 DVT prophylaxis Z29.9
--- NOTE | 2023-04-27 17:51 | XRay Report ---
XR chest 1V portable CLINICAL HISTORY: stroke, fever, eval aspiration pneumonia TECHNIQUE: Single frontal radiograph of the chest was obtained. Comparison: Comparison is made to chest radiograph 11/23/2022 FINDINGS: No lines and tubes are seen. Cardiomegaly is noted. The aortic arch is calcified. The lungs are clear . No evidence of pleural effusion or pneumothorax. IMPRESSION: No evidence of aspiration pneumonia. Cardiomegaly is noted. ACT 112: Negative or not required by law. Electronically signed by: Sudarshan Juarez M.D. 04/27/2023 5:50 PM
[2023-04-27] MEDS: DICLOFENAC SOD 1% GEL 100 GM TUBE EXT SCH (21:57)
[2023-04-28] MEDS: ACETAMINOPHEN 1,000 MG/100 ML VIAL IV PRN (03:32)
[2023-04-28] MEDS: LEVOTHYROXINE SODIUM 75 MCG TABLET PO SCH (05:31)
[2023-04-28] MEDS: METOPROLOL TARTRATE 1 MG/ML VIAL IV SCH ×3 (05:38→18:02)
[2023-04-28 07:02] LABS: Basophils # (auto) 0.01 K/uL (0.00-0.20); Basophils % (auto) 0.1 %; Eosinophils # (auto) 0.03 K/uL (0.00-0.50); Eosinophils % (auto) 0.3 %; Hematocrit (blood only) 36.9 % (37.0-47.0); Hemoglobin 12.3 g/dl (12.0-16.0); Immature Granulocytes # (auto) 0.03 K/uL (0.01-0.20); Immature Granulocytes % (auto) 0.3 %; Lymphocytes # (auto) 0.88 K/uL (1.20-3.40); Lymphocytes % (auto) 9.9 %; Mean Corpuscular Hemoglobin 27.6 pg (25.0-34.0); Mean Corpuscular Hgb Conc 33.3 g/dL (32.0-36.0); Mean Corpuscular Volume 82.9 fL (80.0-100.0); Mean Platelet Volume 10.7 fL (9.4-12.4); Monocytes # (auto) 0.44 K/uL (0.11-0.59); Neutrophils # (auto) 7.49 K/uL (1.40-6.50); Neutrophils % (auto) 84.4 %; Platelet Count 141 K/uL (130-400); RDW Coefficient of Variation 16.2 % (11.5-14.5); RDW Standard Deviation 48.3 fL (36.4-46.3); Red Blood Count 4.45 M/uL (4.20-5.40); White Blood Count 8.88 K/ul (4.8-10.8)
[2023-04-28 07:27] LABS: BUN Creatinine Ratio 33.8 (10-20); Calcium 8.2 mg/dl (8.6-10.3); Creatinine Clr Calc Pharmacy 53.2 ml/min; Est GFR (Non-African American) 73.4 ml/min; Potassium 3.4 mmol/L (3.5-5.1)
[2023-04-28] MEDS: ASPIRIN 81 MG ECTAB PO SCH (07:45)
[2023-04-28] MEDS: CLOPIDOGREL BISULFATE 75 MG TAB PO SCH (07:45)
[2023-04-28] MEDS: ROSUVASTATIN CALCIUM 10 MG TAB PO SCH (07:45)
[2023-04-28] MEDS: DICLOFENAC SOD 1% GEL 100 GM TUBE EXT SCH ×4 (07:58→20:51)
[2023-04-28] MEDS: POTASSIUM CHLORIDE 20 MEQ/15 ML UDC PO SCH ×2 (10:40→20:51)
[2023-04-28] MEDS: amLODIPine BESYLATE 5 MG TAB PO SCH (10:40)
--- NOTE | 2023-04-28 19:10 | Hospitalist Progress Note ---
Date of Service April 28, 2023 Assessment & Plan (1) Acute CVA (cerebrovascular accident): Plan: right basal ganglia large repeat head CT 04/27 without hemorrhagic transformation, increased swelling or midline shift more awake/alert today but still remains w/ dense L sided hemiplegia appreciate neuro consult plan - cont asa/plavix for secondary prevention for now; ultimately will need DOAC for a.fib crestor 10mg/day PT, OT, speech evals apprecaited supportive care BPs acceptable at this time (2) Left acute arterial ischemic stroke, MCA (middle cerebral artery): Plan: Hx of large L MCA ischemic stroke in November 2022 (3) Atrial fibrillation: Plan: following her 11/2022 admission for #2 she was sent home with an event monitor by report this showed PAF?? was to have started Xarelto for anticoagulation but, also by report, apparently never took such she presented this hospital stay in a.fib the cause of her current stroke very well may have been embolic in etiology due to the large size of current stroke plan to hold off on systemic anticoagulation at this time to avoid hemorrhagic transformation cont metoprolol IV -- switch to PO tomorrow (4) History of breast cancer: Plan: S/p lumpectomy 8 years ago Hold anastrozole for now (5) Hypothyroidism: Plan: Resume levothyroxine TSH 11/2022 wnl (6) Elevated troponin: Plan: Troponin 81.8 --> 103.5, then trended down 2nd myocardial demand ischemia in setting of acute CVA (7) Acute metabolic encephalopathy: Plan: 2nd acute CVA improved today (8) Low grade fever: Plan: Tm 37.6 COVID/flu/RSV swab negative obtained pCXR - no pneumonia seen u/a at admission was negative follow temps reactive to acute CVA?? (9) DVT prophylaxis: Plan: if stable overnight consider low-dose heparin 5000 SC BID Plan updated pt's daughter by phone yesterday evening care d/w Dr Richard - neurology Admission and Anticipated Discharge Date Admission Date: April 26, 2023 Subjective patient was eating her meal upon my arrival was being fed by a staff member had no overt dysphagia/aspiration with either liquids or solids she was able to answer all my questions today denied pain in any location no improvement in her dense hemiplegia on left has significant left sided neglect -- was looking rightward the entire stay tele - a.fib, rates 90s/100s at rest Review of Systems Review of Systems: neuro - denies headache cv - denies chest pain pulm - no dyspnea or cough GI - no abd pain Physical Exam Physical Exam: gen - more awake, alert today; answering questions face - left sided droop mouth - MMM neck - no JVD heart - irregularly irregular, s1 s2, no murmur lungs - CTA b/l abd - soft NT ND BS+ ext - no edema, pulses 2+ b/l neuro - strength LUE and LLE 0/5 all muscle groups; strength 5/5 RUE/RLE; speech is clear; no dysarthria or aphasia; L facial droop Results & Data Results & Data Vital Signs (Past 12 Hours) Vital Signs Temp Pulse Pulse Resp BP BP Pulse Ox 04/28/23 18:22 80 134/76 04/28/23 18:02 84 147/80 H 04/28/23 15:36 92 H 04/28/23 14:58 36.8 C 86 16 150/98 H 94 04/28/23 13:20 81 148/90 H 04/28/23 12:57 90 04/28/23 11:25 36.7 C 94 H 16 153/91 H 95 04/28/23 07:53 37.0 C 85 16 172/82 H 96 O2 Del Method 04/28/23 18:22 04/28/23 18:02 04/28/23 15:36 04/28/23 14:58 Room Air 04/28/23 13:20 04/28/23 12:57 04/28/23 11:25 Room Air 04/28/23 07:53 Room Air Laboratory Results Laboratory Results - last 24 hr 04/28/23 06:38 WBC 8.88 RBC 4.45 Hgb 12.3 Hct 36.9 L MCV 82.9 MCH 27.6 MCHC 33.3 RDW Std Deviation 48.3 H RDW Coeff of Darío 16.2 H Plt Count 141 MPV 10.7 Immature Gran % (Auto) 0.3 Neut % (Auto) 84.4 Lymph % (Auto) 9.9 [place] % (Auto) 5.0 Eos % (Auto) 0.3 Baso % (Auto) 0.1 Neut # (Auto) 7.49 H Lymph # (Auto) 0.88 L [place] # (Auto) 0.44 Eos # (Auto) 0.03 Baso # (Auto) 0.01 Immature Gran # (Auto) 0.03 Sodium 141 Potassium 3.4 L Chloride 109 H Carbon Dioxide 26 Anion Gap 6 BUN 25 H Creatinine 0.74 Est Cr Clr Drug Dosing 53.2 Est GFR ( Amer) 85.0 Est GFR (Non-Af Amer) 73.4 BUN/Creatinine Ratio 33.8 H Glucose 105 H Calcium 8.2 L PG Care Time/CCT Total # of Minutes Spent Total Time Spent with Patient: Total time spent is greater than 50% in coordination of care (as documented) at patient's floor/unit and/or counseling patient: Coding Level of Care Code 77882 SUB INP/OBS CARE 2/35MIN Diagnoses Acute CVA (cerebrovascular accident) I63.9 Left acute arterial ischemic stroke, MCA (middle cerebral artery) I63.512 Atrial fibrillation I48.91 History of breast cancer Z85.3 Hypothyroidism E03.9 Elevated troponin R79.89 Acute metabolic encephalopathy G93.41 Low grade fever R50.9 DVT prophylaxis Z29.9
[2023-04-29] MEDS: METOPROLOL TARTRATE 1 MG/ML VIAL IV SCH ×2 (00:32→05:26)
[2023-04-29] MEDS: LEVOTHYROXINE SODIUM 75 MCG TABLET PO SCH (05:54)
[2023-04-29 07:38] LABS: Basophils # (auto) 0.01 K/uL (0.00-0.20); Basophils % (auto) 0.1 %; Eosinophils # (auto) 0.05 K/uL (0.00-0.50); Eosinophils % (auto) 0.6 %; Hematocrit (blood only) 38.7 % (37.0-47.0); Hemoglobin 13.5 g/dl (12.0-16.0); Immature Granulocytes # (auto) 0.03 K/uL (0.01-0.20); Immature Granulocytes % (auto) 0.3 %; Lymphocytes # (auto) 1.27 K/uL (1.20-3.40); Lymphocytes % (auto) 14.1 %; Mean Corpuscular Hemoglobin 28.9 pg (25.0-34.0); Mean Corpuscular Hgb Conc 34.9 g/dL (32.0-36.0); Mean Corpuscular Volume 82.9 fL (80.0-100.0); Monocytes # (auto) 0.49 K/uL (0.11-0.59); Monocytes % (auto) 5.4 %; Neutrophils # (auto) 7.18 K/uL (1.40-6.50); Neutrophils % (auto) 79.5 %; Platelet Count 166 K/uL (130-400); RDW Coefficient of Variation 17.6 % (11.5-14.5); Red Blood Count 4.67 M/uL (4.20-5.40); White Blood Count 9.03 K/ul (4.8-10.8)
[2023-04-29 07:54] LABS: BUN Creatinine Ratio 34.7 (10-20); Calcium 8.7 mg/dl (8.6-10.3); Creatinine Clr Calc Pharmacy 50.5 ml/min; Est GFR (African American) 87.9 ml/min; Est GFR (Non-African American) 75.8 ml/min; Potassium 3.9 mmol/L (3.5-5.1)
--- NOTE | 2023-04-29 07:59 | Electrocardiogram Report ---
Test Reason : Blood Pressure : / mmHG Vent. Rate : 105 BPM Atrial Rate : 000 BPM P-R Int : 000 ms QRS Dur : 084 ms QT Int : 308 ms P-R-T Axes : 000 080 -32 degrees QTc Int : 407 ms Poor data quality, interpretation may be adversely affected Atrial fibrillation with rapid ventricular response Peaked T waves(consider ischemia,hyperkalemia,etc.) Abnormal ECG When compared with ECG of 23-NOV-2022 19:48, Atrial fibrillation has replaced Sinus rhythm Vent. rate has increased BY 36 BPM Confirmed by Buck Oleary ([id number] on 04/29/2023 7:59:20 AM Referred By: REFERRED SELF Confirmed By:Buck Oleary
[2023-04-29] MEDS: CLOPIDOGREL BISULFATE 75 MG TAB PO SCH (08:14)
[2023-04-29] MEDS: POTASSIUM CHLORIDE 20 MEQ/15 ML UDC PO SCH (08:14)
[2023-04-29] MEDS: ASPIRIN 81 MG ECTAB PO SCH (08:14)
[2023-04-29] MEDS: ROSUVASTATIN CALCIUM 10 MG TAB PO SCH (08:14)
[2023-04-29] MEDS: DICLOFENAC SOD 1% GEL 100 GM TUBE EXT SCH ×4 (08:15→19:59)
[2023-04-29] MEDS: amLODIPine BESYLATE 5 MG TAB PO SCH (08:15)
[2023-04-29] MEDS ORDERED: METOPROLOL TARTRATE 50 MG TAB PO STA (09:21)
[2023-04-29] MEDS: POLYETHYLENE (MIRALAX) 17 GM PACK PO SCH (10:28)
[2023-04-29] MEDS: SENNA 8.6 MG TAB PO SCH (10:28)
--- NOTE | 2023-04-29 19:50 | Hospitalist Progress Note ---
Date of Service April 29, 2023 Assessment & Plan (1) Acute CVA (cerebrovascular accident): Plan: right basal ganglia large repeat head CT 04/27 without hemorrhagic transformation, increased swelling or midline shift episodes of being very sleepy, but then she has episodes of being more awake/alert and able to eat/drink/etc remains w/ dense L sided hemiplegia appreciate neuro consult plan - cont asa/plavix for secondary prevention for now; ultimately will need DOAC for a.fib crestor 10mg/day PT, OT, speech evals appreciated will need rehab cont supportive care BPs acceptable at this time (2) Left acute arterial ischemic stroke, MCA (middle cerebral artery): Plan: Hx of large L MCA ischemic stroke in November 2022 (3) Atrial fibrillation: Plan: following her 11/2022 admission for #2 she was sent home with an event monitor by report this showed PAF?? was to have started Xarelto for anticoagulation but, also by report, apparently never took such she presented this hospital stay in a.fib the cause of her current stroke very well may have been embolic in etiology due to the large size of current stroke plan to hold off on systemic anticoagulation at this time to avoid hemorrhagic transformation cont metoprolol but stop IV and change to PO metoprolol 50mg BID (4) History of breast cancer: Plan: S/p lumpectomy 8 years ago Hold anastrozole for now (5) Hypothyroidism: Plan: Cont levothyroxine TSH 11/2022 wnl (6) Elevated troponin: Plan: Troponin 81.8 --> 103.5, then trended down 2nd myocardial demand ischemia in setting of acute CVA (7) Acute metabolic encephalopathy: Plan: 2nd acute CVA resolved (8) Low grade fever: Plan: Tm 37.6 COVID/flu/RSV swab negative obtained pCXR - no pneumonia seen u/a at admission was negative follow temps - no recurrent fevers since the isolated one a few days ago reactive to acute CVA?? (9) DVT prophylaxis: Plan: if stable overnight consider low-dose heparin 5000 SC BID on 04/30/23 Plan updated pt's daughter by phone this evening Admission and Anticipated Discharge Date Admission Date: April 26, 2023 Subjective a.fib rates overnight low 100s on IV lopressor low-dose during the visit she was resting with her eyes closed she opened her eyes when I called her name answered most questions had some low back pain earlier in the day - now resolved denies headache, pain in arms/legs, chest pain, dyspnea, abd pain per staff eating fair-good no new complaints or issues Review of Systems Review of Systems: cv - no orthopnea pulm - no dyspnea or cough GI - no N/V Physical Exam Physical Exam: gen - resting in bed, left-sided neglect, voice is low but I can understand her speech face - left sided droop mouth - MMM neck - no JVD heart - irregularly irregular, s1 s2, no murmur; rate <100 lungs - CTA b/l abd - soft NT ND BS+ ext - no edema of feet/ankles, pulses 2+ b/l neuro - strength LUE and LLE 0/5 all muscle groups - no change ; strength 5/5 RUE/RLE; speech is clear; no dysarthria or aphasia; L facial droop psych - sleepy Results & Data Results & Data Vital Signs (Past 12 Hours) Vital Signs Temp Pulse Resp BP Pulse Ox Pulse Ox O2 Del Method 04/29/23 19:34 36.4 C L 96 H 17 145/89 H 96 Room Air 04/29/23 16:31 36.7 C 84 18 138/84 95 Room Air 04/29/23 14:00 97 04/29/23 11:20 36.8 C 88 18 124/79 96 Room Air 04/29/23 08:00 Room Air 04/29/23 07:51 37.2 C 109 H 18 147/76 H 97 Room Air O2 Del Method 04/29/23 19:34 04/29/23 16:31 04/29/23 14:00 Room Air 04/29/23 11:20 04/29/23 08:00 04/29/23 07:51 Laboratory Results Laboratory Results - last 24 hr 04/29/23 07:07 WBC 9.03 RBC 4.67 Hgb 13.5 Hct 38.7 MCV 82.9 MCH 28.9 MCHC 34.9 RDW Std Deviation 48.0 H RDW Coeff of Darío 17.6 H Plt Count 166 MPV 11.0 Immature Gran % (Auto) 0.3 Neut % (Auto) 79.5 Lymph % (Auto) 14.1 [place] % (Auto) 5.4 Eos % (Auto) 0.6 Baso % (Auto) 0.1 Neut # (Auto) 7.18 H Lymph # (Auto) 1.27 [place] # (Auto) 0.49 Eos # (Auto) 0.05 Baso # (Auto) 0.01 Immature Gran # (Auto) 0.03 Sodium 141 Potassium 3.9 Chloride 108 H Carbon Dioxide 27 Anion Gap 6 BUN 25 H Creatinine 0.72 Est Cr Clr Drug Dosing 50.5 Est GFR ( Amer) 87.9 Est GFR (Non-Af Amer) 75.8 BUN/Creatinine Ratio 34.7 H Glucose 125 H Calcium 8.7 PG Care Time/CCT Total # of Minutes Spent Total Time Spent with Patient: Total time spent is greater than 50% in coordination of care (as documented) at patient's floor/unit and/or counseling patient: Coding Level of Care Code 95054 SUB INP/OBS CARE 2/35MIN Diagnoses Acute CVA (cerebrovascular accident) I63.9 Left acute arterial ischemic stroke, MCA (middle cerebral artery) I63.512 Atrial fibrillation I48.91 History of breast cancer Z85.3 Hypothyroidism E03.9 Elevated troponin R79.89 Acute metabolic encephalopathy G93.41 Low grade fever R50.9 DVT prophylaxis Z29.9
[2023-04-29] MEDS: METOPROLOL TARTRATE 50 MG TAB PO SCH (20:00)
[2023-04-30] MEDS ORDERED: ACETAMINOPHEN 1,000 MG/100 ML VIAL IV PRN (00:31)
[2023-04-30] MEDS: LEVOTHYROXINE SODIUM 75 MCG TABLET PO SCH (06:18)
[2023-04-30] MEDS: SENNA 8.6 MG TAB PO SCH (08:42)
[2023-04-30] MEDS: ASPIRIN 81 MG ECTAB PO SCH (08:42)
[2023-04-30] MEDS: amLODIPine BESYLATE 5 MG TAB PO SCH (08:42)
[2023-04-30] MEDS: CLOPIDOGREL BISULFATE 75 MG TAB PO SCH (08:42)
[2023-04-30] MEDS: POLYETHYLENE (MIRALAX) 17 GM PACK PO SCH (08:42)
[2023-04-30] MEDS: ROSUVASTATIN CALCIUM 10 MG TAB PO SCH (08:42)
[2023-04-30] MEDS: METOPROLOL TARTRATE 50 MG TAB PO SCH (08:42)
[2023-04-30] MEDS: DICLOFENAC SOD 1% GEL 100 GM TUBE EXT SCH ×4 (08:42→19:36)
--- NOTE | 2023-04-30 20:19 | Hospitalist Progress Note ---
Date of Service April 30, 2023 Assessment & Plan (1) Acute CVA (cerebrovascular accident): Plan: right basal ganglia large repeat head CT 04/27 without hemorrhagic transformation, increased swelling or midline shift episodes of being very sleepy, but then she has episodes of being more awake/alert and able to eat/drink/etc remains w/ dense L sided hemiplegia appreciate neuro consult plan - cont asa/plavix for secondary prevention for now; ultimately will need DOAC for a.fib - deferring for now due to heightened risk of hemorrhagic transformation cont crestor 10mg/day PT, OT, speech evals appreciated will need rehab at [facility] post-d/c cont supportive care BPs acceptable at this time (2) Left acute arterial ischemic stroke, MCA (middle cerebral artery): Plan: Hx of large L MCA ischemic stroke in November 2022 (3) Atrial fibrillation: Plan: following her 11/2022 admission for #2 she was sent home with an event monitor by report this showed PAF?? was to have started Xarelto for anticoagulation but, also by report, apparently never took such she presented this hospital stay in a.fib the cause of her current stroke very well may have been embolic in etiology due to the large size of current stroke plan to hold off on systemic anticoagulation at this time to avoid hemorrhagic transformation cont metoprolol but increase to 75mg BID (4) History of breast cancer: Plan: S/p lumpectomy 8 years ago Hold anastrozole for now (5) Hypothyroidism: Plan: Cont levothyroxine TSH 11/2022 wnl (6) Elevated troponin: Plan: Troponin 81.8 --> 103.5, then trended down 2nd myocardial demand ischemia in setting of acute CVA (7) Acute metabolic encephalopathy: Plan: 2nd acute CVA resolved periods of sleepiness related to her acute CVA should peak at about 5 days post-CVA and gradually improve (unless the stroke involved the reticular activating center) (8) Low grade fever: Plan: Tm 37.6 COVID/flu/RSV swab negative obtained pCXR - no pneumonia seen u/a at admission was negative follow temps - no recurrent fevers since the isolated one a few days ago reactive to acute CVA?? (9) DVT prophylaxis: Plan: needs chemical DVT proph - may need [address] head to ensure no hemorrhagic transformation before starting Plan updated pt's daughter by phone yesterda evening Admission and Anticipated Discharge Date Admission Date: April 26, 2023 Subjective pt very sleepy during the visit would not wake up for me despite calling her name staff report getting up to eat, but periods of significant sleepiness like I saw today tele - a.fib, rates 90s/100s while sleeping Review of Systems Review of Systems: Other (deep sleep/lethargy) Physical Exam Physical Exam: gen - resting in bed, sleeping heavily face - left sided droop mouth - MMM neck - no JVD heart - irregularly irregular, s1 s2, no murmur; tachy lungs - CTA b/l abd - soft NT ND BS+ ext - no edema of feet/ankles, pulses 2+ b/l Results & Data Results & Data Vital Signs (Past 12 Hours) Vital Signs Temp Pulse Pulse Resp BP Pulse Ox Pulse Ox 04/30/23 20:07 37.0 C 95 H 16 121/81 96 04/30/23 16:10 37.6 C H 96 H 18 133/85 95 04/30/23 14:00 97 04/30/23 11:29 36.7 C 100 H 18 138/87 95 04/30/23 09:00 O2 Del Method O2 Del Method 04/30/23 20:07 Room Air 04/30/23 16:10 Room Air 04/30/23 14:00 Room Air 04/30/23 11:29 Room Air 04/30/23 09:00 Room Air PG Care Time/CCT Total # of Minutes Spent Total Time Spent with Patient: Total time spent is greater than 50% in coordination of care (as documented) at patient's floor/unit and/or counseling patient: Coding Level of Care Code 96121 SUB INP/OBS CARE 2/35MIN Diagnoses Acute CVA (cerebrovascular accident) I63.9 Left acute arterial ischemic stroke, MCA (middle cerebral artery) I63.512 Atrial fibrillation I48.91 History of breast cancer Z85.3 Hypothyroidism E03.9 Elevated troponin R79.89 Acute metabolic encephalopathy G93.41 Low grade fever R50.9 DVT prophylaxis Z29.9
[2023-04-30] MEDS: METOPROLOL TARTRATE 25 MG TAB PO SCH (21:43)
[2023-05-01] MEDS: ACETAMINOPHEN 325 MG TAB PO PRN (02:49)
[2023-05-01] MEDS: LEVOTHYROXINE SODIUM 75 MCG TABLET PO SCH (06:18)
[2023-05-01 07:32] LABS: Hematocrit (blood only) 37.4 % (37.0-47.0); Hemoglobin 13.4 g/dl (12.0-16.0); Mean Corpuscular Hemoglobin 30.9 pg (25.0-34.0); Mean Corpuscular Hgb Conc 35.8 g/dL (32.0-36.0); Mean Corpuscular Volume 86.2 fL (80.0-100.0); Mean Platelet Volume 11.5 fL (9.4-12.4); Platelet Count 160 K/uL (130-400); RDW Coefficient of Variation 17.2 % (11.5-14.5); RDW Standard Deviation 48.5 fL (36.4-46.3); Red Blood Count 4.34 M/uL (4.20-5.40); White Blood Count 7.65 K/ul (4.8-10.8)
[2023-05-01 07:59] LABS: BUN Creatinine Ratio 39.5 (10-20); Creatinine Clr Calc Pharmacy 47.8 ml/min; Est GFR (African American) 82.3 ml/min; Potassium 4.2 mmol/L (3.5-5.1)
[2023-05-01] MEDS: amLODIPine BESYLATE 5 MG TAB PO SCH (09:33)
[2023-05-01] MEDS: CLOPIDOGREL BISULFATE 75 MG TAB PO SCH (09:34)
[2023-05-01] MEDS: ASPIRIN 81 MG ECTAB PO SCH (09:35)
[2023-05-01] MEDS: DICLOFENAC SOD 1% GEL 100 GM TUBE EXT SCH ×4 (09:36→21:05)
[2023-05-01] MEDS: METOPROLOL TARTRATE 25 MG TAB PO SCH ×2 (09:37→21:06)
[2023-05-01] MEDS: ROSUVASTATIN CALCIUM 10 MG TAB PO SCH (09:38)
[2023-05-01] MEDS: SENNA 8.6 MG TAB PO SCH (09:39)
[2023-05-01] MEDS: POLYETHYLENE (MIRALAX) 17 GM PACK PO SCH (09:42)
--- NOTE | 2023-05-01 11:12 | Neurology Progress Note ---
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 Interestingly, her mental status is fairly well spared, with good orientation. Clinically, she is sleepy which could be secondary to some edema around the stroke. Alternatively, I have seen individuals with altered mental status after the opposite side stroke (bilateral strokes)-she has had bilateral strokes The etiology of the stroke is likely embolic given the history of atrial fibrillation, but an ischemic stroke can not be excluded. Apparently, she was on no antiplatelet medication or anticoagulants prior to this event. CT angiography revealed a right M2 segment occlusion, otherwise the head and neck vessels seemed unremarkable. She has some hypertension which is controlled. Her total cholesterol is reasonable on current treatment. Echocardiogram was largely unremarkable Overall, her prognosis is somewhat poor considering her age and lack of improvement in the last week. Recommendations: 1. For now, keep dual antiplatelet therapy with 81 mg aspirin and 75 mg clopid ogrel daily. We will hold on anticoagulation for now as there is a high risk of hemorrhagic transformation with this rather large size stroke 2. Repeat CT scan of the head without contrast to evaluate for swelling 3. Control blood pressure as you are doing. 4. Continue rosuvastatin 10 mg daily 5. Continue physical, occupational, and speech therapy consult Overall, I spent a total of 35 minutes with this case including review of records, review of CT and MRI films, direct evaluation the patient at bedside, report generation, and discussion of the case with the patient and son at bedside, and Dr. Maldonado including differential diagnosis and treatment options. Admission and Anticipated Discharge Date Admission Date: April 26, 2023 Subjective Patient is still very sleepy. She remains afebrile and blood pressure is 125/85. Results & Data Vital Signs (Past 12 Hours) Vital Signs Temp Pulse Resp BP Pulse Ox O2 Del Method 05/01/23 08:16 36.4 C L 91 H 17 125/85 96 Room Air 05/01/23 04:38 36.3 C L 72 16 118/73 95 Room Air 04/30/23 23:42 36.5 C 89 18 129/80 96 Room Air Exam (Neuro) Physical Exam: She is lethargic and sleepy but aroused with voice. She can state single words. She did not identify her son (called him by his brother's name). She will follow one-step commands. She can move the right arm and leg and has decent strength. She does not move the left arm and leg. She does feel pain and will withdraw her left leg with discomfort. She still prefers head and I gaze to the right. 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
[2023-05-01 11:58] LABS: Appearance Urine Cloudy (Clear); Bacteria Urine Automated 1+ (Negative); Blood Urine Negative (Negative); Color Urine Dark Yellow; Glucose Urine UA Negative (Negative); Ketones Urine Trace (Negative); Leukocyte Esterase Urine 1+ (Negative); Nitrite Urine Positive (Negative); Protein Urine 1+ (Negative); Specific Gravity Urine 1.037 (1.000-1.030); Urobilinogen Urine Negative (Negative); WBC Urine Automated >30 /hpf (0-5); pH Urine 5.5 (4.5-7.5)
[2023-05-01 12:04] LABS: Bilirubin Urine 1+ (Negative)
--- NOTE | 2023-05-01 14:59 | CT Scan Report ---
CT SCAN OF THE BRAIN WITHOUT IV CONTRAST CLINICAL HISTORY: Follow-up stroke. Lethargy. COMPARISON STUDY: CT of the brain dated 04/27/2023. MRI of the brain dated 04/26/2023. TECHNIQUE: Unenhanced axial CT scan of the brain is performed from the vertex to the skull base. A do se lowering technique was utilized adhering to the principles of ALARA. CT DOSE: 625.8 mGy.cm FINDINGS: Brain parenchyma: There is age-related involutional change noting mild subcortical and periventricula r microangiopathic disease. There is a large subacute infarct centered in the right basal ganglia/int ernal capsule, and also involving the right caudate head. There is no hemorrhage or midline shift. No extra-axial fluid collection is seen. Ventricles, sulci, cisterns: Prominent secondary to involutional change. Intracranial vasculature: There is atherosclerotic calcification of the cavernous carotid arteries. Calvarium: Unremarkable. Sinuses and mastoids: The visualized paranasal sinuses are clear. The mastoid air cells are well pneu matized. Orbits: The bony orbits are grossly intact. There are bilateral ocular lens implants. IMPRESSION: 1. Subacute/evolving infarct centered in the right basal ganglia/internal capsule as above. 2. There is no hemorrhage or midline shift. 3. No new foci of acute ischemia are suggested by CT criteria. ACT 112: Negative or not required by law. Electronically signed by: Jorge Lambert M.D. 05/01/2023 2:57 PM
[2023-05-01] MEDS: cefTRIAXone SODIUM 1,000 MG in DEXTROSE 5 % MINI-B 50 ML IV SCH (15:15)
[2023-05-01 19:34] LABS: Base Excess VBG 3.3 mEq/L; HCO3 VBG 28 mmol/L; Oxygen Saturation VBG 72.1 %; PCO2 VBG 41 mmHg (38-50); PO2 VBG 43 mmHg; pH VBG 7.44 (7.36-7.41)
[2023-05-01 20:01] LABS: Albumin Level 2.9 gm/dl (3.4-5.0); Bilirubin Direct 0.2 mg/dl (0-0.2); Bilirubin,Total 0.9 mg/dl (0.2-1.0); Total Protein 5.6 gm/dl (6.0-8.3)
--- NOTE | 2023-05-01 21:39 | Hospitalist Progress Note ---
Date of Service May 01, 2023 Assessment & Plan (1) Acute metabolic encephalopathy: Plan: initially 2nd acute CVA early in the stay. had resolved -- but still had periods of prolonged sleepiness. when awake she would follow commands, eat/drink, etc. yesterday/today - lethargy/sleepiness worse. repeat CT head today -- no edema, no hemorrhagic transformation. u/a obtained - ?UTI. culture sent, started on rocephin. due to mild abdominal discomfort I ordered LFTs and lipase - both wnl. KUB x-ray -- focal distension LUQ with copious stool throughout colon (my reading). Ordered dulcolax suppos x 1 and, if no improvement in constipation, then fleet mineral oil enema. Other thought -- did her stroke involve the reticular activating center? That can lead to prolonged periods of deep sleep, etc. Re-eval tomorrow. (2) Low grade fever: Plan: Tm 37.6 -- 04/30, and early in the stay. COVID/flu/RSV swab negative pCXR - no pneumonia seen u/a at admission was negative u/a today - possibly suggestive of UTI - culture sent, started rocephin IV. LFTs/lipase wnl. KUB x-ray -- see above. (3) UTI (urinary tract infection): Plan: suspected start rocephin 1mg IV daily follow culture (4) Abdominal pain: Plan: 2nd UTI? 2nd constipation/impaction? Rx UTI Rx constipation LFTs/lipase wnl if abd pain worsens - obtain CT a/p (5) Acute CVA (cerebrovascular accident): Plan: right basal ganglia very large with dense L-sided hemiplegia during the stay NO improvement, even minimal, with L-sided weakness repeat head CT 04/27 and 05/01 without hemorrhagic transformation, increased swelling or midline shift episodes of being very sleepy, but then she has episodes of being more awake/alert and able to eat/drink/etc last 24 hours, however, lethargy worse (see above) appreciate neuro consult plan - cont asa/plavix for secondary prevention for now; ultimately will need DOAC for a.fib - deferring for now due to heightened risk of hemorrhagic transformation cont crestor 10mg/day PT, OT, speech evals appreciated will need rehab at [facility] post-d/c but not ready for such cont supportive care BPs acceptable at this time (6) Left acute arterial ischemic stroke, MCA (middle cerebral artery): Plan: Hx of large L MCA ischemic stroke in November 2022 (7) Atrial fibrillation: Plan: following her 11/2022 admission for #2 she was sent home with an event monitor by report this showed PAF?? was to have started Xarelto for anticoagulation but, also by report, apparently never took such she presented this hospital stay in a.fib the cause of her current stroke very well may have been embolic in etiology due to the large size of current stroke plan to hold off on systemic anticoagulation at this time to avoid hemorrhagic transformation cont metoprolol 75mg BID - this has been titrated with improved rate control (8) History of breast cancer: Plan: S/p lumpectomy 8 years ago Hold anastrozole for now (9) Hypothyroidism: Plan: Cont levothyroxine TSH 11/2022 wnl (10) Elevated troponin: Plan: Troponin 81.8 --> 103.5, then trended down 2nd myocardial demand ischemia in setting of acute CVA (11) DVT prophylaxis: Plan: really needs chemical DVT proph - but hold off due to increased risk of hemorrhagic transformation SCDs Plan updated pt's daughter over the weekend if patient worsens or fails to improve globally consider palliative care consultation Admission and Anticipated Discharge Date Admission Date: April 26, 2023 Subjective pt very lethargic during the visit staff report she did wake for 1 meal today but otherwise long stretches of sleeping when she was awake she did talk some but not a lot during my visit she only opened her eyes for 1-2 sec -- otherwise was fast asleep no seizure activity witnessed by any staff member having tiny little stools Review of Systems Review of Systems: Unobtainable due to cognitive status Physical Exam Physical Exam: gen - resting in bed, sleeping heavily, barely opened eyes; lethargic face - left sided droop eyes - PERRL mouth - MM a little dry neck - no JVD heart - irregularly irregular, s1 s2, no murmur; regular rate lungs - CTA b/l abd - mildly distended; moaned a little with deep palpation but otherwise so peritoneal signs; BS+; no HSM ext - no edema of feet/ankles, pulses 2+ b/l; trace edema of left arm neuro - dense hemiplegia Results & Data Results & Data Vital Signs (Past 12 Hours) Vital Signs Temp Pulse Pulse Resp BP Pulse Ox O2 Del Method 05/01/23 19:43 Room Air 05/01/23 19:00 37.4 C 90 14 105/69 96 Room Air 05/01/23 15:53 36.6 C 76 16 115/73 95 Room Air 05/01/23 15:47 93 H 05/01/23 11:21 36.9 C 79 16 115/73 96 Room Air Laboratory Results Laboratory Results - last 24 hr 05/01/23 05/01/23 05/01/23 06:54 19:27 Unknown WBC 7.65 RBC 4.34 Hgb 13.4 Hct 37.4 MCV 86.2 MCH 30.9 MCHC 35.8 RDW Std Deviation 48.5 H RDW Coeff of Darío 17.2 H Plt Count 160 MPV 11.5 VBG pH 7.44 H VBG pCO2 41 VBG pO2 43 VBG HCO3 28 VBG O2 Saturation 72.1 VBG Base Excess 3.3 Sodium 142 Potassium 4.2 Chloride 109 H Carbon Dioxide 27 Anion Gap 6 BUN 30 H Creatinine 0.76 Est Cr Clr Drug Dosing 47.8 Est GFR ( Amer) 82.3 Est GFR (Non-Af Amer) 71.0 BUN/Creatinine Ratio 39.5 H Glucose 125 H Calcium 9.0 Total Bilirubin 0.9 Direct Bilirubin 0.2 AST 16 ALT 19 Alkaline Phosphatase 72 Total Protein 5.6 L Albumin 2.9 L Lipase 19 Urine Color Dark Yellow Urine Appearance Cloudy A Urine pH 5.5 Ur Specific Beverly 1.037 H Urine Protein 1+ H Urine Glucose (UA) Negative Urine Ketones Trace H Urine Blood Negative Urine Nitrite Positive A Urine Bilirubin 1+ H Urine Urobilinogen Negative Ur Leukocyte Esterase 1+ H Urine WBC (Auto) >30 H Urine RBC (Auto) 5-10 H U Hyaline Cast (Auto) 1-5 U Epithel Cells (Auto) 5-10 H Urine Bacteria (Auto) 1+ H WBC Casts 1-5 H PG Care Time/CCT Total # of Minutes Spent Total Time Spent with Patient: Total time spent is greater than 50% in coordination of care (as documented) at patient's floor/unit and/or counseling patient: Coding Level of Care Code 07219 SUB INP/OBS CARE 3/50MIN Diagnoses Acute metabolic encephalopathy G93.41 Low grade fever R50.9 UTI (urinary tract infection) N39.0 Abdominal pain R10.9 Acute CVA (cerebrovascular accident) I63.9 Left acute arterial ischemic stroke, 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
[2023-05-02 03:41] LABS: Hemoglobin 11.8 g/dl (12.0-16.0)
[2023-05-02] MEDS: LEVOTHYROXINE SODIUM 75 MCG TABLET PO SCH (05:51)
[2023-05-02] MEDS ORDERED: D5W AND 1/2NSS 1,000 ML IV SCH (06:45)
[2023-05-02] MEDS ORDERED: bisacodyL 10 MG SUPP PR ONE (07:00)
[2023-05-02 08:00] LABS: Basophils # (auto) 0.02 K/uL (0.00-0.20); Basophils % (auto) 0.3 %; Eosinophils # (auto) 0.09 K/uL (0.00-0.50); Eosinophils % (auto) 1.3 %; Hematocrit (blood only) 38.2 % (37.0-47.0); Hemoglobin 12.4 g/dl (12.0-16.0); Immature Granulocytes # (auto) 0.04 K/uL (0.01-0.20); Immature Granulocytes % (auto) 0.6 %; Lymphocytes # (auto) 1.06 K/uL (1.20-3.40); Lymphocytes % (auto) 14.8 %; Mean Corpuscular Hemoglobin 27.6 pg (25.0-34.0); Mean Corpuscular Hgb Conc 32.5 g/dL (32.0-36.0); Mean Corpuscular Volume 85.1 fL (80.0-100.0); Mean Platelet Volume 11.6 fL (9.4-12.4); Monocytes # (auto) 0.67 K/uL (0.11-0.59); Monocytes % (auto) 9.3 %; Neutrophils % (auto) 73.7 %; Platelet Count 177 K/uL (130-400); RDW Coefficient of Variation 16.2 % (11.5-14.5); RDW Standard Deviation 49.1 fL (36.4-46.3); Red Blood Count 4.49 M/uL (4.20-5.40); White Blood Count 7.18 K/ul (4.8-10.8)
[2023-05-02] MEDS ORDERED: MINERAL OIL ENEMA 133 ML BTL PR PRN (08:00)
--- NOTE | 2023-05-02 08:10 | XRay Report ---
LOR CLINICAL HISTORY: abd pain, distension; impaction?? COMPARISON STUDY: None. FINDINGS: Incidental note is made of cholecystectomy clips. There is a moderate amount of stool withi n the colon. There is a moderate to large amount of stool within the rectum. Mild distention of the c olon is noted. However, there is no evidence for a bowel obstruction. IMPRESSION: 1. No evidence for a bowel obstruction. 2. Moderate to large amount of stool within the rectum and colon. ACT 112: Negative or not required by law. Electronically signed by: Kyler Dyson M.D. 05/02/2023 8:08 AM
[2023-05-02] MEDS: amLODIPine BESYLATE 5 MG TAB PO SCH (09:24)
[2023-05-02] MEDS: METOPROLOL TARTRATE 25 MG TAB PO SCH ×2 (09:25→21:07)
[2023-05-02] MEDS: CLOPIDOGREL BISULFATE 75 MG TAB PO SCH (09:25)
[2023-05-02] MEDS: DICLOFENAC SOD 1% GEL 100 GM TUBE EXT SCH ×4 (09:25→21:04)
[2023-05-02] MEDS: POLYETHYLENE (MIRALAX) 17 GM PACK PO SCH (09:27)
[2023-05-02] MEDS: ROSUVASTATIN CALCIUM 10 MG TAB PO SCH (09:28)
[2023-05-02] MEDS: SENNA 8.6 MG TAB PO SCH (09:28)
[2023-05-02 10:30] LABS: BUN Creatinine Ratio 35.4 (10-20); Calcium 8.3 mg/dl (8.6-10.3); Est GFR (African American) 78.6 ml/min; Est GFR (Non-African American) 67.8 ml/min; Potassium 3.8 mmol/L (3.5-5.1)
[2023-05-02] MEDS ORDERED: SODIUM CHLORIDE 0.9% 1,000 ML IV SCH (11:00)
--- NOTE | 2023-05-02 11:23 | Hospitalist Progress Note ---
Date of Service May 02, 2023 Assessment & Plan (1) Lower gastrointestinal bleed: Plan: Blood per rectum started overnight 05/01-05/02 and has worsened - passed four bloody stools so far this morning On my exam nonbleeding ext hemorrhoid, maroon bloody loose stool present, discussed with RN who has seen blood, lots of clots, and mixed with stool Ddx ischemic colitis, infectious colitis, less likely diverticular bleeding given abdominal pain since yesterday -hold aspirin and plavix for now -CT abdomen/pelvis ordered -stool pathogens and c. 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 Bernabe - recommended fleet enemas 2-3x a day, unlikely to tolerate golytely, continue miralax and senna daily (2) Retroperitoneal hemorrhage: Plan: Unexpected finding on CT 05/02 done for abdominal pain and hematochezia. Small amount of retroperitoneal blood left psoas, iliacus and iliopsoas muscles -was on DOAC prior to admission, on ASA + plavix following admission, held. No acute anemia or episodes of hypotension this admission. Onset unclear -contacted radiologist to discuss -appears to be extremely small amount, will monitor with serial hematocrit checks likely to need repeat imaging at some point. unfortunately this significantly complicates treatment for her stroke and atrial fibrillation -monitor Hct q6h -continue to hold ASA and Plavix (3) UTI (urinary tract infection): Plan: possible UTI on ceftriaxone, culture with gram neg leah (4) Acute metabolic encephalopathy: Plan: initially 2nd acute CVA early in the stay. had resolved -- but still had periods of prolonged sleepiness. when awake she would follow commands, eat/drink, etc. repeat CT head today -- no edema, no hemorrhagic transformation. other acute issues as above likely contributing, seems more alert today (5) Acute CVA (cerebrovascular accident): Plan: right basal ganglia very large with dense L-sided hemiplegia during the stay NO improvement, even minimal, with L-sided weakness repeat head CT 04/27 and 05/01 without hemorrhagic transformation, increased swelling or midline shift episodes of being very sleepy, but then she has episodes of being more awake/alert and able to eat/drink/etc appreciate neuro consult plan - was on asa/plavix for secondary prevention held 05/02 with rectal bleeding and retroperitoneal blood ultimately will need DOAC for a.fib - deferring for now due to heightened risk of hemorrhagic transformation cont crestor 10mg/day PT, OT, speech evals appreciated will need rehab at [facility] post-d/c but not ready for such cont supportive care BPs acceptable at this time (6) Left acute arterial ischemic stroke, MCA (middle cerebral artery): Plan: Hx of large L MCA ischemic stroke in November 2022 (7) Atrial fibrillation: Plan: following her 11/2022 admission for #2 she was sent home with an event monitor by report this showed PAF?? was to have started Xarelto for anticoagulation but, also by report, apparently never took such she presented this hospital stay in a.fib the cause of her current stroke very well may have been embolic in etiology due to the large size of current stroke plan to hold off on systemic anticoagulation at this time to avoid hemorrhagic transformation cont metoprolol 75mg BID - this has been titrated with improved rate control (8) History of breast cancer: Plan: S/p lumpectomy 8 years ago Hold anastrozole for now (9) Hypothyroidism: Plan: Cont levothyroxine TSH 11/2022 wnl (10) Elevated troponin: Plan: Troponin 81.8 --> 103.5, then trended down 2nd myocardial demand ischemia in setting of acute CVA (11) DVT prophylaxis: Plan: SCDs Plan updated pt's family in room 05/02 if patient worsens or fails to improve globally consider palliative care consultation Admission and Anticipated Discharge Date Admission Date: April 26, 2023 Subjective More alert today - when seen in AM awake and states she is in the hospital but that she's here for a bowel obstruction Having bloody stool - observed maroon stool with clots - since overnight - 4x stools this am Since yesterday abdominal pain Physical Exam 2 Physical Exam: PHYSICAL EXAMINATION Last 24h vital signs reviewed, see documentation in flowsheet General: awake lying in bed, no distress HEENT: Normocephalic, atraumatic, pupils round and equal, sclerae anicteric, no conjunctival injection, moist mucus membranes Lungs: Normal respiratory effort. Clear to auscultation bilaterally. No RRW Heart: Regular rate and rhythm, no murmurs. No JVD Abdomen: Soft, mildly tender in lower abdomen no rebound guarding or rigidity, nondistended. Bowel sounds present. rectal exam with nonbleeding external hemorrhoid present, small amount of dark red bloody loose stool Extremities: Warm, dry, well-perfused. No extremity edema. Neuro: Alert and oriented x hospital but not to situation, left facial droop left upper extremity and left lower extremity dense paresis present Psych: Normal affect and behavior Results & Data Results & Data Vital Signs (Past 12 Hours) Vital Signs Temp Pulse Pulse Resp BP Pulse Ox O2 Del Method 05/02/23 09:42 Room Air 05/02/23 08:07 37.2 C 87 16 115/73 95 Room Air 05/02/23 07:08 99 H 05/02/23 03:00 36.6 C 94 H 20 117/77 95 Room Air Laboratory Results 05/02/23 11:10 05/02/23 09:36 Diagnostic Findings Abdomen/Pelvis CT 05/02/23 11:13 CT abdomen pelvis wo/w con HISTORY: 87 years-old Female abdominal pain, hematochezia, poss ischemic coliti acute generalized abdominal pain COMPARISON: None TECHNIQUE: Multiple axial CT images of the abdomen and pelvis were obtained both with and without use of IV contrast. A dose lowering technique was used consistent with the principals of MANDIRA. FINDINGS: Moderate cardiomegaly with trace pericardial effusion. Trace pleural effusions. Mitral annular calcifications. Clear lung bases. No free air. Unremarkable spleen, moderately atrophic pancreas and adrenal glands. Cholecystectomy with likely postsurgical biliary ductal dilation. The common bile duct measures 11 mm transversely. Possible pancreatic divisum. Indeterminate mixed density foci noted along the posterior right hepatic lobe and inferior to the right hepatic lobe, possibly dropped gallstones related to the prior cholecystectomy. limited lesions of the kidneys with areas of mild cortical thinning. Bilateral renal sinus cysts. Decompressed urinary bladder with Tillman catheter in place. Perivesicular stranding. Heterogeneous uterus. Atherosclerosis of the aorta and branch vessels. No lymphadenopathy. The small amount of acute left- sided retroperitoneal hemorrhage involving the left so as, iliacus and iliopsoas muscles. Small amount of dependent fluid within the pelvis. Moderate colonic fecal retention with rectal wall thickening. There are a few subcentimeter perirectal lymph nodes. Additional moderate fecal retention in the right hemicolon. Nonspecific body wall edema. No acute fracture. Degenerative changes of the spine, pelvis and hips. IMPRESSION: 1. Small amount of acute left-sided retroperitoneal hemorrhage. 2. No bowel obstruction or pneumoperitoneum. 3. Constipation with findings suggestive of stercoral proctitis. 4. Cholecystectomy with likely postsurgical biliary ductal dilation. This could be correlated with serum bilirubin. 5. Additional findings as above. ACT 112: Negative or not required by law. The above report was generated using voice recognition software. It may contain grammatical, syntax or spelling errors. Electronically signed by: Javon Levy M.D. 05/02/2023 1:06 PM PG Care Time/CCT Total # of Minutes Spent Total Time Spent with Patient: Total time spent is greater than 50% in coordination of care (as documented) at patient's floor/unit and/or counseling patient: Coding Level of Care Code 80390 SUB INP/OBS CARE 3/50MIN Diagnoses Lower gastrointestinal bleed K92.2 Retroperitoneal hemorrhage R58 UTI (urinary tract infection) N39.0 Acute metabolic encephalopathy G93.41 Acute CVA (cerebrovascular accident) I63.9 Left acute arterial ischemic stroke, 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
[2023-05-02 11:29] LABS: Hematocrit (blood only) 37.3 % (37.0-47.0)
[2023-05-02 11:59] LABS: Partial Thromboplastin Time 27.4 Seconds (21.0-31.0); Prothrombin Time 11.1 Seconds (9.0-12.0)
[2023-05-02] MEDS ORDERED: OPTIRAY 320 500ml IV ONE (12:12)
--- NOTE | 2023-05-02 12:27 | Gastrointestinal Consultation ---
Date of Consultation May 02, 2023 Assessment & Plan (1) Lower gastrointestinal bleed: Plan -Keep NPO for now. -Await CT a/p as ordered. -Trend H&H. -Further recommendations pending results of testing. Thank you for allowing me to participate in the care of this patient. If you have any questions or concerns, please do not hesitate to contact us. Supervising Physician Co-Signing Physician Notes I saw the patient and agree with the findings as documented by DAMIR Modi stercoral proctitis and significant fecal retention noted on CT, recommend fleet enemas 2-3 x daily as she does not take PO too well it appears, miralax BID. History of Present Illness Reason for Consultation: LGIB Requesting Physician: Dr. Mg Attending Physician: Bryanna Mg MD History of Present Illness Patient is a 87 y.o. female with a history of left MCA CVA, , Atrial fibrillation on chronic anticoagulation, hypothyroidism who was admitted on 04/26 with stroke alert. GI has been consulted due to reports of rectal bleeding. She did have a KUB which demonstrated moderate constipation without obstruction. She is unable to provide history. H&H is stable. She has been made NPO and ordered a stat CT a/p. ASA and Plavix are being held at this time. Allergies Allergy/AdvReac Type Severity Reaction Status Date / Time Bactrim Allergy Mild HIVES Verified 04/13/17 08:00 latex Allergy Mild RASH ITCHY Verified 07/25/22 10:52 sulfamethoxazole Allergy Mild HIVES Verified 07/25/22 10:52 trimethoprim Allergy Mild HIVES Verified 07/25/22 10:52 Home Medications Medication Instructions Recorded Confirmed Type anastrozole 1 mg tablet 1 mg PO DAILY 08/08/18 04/26/23 History levothyroxine 75 mcg tablet 75 mcg PO DAILY 08/08/18 04/26/23 History ondansetron 4 mg disintegrating 4 mg PO Q6H PRN nausea and 11/26/22 04/26/23 Rx tablet vomiting #20 tabs Xarelto 15 mg PO PM 04/26/23 04/26/23 History metoprolol succinate 25 mg 12.5 mg PO DAILY 04/26/23 04/26/23 History tablet,extended release 24 hr rosuvastatin 5 mg PO DAILY 04/26/23 04/26/23 History Patient History Medical History Atrial fibrillation Hypothyroidism Acid reflux Cholecystectomy planned Surgical History History of cataract surgery History of cholecystectomy History of lumpectomy History of hernia repair History of tonsillectomy and adenoidectomy Family History Father Hearing loss Stroke Grandmother Stroke Sister Cancer Grandfather Cancer Mother Asthma Other Heart disease No family history of adverse response to anesthesia No family history of bleeding disorder Social History Smoking Status: Never smoker Hx Alcohol Use: No Hx Substance Use: No Preferred Language: Luxembourgish Communication Ability: Impaired Communication Ability Comment: pt unable to provide verbal history, unable to reach primary contact for hx Beliefs That Will Affect Care: Spiritual Current Living Situation: Spouse Current Living Situation Comment: pt took care of spouse prior to admission in their home current occupational status: retired 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 Feels Safe at Home: Yes Assistive Devices: None Review of Systems Review of Systems: Unobtainable due to reduced consciousness Physical Exam Constitutional: WD/WN, vitals as above Respiratory: normal respiratory effort, lungs clear to auscultation Cardiovascular: Rate/Rhythm: + irregularly irregular Gastrointestinal (Abdomen): Inspection/Auscultation: + abdomen distended and normal bowel sounds Percussion/Palpation: abdomen soft Psychiatric: Orientation: alert and oriented to person Results & Data Vital Signs (Past 12 Hours) Vital Signs Temp Pulse Pulse Resp BP Pulse Ox O2 Del Method 05/02/23 09:42 Room Air 05/02/23 08:07 37.2 C 87 16 115/73 95 Room Air 05/02/23 07:08 99 H 05/02/23 03:00 36.6 C 94 H 20 117/77 95 Room Air Diagnostic Findings Laboratory Results WBC 7.18 K/ul (4.8-10.8) 05/02/23 07:21 RBC 4.49 M/uL (4.20-5.40) 05/02/23 07:21 Hgb 12.0 g/dl (12.0-16.0) 05/02/23 11:10 Hct 37.3 % (37.0-47.0) 05/02/23 11:10 MCV 85.1 fL (80.0-100.0) 05/02/23 07:21 MCH 27.6 pg (25.0-34.0) 05/02/23 07:21 MCHC 32.5 g/dL (32.0-36.0) 05/02/23 07:21 RDW Std Deviation 49.1 fL (36.4-46.3) H 05/02/23 07:21 RDW Coeff of Darío 16.2 % (11.5-14.5) H 05/02/23 07:21 Plt Count 177 K/uL (130-400) 05/02/23 07:21 MPV 11.6 fL (9.4-12.4) 05/02/23 07:21 Immature Gran % (Auto) 0.6 % 05/02/23 07:21 Neut % (Auto) 73.7 % 05/02/23 07:21 Lymph % (Auto) 14.8 % 05/02/23 07:21 [place] % (Auto) 9.3 % 05/02/23 07:21 Eos % (Auto) 1.3 % 05/02/23 07:21 Baso % (Auto) 0.3 % 05/02/23 07:21 Neut # (Auto) 5.30 K/uL (1.40-6.50) 05/02/23 07:21 Lymph # (Auto) 1.06 K/uL (1.20-3.40) L 05/02/23 07:21 [place]rens # (Auto) 0.67 K/uL (0.11-0.59) H 05/02/23 07:21 Eos # (Auto) 0.09 K/uL (0.00-0.50) 05/02/23 07:21 Baso # (Auto) 0.02 K/uL (0.00-0.20) 05/02/23 07:21 Immature Gran # (Auto) 0.04 K/uL (0.01-0.20) 05/02/23 07:21 Hypersegmented Neuts 1+ 04/26/23 09:08 Ovalocytes 1+ 04/26/23 09:08 PT 11.1 Seconds (9.0-12.0) 05/02/23 11:10 INR 1.0 (0.9-1.1) 05/02/23 11:10 APTT 27.4 Seconds (21.0-31.0) 05/02/23 11:10 PTT Ratio 1.0 05/02/23 11:10 VBG pH 7.44 (7.36-7.41) H 05/01/23 19:27 VBG pCO2 41 mmHg (38-50) 05/01/23 19:27 VBG pO2 43 mmHg 05/01/23 19:27 VBG HCO3 28 mmol/L 05/01/23 19:27 VBG O2 Saturation 72.1 % 05/01/23 19: VBG Base Excess 3.3 mEq/L 05/01/23 19:27 Sodium 143 mmol/L (136-145) 05/02/23 09:36 Potassium 3.8 mmol/L (3.5-5.1) 05/02/23 09:36 Chloride 109 mmol/L (98-107) H 05/02/23 09:36 Carbon Dioxide 28 mmol/L (21-32) 05/02/23 09:36 Anion Gap 6 (3-11) 05/02/23 09:36 BUN 28 mg/dl (6-23) H 05/02/23 09:36 Creatinine 0.79 mg/dl (0.6-1.2) 05/02/23 09:36 Est Cr Clr Drug Dosing 46.0 ml/min 05/02/23 09:36 Est GFR ( Amer) 78.6 ml/min 05/02/23 09:36 Est GFR (Non-Af Amer) 67.8 ml/min 05/02/23 09:36 BUN/Creatinine Ratio 35.4 (10-20) H 05/02/23 09:36 Glucose 173 mg/dl (70-99(Fasting)) H 05/02/23 09:36 POC Glucose 186 mg/dl (70-99) H 04/26/23 09:21 Estimat Average Glucose 123 mg/dl 04/27/23 03:34 Hemoglobin A1c 5.9 % (4.5-5.6) H 04/27/23 03:34 Lactate 2.0 mmol/L (0.4-2.0) 04/26/23 16:28 Calcium 8.3 mg/dl (8.6-10.3) L 05/02/23 09:36 Magnesium 2.0 mg/dl (1.7-2.4) 05/02/23 09:36 Total Bilirubin 0.9 mg/dl (0.2-1.0) 05/01/23 19:27 Direct Bilirubin 0.2 mg/dl (0-0.2) 05/01/23 19:27 AST 16 U/L (13-39) 05/01/23 19:27 ALT 19 U/L (7-52) 05/01/23 19:27 Alkaline Phosphatase 72 U/L (34-104) 05/01/23 19:27 Troponin I High Sens 87.7 pg/ml (0-14) H* D 04/27/23 08:59 Total Protein 5.6 gm/dl (6.0-8.3) L 05/01/23 19:27 Albumin 2.9 gm/dl (3.4-5.0) L 05/01/23 19:27 Globulin 2.4 gm/dl (2.5-4.0) L 04/26/23 09:08 Albumin/Globulin Ratio 1.5 (0.9-2) 04/26/23 09:08 Triglycerides 60 mg/dl (0-150) 04/27/23 03:34 Cholesterol 161 mg/dl (0-200) 04/27/23 03:34 LDL Cholesterol, Calc 92 mg/dl 04/27/23 03:34 VLDL Cholesterol, Calc 12 mg/dl (0-30) 04/27/23 03:34 HDL Cholesterol 57 mg/dl 04/27/23 03:34 Cholesterol/HDL Ratio 2.8 (0-5) 04/27/23 03:34 Lipase 19 U/L (11-82) 05/01/23 19:27 Urine Color Dark Yellow 05/01/23 Unknown Urine Appearance Cloudy (Clear) A 05/01/23 Unknown Urine pH 5.5 (4.5-7.5) 05/01/23 Unknown Ur Specific Blue 1.037 (1.000-1.030) H 05/01/23 Unknown Urine Protein 1+ (Negative) H 05/01/23 Unknown Urine Glucose (UA) Negative (Negative) 05/01/23 Unknown Urine Ketones Trace (Negative) H 05/01/23 Unknown Urine Blood Negative (Negative) 05/01/23 Unknown Urine Nitrite Positive (Negative) A 05/01/23 Unknown Urine Bilirubin 1+ (Negative) H 05/01/23 Unknown Urine Urobilinogen Negative (Negative) 05/01/23 Unknown Ur Leukocyte Esterase 1+ (Negative) H 05/01/23 Unknown Urine WBC (Auto) >30 /hpf (0-5) H 05/01/23 Unknown Urine RBC (Auto) 5-10 /hpf (0-4) H 05/01/23 Unknown U Hyaline Cast (Auto) 1-5 /lpf (0-5) 05/01/23 Unknown U Epithel Cells (Auto) 5-10 /lpf (0-5) H 05/01/23 Unknown Urine Bacteria (Auto) 1+ (Negative) H 05/01/23 Unknown WBC Casts 1-5 /lpf (0) H 05/01/23 Unknown SARS-CoV-2 (PCR) NEGATIVE (Negative) 04/27/23 14:05 Influenza Type A (PCR) Negative (Neg) 04/27/23 14:05 Influenza Type B (PCR) Negative (Neg) 04/27/23 14:05 RSV (RT-PCR) Negative (Neg) 04/27/23 14:05 Blood Type A Positive 05/02/23 11:10 Antibody Screen NEGATIVE 05/02/23 11:10 Impressions Head CTA 04/26/23 08:57 CT angio head w con, CT head/brain wo con, CT angio neck with con CLINICAL HISTORY: neuro deficit, acute stroke suspected TECHNIQUE: Contiguous axial CT images of the head were acquired from the base of the skull to the vertex without intravenous contrast administration. CT angiography of the head and neck was performed following intravenous administration of iodinated contrast. Coronal and sagittal MIPS were obtained from the axial data set and were submitted for review. Automated dose lowering techniques and/or adjustment according to patient size were utilized for this examination. All measurements were calculated based on NASCET criteria. CT DOSE: 999.15 mGy.cm Comparison: Comparison is made to MRI brain 11/24/2022 FINDINGS: CT head: Areas of decreased attenuation are present in the periventricular and subcortical white matter bilaterally consistent with small vessel ischemic disease. Generalized cerebral atrophy with commensurate enlargement of the ventricles, sulci, and cisterns is also present. There is no acute intracranial hemorrhage or evidence of acute territorial infarction. No shift of the midline structures, mass effect, or extra-axial abnormalities are shown. Atherosclerotic calcifications are present in the intracranial segments of the internal carotid arteries. Lungs and soft tissues are unremarkable. CTA Neck: A 3 vessel aortic arch is shown. There is no significant atherosclerotic plaque in the aortic arch or the origins of the innominate, left common carotid, and left subclavian arteries. The common carotid, external carotid, cervical segments of the internal carotid arteries, and the cervical segments of the vertebral arteries are patent without hemodynamically significant stenosis. The left vertebral artery is dominant. CTA Head: The anterior and posterior cerebral circulations are patent. No hemodynamically significant stenosis, aneurysm, dissection, or arteriovenous malformation is shown. IMPRESSION: 1. No acute intracranial hemorrhage, evidence of acute territorial infarction, or other acute intracranial disease process. 2. No occlusion, hemodynamically significant stenosis, or dissection in the major cervical arteries. 3. No occlusion, hemodynamically significant stenosis, aneurysm, dissection, or arteriovenous malformation in the major intracranial arteries. Assessment of stenosis of the internal carotid arteries is based on NASCET criteria. ACT 112: Negative or not required by law. Electronically signed by: Sudarshan Juarez M.D. 04/26/2023 9:36 AM Neck CTA 04/26/23 08:57 CT angio head w con, CT head/brain wo con, CT angio neck with con CLINICAL HISTORY: neuro deficit, acute stroke suspected TECHNIQUE: Contiguous axial CT images of the head were acquired from the base of the skull to the vertex without intravenous contrast administration. CT angiography of the head and neck was performed following intravenous administration of iodinated contrast. Coronal and sagittal MIPS were obtained from the axial data set and were submitted for review. Automated dose lowering techniques and/or adjustment according to patient size were utilized for this examination. All measurements were calculated based on NASCET criteria. CT DOSE: 999.15 mGy.cm Comparison: Comparison is made to MRI brain 11/24/2022 FINDINGS: CT head: Areas of decreased attenuation are present in the periventricular and subcortical white matter bilaterally consistent with small vessel ischemic disease. Generalized cerebral atrophy with commensurate enlargement of the ventricles, sulci, and cisterns is also present. There is no acute intracranial hemorrhage or evidence of acute territorial infarction. No shift of the midline structures, mass effect, or extra-axial abnormalities are shown. Atherosclerotic calcifications are present in the intracranial segments of the internal carotid arteries. Lungs and soft tissues are unremarkable. CTA Neck: A 3 vessel aortic arch is shown. There is no significant atherosclerotic plaque in the aortic arch or the origins of the innominate, left common carotid, and left subclavian arteries. The common carotid, external carotid, cervical segments of the internal carotid arteries, and the cervical segments of the vertebral arteries are patent without hemodynamically significant stenosis. The left vertebral artery is dominant. CTA Head: The anterior and posterior cerebral circulations are patent. No hemodynamically significant stenosis, aneurysm, dissection, or arteriovenous malformation is shown. IMPRESSION: 1. No acute intracranial hemorrhage, evidence of acute territorial infarction, or other acute intracranial disease process. 2. No occlusion, hemodynamically significant stenosis, or dissection in the major cervical arteries. 3. No occlusion, hemodynamically significant stenosis, aneurysm, dissection, or arteriovenous malformation in the major intracranial arteries. Assessment of stenosis of the internal carotid arteries is based on NASCET criteria. ACT 112: Negative or not required by law. Electronically signed by: Sudarshan Juarez M.D. 04/26/2023 9:36 AM Brain MRI 04/26/23 10:57 MRI OF THE BRAIN WITHOUT IV CONTRAST CLINICAL HISTORY: Stroke. COMPARISON STUDY: CT of the brain dated 04/26/2023. MRI of the brain dated 11/24/2022. TECHNIQUE: MRI of the brain was performed utilizing various T1 and T2-weighted sequences in the axial, sagittal, and coronal planes. IV contrast was not administered for this examination. The examination is degraded by motion artifact. FINDINGS: Brain parenchyma: There is an approximately 4.5 cm curvilinear focus of restricted diffusion centered in the right caudate nucleus, basal ganglia, and internal capsule consistent with an acute to subacute infarct. No hemorrhage or mass effect is seen. No additional foci of restricted diffusion are identified. There is age-related involutional change noting mild subcortical and periventricular white radiographic disease. Foci of encephalomalacia in the left frontal lobe and in the medial left temporal lobe are consistent with remote insults. No extra-axial fluid collection is seen. The cerebellar tonsils are normal in configuration. Ventricles, sulci, and cisterns: Prominent secondary to involutional change. Pituitary and sella: Unremarkable. Intracranial vasculature: Normal flow voids are maintained at the skull base. Orbits: The bony orbits are grossly intact. Orbital contents are normal in appearance noting bilateral ocular lens implants. Sinuses and mastoids: Clear. Calvarium: Unremarkable. Cervical cord: Partially visualized cervical spinal cord is normal in morphology and signal intensity. IMPRESSION: 1. Large acute to subacute infarct centered in the right basal ganglia/caudate head/internal capsule as above. 2. There is no hemorrhage or mass effect. 3. No additional foci of acute ischemia are identified. ACT 112: Negative or not required by law. Electronically signed by: Jorge Lambert M.D. 04/26/2023 5:47 PM Chest X-Ray 04/27/23 16:24 XR chest 1V portable CLINICAL HISTORY: stroke, fever, eval aspiration pneumonia TECHNIQUE: Single frontal radiograph of the chest was obtained. Comparison: Comparison is made to chest radiograph 11/23/2022 FINDINGS: No lines and tubes are seen. Cardiomegaly is noted. The aortic arch is calcified. The lungs are clear. No evidence of pleural effusion or pneumothorax. IMPRESSION: No evidence of aspiration pneumonia. Cardiomegaly is noted. ACT 112: Negative or not required by law. Electronically signed by: Sudarshan Juarez M.D. 04/27/2023 5:[address] 05/01/23 11:27 CT SCAN OF THE BRAIN WITHOUT IV CONTRAST CLINICAL HISTORY: Follow-up stroke. Lethargy. COMPARISON STUDY: CT of the brain dated 04/27/2023. MRI of the brain dated 04/26/2023. TECHNIQUE: Unenhanced axial CT scan of the brain is performed from the vertex to the skull base. A dose lowering technique was utilized adhering to the principles of ALARA. CT DOSE: 625.8 mGy.cm FINDINGS: Brain parenchyma: There is age-related involutional change noting mild subcort ical and periventricular microangiopathic disease. There is a large subacute infarct centered in the right basal ganglia/internal capsule, and also involving the right caudate head. There is no hemorrhage or midline shift. No extra-axial fluid collection is seen. Ventricles, sulci, cisterns: Prominent secondary to involutional change. Intracranial vasculature: There is atherosclerotic calcification of the cavernous carotid arteries. Calvarium: Unremarkable. Sinuses and mastoids: The visualized paranasal sinuses are clear. The mastoid air cells are well pneumatized. Orbits: The bony orbits are grossly intact. There are bilateral ocular lens implants. IMPRESSION: 1. Subacute/evolving infarct centered in the right basal ganglia/internal capsule as above. 2. There is no hemorrhage or midline shift. 3. No new foci of acute ischemia are suggested by CT criteria. ACT 112: Negative or not required by law. Electronically signed by: Jorge Lambert M.D. 05/01/2023 2:57 PM KUB X-Ray 05/01/23 16:39 KUB CLINICAL HISTORY: abd pain, distension; impaction?? COMPARISON STUDY: None. FINDINGS: Incidental note is made of cholecystectomy clips. There is a moderate amount of stool within the colon. There is a moderate to large amount of stool within the rectum. Mild distention of the colon is noted. However, there is no evidence for a bowel obstruction. IMPRESSION: 1. No evidence for a bowel obstruction. 2. Moderate to large amount of stool within the rectum and colon. ACT 112: Negative or not required by law. Electronically signed by: Kyler Dyson M.D. 05/02/2023 8:08 AM PG Care Time/CCT Total # of Minutes Spent Total Time Spent with Patient: Total time spent is greater than 50% in coordination of care (as documented) at patient's floor/unit and/or counseling patient: Coding Level of Care Code 03023 INT INP/OBS CARE 3/75MIN Diagnoses Lower gastrointestinal bleed K92.2
--- NOTE | 2023-05-02 13:09 | CT Scan Report ---
CT abdomen pelvis wo/w con HISTORY: 87 years-old Female abdominal pain, hematochezia, poss ischemic coliti acute generalized ab dominal pain COMPARISON: None TECHNIQUE: Multiple axial CT images of the abdomen and pelvis were obtained both with and without use of IV contrast. A dose lowering technique was used consistent with the principals of YVETTE. FINDINGS: Moderate cardiomegaly with trace pericardial effusion. Trace pleural effusions. Mitral annular calcif ications. Clear lung bases. No free air. Unremarkable spleen, moderately atrophic pancreas and adrena l glands. Cholecystectomy with likely postsurgical biliary ductal dilation. The common bile duct andressa ures 11 mm transversely. Possible pancreatic divisum. Indeterminate mixed density foci noted along th e posterior right hepatic lobe and inferior to the right hepatic lobe, possibly dropped gallstones re lated to the prior cholecystectomy. limited lesions of the kidneys with areas of mild cortical thinning. Bilateral renal sinus cyst s. Decompressed urinary bladder with Tillman catheter in place. Perivesicular stranding. Heterogeneous uterus. Atherosclerosis of the aorta and branch vessels. No lymphadenopathy. The small amount of acut e left-sided retroperitoneal hemorrhage involving the left so as, iliacus and iliopsoas muscles. Smal l amount of dependent fluid within the pelvis. Moderate colonic fecal retention with rectal wall thic kening. There are a few subcentimeter perirectal lymph nodes. Additional moderate fecal retention in the right hemicolon. Nonspecific body wall edema. No acute fracture. Degenerative changes of the spin e, pelvis and hips. IMPRESSION: 1. Small amount of acute left-sided retroperitoneal hemorrhage. 2. No bowel obstruction or pneumoperitoneum. 3. Constipation with findings suggestive of stercoral proctitis. 4. Cholecystectomy with likely postsurgical biliary ductal dilation. This could be correlated with se rum bilirubin. 5. Additional findings as above. ACT 112: Negative or not required by law. The above report was generated using voice recognition software. It may contain grammatical, syntax o r spelling errors. Electronically signed by: Javon Levy M.D. 05/02/2023 1:06 PM
--- NOTE | 2023-05-02 13:53 | Neurology Progress Note ---
Date of Service May 02, 2023 Assessment & Plan (1) Acute CVA (cerebrovascular accident): Plan CT head reviewed. stable stroke and no concern for new stroke or bleed. prior mentation change likely also contributed by multiple factors including UTI /metabolic disorder. Ok to hold ASA and plavix for now due to GI bleed, please restart soon as possible, hopefully can restart the DAPT next 3-4 days once GI is ok with it. continue care as now. chart reviewed. Admission and Anticipated Discharge Date Admission Date: April 26, 2023 Results & Data Vital Signs (Past 12 Hours) Vital Signs Temp Pulse Pulse Resp BP Pulse Ox O2 Del Method 05/02/23 12:48 37.0 C 93 H 16 119/77 96 Room Air 05/02/23 09:42 Room Air 05/02/23 08:07 37.2 C 87 16 115/73 95 Room Air 05/02/23 07:08 99 H 05/02/23 03:00 36.6 C 94 H 20 117/77 95 Room Air PG Care Time/CCT Total # of Minutes Spent Total Time Spent with Patient: Total time spent is greater than 50% in coordination of care (as documented) at patient's floor/unit and/or counseling patient: Coding Level of Care Code None Diagnoses Acute CVA (cerebrovascular accident) I63.9
[2023-05-02] MEDS: cefTRIAXone SODIUM 1,000 MG in DEXTROSE 5 % MINI-B 50 ML IV SCH (15:21)
[2023-05-02 17:56] LABS: Hematocrit (blood only) 37.9 % (37.0-47.0); Hemoglobin 12.2 g/dl (12.0-16.0)
[2023-05-02] MEDS: SOD PHOSPHATE/SOD BIPHOSPHATE ENEMA 132 ML BTL PR SCH (18:13)
[2023-05-02 23:23] LABS: Hematocrit (blood only) 36.7 % (37.0-47.0); Hemoglobin 11.8 g/dl (12.0-16.0)
[2023-05-03] MEDS: SOD PHOSPHATE/SOD BIPHOSPHATE ENEMA 132 ML BTL PR SCH ×2 (00:01→10:10)
[2023-05-03] MEDS: LEVOTHYROXINE SODIUM 75 MCG TABLET PO SCH (06:06)
[2023-05-03] MEDS: ACETAMINOPHEN 325 MG TAB PO PRN ×2 (06:06→10:10)
[2023-05-03 07:40] LABS: Hematocrit (blood only) 33.9 % (37.0-47.0); Hemoglobin 11.1 g/dl (12.0-16.0); Mean Corpuscular Hgb Conc 32.7 g/dL (32.0-36.0); Mean Corpuscular Volume 82.5 fL (80.0-100.0); Mean Platelet Volume 11.2 fL (9.4-12.4); Platelet Count 183 K/uL (130-400); RDW Coefficient of Variation 15.6 % (11.5-14.5); RDW Standard Deviation 46.6 fL (36.4-46.3); Red Blood Count 4.11 M/uL (4.20-5.40); White Blood Count 5.77 K/ul (4.8-10.8)
[2023-05-03 08:07] LABS: BUN Creatinine Ratio 36.4 (10-20); Calcium 8.3 mg/dl (8.6-10.3); Creatinine Clr Calc Pharmacy 47.2 ml/min; Est GFR (Non-African American) 69.9 ml/min; Potassium 3.8 mmol/L (3.5-5.1)
--- NOTE | 2023-05-03 08:59 | Neurology Progress Note ---
Date of Service May 03, 2023 Assessment & Plan (1) Acute CVA (cerebrovascular accident): (2) Retroperitoneal hemorrhage: Admission and Anticipated Discharge Date Admission Date: April 26, 2023 Subjective pt alert this morning and following simple command. appears comfortable. Results & Data Vital Signs (Past 12 Hours) Vital Signs Temp Pulse Pulse Resp BP Pulse Ox O2 Del Method 05/03/23 07:31 36.4 C L 75 16 112/73 93 Room Air 05/03/23 03:00 36.4 C L 78 14 126/84 95 Room Air 05/02/23 23:00 36.7 C 83 18 134/79 96 Room Air 05/02/23 21:53 89 Exam (Neuro) Physical Exam: Neuro: Mental: alert, follows simple commands. nonverbal. good eye contact. CN: PERRL, Full EOM grossly intact, left face droop. Motor: No abnormal movements, left hemiparesis, flaccid weakness t/o left side. gait deferred. Impression: pt with s/p subacute large rt side ischemic stroke with M2 occlusion. CT head follow up looks stable and not much edema. pt with now UTI and retroperitoneal bleed/GI bleed. ASA/plavix on hold. vital stable. Recommendations: -ok with continue holding ASA/plavix unt il GI bleed (retroperitoneal bleed) iss ue stable and once GI recommends ok to restart antiplatelet therapy. pt is not a good candidate for OAC for atrial fib in the future due to advance age, prone to bleed and large stroke size. will need to be on antiplatelet therapy for stroke risk reduction, ok with just ASA only rather than doing DAPT in the future. keep SBP above 110 avoid hypotension continue care for UTI and other medical issues. Chart reviewed I have spent more than 50% coordinating care with patient's treatment team. Total time spent (including chart review and coordination of care): 50 min (this includes chart review). PG Care Time/CCT Total # of Minutes Spent Total Time Spent with Patient: Total time spent is greater than 50% in coordination of care (as documented) at patient's floor/unit and/or counseling patient: Coding Level of Care Code 94285 SUB INP/OBS CARE 3/50MIN Diagnoses Acute CVA (cerebrovascular accident) I63.9 Retroperitoneal hemorrhage R58
[2023-05-03] MEDS: ROSUVASTATIN CALCIUM 10 MG TAB PO SCH (10:09)
[2023-05-03] MEDS: METOPROLOL TARTRATE 25 MG TAB PO SCH ×2 (10:09→20:13)
[2023-05-03] MEDS: SENNA 8.6 MG TAB PO SCH (10:09)
[2023-05-03] MEDS: amLODIPine BESYLATE 5 MG TAB PO SCH (10:09)
--- NOTE | 2023-05-03 10:25 | Gastroenterology Progress Note ---
Date of Service May 03, 2023 Assessment & Plan (1) Lower gastrointestinal bleed: (2) Stercoral colitis: Plan -Continue MiraLAX 17 g 1-2 times daily. -Fleet enemas as ordered today. -Consider repeat KUB in the am to reassess fecal burden. -Continue supportive care. Admission and Anticipated Discharge Date Admission Date: April 26, 2023 Subjective Patient is status post CT which demonstrated a stercoral colitis and constipation. Per nursing, she has received an enema last evening with several hard stool balls passed with only small amount of bright red blood. She is to receive another enema this morning. No rectal bleeding this am. Hemoglobin with only slight decrease from 11.8 to 11.1 this morning. MiraLAX has been ordered as well. Review of Systems Review of Systems: Unobtainable due to cognitive status Physical Exam Constitutional: WD/WN, vitals as above Respiratory: normal respiratory effort, lungs clear to auscultation Cardiovascular: Rate/Rhythm: + irregularly irregular Gastrointestinal (Abdomen): Inspection/Auscultation: + abdomen distended and normal bowel sounds Percussion/Palpation: abdomen soft Psychiatric: Orientation: alert and oriented to person Results & Data Results & Data Vital Signs (Past 12 Hours) Vital Signs Temp Pulse Resp BP Pulse Ox O2 Del Method 05/03/23 07:31 36.4 C L 75 16 112/73 93 Room Air 05/03/23 03:00 36.4 C L 78 14 126/84 95 Room Air 05/02/23 23:00 36.7 C 83 18 134/79 96 Room Air PG Care Time/CCT Total # of Minutes Spent Total Time Spent with Patient: Total time spent is greater than 50% in coordination of care (as documented) at patient's floor/unit and/or counseling patient: Coding Level of Care Code 07434 SUB INP/OBS CARE 3/50MIN Diagnoses Lower gastrointestinal bleed K92.2 Stercoral colitis K52.89
[2023-05-03] MEDS: POLYETHYLENE (MIRALAX) 17 GM PACK PO SCH (11:50)
[2023-05-03] MEDS: DICLOFENAC SOD 1% GEL 100 GM TUBE EXT SCH ×4 (14:08→20:13)
[2023-05-03] MEDS: cefTRIAXone SODIUM 1,000 MG in DEXTROSE 5 % MINI-B 50 ML IV SCH (14:09)
--- NOTE | 2023-05-03 17:57 | Hospitalist Progress Note ---
Date of Service May 03, 2023 Assessment & Plan (1) Lower gastrointestinal bleed: Plan: Blood per rectum started overnight 05/01-05/02 - passed four bloody stools morning of 05/02 CT abdomen/pelvis 05/02 confirmed stercoral proctitis, constipation -consulted gi, discussed with chemical sprayer Dr. Bernabe pm of 05/02 -bloody stools have resolved for now with good stool output following three fleet enemas -continue miralax and senna -hold aspirin and plavix for now -had mild drop in hematocrit compared to yesterday but no report of further bleeding (2) Retroperitoneal hemorrhage: Plan: Unexpected finding on CT 05/02 done for abdominal pain and hematochezia. Small amount of retroperitoneal blood left psoas, iliacus and iliopsoas muscles I discussed this finding with the radiologist the evening of 05/02 - amount of blood is very small, he felt that observation for acute anemia back pain or hypotension/tachycardia was warranted but this was a common finding and likely could resume anticoagulation. Thought this hemorrhage was likely acute, having occurred within the previous 2 weeks based on appearance. -unclear whether she was taking prescribed DOAC prior to admission, on ASA + plavix following admission, held. No acute anemia or episodes of hypotension this admission. Onset unclear -if hematocrit, vitals, exam stable and no significant back pain tomorrow AM likely safe to resume aspirin and plavix (3) UTI (urinary tract infection): Plan: possible UTI, hard to assess whether symptomatic and had lethargy so elected to treat -urine culture with dixon-senstitive E. coli -initially on ceftriaxone, changed to keflex to complete 5 day course (4) Acute metabolic encephalopathy: Plan: initially 2nd acute CVA early in the stay. had resolved -- but still had periods of prolonged sleepiness. when awake she would follow commands, eat/drink, etc. repeat CT head 05/01 -- no edema, no hemorrhagic transformation. other acute issues as above contributing, seems more alert 05/02, 05/03 (5) Acute CVA (cerebrovascular accident): Plan: right basal ganglia very large with dense L-sided hemiplegia during the stay NO improvement, even minimal, with L-sided weakness repeat head CT 04/27 and 05/01 without hemorrhagic transformation, increased swelling or midline shift episodes of being very sleepy, but then she has episodes of being more awake/alert and able to eat/drink/etc appreciate neuro consult, reviewed recs in note today plan - was on asa/plavix for secondary prevention held 05/02 with rectal bleeding and retroperitoneal blood ultimately will need DOAC for a.fib - deferring for now due to heightened risk of hemorrhagic transformation cont crestor 10mg/day normotensive currently on metoprolol PT, OT, speech evals appreciated will need rehab at [facility] post-d/c but not ready for such (6) Left acute arterial ischemic stroke, MCA (middle cerebral artery): Plan: Hx of large L MCA ischemic stroke in November 2022 (7) Atrial fibrillation: Plan: following her 11/2022 admission for #2 she was sent home with an event monitor by report this showed PAF. Has had afib on monitor during this admisison was to have started Xarelto for anticoagulation but, also by report, apparently never took such the cause of her current stroke very well may have been embolic in etiology due to the large size of current stroke plan to hold off on systemic anticoagulation at this time to avoid hemorrhagic transformation cont metoprolol 75mg BID - this has been titrated with improved rate control (8) History of breast cancer: Plan: S/p lumpectomy 8 years ago Hold anastrozole for now (9) Hypothyroidism: Plan: Cont levothyroxine TSH 11/2022 wnl (10) Elevated troponin: Plan: Troponin 81.8 --> 103.5, then trended down 2nd myocardial demand ischemia in setting of acute CVA (11) DVT prophylaxis: Plan: SCDs - chemopx held because of LGIB and RP hemorrhage Plan updated pt's family in room 05/02 if patient worsens or fails to improve globally consider palliative care consultation Admission and Anticipated Discharge Date Admission Date: April 26, 2023 Subjective Alert today and knows she is in hospital. Family not in room. Per nursing notes had hard maddy stools after enemas overnight, moderate loose/liquid brown stools after enema this am Says her abdomen still hurts some but improved, no back pain currently but had some midline lower back pain earlier today Physical Exam 2 Physical Exam: PHYSICAL EXAMINATION Last 24h vital signs reviewed, see documentation in flowsheet General: awake lying in bed, no distress, lying on R side HEENT: Normocephalic, atraumatic, pupils round and equal, sclerae anicteric, no conjunctival injection, moist mucus membranes Lungs: Normal respiratory effort. Clear to auscultation bilaterally. No RRW Heart: Regular rate and rhythm, no murmurs. No JVD Abdomen: Soft, non tender in lower abdomen no rebound guarding or rigidity, nondistended. Bowel sounds present. Extremities: Warm, dry, well-perfused. No extremity edema. Neuro: Alert and oriented x hospital but not fully to situation, can answer direct questions, face is slack lying on R side on pillow, left upper extremity and left lower extremity dense paresis present - states she can feel light touch but not move them. RUE RLE strength 4/5. upgoing toe on L Psych: Normal affect and behavior Results & Data Results & Data Vital Signs (Past 12 Hours) Vital Signs Temp Pulse Pulse Resp BP Pulse Ox O2 Del Method 05/03/23 16:37 37.0 C 76 16 112/72 97 Room Air 05/03/23 11:38 36.4 C L 76 16 110/72 97 Room Air 05/03/23 08:00 82 05/03/23 07:31 36.4 C L 75 16 112/73 93 Room Air Diagnostic Findings 05/03/23 07:14 05/03/23 07:14 PG Care Time/CCT Total # of Minutes Spent Total Time Spent with Patient: Total time spent is greater than 50% in coordination of care (as documented) at patient's floor/unit and/or counseling patient: Coding Level of Care Code 71738 SUB INP/OBS CARE 3/50MIN Diagnoses Lower gastrointestinal bleed K92.2 Retroperitoneal hemorrhage R58 UTI (urinary tract infection) N39.0 Acute metabolic encephalopathy G93.41 Acute CVA (cerebrovascular accident) I63.9 Left acute arterial ischemic stroke, 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
[2023-05-03] MEDS: cephALEXin 500 MG CAP PO SCH (21:21)
[2023-05-04] MEDS: LEVOTHYROXINE SODIUM 75 MCG TABLET PO SCH (05:40)
[2023-05-04 08:09] LABS: Hematocrit (blood only) 34.7 % (37.0-47.0); Hemoglobin 11.7 g/dl (12.0-16.0); Mean Corpuscular Hemoglobin 27.5 pg (25.0-34.0); Mean Corpuscular Hgb Conc 33.7 g/dL (32.0-36.0); Mean Corpuscular Volume 81.6 fL (80.0-100.0); Mean Platelet Volume 10.8 fL (9.4-12.4); Platelet Count 175 K/uL (130-400); RDW Coefficient of Variation 15.8 % (11.5-14.5); RDW Standard Deviation 46.5 fL (36.4-46.3); Red Blood Count 4.25 M/uL (4.20-5.40); White Blood Count 5.79 K/ul (4.8-10.8)
[2023-05-04] MEDS: METOPROLOL TARTRATE 25 MG TAB PO SCH ×2 (08:31→22:04)
[2023-05-04] MEDS: cephALEXin 500 MG CAP PO SCH ×4 (08:31→22:04)
[2023-05-04] MEDS: amLODIPine BESYLATE 5 MG TAB PO SCH (08:32)
[2023-05-04] MEDS: POLYETHYLENE (MIRALAX) 17 GM PACK PO SCH (08:32)
[2023-05-04] MEDS: ROSUVASTATIN CALCIUM 10 MG TAB PO SCH (08:32)
[2023-05-04] MEDS: SENNA 8.6 MG TAB PO SCH (08:33)
[2023-05-04] MEDS: DICLOFENAC SOD 1% GEL 100 GM TUBE EXT SCH ×4 (08:33→22:04)
--- NOTE | 2023-05-04 16:59 | Hospitalist Progress Note ---
Date of Service May 04, 2023 Assessment & Plan (1) Lower gastrointestinal bleed: Plan: Blood per rectum started overnight 05/01-05/02 - passed four bloody stools morning of 05/02 CT abdomen/pelvis 05/02 confirmed stercoral proctitis, constipation -consulted gi, discussed with slumber room attendant Dr. Bernabe pm of 05/02 -bloody stools have resolved for now with good stool output following three fleet enemas -continue miralax and senna -resume aspirin and plavix 05/04 -had mild drop in hematocrit 05/02- but today stable at 35 (2) Retroperitoneal hemorrhage: Plan: Unexpected finding on CT 05/02 done for abdominal pain and hematochezia. Small amount of retroperitoneal blood left psoas, iliacus and iliopsoas muscles I discussed this finding with the radiologist the evening of 05/02 - amount of blood is very small, he felt that observation for acute anemia back pain or hypotension/tachycardia was warranted but this was a common finding and likely could resume anticoagulation. Thought this hemorrhage was likely acute, having occurred within the previous 2 weeks based on appearance. -unclear whether she was taking prescribed DOAC prior to admission, on ASA + plavix following admission, held. No acute anemia or episodes of hypotension this admission. Onset unclear -hematocrit, vitals, exam stable and no back pain - cautiously resume aspirin and plavix acute back/flank pain hypotension/tachycardia, or acute anemia should prompt stat CT to evaluate for expanding retroperitoneal hemorrhage (3) UTI (urinary tract infection): Plan: possible UTI, hard to assess whether symptomatic and had lethargy so elected to treat -urine culture with dixon-senstitive E. coli -initially on ceftriaxone, changed to keflex to complete 5 day course (4) Acute metabolic encephalopathy: Plan: initially 2nd acute CVA early in the stay. had resolved -- but still had periods of prolonged sleepiness. when awake she would follow commands, eat/drink, etc. repeat CT head 05/01 -- no edema, no hemorrhagic transformation. partially brain edema from stroke, other acute issues as above may have also been contributing, more alert and her endorses this (5) Acute CVA (cerebrovascular accident): Plan: right basal ganglia very large with dense L-sided hemiplegia neurology consulted this admission repeat head CT 04/27 and 05/01 without hemorrhagic transformation, increased swelling or midline shift episodes of being very sleepy, but then she has episodes of being more awake/alert and able to eat/drink/etc. alertness improving plan - was on asa/plavix for secondary prevention held 05/02 with rectal bleeding and retroperitoneal blood, resumed 05/04 ultimately will need DOAC for a.fib - deferring for now due to heightened risk of hemorrhagic transformation cont crestor 10mg/day normotensive currently on metoprolol PT, OT, speech evals appreciated will need rehab at [facility], plan for discharge this or Monday updated several family members in room 05/02 I updated her by phone 05/04 (6) Left acute arterial ischemic stroke, MCA (middle cerebral artery): Plan: Hx of large L MCA ischemic stroke in November 2022 (7) Atrial fibrillation: Plan: following her 11/2022 admission for #2 she was sent home with an event monitor by report this showed PAF. Has had afib on monitor during this admisison was to have started Xarelto for anticoagulation but, also by report, apparently never took such the cause of her current stroke very well may have been embolic in etiology due to the large size of current stroke plan to hold off on systemic anticoagulation at this time to avoid hemorrhagic transformation cont metoprolol 75mg BID - this has been titrated with improved rate control (8) History of breast cancer: Plan: S/p lumpectomy 8 years ago Hold anastrozole for now (9) Hypothyroidism: Plan: Cont levothyroxine TSH 11/2022 wnl (10) Elevated troponin: Plan: Troponin 81.8 --> 103.5, then trended down 2nd myocardial demand ischemia in setting of acute CVA (11) DVT prophylaxis: Plan: SCDs - chemopx held because of LGIB and RP hemorrhage, ASA/plavix resumed 05/04 Admission and Anticipated Discharge Date Admission Date: April 26, 2023 Subjective Awake and drinking orange juice midday. Denies pain. Says abdominal pain resolved. Has been eating. Could not move LUE or LLE for me but says she can feel me touching her left hand and leg. No further bloody stools last 24h. Physical Exam 2 Physical Exam: PHYSICAL EXAMINATION Last 24h vital signs reviewed, see documentation in flowsheet General: awake lying in bed, no distress, lying on R side again HEENT: Normocephalic, atraumatic, pupils round and equal, sclerae anicteric, no conjunctival injection, moist mucus membranes Lungs: Normal respiratory effort. Clear to auscultation bilaterally. No RRW Heart: Regular rate and rhythm, no murmurs. No JVD Abdomen: +BT, abdomen nontender to palpation and soft Extremities: Warm, dry, well-perfused. No extremity edema. Neuro: Alert and oriented x hospital and answering my questions, more alert than several days ago, face asymmetric, L corner of mouth appears paretic talking with right side of mouth, left upper extremity and left lower extremity dense paresis present light touch intact, L sided neglect. RUE RLE strength 4/5. upgoing toe on L no clonus Psych: Normal affect and behavior Results & Data Results & Data Vital Signs (Past 12 Hours) Vital Signs Temp Pulse Pulse Resp BP Pulse Ox O2 Del Method 05/04/23 15:37 36.8 C 87 16 116/78 96 Room Air 05/04/23 10:49 Room Air 05/04/23 10:49 36.7 C 75 16 114/75 98 Room Air 05/04/23 07:55 36.9 C 84 16 121/66 98 Room Air 05/04/23 07:15 83 Diagnostic Findings 05/04/23 07:44 05/03/23 07:14 PG Care Time/CCT Total # of Minutes Spent Total Time Spent with Patient: Total time spent is greater than 50% in coordination of care (as documented) at patient's floor/unit and/or counseling patient: Coding Level of Care Code 30589 SUB INP/OBS CARE 2/35MIN Diagnoses Lower gastrointestinal bleed K92.2 Retroperitoneal hemorrhage R58 UTI (urinary tract infection) N39.0 Acute metabolic encephalopathy G93.41 Acute CVA (cerebrovascular accident) I63.9 Left acute arterial ischemic stroke, 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
[2023-05-05] MEDS: LEVOTHYROXINE SODIUM 75 MCG TABLET PO SCH (05:31)
[2023-05-05 07:22] LABS: Hematocrit (blood only) 34.5 % (37.0-47.0); Hemoglobin 11.3 g/dl (12.0-16.0); Mean Corpuscular Hemoglobin 27.4 pg (25.0-34.0); Mean Corpuscular Hgb Conc 32.8 g/dL (32.0-36.0); Mean Corpuscular Volume 83.5 fL (80.0-100.0); Mean Platelet Volume 10.6 fL (9.4-12.4); Platelet Count 175 K/uL (130-400); RDW Coefficient of Variation 15.7 % (11.5-14.5); RDW Standard Deviation 47.5 fL (36.4-46.3); Red Blood Count 4.13 M/uL (4.20-5.40); White Blood Count 5.31 K/ul (4.8-10.8)
[2023-05-05 07:45] LABS: BUN Creatinine Ratio 33.3 (10-20); Calcium 8.2 mg/dl (8.6-10.3); Creatinine Clr Calc Pharmacy 46.6 ml/min; Est GFR (African American) 79.8 ml/min; Est GFR (Non-African American) 68.8 ml/min
[2023-05-05] MEDS: DICLOFENAC SOD 1% GEL 100 GM TUBE EXT SCH ×4 (08:59→21:13)
[2023-05-05] MEDS: ASPIRIN 81 MG ECTAB PO SCH (09:46)
[2023-05-05] MEDS: POLYETHYLENE (MIRALAX) 17 GM PACK PO SCH (09:46)
[2023-05-05] MEDS: SENNA 8.6 MG TAB PO SCH (09:46)
[2023-05-05] MEDS: cephALEXin 500 MG CAP PO SCH ×4 (09:46→21:13)
[2023-05-05] MEDS: METOPROLOL TARTRATE 25 MG TAB PO SCH ×2 (09:47→21:13)
[2023-05-05] MEDS: ROSUVASTATIN CALCIUM 10 MG TAB PO SCH (09:47)
[2023-05-05] MEDS: CLOPIDOGREL BISULFATE 75 MG TAB PO SCH (09:47)
[2023-05-05] MEDS: amLODIPine BESYLATE 5 MG TAB PO SCH (09:47)
--- NOTE | 2023-05-05 16:18 | Hospitalist Progress Note ---
Date of Service May 05, 2023 Assessment & Plan (1) Lower gastrointestinal bleed: Plan: Blood per rectum started overnight 05/01-05/02 - passed four bloody stools morning of 05/02 CT abdomen/pelvis 05/02 confirmed stercoral proctitis, constipation -consulted gi, discussed with program director/morning show host Dr. Bernabe pm of 05/02 -bloody stools have resolved for now with good stool output following three fleet enemas -continue miralax and senna -resume aspirin and plavix 05/04 -had mild drop in hematocrit 05/02- but today 34.5 unchanged -no further bloody stools, continue bowel regimen (2) Retroperitoneal hemorrhage: Plan: Unexpected finding on CT 05/02 done for abdominal pain and hematochezia. Small amount of retroperitoneal blood left psoas, iliacus and iliopsoas muscles I discussed this finding with the radiologist the evening of 05/02 - amount of blood is very small, he felt that observation for acute anemia back pain or hypotension/tachycardia was warranted but this was a common finding and likely could resume anticoagulation. Thought this hemorrhage was likely acute, having occurred within the previous 2 weeks based on appearance. -unclear whether she was taking prescribed DOAC prior to admission, on ASA + plavix following admission, held. No acute anemia or episodes of hypotension this admission. Onset unclear -same 05/05: hematocrit, vitals, exam stable and no back pain - cautiously resumed aspirin and plavix 05/04 acute back/flank pain hypotension/tachycardia, or acute anemia should prompt stat CT to evaluate for expanding retroperitoneal hemorrhage (3) UTI (urinary tract infection): Plan: possible UTI, hard to assess whether symptomatic and had lethargy so elected to treat -urine culture with dixon-senstitive E. coli -initially on ceftriaxone, changed to keflex to complete 5 day course (4) Acute metabolic encephalopathy: Plan: initially 2nd acute CVA early in the stay. had resolved -- but still had periods of prolonged sleepiness. when awake she would follow commands, eat/drink, etc. repeat CT head 05/01 -- no edema, no hemorrhagic transformation. partially brain edema from stroke, other acute issues as above may have also been contributing, more alert and her endorses this (5) Acute CVA (cerebrovascular accident): Plan: right basal ganglia very large with dense L-sided hemiplegia neurology consulted this admission repeat head CT 04/27 and 05/01 without hemorrhagic transformation, increased swelling or midline shift episodes of being very sleepy, but then she has episodes of being more awake/alert and able to eat/drink/etc. alertness improving plan - was on asa/plavix for secondary prevention held 05/02 with rectal bleeding and retroperitoneal blood, resumed 05/04 ultimately will need DOAC for a.fib - deferring for now due to heightened risk of hemorrhagic transformation cont crestor 10mg/day normotensive currently on metoprolol PT, OT, speech evals appreciated will need rehab at [facility], plan for discharge this or Monday updated several family members in room 05/02 I updated her by phone 05/04 (6) Left acute arterial ischemic stroke, MCA (middle cerebral artery): Plan: Hx of large L MCA ischemic stroke in November 2022 (7) Atrial fibrillation: Plan: following her 11/2022 admission for #2 she was sent home with an event monitor by report this showed PAF. Has had afib on monitor during this admisison was to have started Xarelto for anticoagulation but, also by report, apparently never took such the cause of her current stroke very well may have been embolic in etiology due to the large size of current stroke plan to hold off on systemic anticoagulation at this time to avoid hemorrhagic transformation cont metoprolol 75mg BID - this has been titrated with improved rate control (8) History of breast cancer: Plan: S/p lumpectomy 8 years ago Hold anastrozole for now (9) Hypothyroidism: Plan: Cont levothyroxine TSH 11/2022 wnl (10) Elevated troponin: Plan: Troponin 81.8 --> 103.5, then trended down 2nd myocardial demand ischemia in setting of acute CVA (11) DVT prophylaxis: Plan: SCDs - chemopx held because of LGIB and RP hemorrhage, ASA/plavix resumed 05/04 Admission and Anticipated Discharge Date Admission Date: April 26, 2023 Subjective she knows shes in hospital at [place]. denies abdominal pain and denies shortness of breath. still can't move LUE or LLE Physical Exam 2 Physical Exam: PHYSICAL EXAMINATION Last 24h vital signs reviewed, see documentation in flowsheet General: awake lying in bed, no distress, lying on L side today HEENT: Normocephalic, atraumatic, pupils round and equal, sclerae anicteric, no conjunctival injection, moist mucus membranes Lungs: Normal respiratory effort. Clear to auscultation bilaterally. No RRW Heart: Regular rate and rhythm, no murmurs. No JVD Abdomen: sntnd +BT Extremities: Warm, dry, well-perfused. No extremity edema. Neuro: oriented x hospital and [facility], limited verbal replies, awake but mildly lethargic/quiet, unchanged: face asymmetric, L corner of mouth appears paretic talking with right side of mouth, left upper extremity and left lower extremity dense paresis present light touch intact, L sided neglect. RUE RLE strength 4/5. Psych: withdrawn affect and behavior Results & Data Results & Data Vital Signs (Past 12 Hours) Vital Signs Temp Pulse Pulse Resp BP Pulse Ox O2 Del Method 05/05/23 14:46 36.8 C 86 18 134/79 96 Room Air 05/05/23 11:45 36.7 C 99 H 18 136/73 94 Room Air 05/05/23 10:04 Room Air 05/05/23 09:21 99 H 05/05/23 07:42 36.9 C 85 18 114/72 96 Room Air Laboratory Results 05/05/23 06:55 05/05/23 06:55 PG Care Time/CCT Total # of Minutes Spent Total Time Spent with Patient: Total time spent is greater than 50% in coordination of care (as documented) at patient's floor/unit and/or counseling patient: Coding Level of Care Code 55499 SUB INP/OBS CARE 2/35MIN Diagnoses Lower gastrointestinal bleed K92.2 Retroperitoneal hemorrhage R58 UTI (urinary tract infection) N39.0 Acute metabolic encephalopathy G93.41 Acute CVA (cerebrovascular accident) I63.9 Left acute arterial ischemic stroke, 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
[2023-05-06 05:55] LABS: Hematocrit (blood only) 35.6 % (37.0-47.0); Hemoglobin 11.7 g/dl (12.0-16.0); Mean Corpuscular Hemoglobin 26.8 pg (25.0-34.0); Mean Corpuscular Hgb Conc 32.9 g/dL (32.0-36.0); Mean Corpuscular Volume 81.5 fL (80.0-100.0); Mean Platelet Volume 10.3 fL (9.4-12.4); Platelet Count 179 K/uL (130-400); RDW Coefficient of Variation 15.5 % (11.5-14.5); RDW Standard Deviation 45.2 fL (36.4-46.3); Red Blood Count 4.37 M/uL (4.20-5.40); White Blood Count 6.58 K/ul (4.8-10.8)
[2023-05-06] MEDS: LEVOTHYROXINE SODIUM 75 MCG TABLET PO SCH (06:23)
[2023-05-06] MEDS: ASPIRIN 81 MG ECTAB PO SCH (08:47)
[2023-05-06] MEDS: METOPROLOL TARTRATE 25 MG TAB PO SCH (08:47)
[2023-05-06] MEDS: ROSUVASTATIN CALCIUM 10 MG TAB PO SCH (08:48)
[2023-05-06] MEDS: amLODIPine BESYLATE 5 MG TAB PO SCH (08:48)
[2023-05-06] MEDS: CLOPIDOGREL BISULFATE 75 MG TAB PO SCH (08:48)
[2023-05-06] MEDS: DICLOFENAC SOD 1% GEL 100 GM TUBE EXT SCH (08:48)
[2023-05-06] MEDS: SENNA 8.6 MG TAB PO SCH (08:48)
[2023-05-06] MEDS: POLYETHYLENE (MIRALAX) 17 GM PACK PO SCH (08:49)
--- NOTE | 2023-05-06 12:22 | Discharge Summary ---
Date of Service May 06, 2023 Admission HPI Per Admitting Provider Caitlin is an 87-year-old female with PMH of L MCA ischemic stroke in November 2022, breast cancer, , hypothyroidism, chronic rhinitis, and acquired deviated nasal septum. She presented via EMS as a stroke alert the morning of 04/26. Last known well at approximately 1900 on 04/25. The patient lives with her , who has dementia. 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 Family is at the bedside (Radha granddaughter, Danya granddaughter, and Rae LESLIE/daughter) and provides most of history. The patient reportedly lost mobility around 1900 on 04/25, and her sat her in a kitchen chair. He then reportedly dragged her in the chair towards the bedroom to get her into bed, but she ended up sleeping in the chair. The patient awoke on 04/26 with slurred speech, left-sided weakness, and left- sided eye neglect. Family reports that she normally manages her own medications, but she did not take any medications this morning. Family reports that she was placed on Eliquis after her last stroke in November, but was switched to Xarelto due to expense. Family is not sure if she is taking Xarelto. The patient exhibits hypertension at 167/84, and tachycardia at 116 bpm at time of admission. ED course: Aspirin 324 mg p.o. IVF ROS: Unable to obtain in patient's current state Principal Diagnosis Acute ischemic stroke of right basal ganglia, history of left MCA stroke in past, history of atrial fibrillation Discharge Exam PHYSICAL EXAMINATION Last 24h vital signs reviewed, see documentation in flowsheet General: awake lying in bed, no distress, lying in bed HEENT: Normocephalic, atraumatic, pupils round and equal, sclerae anicteric, no conjunctival injection, moist mucus membranes Lungs: Normal respiratory effort. Clear to auscultation bilaterally. No RRW Heart: Regular rate and rhythm, no murmurs. No JVD Abdomen: sntnd +BT - denies abdominal pain Extremities: Warm, dry, well-perfused. No extremity edema. Neuro: oriented x hospital and knows she is going to [facility] today, limited verbal replies, awake and alert, unchanged: face asymmetric, L corner of mouth appears paretic talking with right side of mouth, tongue midline, L visual field deficit, left upper extremity and left lower extremity dense paresis present, light touch intact x 4 ext, L sided neglect present. RUE RLE strength 4/5. Psych: normal affect and normal behavior Discharge Data Allergies Allergy/AdvReac Type Severity Reaction Status Date / Time Bactrim Allergy Mild HIVES Verified 04/13/17 08:00 latex Allergy Mild RASH ITCHY Verified 07/25/22 10:52 sulfamethoxazole Allergy Mild HIVES Verified 07/25/22 10:52 trimethoprim Allergy Mild HIVES Verified 07/25/22 10:52 Consultations 04/26/23 11:35 ED Decision to Admit Stat 04/26/23 14:35 Consult Neurology Routine 05/02/23 11:14 Consult Gastroenterology Stat Ordered Studies 04/26/23 08:57 CT angio head w con Stat CT angio neck with con Stat CT head/brain wo con Stat 04/26/23 10:57 MRI Brain [MR brain wo con] Stat 04/27/23 10:24 CT head/brain wo con Stat 05/01/23 11:27 CT head/brain wo con Routine 05/02/23 11:13 CT abdomen pelvis wo/w con Stat Head CT 04/26/23 08:57 CT angio head w con, CT head/brain wo con, CT angio neck with con CLINICAL HISTORY: neuro deficit, acute stroke suspected TECHNIQUE: Contiguous axial CT images of the head were acquired from the base of the skull to the vertex without intravenous contrast administration. CT angiography of the head and neck was performed following intravenous administration of iodinated contrast. Coronal and sagittal MIPS were obtained from the axial data set and were submitted for review. Automated dose lowering techniques and/or adjustment according to patient size were utilized for this examination. All measurements were calculated based on NASCET criteria. CT DOSE: 999.15 mGy.cm Comparison: Comparison is made to MRI brain 11/24/2022 FINDINGS: CT head: Areas of decreased attenuation are present in the periventricular and subcortical white matter bilaterally consistent with small vessel ischemic disease. Generalized cerebral atrophy with commensurate enlargement of the ventricles, sulci, and cisterns is also present. There is no acute intracranial hemorrhage or evidence of acute territorial infarction. No shift of the midline structures, mass effect, or extra-axial abnormalities are shown. Atherosclerotic calcifications are present in the intracranial segments of the internal carotid arteries. Lungs and soft tissues are unremarkable. CTA Neck: A 3 vessel aortic arch is shown. There is no significant atherosclerotic plaque in the aortic arch or the origins of the innominate, left common carotid, and left subclavian arteries. The common carotid, external carotid, cervical segments of the internal carotid arteries, and the cervical segments of the vertebral arteries are patent without hemodynamically si gnificant stenosis. The left vertebral artery is dominant. CTA Head: The anterior and posterior cerebral circulations are patent. No hemodynamically significant stenosis, aneurysm, dissection, or arteriovenous malformation is shown. IMPRESSION: 1. No acute intracranial hemorrhage, evidence of acute territorial infarction, or other acute intracranial disease process. 2. No occlusion, hemodynamically significant stenosis, or dissection in the major cervical arteries. 3. No occlusion, hemodynamically significant stenosis, aneurysm, dissection, or arteriovenous malformation in the major intracranial arteries. Assessment of stenosis of the internal carotid arteries is based on NASCET criteria. ACT 112: Negative or not required by law. Electronically signed by: Sudarshan Juarez M.D. 04/26/2023 9:36 AM Head CTA 04/26/23 08:57 CT angio head w con, CT head/brain wo con, CT angio neck with con CLINICAL HISTORY: neuro deficit, acute stroke suspected TECHNIQUE: Contiguous axial CT images of the head were acquired from the base of the skull to the vertex without intravenous contrast administration. CT angiography of the head and neck was performed following intravenous administration of iodinated contrast. Coronal and sagittal MIPS were obtained from the axial data set and were submitted for review. Automated dose lowering techniques and/or adjustment according to patient size were utilized for this examination. All measurements were calculated based on NASCET criteria. CT DOSE: 999.15 mGy.cm Comparison: Comparison is made to MRI brain 11/24/2022 FINDINGS: CT head: Areas of decreased attenuation are present in the periventricular and subcortical white matter bilaterally consistent with small vessel ischemic disease. Generalized cerebral atrophy with commensurate enlargement of the ventricles, sulci, and cisterns is also present. There is no acute intracranial hemorrhage or evidence of acute territorial infarction. No shift of the midline structures, mass effect, or extra-axial abnormalities are shown. Atherosclerotic calcifications are present in the intracranial segments of the internal carotid arteries. Lungs and soft tissues are unremarkable. CTA Neck: A 3 vessel aortic arch is shown. There is no significant atherosclerotic plaque in the aortic arch or the origins of the innominate, left common carotid, and left subclavian arteries. The common carotid, external carotid, cervical segments of the internal carotid arteries, and the cervical segments of the vertebral arteries are patent without hemodynamically significant stenosis. The left vertebral artery is dominant. CTA Head: The anterior and posterior cerebral circulations are patent. No hemodynamically significant stenosis, aneurysm, dissection, or arteriovenous malformation is shown. IMPRESSION: 1. No acute intracranial hemorrhage, evidence of acute territorial infarction, or other acute intracranial disease process. 2. No occlusion, hemodynamically significant stenosis, or dissection in the major cervical arteries. 3. No occlusion, hemodynamically significant stenosis, aneurysm, dissection, or arteriovenous malformation in the major intracranial arteries. Assessment of stenosis of the internal carotid arteries is based on NASCET criteria. ACT 112: Negative or not required by law. Electronically signed by: Sudarshan Juarez M.D. 04/26/2023 9:36 AM Neck CTA 04/26/23 08:57 CT angio head w con, CT head/brain wo con, CT angio neck with con CLINICAL HISTORY: neuro deficit, acute stroke suspected TECHNIQUE: Contiguous axial CT images of the head were acquired from the base of the skull to the vertex without intravenous contrast administration. CT angiography of the head and neck was performed following intravenous administration of iodinated contrast. Coronal and sagittal MIPS were obtained from the axial data set and were submitted for review. Automated dose lowering techniques and/or adjustment according to patient size were utilized for this examination. All measurements were calculated based on NASCET criteria. CT DOSE: 999.15 mGy.cm Comparison: Comparison is made to MRI brain 11/24/2022 FINDINGS: CT head: Areas of decreased attenuation are present in the periventricular and subcortical white matter bilaterally consistent with small vessel ischemic disease. Generalized cerebral atrophy with commensurate enlargement of the ventricles, sulci, and cisterns is also present. There is no acute intracranial hemorrhage or evidence of acute territorial infarction. No shift of the midline structures, mass effect, or extra-axial abnormalities are shown. Atherosclerotic calcifications are present in the intracranial segments of the internal carotid arteries. Lungs and soft tissues are unremarkable. CTA Neck: A 3 vessel aortic arch is shown. There is no significant atherosclerotic plaque in the aortic arch or the origins of the innominate, left common carotid, and left subclavian arteries. The common carotid, external carotid, cervical segments of the internal carotid arteries, and the cervical segments of the vertebral arteries are patent without hemodynamically significant stenosis. The left vertebral artery is dominant. CTA Head: The anterior and posterior cerebral circulations are patent. No hemodynamically significant stenosis, aneurysm, dissection, or arteriovenous malformation is shown. IMPRESSION: 1. No acute intracranial hemorrhage, evidence of acute territorial infarction, or other acute intracranial disease process. 2. No occlusion, hemodynamically significant stenosis, or dissection in the major cervical arteries. 3. No occlusion, hemodynamically significant stenosis, aneurysm, dissection, or arteriovenous malformation in the major intracranial arteries. Assessment of stenosis of the internal carotid arteries is based on NASCET criteria. ACT 112: Negative or not required by law. Electronically signed by: Sudarshan Juarez M.D. 04/26/2023 9:36 AM Brain MRI 04/26/23 10:57 MRI OF THE BRAIN WITHOUT IV CONTRAST CLINICAL HISTORY: Stroke. COMPARISON STUDY: CT of the brain dated 04/26/2023. MRI of the brain dated 11/24/2022. TECHNIQUE: MRI of the brain was performed utilizing various T1 and T2-weighted sequences in the axial, sagittal, and coronal planes. IV contrast was not administered for this examination. The examination is degraded by motion artifact. FINDINGS: Brain parenchyma: There is an approximately 4.5 cm curvilinear focus of restricted diffusion centered in the right caudate nucleus, basal ganglia, and internal capsule consistent with an acute to subacute infarct. No hemorrhage or mass effect is seen. No additional foci of restricted diffusion are identified. There is age-related involutional change noting mild subcortical and periventricular white radiographic disease. Foci of encephalomalacia in the left frontal lobe and in the medial left temporal lobe are consistent with remote insults. No extra-axial fluid collection is seen. The cerebellar tonsils are normal in configuration. Ventricles, sulci, and cisterns: Prominent secondary to involutional change. Pituitary and sella: Unremarkable. Intracranial vasculature: Normal flow voids are maintained at the skull base. Orbits: The bony orbits are grossly intact. Orbital contents are normal in appearance noting bilateral ocular lens implants. Sinuses and mastoids: Clear. Calvarium: Unremarkable. Cervical cord: Partially visualized cervical spinal cord is normal in morphology and signal intensity. IMPRESSION: 1. Large acute to subacute infarct centered in the right basal ganglia/caudate head/internal capsule as above. 2. There is no hemorrhage or mass effect. 3. No additional foci of acute ischemia are identified. ACT 112: Negative or not required by law. Electronically signed by: Jorge Lambert M.D. 04/26/2023 5:[address] 04/27/23 10:24 CT head/brain wo con CLINICAL HISTORY: CVA, new lethargy ?edema/hemm xformation Technique: Contiguous axial CT images of the head were acquired from the base of the skull to the vertex without intravenous contrast administration. Images were viewed in brain, subdural and bone windows. Automated dose lowering techniques and/or adjustment according to patient size were utilized for this exam. Comparison: Comparison is made to MRI brain 04/26/[address] head 04/26/2023 Findings: Hypodensity is seen in the right caudate head and internal capsule without evidence of hemorrhage. No significant midline shift or mass effect is seen. Imaged portions of the paranasal sinuses and mastoid air cells are clear. The orbits appear normal. There are no acute fractures of the calvaria or scalp swelling. Impression: Hypodensity in the right caudate head and internal capsule, comparable to prior MRI, without evidence of hemorrhagic transformation. No significant mass effect or midline shift. ACT 112: Negative or not required by law. Electronically signed by: Sudarshan Juarez M.D. 04/27/2023 11:21 AM Chest X-Ray 04/27/23 16:24 XR chest 1V portable CLINICAL HISTORY: stroke, fever, eval aspiration pneumonia TECHNIQUE: Single frontal radiograph of the chest was obtained. Comparison: Comparison is made to chest radiograph 11/23/2022 FINDINGS: No lines and tubes are seen. Cardiomegaly is noted. The aortic arch is calcified. The lungs are clear. No evidence of pleural effusion or pneumothorax. IMPRESSION: No evidence of aspiration pneumonia. Cardiomegaly is noted. ACT 112: Negative or not required by law. Electronically signed by: Sudarshan Juarez M.D. 04/27/2023 5:[address] 05/01/23 11:27 CT SCAN OF THE BRAIN WITHOUT IV CONTRAST CLINICAL HISTORY: Follow-up stroke. Lethargy. COMPARISON STUDY: CT of the brain dated 04/27/2023. MRI of the brain dated 04/26/2023. TECHNIQUE: Unenhanced axial CT scan of the brain is performed from the vertex to the skull base. A dose lowering technique was utilized adhering to the principles of ALARA. CT DOSE: 625.8 mGy.cm FINDINGS: Brain parenchyma: There is age-related involutional change noting mild subcortical and periventricular microangiopathic disease. There is a large subacute infarct centered in the right basal ganglia/internal capsule, and also involving the right caudate head. There is no hemorrhage or midline shift. No extra-axial fluid collection is seen. Ventricles, sulci, cisterns: Prominent secondary to involutional change. Intracranial vasculature: There is atherosclerotic calcification of the cavernous carotid arteries. Calvarium: Unremarkable. Sinuses and mastoids: The visualized paranasal sinuses are clear. The mastoid air cells are well pneumatized. Orbits: The bony orbits are grossly intact. There are bilateral ocular lens implants. IMPRESSION: 1. Subacute/evolving infarct centered in the right basal ganglia/internal capsule as above. 2. There is no hemorrhage or midline shift. 3. No new foci of acute ischemia are suggested by CT criteria. ACT 112: Negative or not required by law. Electronically signed by: Jorge Lambert M.D. 05/01/2023 2:57 PM KUB X-Ray 05/01/23 16:39 KUB CLINICAL HISTORY: abd pain, distension; impaction?? COMPARISON STUDY: None. FINDINGS: Incidental note is made of cholecystectomy clips. There is a moderate amount of stool within the colon. There is a moderate to large amount of stool within the rectum. Mild distention of the colon is noted. However, there is no evidence for a bowel obstruction. IMPRESSION: 1. No evidence for a bowel obstruction. 2. Moderate to large amount of stool within the rectum and colon. ACT 112: Negative or not required by law. Electronically signed by: Kyler Dyson M.D. 05/02/2023 8:08 AM Abdomen/Pelvis CT 05/02/23 11:13 CT abdomen pelvis wo/w con HISTORY: 87 years-old Female abdominal pain, hematochezia, poss ischemic coliti acute generalized abdominal pain COMPARISON: None TECHNIQUE: Multiple axial CT images of the abdomen and pelvis were obtained both with and without use of IV contrast. A dose lowering technique was used consistent with the principals of ALARA. FINDINGS: Moderate cardiomegaly with trace pericardial effusion. Trace pleural effusions. Mitral annular calcifications. Clear lung bases. No free air. Unremarkable spleen, moderately atrophic pancreas and adrenal glands. Cholecystectomy with likely postsurgical biliary ductal dilation. The common bile duct measures 11 mm transversely. Possible pancreatic divisum. Indeterminate mixed density foci noted along the posterior right hepatic lobe and inferior to the right hepatic lobe, possibly dropped gallstones related to the prior cholecystectomy. limited lesions of the kidneys with areas of mild cortical thinning. Bilateral renal sinus cysts. Decompressed urinary bladder with Swan catheter in place. Perivesicular stranding. Heterogeneous uterus. Atherosclerosis of the aorta and branch vessels. No lymphadenopathy. The small amount of acute left- sided retroperitoneal hemorrhage involving the left so as, iliacus and iliopsoas muscles. Small amount of dependent fluid within the pelvis. Moderate colonic fecal retention with rectal wall thickening. There are a few subcentimeter perirectal lymph nodes. Additional moderate fecal retention in the right hemicolon. Nonspecific body wall edema. No acute fracture. Degenerative changes of the spine, pelvis and hips. IMPRESSION: 1. Small amount of acute left-sided retroperitoneal hemorrhage. 2. No bowel obstruction or pneumoperitoneum. 3. Constipation with findings suggestive of stercoral proctitis. 4. Cholecystectomy with likely postsurgical biliary ductal dilation. This could be correlated with serum bilirubin. 5. Additional findings as above. ACT 112: Negative or not required by law. The above report was generated using voice recognition software. It may contain grammatical, syntax or spelling errors. Electronically signed by: Javon Levy M.D. 05/02/2023 1:06 PM 05/06/23 05/05/23 Range/Units 05:24 21:23 WBC 6.58 (4.8-10.8) K/ul RBC 4.37 (4.20-5.40) M/uL Hgb 11.7 L (12.0-16.0) g/dl Hct 35.6 L (37.0-47.0) % MCV 81.5 (80.0-100.0) fL MCH 26.8 (25.0-34.0) pg MCHC 32.9 (32.0-36.0) g/dL RDW Std Deviation 45.2 (36.4-46.3) fL RDW Coeff of Darío 15.5 H (11.5-14.5) % Plt Count 179 (130-400) K/uL MPV 10.3 (9.4-12.4) fL POC Glucose 97 (70-99) mg/dl Hospital Course (1) Acute CVA (cerebrovascular accident): 87 y/o with atrial fibrillation who was prescribed DOAC but said not to be taking it, history of previous L MCA stroke, presented with large right basal ganglia acute ischemic stroke Clinically has dense L-sided hemiplegia, left sided neglect. neurology consulted this admission repeat head CT 04/27 and 05/01 without hemorrhagic transformation, increased swelling or midline shift she had episodes of being very sleepy, but then she has episodes of being more awake/alert and able to eat/drink/etc. alertness improving - has been alert monday. plan - was on asa/plavix for secondary prevention held 05/02 with rectal bleeding and retroperitoneal blood, resumed 05/04 and tolerating without evidence of bleeding in future consider DOAC for a.fib - deferring for now due to heightened risk of hemorrhagic transformation - per neurologist high risk of ICH with full anticoagulation cont crestor 10mg/day (dose increase from 5) normotensive currently on metoprolol (dose increase) PT, OT, speech evals appreciated. Swallow is intact, eating. updated several family members in room 05/02 I updated her by phone 05/04 Would check BMP and CBC in one week (2) Lower gastrointestinal bleed: Blood per rectum started overnight 05/01-05/02 - passed four bloody stools morning of 05/02 CT abdomen/pelvis 05/02 confirmed stercoral proctitis, constipation -consulted gi, discussed with tube making machine operator Dr. Bernabe pm of 05/02 -bloody stools have resolved for now with good stool output following three fleet enemas -continue miralax and senna -resumed aspirin and plavix 05/04, no further bloody stools -had mild drop in hematocrit 05/02- but today 35.6 improved -no further bloody stools, continue bowel regimen (3) Retroperitoneal hemorrhage: Unexpected finding on CT 05/02 done for abdominal pain and hematochezia. Asymptomatic. Intermittently has mild midline low back pain in bed but no significant back pain and no left back/flank/abdominal pain. Small amount of retroperitoneal blood left psoas, iliacus and iliopsoas muscles I discussed this finding with the radiologist the evening of 05/02 - amount of blood is very small, he felt that observation for acute anemia back pain or hypotension/tachycardia was warranted but this was a common finding and likely c ould resume anticoagulation. Thought this hemorrhage was likely acute, having occurred within the previous 2 weeks based on appearance. -unclear whether she was taking prescribed DOAC prior to admission, on ASA + plavix following admission, held temporarily and SQ heparin was stopped. No acute anemia or episodes of hypotension this admission. Onset unclear - cautiously resumed aspirin and plavix 05/04 - hematocrit, vitals, exam stable and no significant back pain have occurred acute back/flank pain hypotension/tachycardia, or acute anemia should prompt stat CT to evaluate for expanding retroperitoneal hemorrhage (4) UTI (urinary tract infection): possible UTI, hard to assess whether symptomatic and had lethargy so elected to treat -urine culture with dixon-senstitive E. coli -initially on ceftriaxone, changed to keflex and completed 5 day course (5) Acute metabolic encephalopathy: initially 2nd acute CVA early in the stay. had resolved -- but still had periods of prolonged sleepiness. when awake she would follow commands, eat/drink, etc. repeat CT head 05/01 -- no edema, no hemorrhagic transformation. partially brain edema from stroke, other acute issues as above may have also been contributing, more alert and her endorses this resolved (6) Left acute arterial ischemic stroke, MCA (middle cerebral artery): Hx of large L MCA ischemic stroke in November 2022 (7) Atrial fibrillation: following her 11/2022 admission for #2 she was sent home with an event monitor by report this showed PAF. Has had afib on monitor during this admisison was to have started Xarelto for anticoagulation but, also by report, apparently never took such the cause of her current stroke very well may have been embolic in etiology due to the large size of current stroke plan to hold off on systemic anticoagulation at this time to avoid hemorrhagic transformation cont metoprolol 75mg BID - this has been titrated with good rate control (8) History of breast cancer: S/p lumpectomy 8 years ago Hold anastrozole for now given strokes (9) Hypothyroidism: Cont levothyroxine TSH 11/2022 wnl (10) Elevated troponin: Troponin 81.8 --> 103.5, then trended down 2nd myocardial demand ischemia in setting of acute CVA (11) DVT prophylaxis: SCDs - chemopx held because of LGIB and RP hemorrhage, ASA/plavix resumed 05/04 Plan Stage 2 pressure ulcer present on admission and was getting wet so swan placed. Continue pressure offloading and wound care Would recommend discontinuation of swan and have voiding trial DNR/DNI, palliative care consultation would be helpful if fails to improve or if additional complications. Palliative care consultation not available 05/04- present at [place] unfortunately. Has been participating in therapies, more alert, and eating/drinking, assess clinical course and response to rehab. Total Time Total Time Spent Total Time Spent (In Minutes): 45 minutes spent coordinating care for discharge Discharge Plan Discharge Items Patient Disposition: Transfer Inpatient Rehab Fac Reason For Visit: STROKE ALERT Discharge Diagnosis: acute stroke Activity: As commented below Non-emergency contact: Primary Care Provider Call non-emergency contact if: you have any medication questions Follow-up/Referrals: Froy Richard MD [Physician] - ([facility] [place] neurology for stroke, 1 month) [facility] [Non-Staff] - PCP,NO [Primary Care Provider] - Diet: Heart Healthy Diet Comment: pureed Addtl Attending Provider Instructions: PT and OT evaluate and treat heart healthy, pureed texture diet thin liquids discontinue swan and do voiding trial sacral wound present on admission stage 2 - dressing: calcium alginate, adhesive foam pressure relief boots for heels CBC, BMP in 1 week, monitor anemia Monitor stools - keep soft, had stercoral proctitis from hard impacted stool with hematochezia 05/02, resolved with enemas, bowel regimen Pending Studies at Discharge: No Stand-Alone Forms: [facility], Medications to Prevent Stroke Skilled Items Patient informed of condition?: Yes DNR: Yes Discharge Level of Care: Acute rehab Communicable Disease: No Discharge Prognosis: Stable Lines: None Urinary Catheter: Yes Medications and DC Order Prescriptions: New aspirin 81 mg Tablet,Delayed Release (Dr/Ec) 81 mg PO DAILY Qty: 0 0RF diclofenac sodium [Voltaren Arthritis Pain] 1 % Gel 4 g EXT QID Qty: 0 0RF sennosides [Senokot] 8.6 mg Tablet 17.2 mg PO QAM Qty: 0 0RF metoprolol tartrate 25 mg Tablet 75 mg PO BID Qty: 0 0RF acetaminophen 325 mg Tablet 650 mg PO Q4H PRNQty: 0 0RF clopidogrel 75 mg Tablet 75 mg PO QAM Qty: 0 0RF rosuvastatin 10 mg Tablet 10 mg PO DAILY Qty: 0 0RF polyethylene glycol 3350 [Miralax] 17 gram Powder In Packet 17 g PO DAILY Qty: 0 0RF amlodipine [Norvasc] 5 mg Tablet 2.5 mg PO QAM Qty: 0 0RF Continued levothyroxine 75 mcg Tablet 75 mcg PO DAILY ondansetron 4 mg Tablet,Disintegrating 4 mg PO Q6H PRN (Reason: nausea and vomiting) Qty: 20 0RF Discontinued anastrozole 1 mg Tablet 1 mg PO DAILY metoprolol succinate 25 mg Tablet Extended Release 24 Hr 12.5 mg PO DAILY Rx Instructions: per pharmacy she takes half tab Xarelto 15 mg PO PM Rx Instructions: Pharmacist verified dosage, on file since feb, pt hasn't picked up. rosuvastatin 5 mg PO DAILY Discharge Orders: Discharge Order (Routine); Ordered 05/06/23 Ordered By: Bryanna Mg Admission Data Admit Date/Time: 04/26/23 12:04 Attending Provider: Bryanna Mg Admit Provider: Chapo Menendez Primary Care Provider: PCP,NO Other Providers: [facility]; Chapo Menendez; Froy Richard; Kalee Melara; Morris Fiore; Karly Santillan; Radha Guillory; Lisa Muhammad; Shruthi Koo; Von Bernabe; Tomasz Ballard; Ezra Sandoval; Lindsay Edwards; Wenceslao Bey S; Shaquille Black; Latanya Lara; Elida Gross; Minda Silverio; Bekah Robison; Bobbi Perez; Josep De Luna; Gordon Jones; Sharla Montejo; Daniel Clark Jr Coding Level of Care Code 30245 INP/OBS DISCH >30 MIN Diagnoses Acute CVA (cerebrovascular accident) I63.9 Lower gastrointestinal bleed K92.2 Retroperitoneal hemorrhage R58 UTI (urinary tract infection) N39.0 Acute metabolic encephalopathy G93.41 Left acute arterial ischemic stroke, 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
== END 2023-05-06 13:24 | DRG 64 ==
LOC: ED 08:53 → SUATTDRO 12:04 → EDINP 12:04 → 2S 22:12